=== PATIENT | female | born 1950 | race Caucasian/White ===

== ENCOUNTER 2017-07-09 11:48 | Inpatient (IN) | payer MEDICARE, OTHER ==
[2017-07-09] MEDS ORDERED: SODIUM CHLORIDE 0.9% 1,000 ML IV ONE (12:51)
[2017-07-09] MEDS ORDERED: LIDOCAINE 2% INJ 20 MG/ML (20 ML MDV) ONE (16:05)
[2017-07-09] MEDS ORDERED: MIDAZOLAM 2 MG/2 ML VIAL ONE (16:05)
[2017-07-09] MEDS ORDERED: HEPARIN SODIUM 1,000 UN/ML (10ML VL) ONE (16:05)
[2017-07-09] MEDS ORDERED: VERAPAMIL 2.5 MG/ML 2 ML AMP ONE (16:06)
[2017-07-09] MEDS ORDERED: HYDROmorphone 2 MG/ML 1 ML SYRINGE ONE (16:41)
[2017-07-09] MEDS: HYDROmorphone 2 MG/ML 1 ML SYRINGE IV ONE ×2 (16:42→17:06)
[2017-07-09] MEDS ORDERED: LIDOCAINE 2% INJ 20 MG/ML IV ONE ×2 (16:47→16:55)
[2017-07-09] MEDS ORDERED: IOHEXOL 350 MG/ML 125ML BOTTLE INJ ONE (17:12)
[2017-07-09] MEDS ORDERED: RX INFO: IV CONTRAST WAS GIVEN 1 EACH MISC MISCELLANE PRN (17:22)
[2017-07-09] MEDS ORDERED: SODIUM CHLORIDE 0.9% 1,000 ML in EMPTY BAG 1 BAG IV ONE (17:43)
[2017-07-09] MEDS ORDERED: ATORVASTATIN 80 MG TAB PO STA (17:43)
[2017-07-09] MEDS ORDERED: ASPIRIN 325 MG TAB PO STA (17:43)
[2017-07-09] MEDS ORDERED: ALPRAZolam 0.25 MG TAB PO PRN (17:43)
[2017-07-09] MEDS ORDERED: NITROGLYCERIN SL TABS 0.4 MG TAB SUBLINGUAL PRN (17:43)
[2017-07-09] MEDS: SODIUM CHLORIDE 0.9% 1,000 ML IV SCH (18:46)
[2017-07-09] MEDS: traZODone HCL 100 MG TAB PO SCH (20:38)
[2017-07-09] MEDS: FUROSEMIDE 20 MG TAB PO SCH (20:38)
[2017-07-09] MEDS: HYDROcodone/APAP 7.5-325MG 1 EACH TAB PO PRN (21:43)
[2017-07-10] MEDS: ALPRAZolam 0.5 MG TAB PO PRN (02:08)
[2017-07-10] MEDS: SODIUM CHLORIDE 0.9% 1,000 ML IV SCH (06:20)
[2017-07-10] MEDS: LEVOTHYROXINE 125 MCG TAB PO SCH (06:22)
[2017-07-10 06:46] LABS: Basophils # (A) 0.1 k/uL (0-0.2); Basophils % (A) 1 %; CH 29.7; CHCM 33.6; Eosinophils # (A) 0.4 k/uL (0-0.7); Eosinophils % (A) 5 %; HDW 2.62; HGB 13.3 gm/dL (11.4-16.0); Luc % (Auto) 3; Lymphocytes # (A) 1.8 k/uL (1.0-4.8); Lymphocytes % (A) 28 %; MCH 28.8 pg (25.0-35.0); MCHC 32.4 g/dL (31.0-37.0); MCV 88.8 fL (80.0-100.0); Mean Platelet Volume 9.1; Monocytes # (A) 0.7 k/uL (0-1.0); Monocytes % (A) 11 %; Neutrophils # (A) 3.4 k/uL (1.3-7.7); Neutrophils % (A) 52 %; RBC 4.62 m/uL (3.80-5.40); RDW 13.2 % (11.5-15.5); WBC 6.6 k/uL (3.8-10.6); WBC (Perox) 7.05
[2017-07-10 07:05] LABS: Anion Gap 9 mmol/L; Blood Urea Nitrogen 8 mg/dL (7-17); Calcium 8.3 mg/dL (8.4-10.2); Carbon Dioxide 27 mmol/L (22-30); Chloride 105 mmol/L (98-107); Glucose 116 mg/dL (74-99); Non-African American GFR(MDRD) >60 (>60 ml/min/1.73 sqM); Potassium 4.1 mmol/L (3.5-5.1); Sodium 141 mmol/L (137-145)
[2017-07-10] MEDS: CLOPIDOGREL 75 MG TAB PO SCH (08:32)
[2017-07-10] MEDS: FUROSEMIDE 20 MG TAB PO SCH ×2 (08:33→21:19)
[2017-07-10] MEDS: LISINOPRIL 20 MG TAB PO SCH (08:33)
[2017-07-10] MEDS: VENLAFAXINE HCL ER 150 MG CAP PO SCH (08:33)
[2017-07-10] MEDS: POTASSIUM CHLORIDE ER 10 MEQ TAB.ER.PRT PO SCH (08:33)
[2017-07-10] MEDS: METOPROLOL SUCCINATE (ER) 25 MG TAB.ER.24H PO SCH (08:33)
--- NOTE | 2017-07-10 12:06 | P.PN ---
Subjective Principal diagnosis: Chest discomfort This is a pleasant 67-year-old female patient who presented to the hospital with a chest discomfort concerning for angina. She underwent a heart catheterization yesterday by Dr. ENDY Coello and was found to have mild nonobstructive CAD. I'll follow-up with her today, she denies having any chest pain or discomfort or difficulty breathing. The right groin is soft and nontender and without any bruises. Hemodynamically she is hypotensive with systolic blood pressure below 100 mmHg. I will decrease the dose of lisinopril to 20 mg by mouth daily. Monitor the patient's blood pressure. Follow-up on the echocardiogram. Objective - Vital Signs Vital signs: Vital Signs Temp 97.1 F L 07/10/17 04:00 Pulse 92 07/10/17 04:00 Resp 18 07/10/17 04:00 BP 94/56 07/10/17 04:00 Pulse Ox 92 L 07/10/17 04:00 Intake & Output 07/09/17 07/10/17 07/10/17 18:59 06:59 18:59 Intake Total 400 Output Total 100 Balance 400 -100 Weight 96.615 kg 98.2 kg Intake: IV 325 Sodium Chloride 0.9% 1, 75 000 ml @ 75 mls/hr IV . [id number] PJ Rx#:[id number] Intake, IV Titration 75 Amount Sodium Chloride 0.9% 1, 75 000 ml @ 75 mls/hr IV . [id number] PJ Rx#:[id number] Output: Urine 100 Other: # Voids 2 1 - Constitutional General appearance: Present: no acute distress - Respiratory Respiratory: bilateral: CTA - Cardiovascular Rhythm: regular Heart sounds: normal: S1, S2 - Labs CBC & Chem 7: 07/10/17 06:09 07/10/17 06:09 Labs: Abnormal Lab Results - Last 24 Hours (Table) 07/10/17 Range/Units 06:09 Glucose 116 H (74-99) mg/dL Calcium 8.3 L (8.4-10.2) mg/dL Assessment and Plan Plan: This is a pleasant 67-year-old female patient who presented to the chest discomfort and underwent a heart catheterization and was found to have mild nonobstructive CAD. Clinically she is asymptomatic. Hemodynamically she is hypotensive and will decrease the dose of lisinopril and follow-up with her.
[2017-07-10] MEDS: ASPIRIN 81 MG CHEW PO SCH (12:29)
[2017-07-10] MEDS: CHOLECALCIFEROL 1,000 UNIT TAB PO SCH (12:30)
[2017-07-10] MEDS: diphenhydrAMINE 25 MG CAP PO PRN (13:17)
--- NOTE | 2017-07-10 18:03 | ECHOF ---
Referral Reason:CAD,HOCM ? MEASUREMENTS -------- HEIGHT: 152.4 cm WEIGHT: 96.6 kg BP: 130/50 IVSd: 1.5 cm (0.6 - 1.1) LVIDd: 3.7 cm (3.9 - 5.3) LVPWd: 1.3 cm (0.6 - 1.1) IVSs: 2.1 cm LVIDs: 3.4 cm LVPWs: 1.5 cm LAESV Index (A-L): 31.64 ml/m IVSd: 1.4 cm (0.6 - 1.1) LVIDd: 2.9 cm (3.9 - 5.3) LVPWd: 1.5 cm (0.6 - 1.1) IVSs: 1.6 cm LVIDs: 1.1 cm LVPWs: 2.2 cm EDV(Teich): 32 ml ESV(Teich): 3 ml EF(Teich): 91 % %FS: 62 % SV(Teich): 29 ml Ao Diam: 3.4 cm (2.0 - 3.7) LA Diam: 4.2 cm (2.7 - 3.8) MV EXCURSION: 15.488 mm (> 18.000) MV EF SLOPE: 61 mm/s (70 - 150) EPSS: 0.5 cm MV E Gus: 0.79 m/s MV DecT: 235 ms MV A Gus: 1.12 m/s MV E/A Ratio: 0.71 AV maxP.99 mmHg AV meanP.82 mmHg RAP: 5.00 mmHg RVSP: 25.15 mmHg FINDINGS -------- Sinus rhythm. Morbid Obesity This was a techncally difficult study with suboptimal views, , Definity utilized for enhancement of images. Pt. not compliant. There is moderate concentric left ventricular hypertrophy. Overall left ventricular systolic function is low-normal with, an EF between 50 - 55 %. Sigmoid Septum Distal Septal Hypokinesis. The right ventricle is normal in size. LA is midly dilated 29-33ml/m2. The right atrial size is normal. 1.5MG OF DEFINITY UTLIZED: 2 OR MORE WALL SEGMENTS NOT VISUALIZED. The aortic valve is trileaflet, and appears structurally normal. No aortic stenosis or regurgitation. Mild mitral regurgitation is present. Mild tricuspid regurgitation present. There is no evidence of pulmonary hypertension. The right ventricular systolic pressure, as measured by Doppler, is 25.15mmHg. The pulmonic valve was not well visualized. The aortic root size is normal. There is no pericardial effusion. CONCLUSIONS -------- 1. Morbid Obesity 2. Mild tricuspid regurgitation present. 3. There is no evidence of pulmonary hypertension. 4. The right ventricular systolic pressure, as measured by Doppler, is 25.15mmHg. 5. The pulmonic valve was not well visualized. 6. This was a techncally difficult study with suboptimal views, , Definity utilized for enhancement of images. 7. Pt. not compliant. 8. There is moderate concentric left ventricular hypertrophy. 9. Overall left ventricular systolic function is low-normal with, an EF between 50 - 55 %. 10. Sigmoid Septum 11. Distal Septal Hypokinesis. 12. 1.5MG OF DEFINITY UTLIZED: 2 OR MORE WALL SEGMENTS NOT VISUALIZED. 13. Mild mitral regurgitation is present. CAMP HOUSEKEEPER: Melinda Oakes RDCS
--- NOTE | 2017-07-10 19:50 | CC ---
DATE OF SERVICE: 07/09/2017 PROCEDURE: Left heart catheterization, coronary angiography, and left ventriculography. PERFORMED BY: Dr. Young Coello. CLINICAL INFORMATION: Mrs. Preeti Nettles is a 67 year old lady with a history of hypertension, hyperlipidemia, CAD, previous stenting of mid LAD performed initially in 2008 and a restenotic lesion and repeat stenting in 2009. In 2011, her LAD was patent. She presented to [facility] with chest pain suggestive of angina and was transferred here for cardiac catheterization since their tanbark laborer was not functioning. PROCEDURE NOTE: Under local anesthesia and strict aseptic precautions, a 6 Turkmen introducer was placed in the right femoral artery. Initially I attempted from right radial but I had difficulty with axis. I did not place him in a sheath in the right radial and therefore a pressure bandage was applied. Standard Jimenez catheters were used to perform coronary angiography and a pigtail catheter was used to performed LV gram. The patient tolerated the procedure well. An Angio-Seal device was used to secure hemostasis. She was sent to the room in stable condition. Results were discussed with the patient and family. CARDIAC CATHETERIZATION FINDINGS: The left ventricle end diastolic pressure was about 16 mmHg and there was no gradient across the aortic valve. CORONARY ANGIOGRAPHY FINDINGS: Right coronary artery: Technically a small non-dominant vessel. Some selective injections were made. There are minor irregularities. No significant disease is noted. Injections are mostly subselective and the caliber of the vessel is small and distribution is small. Left main coronary artery: Short, patent, disease free vessel that bifurcates into LAD and circumflex. Left anterior descending coronary artery: Good caliber vessel extends along the anterior wall. In the mid portion at the site of previous stenting, the vessel is widely patent with no more than 30% narrowing. Beyond this, there are minor irregularities and extends all the way to the apex supplying a sizable amount of myocardium. It gives off two diagonal branches and several septal branches all of which are free of significant disease. The LAD therefore is widely patent at the site of previous stenting with no more than 30% narrowing. Left posterior circumflex coronary artery: Dominant vessel gives off two obtuse marginal branches and then runs distally. Gives off a posterolateral branch. There is no significant disease involving the distal branch of the circumflex which are dominant. There are only minor irregularities noted. LEFT VENTRICULOGRAM: This was performed in 30 degree MÉNDEZ projection, ejection fraction was normal. There appears to be mid cavitary constriction with apical hypokinesia but I think this is more related to possible hypertrophy cardiomyopathy type picture. There is a mid cavitary constriction noted. The ejection fraction appears to be normal in the range of 55%. I reviewed the LV gram from 2008 and a similar ventriculogram was noted. This patient received moderate conscious sedation for a total duration of 30 minutes. Dilaudid and Benadryl was given. The patients oxygen saturation was monitored and was good. The results were discussed with the patient and the family. She will be sent to the room in stable condition. REGINALD
--- NOTE | 2017-07-10 19:52 | MISC ---
Dear Dr. Mortensen: Thank you for the opportunity to participate in the care of Mrs. Preeti Nettles. I am pleased to report to you that she does not have any significant stenosis in the LAD distribution. The vessel is widely patent. I am recommending continued medical therapy with risk factor modification. She can be discharged tomorrow but I will perform an echocardiogram to assess the LV and there appears to be hypertrophic type picture on the LV gram. I will clarify this with an echocardiogram. Thank you for your referral and please call for questions. With kindest regards, Sincerely, REGINALD
[2017-07-10] MEDS: traZODone HCL 100 MG TAB PO SCH (21:19)
[2017-07-10] MEDS: ATORVASTATIN 40 MG TAB PO SCH (21:19)
[2017-07-10] MEDS: HYDROcodone/APAP 7.5-325MG 1 EACH TAB PO PRN (22:40)
[2017-07-11] MEDS: ALPRAZolam 0.5 MG TAB PO PRN (00:15)
[2017-07-11] MEDS: diphenhydrAMINE 25 MG CAP PO PRN (00:15)
[2017-07-11] MEDS: LEVOTHYROXINE 125 MCG TAB PO SCH (06:32)
[2017-07-11] MEDS: LISINOPRIL 20 MG TAB PO SCH (10:06)
[2017-07-11] MEDS: FUROSEMIDE 20 MG TAB PO SCH ×2 (10:06→19:44)
[2017-07-11] MEDS: POTASSIUM CHLORIDE ER 10 MEQ TAB.ER.PRT PO SCH (10:06)
[2017-07-11] MEDS: CLOPIDOGREL 75 MG TAB PO SCH (10:06)
[2017-07-11] MEDS: ASPIRIN 81 MG CHEW PO SCH (10:06)
[2017-07-11] MEDS: VENLAFAXINE HCL ER 150 MG CAP PO SCH (10:06)
--- NOTE | 2017-07-11 10:54 | P.DS ---
Providers Date of admission: 07/09/17 12:30 Attending physician: Dylan Coello Primary care physician: Alpesh Taylor [facility] Course: This is a pleasant 67-year-old female patient who presented to the hospital with a chest discomfort concerning for angina. She underwent a heart catheterization yesterday by Dr. ENDY Coello and was found to have mild nonobstructive CAD. I'll follow-up with her today, she denies having any chest pain or discomfort or difficulty breathing. The right groin is soft and nontender and without any bruises. Hemodynamically she seems to be stable. The patient and be discharged home to follow-up with Dr. ENDY Coello as an outpatient. Plan - Discharge Summary New Discharge Prescriptions: Continue Aspirin [Adult Low Dose Aspirin EC] 81 mg PO DAILY traZODone HCL [Desyrel] 100 mg PO HS Potassium Chloride ER [K-Dur 10] 10 meq PO BID Metoprolol Succinate (ER) [Toprol XL] 50 mg PO DAILY Lisinopril 40 mg PO DAILY Levothyroxine Sodium [Synthroid] 125 mcg PO DAILY Furosemide [Lasix] 20 mg PO BID Famotidine 40 mg PO DAILY Clopidogrel [Plavix] 75 mg PO DAILY Cholecalciferol (Vitamin D3) [Vitamin D3] 2,000 unit PO DAILY Baclofen [Lioresal] 10 mg PO TID Atorvastatin [Lipitor] 10 mg PO HS Venlafaxine HCl [Effexor XR] 150 mg PO DAILY Multivitamin,Therapeutic [Thera] 1 tab PO DAILY Discharge Medication List Aspirin [Adult Low Dose Aspirin EC] 81 mg PO DAILY 07/09/17 [History] Atorvastatin [Lipitor] 10 mg PO HS 07/09/17 [History] Baclofen [Lioresal] 10 mg PO TID 07/09/17 [History] Cholecalciferol (Vitamin D3) [Vitamin D3] 2,000 unit PO DAILY 07/09/17 [History] Clopidogrel [Plavix] 75 mg PO DAILY 07/09/17 [History] Famotidine 40 mg PO DAILY 07/09/17 [History] Furosemide [Lasix] 20 mg PO BID 07/09/17 [History] Levothyroxine Sodium [Synthroid] 125 mcg PO DAILY 07/09/17 [History] Lisinopril 40 mg PO DAILY 07/09/17 [History] Metoprolol Succinate (ER) [Toprol XL] 50 mg PO DAILY 07/09/17 [History] Multivitamin,Therapeutic [Thera] 1 tab PO DAILY 07/09/17 [History] Potassium Chloride ER [K-Dur 10] 10 meq PO BID 07/09/17 [History] Venlafaxine HCl [Effexor XR] 150 mg PO DAILY 07/09/17 [History] traZODone HCL [Desyrel] 100 mg PO HS 07/09/17 [History] Follow up Appointment(s)/Referral(s): Dylan Coello MD [STAFF PHYSICIAN] - 1 Week
[2017-07-11] MEDS: CHOLECALCIFEROL 1,000 UNIT TAB PO SCH (17:44)
[2017-07-11] MEDS: traZODone HCL 100 MG TAB PO SCH (19:44)
[2017-07-11] MEDS: ATORVASTATIN 40 MG TAB PO SCH (19:44)
[2017-07-11] MEDS: HYDROcodone/APAP 7.5-325MG 1 EACH TAB PO PRN (20:09)
[2017-07-11] MEDS ORDERED: METOPROLOL SUCCINATE (ER) 25 MG TAB.ER.24H PO STA (21:14)
[2017-07-12] MEDS: LEVOTHYROXINE 125 MCG TAB PO SCH (06:29)
[2017-07-12] MEDS: ASPIRIN 81 MG CHEW PO SCH (08:03)
[2017-07-12] MEDS: CLOPIDOGREL 75 MG TAB PO SCH (08:04)
[2017-07-12] MEDS: METOPROLOL SUCCINATE (ER) 25 MG TAB.ER.24H PO SCH (08:04)
[2017-07-12] MEDS: LISINOPRIL 20 MG TAB PO SCH (08:04)
[2017-07-12] MEDS: POTASSIUM CHLORIDE ER 10 MEQ TAB.ER.PRT PO SCH (08:05)
[2017-07-12] MEDS: VENLAFAXINE HCL ER 150 MG CAP PO SCH (08:05)
[2017-07-12] MEDS: CHOLECALCIFEROL 1,000 UNIT TAB PO SCH (08:06)
[2017-07-12] MEDS: FUROSEMIDE 20 MG TAB PO SCH (08:07)
[2017-07-12 08:20] VITALS: RESP 18
[2017-07-12 13:21] VITALS: BP 152/89; PULSE 97; TEMP 97.5
--- NOTE | 2017-07-12 14:56 | P.PN ---
Subjective Principal diagnosis: Chest pain Discharge note This is a pleasant 67-year-old female who presented to the hospital with symptoms of chest pain concerning for angina. She underwent a cardiac catheterization by Dr. Hafsa Coello and was to have nonobstructive coronary artery disease. Patient was initially cleared for discharge yesterday but because of some issues regarding placement this was deferred to today. Case management and social work have been on her case, she is scheduled to be discharged home today. She denies any chest discomfort Objective - Vital Signs Vital signs: Vital Signs Temp 97.5 F L 07/12/17 11:35 Pulse 97 07/12/17 11:35 Resp 18 07/12/17 11:35 BP 152/89 07/12/17 11:35 Pulse Ox 96 07/12/17 11:35 Intake & Output 07/11/17 07/12/17 07/12/17 18:59 06:59 18:59 Intake Total 0 180 Output Total 2 300 1 Balance -2 -300 179 Weight 98.4 kg 97.3 kg Intake: Oral 0 180 Output: Urine 300 Stool 2 1 Other: Voiding Method Toilet Toilet # Voids 1 2 - Exam PHYSICAL EXAMINATION: HEENT: Head is atraumatic, normocephalic. Pupils equal, round. Neck is supple. There is no elevated jugular venous pressure. HEART EXAMINATION: Heart S1, S2 normal. No murmur or gallop heard. CHEST EXAMINATION: Lungs are clear to auscultation and precussion. No chest wall tenderness is noted on palpation or with deep breathing. ABDOMEN: Soft, obese, nontender. Bowel sounds are heard. No organomegaly noted] . EXTREMITIES:[ 2+ peripheral pulses with no evidence of peripheral edema and no calf tenderness noted]. NEUROLOGIC [patient is awake, alert and oriented -3.] . - Labs CBC & Chem 7: 07/10/17 06:09 07/10/17 06:09 Labs: Abnormal Lab Results - Last 24 Hours (Table) 07/11/17 Range/Units 21:47 D-Dimer 0.76 H (<0.60) mg/L FEU Assessment and Plan Plan: Assessment and plan Patient presented to the hospital with symptoms of chest discomfort. Cardiac catheterization did not reveal any evidence of any significant obstructive disease. She may be able to be discharged home. A follow-up appointment will be made for the patient in the office one week post discharge. Patient will be discharged home on aspirin 81 mg daily, Lipitor 40 mg daily, vitamin D3, Plavix 75 mg daily, Lasix 20 mg twice a day, Synthroid 125mcg daily, lisinopril 40 mg daily, Toprol 75 mg daily, Effexor 150 mg daily, sublingual nitroglycerin as needed for chest pain. DNP note has been reviewed, I agree with a documented findings and plan of care. Patient was seen and examined.
== END 2017-07-12 13:24 | disposition home or self-care (01) | DRG 287 ==
LOC: 2CATHESU 12:30 → EEVIPCON 12:30 → 6SEL 18:05
PROVIDERS: ADMIT Internal Medicine Interventional Cardiology; ATTEND Internal Medicine Interventional Cardiology
PROC: B2151ZZ Fluoroscopy of Left Heart using Low Osmolar Contrast (ICD-10-PCS; principal; 2017-07-09 15:57)
PROC: B2111ZZ Fluoroscopy of Multiple Coronary Arteries using Low Osmolar Contrast (ICD-10-PCS; principal; 2017-07-09 15:57)
PROC: 4A023N7 Measurement of Cardiac Sampling and Pressure, Left Heart, Percutaneous Approach (ICD-10-PCS; principal; 2017-07-09 15:57)
DX: I25.119 Atherosclerotic heart disease of native coronary artery with unspecified angina pectoris (principal); I10 Essential (primary) hypertension; Z95.5 Presence of coronary angioplasty implant and graft; Z79.899 Other long term (current) drug therapy; E78.5 Hyperlipidemia, unspecified; E66.9 Obesity, unspecified
CPT/HCPCS: 80048; 85025; 85379; 93306

== ENCOUNTER → 2018-01-12 | Outpatient (CLI) | payer MEDICARE, OTHER ==
--- NOTE | 2018-01-12 23:10 | MR ---
EXAMINATION TYPE: MR lumbar spine wo con DATE OF EXAM: 01/12/2018 COMPARISON: NONE HISTORY: Low back pain causing pain and weakness both legs per patient. Low back pain, disc degenerat ion, spondylosis, L2 wedge compression fracture, L4 wedge compression fracture, and L5 wedge compress ion fracture all per order. TECHNIQUE: Multiplanar, multisequence imaging of the lumbar spine is performed without IV contrast. FINDINGS: Sagittal images of the lumbar spine show alignment to appear straightened. There is mild he ight loss superior L5 endplate. There is advanced compression fracture L4 level most prominent centra lly. There is moderate compression fracture L2 level most prominent centrally. Prominent Schmorl node s are seen superior T12 and L1 endplates. Bone marrow signal intensity is maintained without suspicio us edema to suggest acute compression fractures. The intervertebral discs demonstrate multilevel devan ccation. The disc space heights are fairly well-maintained without suspicious posterior disc herniati on. No suspicious ossific posterior protrusions are seen. The conus medullaris is normal in position and signal ending at mid L1 level. Mild multilevel anterior spurring near the thoracolumbar junction is present. Axial images at the T12-L1 level shows tiny central disc protrusion mildly effacing the anterior thec al sac and mild facet degenerative changes bilaterally. Bilateral neural foramina are patent. Axial images at L1-L2 level show moderate broad disc bulge with right paracentral disc protrusion com ponent mildly effaces the anterior thecal sac. There are mild facet degenerative changes bilaterally. There is mild bilateral anterior inferior neural foraminal narrowing. Axial images at the L2-L3 level mild facet degenerative changes and ligamentum flavum hypertrophy. Th ere is no suspicious disc herniation. Bilateral neural foramina are patent. Axial images at the L3-L4 levels show broad-based posterior disc protrusion mildly effacing the anter ior thecal sac. Mild facet degenerative changes and ligamentum flavum hypertrophy are present bilater ally. There is mild bilateral anterior inferior neural foraminal narrowing identified. Axial images at L4-L5 level show mild/moderate facet degenerative changes bilaterally. There is broad -based posterior disc protrusion. Spinal canal is grossly preserved. There is mild/moderate bilateral neural foraminal narrowing at this level identified. Axial images at L5-S1 level show moderate facet degenerative changes bilaterally. There is tiny centr al disc protrusion seen. Spinal canal is preserved. Bilateral neural foramina are mildly narrowed. No suspicious retroperitoneal findings are identified. IMPRESSION: Straightening of lumbar spine with multilevel chronic compression type fracture deformiti es confirmed. Multilevel degenerative changes are also seen as detailed above. No acute fractures shante ntified.
== END | disposition home or self-care (01) ==
LOC: RADMRIMAIN 17:36
PROVIDERS: ATTEND Orthopaedic Surgery Orthopaedic Surgery of the Spine
DX: M48.56XA Collapsed vertebra, not elsewhere classified, lumbar region, initial encounter for fracture (principal); M47.816 Spondylosis without myelopathy or radiculopathy, lumbar region
CPT/HCPCS: 72148

== ENCOUNTER 2018-07-13 11:33 | Inpatient (IN) | payer MEDICARE, OTHER ==
--- NOTE | 2018-07-13 12:51 | ED ---
Upper Extremity HPI - General Source: patient, RN notes reviewed, old records reviewed Mode of arrival: ambulatory Limitations: no limitations <Lizbeth Shah - Last Filed: 07/13/18 18:50> <Ryan Phelan - Last Filed: 07/13/18 19:01> - General Chief Complaint: Extremity Injury, Upper Stated Complaint: slid off bed, shoulder pain Time Seen by Provider: 07/13/18 11:44 - History of Present Illness Initial Comments: 68-year-old female presents emergency department today with left shoulder pain and bilateral knee pain after she slipped and fell out of her bed. Patient reports that she pulled her arm. Patient reports pain with range of motion of the left arm. She does have history of left clavicle fracture in the past. Patient states that was many years ago. She denies any head or neck injury. She reports that she slipped out of bed and didn't realize she is alert. She denies any significant pain within her back or tailbone. She does ambulate with a walker. (Lizbeth Shah) - Related Data Home Medications Medication Instructions Recorded Confirmed Baclofen [Lioresal] 10 mg PO TID 07/09/17 07/13/18 Cholecalciferol (Vitamin D3) 2,000 unit PO DAILY 07/09/17 07/13/18 [Vitamin D3] Clopidogrel [Plavix] 75 mg PO DAILY 07/09/17 07/13/18 Famotidine 40 mg PO DAILY 07/09/17 07/13/18 Furosemide [Lasix] 20 mg PO DAILY 07/09/17 07/13/18 Levothyroxine Sodium [Synthroid] 125 mcg PO DAILY 07/09/17 07/13/18 Lisinopril 40 mg PO DAILY 07/09/17 07/13/18 Metoprolol Succinate (ER) [Toprol 75 mg PO DAILY 07/09/17 07/13/18 XL] Multivitamin,Therapeutic [Thera] 1 tab PO DAILY 07/09/17 07/13/18 Potassium Chloride ER [K-Dur 10] 10 meq PO TID 07/09/17 07/13/18 Venlafaxine HCl [Effexor XR] 150 mg PO DAILY 07/09/17 07/13/18 traZODone HCL [Desyrel] 100 mg PO HS 07/09/17 07/13/18 ALPRAZolam [Xanax] 0.25 mg PO TID PRN 07/13/18 07/13/18 Baclofen 5 mg PO TID PRN 07/13/18 07/13/18 Calcitonin Nasal [Fortical 1 spray NASAL DAILY 07/13/18 07/13/18 (Miacalcin)] Diphenox-Atrop 2.5-0.025 mg 1 tab PO QID PRN 07/13/18 07/13/18 [Lomotil] Gabapentin [Neurontin] 100 mg PO TID 07/13/18 07/13/18 HYDROcodone/APAP 7.5-325MG [[place] 1 tab PO TID PRN 07/13/18 07/13/18 7.5-325] Isosorbide Mononitrate ER [Imdur] 30 mg PO DAILY 07/13/18 07/13/18 Simvastatin [Zocor] 20 mg PO HS 07/13/18 07/13/18 amLODIPine [Norvasc] 10 mg PO DAILY 07/13/18 07/13/18 metFORMIN HCL ER [Glucophage Xr] 500 mg PO BID 07/13/18 07/13/18 Allergies Allergy/AdvReac Type Severity Reaction Status Date / Time aspirin Allergy Itching Verified 07/13/18 12:25 Review of Systems ROS Other: All systems not noted in ROS Statement are negative. <Lizbeth Shah - Last Filed: 07/13/18 18:50> ROS Other: All systems not noted in ROS Statement are negative. <Ryan Phelan - Last Filed: 07/13/18 19:01> ROS Statement: Those systems with pertinent positive or pertinent negative responses have been documented in the HPI. Past Medical History Past Medical History: Chest Pain / Angina, Diabetes Mellitus, Hyperlipidemia, Hypertension History of Any Multi-Drug Resistant Organisms: None Reported Past Surgical History: Heart Catheterization With Stent, Hysterectomy, Tubal Ligation Additional Past Surgical History / Comment(s): thyroidectomy Past Psychological History: No Psychological Hx Reported Smoking Status: Never smoker Past Alcohol Use History: None Reported Past Drug Use History: None Reported <Lizbeth Shah - Last Filed: 07/13/18 18:50> General Exam Limitations: no limitations General appearance: alert, in no apparent distress Head exam: Present: atraumatic, normocephalic, normal inspection Eye exam: Present: normal appearance, PERRL, EOMI. Absent: scleral icterus, conjunctival injection, periorbital swelling ENT exam: Present: normal exam, mucous membranes moist Neck exam: Present: normal inspection. Absent: tenderness, meningismus, lymphadenopathy Respiratory exam: Present: normal lung sounds bilaterally. Absent: respiratory distress, wheezes, rales, rhonchi, stridor Cardiovascular Exam: Present: regular rate, normal rhythm, normal heart sounds. Absent: systolic murmur, diastolic murmur, rubs, gallop, clicks GI/Abdominal exam: Present: soft, normal bowel sounds. Absent: distended, tenderness, guarding, rebound, rigid Extremities exam: Present: full ROM, normal capillary refill. Absent: normal inspection, tenderness, pedal edema, joint swelling, calf tenderness Left Shoulder Exam: Present: tenderness (Chest tenderness over the anterior aspect of the shoulder.). Absent: normal inspection Upper Arm exam: Present: normal inspection, full ROM Elbow exam: Present: normal inspection, full ROM Forearm Wrist exam: Present: normal inspection, full ROM Hand Wrist exam: Present: normal inspection, full ROM Neuro motor exam: Present: wrist extension intact, thumb opposition intact, thumb adduction intact Vascular: Present: normal capillary refill Back exam: Present: normal inspection Neurological exam: Present: alert, oriented X3, CN II-XII intact Expanded Patient oriented to: Present: person, place, time Speech: Present: fluid speech Cranial nerves: EOM's Intact: Normal Cerebellar function: Finger to Nose: Normal Upper motor neuron: Pronator Drift: Normal Sensory exam: Upper Extremity Light Touch: Normal, Lower Extremity Light Touch: Normal Motor strength exam: RUE: 5, LUE: 5, RLE: 5, LLE: 5 Eye Response: (4) open spontaneously Motor Response: (6) obeys commands Verbal Response: (5) oriented Rescue Total: 15 Psychiatric exam: Present: normal affect, normal mood Skin exam: Present: warm, dry, intact, normal color. Absent: rash <Lizbeth Shah - Last Filed: 07/13/18 18:50> <Ryan Phelan - Last Filed: 07/13/18 19:01> - General Exam Comments Initial Comments: Is a 68-year-old female. Alert and oriented. No significant distress. ( Lizbeth Shah) Course <Lizbeth Shah - Last Filed: 07/13/18 18:50> <Ryan Phelan - Last Filed: 07/13/18 19:01> Vital Signs 07/13/18 07/13/18 07/13/18 11:50 14:08 16:37 Temperature 98.3 F Pulse Rate 91 100 94 Respiratory 18 18 18 Rate Blood Pressure 156/64 154/86 125/77 O2 Sat by Pulse 92 L 94 L 100 Oximetry - Reevaluation(s) Reevaluation #1: 07/13/18 19:01 PA supervision: I personally saw and examined the patient. I have reviewed and agree with the PAs findings including all diagnostic interpretations treatment plans is written unless otherwise stated. I did discuss the case with the patient and with Dr. Bonds. Patient is currently persistently dizzy unstable with any type of attempts ambulate. She will require inpatient treatment and evaluation. (Ryan Phelan) Procedures - Orthopedic Splinting/Casting Injury #1 Side: left Upper Extremity Injury Location: shoulder Upper Extremity Immobilizer: sling/shoulder immobilizer <Lizbeth Shah - Last Filed: 07/13/18 18:50> Medical Decision Making - Lab Data Result diagrams: 07/13/18 14:06 07/13/18 14:06 - Radiology Data Radiology results: report reviewed <Lizbeth Shah - Last Filed: 07/13/18 18:50> - Lab Data Result diagrams: 07/13/18 14:06 07/13/18 14:06 <Ryan Phelan - Last Filed: 07/13/18 19:01> - Medical Decision Making 68-year-old female lives in assisted living home presents emergency department today with chief complaint of slipping off the bed and falling. She reports that she hit her left shoulder. She denies any other significant complaints besides her knees. No chest pain shortness breath this time. She denies any head or neck injury. Patient is tender to palpation over left shoulder. Patient has no radial deficit or neurological deficits. X-ray of the shoulder shows evidence of a displaced humeral fracture. I'm concerned with patient's ability to really care for herself if she does not typically ambulate with a walker with the shoulder injury at this time. She has no orthopedic that she sees at this time currently. Patient's labwork was obtained. Slight leukocytosis noted. She also has evidence of urinary tract infection. It is similar to admit the Patient for fall, humeral neck fracture, inability to perform her ADLs, and UTI. Patient was given Rocephin for UTI. Consult to neuro and ortho per . (Lizbeth Shah) - Lab Data Lab Results 07/13/18 07/13/18 07/13/18 Range/Units 14:06 14:06 15:14 WBC 12.2 H (3.8-10.6) k/uL RBC 5.12 (3.80-5.40) m/uL Hgb 14.7 (11.4-16.0) gm/dL Hct 44.3 (34.0-46.0) % MCV 86.5 (80.0-100.0) fL MCH 28.6 (25.0-35.0) pg MCHC 33.1 (31.0-37.0) g/dL RDW 12.7 (11.5-15.5) % Plt Count 235 (150-450) k/uL Neutrophils % 80 % Lymphocytes % 12 % Monocytes % 7 % Eosinophils % 0 % Basophils % 0 % Neutrophils # 9.7 H (1.3-7.7) k/uL Lymphocytes # 1.5 (1.0-4.8) k/uL Monocytes # 0.8 (0-1.0) k/uL Eosinophils # 0.0 (0-0.7) k/uL Basophils # 0.1 (0-0.2) k/uL Sodium 142 (137-145) mmol/L Potassium 4.3 (3.5-5.1) mmol/L Chloride 104 (98-107) mmol/L Carbon Dioxide 27 (22-30) mmol/L Anion Gap 11 mmol/L BUN 19 H (7-17) mg/dL Creatinine 0.60 (0.52-1.04) mg/dL Est GFR (CKD-EPI)AfAm >90 (>60 ml/min/1.73 sqM) Est GFR (CKD-EPI)NonAf >90 (>60 ml/min/1.73 sqM) Glucose 202 H (74-99) mg/dL Calcium 9.0 (8.4-10.2) mg/dL Total Bilirubin 0.4 (0.2-1.3) mg/dL AST 36 (14-36) U/L ALT 55 H (9-52) U/L Alkaline Phosphatase 92 (38-126) U/L Total Protein 7.7 (6.3-8.2) g/dL Albumin 4.4 (3.5-5.0) g/dL Urine Color Yellow Urine Appearance Cloudy H (Clear) Urine pH 6.0 (5.0-8.0) Ur Specific [place] 1.020 (1.001-1.035) Urine Protein Trace H (Negative) Urine Glucose (UA) Negative (Negative) Urine Ketones Negative (Negative) Urine Blood Trace H (Negative) Urine Nitrite Negative (Negative) Urine Bilirubin Negative (Negative) Urine Urobilinogen <2.0 (<2.0) mg/dL Ur Leukocyte Esterase Moderate H (Negative) Urine RBC 3 (0-5) /hpf Urine WBC 55 H (0-5) /hpf Ur Squamous Epith Cells 1 (0-4) /hpf Ur Transition Epith Cell <1 (0-1) /hpf Urine Bacteria Occasional H (None) /hpf Urine Mucus Occasional H (None) /hpf Urine Yeast (Budding) Rare H (None) /hpf - Radiology Data The knee x-rays show no acute fracture dislocation. Diffuse osteopenia and arthropathy. Left shoulder x-ray shows a displaced humeral neck fracture. ( Lizbeth Shah) Disposition Time of Disposition: 16:41 <Lizbeth Shah - Last Filed: 07/13/18 18:50> <Ryan Phelan - Last Filed: 07/13/18 19:01> Clinical Impression: UTI (urinary tract infection), Left humeral fracture, Fall, Sepsis, Altered mental state Disposition: ADMITTED IP TO THIS HOSP Condition: Good Referrals: Alpesh Mortensen MD [Primary Care Provider] - 1-2 days
--- NOTE | 2018-07-13 13:14 | XR ---
EXAMINATION TYPE: XR knee complete bilateral DATE OF EXAM: 07/13/2018 COMPARISON: NONE HISTORY: Pain TECHNIQUE: 3 views are submitted bilaterally. FINDINGS: Osseous structures are intact. No acute fracture seen. Diffuse osteopenia. Mild narrowing of the kn ee joint and patellofemoral joint bilaterally with hypertrophic spurring. IMPRESSION: 1. No acute fracture or dislocation. 2. Diffuse osteopenia and arthropathy.
--- NOTE | 2018-07-13 13:15 | XR ---
EXAMINATION TYPE: XR shoulder complete LT DATE OF EXAM: 07/13/2018 COMPARISON: NONE HISTORY: Pain TECHNIQUE: Three views are submitted. FINDINGS: There is a displaced fracture appears to be comminuted involving the neck of the humerus. Diffuse ost eopenia noted. Mild narrowing of the AC joint. IMPRESSION: 1. Displaced humeral neck fracture.
[2018-07-13] MEDS ORDERED: HYDROcodone/APAP 10-325MG 1 EACH TAB PO ONE (13:18)
[2018-07-13 14:26] LABS: ALT 55 U/L (9-52); AST 36 U/L (14-36); Albumin 4.4 g/dL (3.5-5.0); Alkaline Phosphatase 92 U/L (38-126); Anion Gap 11 mmol/L; Blood Urea Nitrogen 19 mg/dL (7-17); Carbon Dioxide 27 mmol/L (22-30); Chloride 104 mmol/L (98-107); Glucose 202 mg/dL (74-99); Potassium 4.3 mmol/L (3.5-5.1); Sodium 142 mmol/L (137-145); Total Bilirubin 0.4 mg/dL (0.2-1.3); Total Protein 7.7 g/dL (6.3-8.2)
[2018-07-13 14:29] LABS: Basophils # (A) 0.1 k/uL (0-0.2); Basophils % (A) 0 %; Eosinophils % (A) 0 %; HCT 44.3 % (34.0-46.0); HGB 14.7 gm/dL (11.4-16.0); Lymphocytes # (A) 1.5 k/uL (1.0-4.8); Lymphocytes % (A) 12 %; MCH 28.6 pg (25.0-35.0); MCHC 33.1 g/dL (31.0-37.0); MCV 86.5 fL (80.0-100.0); Mean Platelet Volume 8.3; Monocytes # (A) 0.8 k/uL (0-1.0); Monocytes % (A) 7 %; Neutrophils # (A) 9.7 k/uL (1.3-7.7); Neutrophils % (A) 80 %; Platelet Count 235 k/uL (150-450); RBC 5.12 m/uL (3.80-5.40); RDW 12.7 % (11.5-15.5); WBC 12.2 k/uL (3.8-10.6)
[2018-07-13] MEDS ORDERED: MORPHINE SULFATE 4 MG/ML SYRINGE IVP STA (15:47)
[2018-07-13 15:49] LABS: Appearance,Urine Cloudy (Clear); Bacteria,Urine Occasional /hpf; Bilirubin,Urine Negative (Negative); Blood,Urine Trace (Negative); Budding Yeast,Urine Rare /hpf; Color,Urine Yellow; Glucose,Urine (UA) Negative (Negative); Ketones,Urine Negative (Negative); Leukocyte Esterase,Urine Moderate (Negative); Mucus,Urine Occasional /hpf; Nitrite,Urine Negative (Negative); Protein,Urine Trace (Negative); RBC,Urine 3 /hpf (0-5); Squamous Epithelial Cell,Urine 1 /hpf (0-4); Transitional Epi Cells,Urine <1 /hpf (0-1); Urobilinogen,Urine <2.0 mg/dL (<2.0); WBC,Urine 55 /hpf (0-5)
[2018-07-13] MEDS ORDERED: SODIUM CHLORIDE 0.9% 1,000 ML IV ONE ×2 (15:51→15:54)
[2018-07-13] MEDS ORDERED: cefTRIAXone IN SWFI 1,000 MG/10 ML SYRINGE IVP STA (15:54)
[2018-07-13] MEDS ORDERED: SODIUM CHLORIDE 0.9% 1,000 ML IV SCH (16:00)
[2018-07-13] MEDS: SODIUM CHLORIDE 0.9% 1,000 ML IV SCH (16:49)
--- NOTE | 2018-07-13 18:09 | CT ---
EXAMINATION TYPE: CT brain wo con DATE OF EXAM: 07/13/2018 COMPARISON: None HISTORY: Pain CT DLP: 1097 mGycm Automated exposure control for dose reduction was used. FINDINGS: There is cerebral cortical atrophy. There is no mass effect nor midline shift. There is no sign of in tracranial hemorrhage. The calvarium is intact. There is some debris in the left external auditory ca nal. IMPRESSION: NEGATIVE CT SCAN OF THE BRAIN. CEREBRAL ATROPHY.
[2018-07-13] MEDS ORDERED: NALOXONE 0.4 MG/ML 1 ML VIAL IV PRN (18:53)
[2018-07-13] MEDS ORDERED: ACETAMINOPHEN TAB 325 MG TAB PO PRN (18:53)
[2018-07-13] MEDS ORDERED: BACLOFEN 10 MG TAB PO PRN (18:58)
[2018-07-13] MEDS: HYDROcodone/APAP 5-325MG 1 EACH TAB PO PRN (19:44)
--- NOTE | 2018-07-13 20:46 | CT ---
EXAMINATION TYPE: CT shoulder LT wo con DATE OF EXAM: 07/13/2018 COMPARISON: None HISTORY: Left shoulder fx CT DLP: 651.6 mGycm Automated exposure control for dose reduction was used. FINDINGS: There is impacted comminuted humeral neck fracture. There is no dislocation. There is fragment rotati on of the humeral head. The scapula is intact. AC joint is intact. IMPRESSION: IMPACTED DISPLACED COMMINUTED HUMERAL NECK FRACTURE.
--- NOTE | 2018-07-13 21:15 | P.CNNES ---
History of Present Illness Consult date: 07/13/18 History of Present Illness: The patient is a 68-year-old woman who resides at [facility] and who presented to the hospital after sliding off her bed this morning. She states she slid off and when she woke up she found herself on the floor. She does not think she passed out. She had great difficulty getting up. She landed on her left shoulder and that she has asymptomatic been experiencing shoulder pain since then. She denied hitting her head. She denied any headache or neck pain. She denies any new weakness or numbness aside from the left shoulder of problem. She denied any vertigo at present. Patient normally ambulates with a walker. She has been admitted for placement since she will have difficulty using her walker due to shoulder injury. Review of Systems Eyes: denies blurred vision, denies pain Cardiovascular: Denies chest pain, Denies shortness of breath Respiratory: Denies cough Musculoskeletal: Denies myalgias Neurological: Denies numbness, Denies weakness Psychiatric: Denies anxiety, Denies depression Past Medical History Past Medical History: Chest Pain / Angina, Diabetes Mellitus, Hyperlipidemia, Hypertension History of Any Multi-Drug Resistant Organisms: None Reported Past Surgical History: Heart Catheterization With Stent, Hysterectomy, Tubal Ligation Additional Past Surgical History / Comment(s): thyroidectomy Past Psychological History: No Psychological Hx Reported Smoking Status: Never smoker Past Alcohol Use History: None Reported Past Drug Use History: None Reported Medications and Allergies Home Medications Medication Instructions Recorded Confirmed Type Baclofen [Lioresal] 10 mg PO TID 07/09/17 07/13/18 History Cholecalciferol (Vitamin D3) 2,000 unit PO DAILY 07/09/17 07/13/18 History [Vitamin D3] Clopidogrel [Plavix] 75 mg PO DAILY 07/09/17 07/13/18 History Famotidine 40 mg PO DAILY 07/09/17 07/13/18 History Furosemide [Lasix] 20 mg PO DAILY 07/09/17 07/13/18 History Levothyroxine Sodium [Synthroid] 125 mcg PO DAILY 07/09/17 07/13/18 History Lisinopril 40 mg PO DAILY 07/09/17 07/13/18 History Metoprolol Succinate (ER) [Toprol 75 mg PO DAILY 07/09/17 07/13/18 History XL] Multivitamin,Therapeutic [Thera] 1 tab PO DAILY 07/09/17 07/13/18 History Potassium Chloride ER [K-Dur 10] 10 meq PO TID 07/09/17 07/13/18 History Venlafaxine HCl [Effexor XR] 150 mg PO DAILY 07/09/17 07/13/18 History traZODone HCL [Desyrel] 100 mg PO HS 07/09/17 07/13/18 History ALPRAZolam [Xanax] 0.25 mg PO TID PRN 07/13/18 07/13/18 History Baclofen 5 mg PO TID PRN 07/13/18 07/13/18 History Calcitonin Nasal [Fortical 1 spray NASAL DAILY 07/13/18 07/13/18 History (Miacalcin)] Diphenox-Atrop 2.5-0.025 mg 1 tab PO QID PRN 07/13/18 07/13/18 History [Lomotil] Gabapentin [Neurontin] 100 mg PO TID 07/13/18 07/13/18 History HYDROcodone/APAP 7.5-325MG [[place] 1 tab PO TID PRN 07/13/18 07/13/18 History 7.5-325] Isosorbide Mononitrate ER [Imdur] 30 mg PO DAILY 07/13/18 07/13/18 History Simvastatin [Zocor] 20 mg PO HS 07/13/18 07/13/18 History amLODIPine [Norvasc] 10 mg PO DAILY 07/13/18 07/13/18 History metFORMIN HCL ER [Glucophage Xr] 500 mg PO BID 07/13/18 07/13/18 History Allergies Allergy/AdvReac Type Severity Reaction Status Date / Time aspirin Allergy Itching Verified 07/13/18 12:25 Physical Examination - Vital Signs Vital Signs: Vital Signs Temp Pulse Resp BP Pulse Ox 07/13/18 19:17 98.0 F 108 H 18 160/85 94 L 07/13/18 16:37 94 18 125/77 100 07/13/18 14:08 100 18 154/86 94 L 07/13/18 11:50 98.3 F 91 18 156/64 92 L Intake and Output 07/13/18 07/13/18 07/13/18 06:59 14:59 22:59 Other: Weight 81.647 kg - Constitutional General appearance: obese - EENT EENT: PERRL, hearing intact, vision intact - Respiratory Respiratory: lungs clear - Cardiovascular Cardiovascular: regular rate, normal S1, normal S2 - Neurologic Logic examination: Next Mental status: She was awake alert and oriented. There is no a aphasia or dysarthria. Speech examination: intact Detailed motor examination: other (O focal weakness detected. Left arm mental was limited due to recent fall and injury) Results - Laboratory Findings CBC and BMP: 07/13/18 14:06 07/13/18 14:06 Abnormal Lab Findings: Abnormal Labs 07/13/18 07/13/18 07/13/18 14:06 14:06 15:14 WBC 12.2 H Neutrophils # 9.7 H BUN 19 H Glucose 202 H Plasma Lactic Acid [place] ALT 55 H Urine Appearance Cloudy H Urine Protein Trace H Urine Blood Trace H Ur Leukocyte Esterase Moderate H Urine WBC 55 H Urine Bacteria Occasional H Urine Mucus Occasional H Urine Yeast (Budding) Rare H 07/13/18 19:58 WBC Neutrophils # BUN Glucose Plasma Lactic Acid [place] 2.1 H* ALT Urine Appearance Urine Protein Urine Blood Ur Leukocyte Esterase Urine WBC Urine Bacteria Urine Mucus Urine Yeast (Budding) Assessment and Plan (1) Fall Current Visit: Yes Status: Acute SNOMED Code(s): 0485207 Plan: Patient is a 68-year-old woman status post fall and injury to left shoulder. She denies hitting her head. She denies any neck pain or headache or dizziness at this time. She had a computed tomography scan of the brain in the emergency room which was negative except for some atrophy. Will check EEG and carotid ultrasound.
[2018-07-13] MEDS: MORPHINE SULFATE 4 MG/ML SYRINGE IV PRN (21:46)
[2018-07-13] MEDS: GABAPENTIN 100 MG CAP PO SCH (22:16)
[2018-07-13] MEDS: POTASSIUM CHLORIDE ER 10 MEQ TAB.ER.PRT PO SCH (22:16)
[2018-07-13] MEDS: metFORMIN 500 MG TAB PO SCH (22:16)
[2018-07-13] MEDS: ATORVASTATIN 10 MG TAB PO SCH (22:16)
[2018-07-14] MEDS: ONDANSETRON 4 MG/2 ML VIAL IVP PRN (03:15)
[2018-07-14] MEDS: MORPHINE SULFATE 4 MG/ML SYRINGE IV PRN ×4 (03:16→21:46)
[2018-07-14] MEDS: SODIUM CHLORIDE 0.9% 1,000 ML IV SCH ×2 (04:29→15:33)
[2018-07-14] MEDS: HYDROcodone/APAP 5-325MG 1 EACH TAB PO PRN ×4 (05:53→19:57)
--- NOTE | 2018-07-14 07:00 | P.CNOR ---
History of Present Illness - [facility] Consult date: 07/14/18 Consult reason: joint pain History of present illness: The patient is a 68-year-old [id number] female who lives in an assisted living facility presents with severe left shoulder pain after a fall out of her bed yesterday. She doesn't recall loss of consciousness. She is unable to really lift her left arm at this point. She also notes some mild anterior knee pain as she had to crawl to get up. Normally she ambulates with a walker. Review of Systems Musculoskeletal: left: shoulder pain, shoulder swelling Past Medical History Past Medical History: Chest Pain / Angina, Diabetes Mellitus, Hyperlipidemia, Hypertension History of Any Multi-Drug Resistant Organisms: None Reported Past Surgical History: Cholecystectomy, Heart Catheterization With Stent, Hysterectomy, Tubal Ligation Additional Past Surgical History / Comment(s): thyroidectomy Past Anesthesia/Blood Transfusion Reactions: No Reported Reaction Date of Last Stent Placement:: 2010 Past Psychological History: Anxiety, Depression Smoking Status: Never smoker Past Alcohol Use History: None Reported Past Drug Use History: None Reported - Past Family History Mother History Unknown: Yes Family Medical History: Unable to Obtain Father Family Medical History: Myocardial Infarction (DC) Brother(s) Family Medical History: Liver Disease, Renal Disease Medications and Allergies Home Medications Medication Instructions Recorded Confirmed Type Baclofen [Lioresal] 10 mg PO TID 07/09/17 07/13/18 History Cholecalciferol (Vitamin D3) 2,000 unit PO DAILY 07/09/17 07/13/18 History [Vitamin D3] Clopidogrel [Plavix] 75 mg PO DAILY 07/09/17 07/13/18 History Famotidine 40 mg PO DAILY 07/09/17 07/13/18 History Furosemide [Lasix] 20 mg PO DAILY 07/09/17 07/13/18 History Levothyroxine Sodium [Synthroid] 125 mcg PO DAILY 07/09/17 07/13/18 History Lisinopril 40 mg PO DAILY 07/09/17 07/13/18 History Metoprolol Succinate (ER) [Toprol 75 mg PO DAILY 07/09/17 07/13/18 History XL] Multivitamin,Therapeutic [Thera] 1 tab PO DAILY 07/09/17 07/13/18 History Potassium Chloride ER [K-Dur 10] 10 meq PO TID 07/09/17 07/13/18 History Venlafaxine HCl [Effexor XR] 150 mg PO DAILY 07/09/17 07/13/18 History traZODone HCL [Desyrel] 100 mg PO HS 07/09/17 07/13/18 History ALPRAZolam [Xanax] 0.25 mg PO TID PRN 07/13/18 07/13/18 History Baclofen 5 mg PO TID PRN 07/13/18 07/13/18 History Calcitonin Nasal [Fortical 1 spray NASAL DAILY 07/13/18 07/13/18 History (Miacalcin)] Diphenox-Atrop 2.5-0.025 mg 1 tab PO QID PRN 07/13/18 07/13/18 History [Lomotil] Gabapentin [Neurontin] 100 mg PO TID 07/13/18 07/13/18 History HYDROcodone/APAP 7.5-325MG [[place] 1 tab PO TID PRN 07/13/18 07/13/18 History 7.5-325] Isosorbide Mononitrate ER [Imdur] 30 mg PO DAILY 07/13/18 07/13/18 History Simvastatin [Zocor] 20 mg PO HS 07/13/18 07/13/18 History amLODIPine [Norvasc] 10 mg PO DAILY 07/13/18 07/13/18 History metFORMIN HCL ER [Glucophage Xr] 500 mg PO BID 07/13/18 07/13/18 History Allergies Allergy/AdvReac Type Severity Reaction Status Date / Time aspirin Allergy Itching Verified 07/13/18 12:25 Physical Examination - Fracture left shoulder Appearance: swelling (Large) Compartments: soft Distal extremity neurovascularly intact: Yes Proximal joint involvement: No (Nontender left acromioclavicular and sternoclavicular joints) Distal joint involvement: No (Nontender left elbow and wrist) Results - Labs Labs: Abnormal Lab Results - Last 24 Hours (Table) 07/13/18 07/13/18 07/13/18 Range/Units 14:06 14:06 15:14 WBC 12.2 H (3.8-10.6) k/uL Neutrophils # 9.7 H (1.3-7.7) k/uL BUN 19 H (7-17) mg/dL Glucose 202 H (74-99) mg/dL Plasma Lactic Acid [place] (0.7-2.0) mmol/L ALT 55 H (9-52) U/L Urine Appearance Cloudy H (Clear) Urine Protein Trace H (Negative) Urine Blood Trace H (Negative) Ur Leukocyte Esterase Moderate H (Negative) Urine WBC 55 H (0-5) /hpf Urine Bacteria Occasional H (None) /hpf Urine Mucus Occasional H (None) /hpf Urine Yeast (Budding) Rare H (None) /hpf 07/13/18 Range/Units 19:58 WBC (3.8-10.6) k/uL Neutrophils # (1.3-7.7) k/uL BUN (7-17) mg/dL Glucose (74-99) mg/dL Plasma Lactic Acid [place] 2.1 H* (0.7-2.0) mmol/L ALT (9-52) U/L Urine Appearance (Clear) Urine Protein (Negative) Urine Blood (Negative) Ur Leukocyte Esterase (Negative) Urine WBC (0-5) /hpf Urine Bacteria (None) /hpf Urine Mucus (None) /hpf Urine Yeast (Budding) (None) /hpf Microbiology - Last 24 Hours (Table) 07/13/18 15:14 Urine Culture - Preliminary Urine,Voided H & H 07/13/18 Range/Units 14:06 Hgb 14.7 (11.4-16.0) gm/dL Hct 44.3 (34.0-46.0) % Result Diagrams: 07/13/18 14:06 07/13/18 14:06 - Diagnostic results Shoulder x-ray: image reviewed (Displaced left four-part proximal humerus fracture) Shoulder CT: image reviewed (Displaced left 4 part proximal humerus fracture) Assessment and Plan Assessment: Displaced left four-part proximal humerus fracture (1) Closed fracture of left proximal humerus Narrative/Plan: I discussed with the patient her condition and treatment options. She has a significantly displaced left four-part proximal humerus fracture. At this point , attempts to proceed with fixation would likely be difficult/unlikely to heal. I feel her best option at this point is to proceed with a left reverse shoulder arthroplasty. We'll plan for tomorrow morning if medically stable. Current Visit: Yes Status: Acute Code(s): S42.202A - UNSP FRACTURE OF UPPER END OF LEFT HUMERUS, INIT FOR CLOS FX SNOMED Code(s): 44217172 (2) Left humeral fracture Current Visit: Yes Status: Acute Code(s): S42.302A - UNSP FRACTURE OF SHAFT OF HUMERUS, LEFT ARM, INIT SNOMED Code(s): 87711221 Plan: Plan surgery for tomorrow morning to include left reverse total shoulder arthroplasty if medically stable.
[2018-07-14 07:29] LABS: INR 1.2 (<1.2); Prothrombin Time 11.2 sec (9.0-12.0)
[2018-07-14] MEDS: IBUPROFEN 400 MG TAB PO PRN (08:21)
[2018-07-14] MEDS: FUROSEMIDE 20 MG TAB PO SCH (08:22)
[2018-07-14] MEDS: metFORMIN 500 MG TAB PO SCH ×2 (08:22→17:21)
[2018-07-14] MEDS: amLODIPine 10 MG TAB PO SCH (08:22)
[2018-07-14 08:23] LABS: Glucose,Whole Blood 187 mg/dL (75-99)
[2018-07-14] MEDS: GABAPENTIN 100 MG CAP PO SCH ×3 (08:23→21:46)
[2018-07-14] MEDS: METOPROLOL SUCCINATE (ER) 25 MG TAB.ER.24H PO SCH (08:23)
[2018-07-14] MEDS: ISOSORBIDE MONONITRATE ER 30 MG TAB.ER.24H PO SCH (08:23)
[2018-07-14] MEDS: LISINOPRIL 20 MG TAB PO SCH (08:23)
[2018-07-14] MEDS: POTASSIUM CHLORIDE ER 10 MEQ TAB.ER.PRT PO SCH ×3 (08:23→21:46)
[2018-07-14] MEDS ORDERED: PANTOPRAZOLE 40 MG/10 ML VIAL IV SCH (09:00)
[2018-07-14] MEDS ORDERED: CLOPIDOGREL 75 MG TAB PO SCH (09:00)
--- NOTE | 2018-07-14 09:09 | US ---
EXAMINATION TYPE: US carotid duplex BILAT DATE OF EXAM: 07/14/2018 COMPARISON: NONE CLINICAL HISTORY: Fall /altered mental status. Fall, altered mental status, history of TIA, HTN, DM, exam done portable. EXAM MEASUREMENTS: RIGHT: Peak Systolic Velocity (PSV) cm/sec ----- Right CCA: ----- Right ICA: ----- Right ECA: ICA/CCA ratio: RIGHT: End Diastole cm/sec ----- Right CCA: ----- Right ICA: ----- Right ECA: LEFT: Peak Systolic Velocity (PSV) cm/sec ----- Left CCA: 89.2 ----- Left ICA: 98.3 ----- Left ECA: ICA/CCA ratio: 1.1 LEFT: End Diastole cm/sec ----- Left CCA: 24.5 ----- Left ICA: 36.7 ----- Left ECA: VERTEBRALS (direction of flow): Right Vertebral: Left Vertebral: Rhythm: Normal Difficult and limited study due to patient body habitus, thick neck, patient snoring during exam, p atient had recent back injury, unable to move or get into optimal position for scan, patient's neck t urned towards right side, unable to scan right carotid. Left carotid: intimal thickening, plaque in bulb, no elevated velocities, no significant stenosis see n, limited evaluation of ECA and vertebral due to limitations listed above. IMPRESSION: 1. Right side of the carotid system could not be evaluated as discussed above. 2. On the left there is atherosclerotic plaque but no definite significant hemodynamic stenosis. Limi everardo evaluation of the left external carotid artery. 3. Vertebral artery is nondiagnostic due to limitation of the exam. Criteria for Assigning % of Stenosis / Diameter reduction (Estimation based on the indirect measurements of the internal carotid artery velocities (ICA PSV). 1. Normal (no stenosis)=ICA PSV < 125 cm/s: ratio < 2.0: ICA EDV<40 cm/s. 2. Less than 50% stenosis=ICA PSV < 125 cm/s: ratio < 2.0: ICA EDV<40 cm/s. 3. 50 to 69% stenosis=ICA PSV of 125 to 230 cm/s: ration 2.0 ? 4.0: ICA EDV 40-100 cm/s. 4. Greater than 70% stenosis to near occlusion= ICA PSV > 230 cm/s: ratio > 4.0: ICA EDV > 100 cm/s. 5. Near occlusion= ICA PSV velocities may be low or undetectable: variable ratio and ICA EDV. 6. Total occlusion=unable to detect flow.
[2018-07-14] MEDS: cefTRIAXone IN SWFI 1,000 MG/10 ML SYRINGE IVP SCH (11:08)
[2018-07-14 11:31] LABS: Glucose,Whole Blood 192 mg/dL (75-99)
--- NOTE | 2018-07-14 14:19 | P.HPIM ---
History of Present Illness H&P Date: 07/14/18 Chief Complaint: Pain right shoulder This is a 68-year-old female patient of Dr. Mortensen with past medical history of coronary artery disease status post stent, diabetes mellitus type 2, hyperlipidemia, hypertension, generalized anxiety disorder, recurrent depression. Patient states that she rolled out of bed and then could not get up off the floor. She does not remember what happened but she does not think she lost consciousness. She states she called for help and now that he could hear her. She lives in the senior apartments at [facility]. She states she eventually was able to crawl to get help but complains of her shoulder hurting. She thinks she landed on her left shoulder and it has been painful ever since. Patient denies any difficulty with speech or weakness on either side of her body. Patient also has history of obstructive sleep apnea but does not use CPAP. Patient ambulates with a walker She came into [facility] emergency center for evaluation. Left shoulder x-ray showed displaced humeral neck fracture. X-ray of the bilateral knees showed no acute fracture or dislocation. Diffuse osteopenia and arthropathy. CAT scan of the brain was negative for acute findings. CT of the shoulder, left, revealed impacted displaced comminuted humeral neck fracture. White count is 12.2, hemoglobin 14.7, creatinine 0.6 with BUN 19, blood sugar 202, lactic acid initially 2.1 with repeat at 1.4. ALT is 55, other liver function tests within normal limits. Urinalysis was cloudy, leukoesterase moderate, blood trace, WBC 55, squamous cells 1. Patient was started on ceftriaxone and consults requested with neurology and orthopedics. Patient denies frequent falls at home. Patient has been seen by Dr. Chauhan with plan to proceed with a left reverse shoulder arthroplasty for tomorrow. Patient has also been seen by Dr. Kurtz and EEG and carotid ultrasound ordered. Carotid ultrasound reveals that the right side of the carotid system could not be evaluated. On the left there is plaque with no significant hemodynamic stenosis. Limited exam of the left external carotid artery. Vertebral artery is nondiagnostic due to limitation of the exam. Review of Systems All systems: negative Constitutional: Denies chills, Denies fatigue, Denies fever, Denies poor appetite Eyes: denies blurred vision, denies pain Ears, nose, mouth and throat: Denies headache, Denies sore throat, Denies vertigo Cardiovascular: Denies chest pain, Denies decreased exercise tolerance, Denies dyspnea on exertion, Denies leg edema, Denies lightheadedness, Denies shortness of breath, Denies syncope Respiratory: Denies cough, Denies cough with sputum, Denies dyspnea, Denies excessive sputum, Denies hemoptysis, Denies home oxygen, Denies wheezing Gastrointestinal: Denies abdominal pain, Denies diarrhea, Denies nausea, Denies vomiting Genitourinary: Denies dysuria, Denies hematuria Musculoskeletal: Reports gait dysfunction, Denies frequent falls, Denies myalgias Integumentary: Denies pruritus, Denies rash Neurological: Denies numbness, Denies weakness Psychiatric: Denies anxiety, Denies depression Endocrine: Denies fatigue, Denies weight change Past Medical History Past Medical History: Coronary Artery Disease (CAD), Diabetes Mellitus, Hyperlipidemia, Hypertension History of Any Multi-Drug Resistant Organisms: None Reported Past Surgical History: Cholecystectomy, Heart Catheterization With Stent, Hysterectomy, Tubal Ligation Additional Past Surgical History / Comment(s): thyroidectomy Past Anesthesia/Blood Transfusion Reactions: No Reported Reaction Date of Last Stent Placement:: 2010 Past Psychological History: Anxiety, Depression Smoking Status: Never smoker Past Alcohol Use History: None Reported Additional Past Alcohol Use History / Comment(s): She smokes cigarettes for 1 year. She denies any marijuana, street drug or alcohol use. She is . She lives alone in a senior apartment. Past Drug Use History: None Reported - Past Family History Mother History Unknown: Yes Family Medical History: Unable to Obtain Additional Family Medical History / Comment(s): Mother in her 80s. Patient does not know cause. Father Family Medical History: Myocardial Infarction (VT) Additional Family Medical History / Comment(s): Father in his 80s from a massive myocardial infarction. Brother(s) Family Medical History: Liver Disease, Renal Disease Additional Family Medical History / Comment(s): Patient has 1 brother and 3 sisters. Daughter(s) Additional Family Medical History / Comment(s): Patient has a total of 9 children. 2 at a very young age of 1 year of age, one was hit by a car and one drowned. Medications and Allergies Home Medications Medication Instructions Recorded Confirmed Type Baclofen [Lioresal] 10 mg PO TID 07/09/17 07/13/18 History Cholecalciferol (Vitamin D3) 2,000 unit PO DAILY 07/09/17 07/13/18 History [Vitamin D3] Clopidogrel [Plavix] 75 mg PO DAILY 07/09/17 07/13/18 History Famotidine 40 mg PO DAILY 07/09/17 07/13/18 History Furosemide [Lasix] 20 mg PO DAILY 07/09/17 07/13/18 History Levothyroxine Sodium [Synthroid] 125 mcg PO DAILY 07/09/17 07/13/18 History Lisinopril 40 mg PO DAILY 07/09/17 07/13/18 History Metoprolol Succinate (ER) [Toprol 75 mg PO DAILY 07/09/17 07/13/18 History XL] Multivitamin,Therapeutic [Thera] 1 tab PO DAILY 07/09/17 07/13/18 History Potassium Chloride ER [K-Dur 10] 10 meq PO TID 07/09/17 07/13/18 History Venlafaxine HCl [Effexor XR] 150 mg PO DAILY 07/09/17 07/13/18 History traZODone HCL [Desyrel] 100 mg PO HS 07/09/17 07/13/18 History ALPRAZolam [Xanax] 0.25 mg PO TID PRN 07/13/18 07/13/18 History Baclofen 5 mg PO TID PRN 07/13/18 07/13/18 History Calcitonin Nasal [Fortical 1 spray NASAL DAILY 07/13/18 07/13/18 History (Miacalcin)] Diphenox-Atrop 2.5-0.025 mg 1 tab PO QID PRN 07/13/18 07/13/18 History [Lomotil] Gabapentin [Neurontin] 100 mg PO TID 07/13/18 07/13/18 History HYDROcodone/APAP 7.5-325MG [Rhododendron 1 tab PO TID PRN 07/13/18 07/13/18 History 7.5-325] Isosorbide Mononitrate ER [Imdur] 30 mg PO DAILY 07/13/18 07/13/18 History Simvastatin [Zocor] 20 mg PO HS 07/13/18 07/13/18 History amLODIPine [Norvasc] 10 mg PO DAILY 07/13/18 07/13/18 History metFORMIN HCL ER [Glucophage Xr] 500 mg PO BID 07/13/18 07/13/18 History Allergies Allergy/AdvReac Type Severity Reaction Status Date / Time aspirin Allergy Itching Verified 07/13/18 12:25 Physical Exam Vitals: Vital Signs Temp Pulse Pulse Resp BP BP Pulse Ox 07/14/18 07:00 97.7 F 120 H 16 139/85 91 L 07/13/18 23:58 98.5 F 101 H 17 125/73 92 L 07/13/18 19:41 97.5 F L 110 H 18 141/79 92 L 07/13/18 19:17 98.0 F 108 H 18 160/85 94 L 07/13/18 16:37 94 18 125/77 100 07/13/18 14:08 100 18 154/86 94 L 07/13/18 11:50 98.3 F 91 18 156/64 92 L Intake and Output 07/13/18 07/14/18 07/14/18 22:59 06:59 14:59 Intake Total 500 1000 Balance 500 1000 Intake: Intake, IV Titration 500 800 Amount Sodium Chloride 0.9% 1, 500 800 000 ml @ 100 mls/hr IV . Q10H PJ Rx#:[id number] Other 200 Other: # Voids 2 4 Gen: This is a obese 68-year-old female. She is sitting up in bed and appears to be uncomfortable secondary to left shoulder pain. HEENT: Head is atraumatic, normocephalic. Pupils equal, round. Sclerae is anicteric. NECK: Supple. No JVD. No lymphadenopathy. No thyromegaly. LUNGS: Clear to auscultation. No wheezes or rhonchi. No intercostal retractions. HEART: Regular rate and rhythm. No murmur. ABDOMEN: Soft. Bowel sounds are present. No masses. No tenderness. EXTREMITIES: No pedal edema. No calf tenderness. Left shoulder, decreased range of motion. Arm sling in place. NEUROLOGICAL: Patient is awake, alert and oriented x3. Cranial nerves 2 through 12 are grossly intact. Results CBC & Chem 7: 07/13/18 14:06 07/13/18 14:06 Labs: Abnormal Lab Results - Last 24 Hours (Table) 07/13/18 07/13/18 07/13/18 Range/Units 14:06 14:06 15:14 WBC 12.2 H (3.8-10.6) k/uL Neutrophils # 9.7 H (1.3-7.7) k/uL INR (<1.2) BUN 19 H (7-17) mg/dL Glucose 202 H (74-99) mg/dL POC Glucose (mg/dL) (75-99) mg/dL Plasma Lactic Acid Felipe (0.7-2.0) mmol/L ALT 55 H (9-52) U/L Urine Appearance Cloudy H (Clear) Urine Protein Trace H (Negative) Urine Blood Trace H (Negative) Ur Leukocyte Esterase Moderate H (Negative) Urine WBC 55 H (0-5) /hpf Urine Bacteria Occasional H (None) /hpf Urine Mucus Occasional H (None) /hpf Urine Yeast (Budding) Rare H (None) /hpf 07/13/18 07/14/18 07/14/18 Range/Units 19:58 06:57 08:18 WBC (3.8-10.6) k/uL Neutrophils # (1.3-7.7) k/uL INR 1.2 H (<1.2) BUN (7-17) mg/dL Glucose (74-99) mg/dL POC Glucose (mg/dL) 187 H (75-99) mg/dL Plasma Lactic Acid Felipe 2.1 H* (0.7-2.0) mmol/L ALT (9-52) U/L Urine Appearance (Clear) Urine Protein (Negative) Urine Blood (Negative) Ur Leukocyte Esterase (Negative) Urine WBC (0-5) /hpf Urine Bacteria (None) /hpf Urine Mucus (None) /hpf Urine Yeast (Budding) (None) /hpf Microbiology - Last 24 Hours (Table) 07/13/18 15:14 Urine Culture - Preliminary Urine,Voided Thrombosis Risk Factor Assmnt - DVT/VTE Prophylaxis DVT/VTE Prophylaxis: Pharmacologic Prophylaxis ordered - Choose All That Apply Each Factor Represents 1 point: Sepsis (< 1month) Each Risk Factor Represents 2 Points: Age 61-74 years Thrombosis Risk Factor Assessment Total Risk Factor Score: 3 Thrombosis Risk Factor Assessment Level: Moderate Risk Assessment and Plan Plan: 1. Left humerus fracture. Patient seen by orthopedics with plan for left reverse total shoulder arthroplasty scheduled for tomorrow with Dr. Chauhan. 2. Fall out of bed. Patient denies any loss of consciousness. Neurology consult appreciated. Carotid ultrasound as above. EEG is pending. 3. Urinary tract infection with lactic acidosis, resolved. Urine and blood culture in progress. Continue ceftriaxone. 4. Diabetes mellitus type 2. Hemoglobin A1c ordered. Continue metformin. Patient started on NovoLog scale before meals and at bedtime 5. Hyperlipidemia. Continue Lipitor 10 mg at bedtime. 6. Hypertension. Continue Norvasc 10 mg daily, lisinopril 40 mg daily, metoprolol XR 75 mg daily. 7. Chronic pain. Continue baclofen 10 mg 3 times daily and from scheduled to as needed and 5 mg 3 times daily as needed discontinued, gabapentin 100 mg 3 times daily. 8. Generalized anxiety disorder and recurrent depression. Continue trazodone 100 mg at bedtime, Effexor X are 150 mg daily, Xanax 0.25 mg 3 times daily as needed. 9. Coronary artery disease status post stent. Continue indoor 30 mg daily.. 10. Hypothyroidism. Continue levothyroxine 125 g daily. 11. Gastroesophageal reflux disease and GI prophylaxis. Continue Pepcid. 12. DVT prophylaxis. Heparin subcu and DAVID hose. Patient will be admitted to the hospital for a minimum of 2 night stay. Discharge plan: [facility] for subacute rehab. PT and OT evaluations. Impression and plan of care have been directed as dictated by the signing physician. Africa Conner nurse practitioner acting as scribe for signing physician.
[2018-07-14] MEDS: HEPARIN SODIUM,PORCINE 5,000 UNIT/ML 1 ML VIAL SQ SCH (15:33)
[2018-07-14] MEDS ORDERED: BACLOFEN 10 MG TAB PO SCH (16:00)
[2018-07-14 16:48] LABS: Glucose,Whole Blood 200 mg/dL (75-99)
[2018-07-14] MEDS: INSULIN ASPART 100 UNIT/ML 1 ML 10 ML VIAL SQ SCH ×2 (17:21→21:46)
[2018-07-14] MEDS ORDERED: hydrOXYzine HCL 25 MG TAB PO PRN (19:17)
[2018-07-14] MEDS ORDERED: ONDANSETRON 4 MG/2 ML VIAL IVP ONE (20:45)
[2018-07-14] MEDS ORDERED: HYDROmorphone 0.5 MG/0.5 ML SYRINGE IVP PRN (20:45)
--- NOTE | 2018-07-14 21:21 | EEG ---
ELECTROENCEPHALOGRAM REPORT DATE OF EE07/14/2018. REFERRING PHYSICIAN: Dr. Bonds. CONSULTING/INTERPRETING PHYSICIAN: Dr. Marquis Kurtz MD ELECTROENCEPHALOGRAPHIC EXAMINATION REPORT: INDICATION FOR EXAMINATION: This patient is a 68-year-old female being evaluated for increased lethargy and confusion. AGE: [age]. EEG FINDINGS: A routine 21 channel awake digital EEG recording was accomplished utilizing the 10-20 international system with bipolar and referential montages. The background activity in the most alert resting state consists of a low to medium amplitude, poorly developed and poorly sustained 5-6 Hz activity over the posterior head regions. This posterior rhythm attenuates to eye opening. There is a small amount of low amplitude 18-20 Hz beta activity seen maximally over the anterior head regions. Muscle and movement artifact was observed on a few occasions during the tracing. Hyperventilation was not performed. Photic stimulation at flash frequencies of 2-30 Hz produced a minimal occipital driving response. No epileptiform discharges were seen. IMPRESSION: This EEG is moderately abnormal in a diffuse fashion due to slowing of the EEG background. The EEG failed to reveal any focal, lateralized, or epileptiform abnormalities. Clinical correlation is recommended. MMODL / IJN: [id number] /
[2018-07-14] MEDS: LACTATED RINGERS 1,000 ML IV SCH (21:30)
[2018-07-14 21:39] LABS: Glucose,Whole Blood 141 mg/dL (75-99)
[2018-07-14] MEDS: ATORVASTATIN 10 MG TAB PO SCH (21:46)
[2018-07-14] MEDS: traZODone HCL 100 MG TAB PO SCH (21:46)
[2018-07-15] MEDS: MORPHINE SULFATE 4 MG/ML SYRINGE IV PRN ×3 (01:36→12:09)
[2018-07-15] MEDS: HEPARIN SODIUM,PORCINE 5,000 UNIT/ML 1 ML VIAL SQ SCH ×3 (03:18→16:03)
[2018-07-15] MEDS: HYDROcodone/APAP 5-325MG 1 EACH TAB PO PRN ×3 (04:31→21:47)
[2018-07-15] MEDS: BACLOFEN 10 MG TAB PO PRN (04:32)
[2018-07-15] MEDS: SODIUM CHLORIDE 0.9% 1,000 ML IV SCH ×3 (04:58→18:27)
[2018-07-15] MEDS: LEVOTHYROXINE 125 MCG TAB PO SCH (06:07)
[2018-07-15 07:06] LABS: Glucose,Whole Blood 165 mg/dL (75-99)
[2018-07-15] MEDS: METOPROLOL SUCCINATE (ER) 25 MG TAB.ER.24H PO SCH (08:15)
[2018-07-15] MEDS ORDERED: IV FLUID CONTINUATION 1,000 ML IV ONE ×2 (08:30→10:04)
[2018-07-15] MEDS ORDERED: ONDANSETRON 4 MG/2 ML VIAL IVP ONE (08:56)
[2018-07-15] MEDS ORDERED: MIDAZOLAM 2 MG/2 ML VIAL ONE (09:42)
[2018-07-15 10:26] LABS: Glucose,Whole Blood 136 mg/dL (75-99)
--- NOTE | 2018-07-15 10:29 | P.PN ---
Progress Note - Text Progress Note Date: 07/15/18 The patient was brought to the operating room and anesthesia was started with the patient with O2 sats in the 50's prior to intubation. The procedure was cancelled at this point and sedation reversed. Anesthesia recommended cardiac and pulmonary evaluation/optimization prior to surgery. She was then transferred to recovery.
[2018-07-15] MEDS: INSULIN ASPART 100 UNIT/ML 1 ML 10 ML VIAL SQ SCH ×4 (11:47→21:46)
[2018-07-15] MEDS: CHOLECALCIFEROL 1,000 UNIT TAB PO SCH (11:47)
[2018-07-15] MEDS: metFORMIN 500 MG TAB PO SCH ×2 (11:47→14:52)
[2018-07-15] MEDS: VENLAFAXINE HCL ER 150 MG CAP PO SCH ×2 (11:48→14:25)
[2018-07-15] MEDS: FAMOTIDINE 20 MG TAB PO SCH ×2 (11:48→14:24)
[2018-07-15] MEDS: POTASSIUM CHLORIDE ER 10 MEQ TAB.ER.PRT PO SCH ×3 (11:48→21:47)
[2018-07-15] MEDS: FUROSEMIDE 20 MG TAB PO SCH (11:48)
[2018-07-15] MEDS: cefTRIAXone IN SWFI 1,000 MG/10 ML SYRINGE IVP SCH (12:04)
--- NOTE | 2018-07-15 12:52 | P.CNPUL ---
History of Present Illness Consult date: 07/15/18 Reason for consult: hypoxemia, obstructive sleep apnea Chief complaint: Low O2 saturations History of present illness: Pulmonary consult dated 07/15/2018 68-year-old female who presented to the emergency department with left shoulder pain and bilateral knee pain after she slipped and fell out of bed. She apparently sustained a fracture to the left shoulder/humerus. She apparently was going to the operating room today for a surgical repair and it was noted that she had very low saturations. For that reason, the operation was canceled and hence we were asked to see her to evaluate her low oxygen saturations. The patient apparently does also have a history of sleep apnea syndrome but apparently is noncompliant with CPAP. She is obese and could have a component of obesity/hypoventilation syndrome or pickwickian syndrome. She is a lifelong nonsmoker and would likely not have COPD. According to the health record, there is no history of any lung issues that she's not on any breathing medications. She apparently does have a history of diabetes hyperlipidemia hypertension. Currently, she is far too sleepy to really get much history from him. The most of given her something in the preoperative area to sedate her. Anyway, we did order a CT angiogram of the chest to rule out pulmonary embolism. It has not been done as yet. We also noted that her saturations while not on any oxygen for the couple days or so before today, were a bit low. Review of Systems ROS unobtainable: due to mental status Past Medical History Past Medical History: Coronary Artery Disease (CAD), Diabetes Mellitus, Hyperlipidemia, Hypertension History of Any Multi-Drug Resistant Organisms: None Reported Past Surgical History: Cholecystectomy, Heart Catheterization With Stent, Hysterectomy, Tubal Ligation Additional Past Surgical History / Comment(s): thyroidectomy Past Anesthesia/Blood Transfusion Reactions: No Reported Reaction Date of Last Stent Placement:: 2010 Past Psychological History: Anxiety, Depression Smoking Status: Never smoker Past Alcohol Use History: None Reported Additional Past Alcohol Use History / Comment(s): She smokes cigarettes for 1 year. She denies any marijuana, street drug or alcohol use. She is . She lives alone in a senior apartment. Past Drug Use History: None Reported - Past Family History Mother History Unknown: Yes Family Medical History: Unable to Obtain Additional Family Medical History / Comment(s): Mother in her 80s. Patient does not know cause. Father Family Medical History: Myocardial Infarction ([place]) Additional Family Medical History / Comment(s): Father in his 80s from a massive myocardial infarction. Brother(s) Family Medical History: Liver Disease, Renal Disease Additional Family Medical History / Comment(s): Patient has 1 brother and 3 sisters. Daughter(s) Additional Family Medical History / Comment(s): Patient has a total of 9 children. 2 at a very young age of 1 year of age, one was hit by a car and one drowned. Medications and Allergies Home Medications Medication Instructions Recorded Confirmed Type Baclofen [Lioresal] 10 mg PO TID 07/09/17 07/13/18 History Cholecalciferol (Vitamin D3) 2,000 unit PO DAILY 07/09/17 07/13/18 History [Vitamin D3] Clopidogrel [Plavix] 75 mg PO DAILY 07/09/17 07/13/18 History Famotidine 40 mg PO DAILY 07/09/17 07/13/18 History Furosemide [Lasix] 20 mg PO DAILY 07/09/17 07/13/18 History Levothyroxine Sodium [Synthroid] 125 mcg PO DAILY 07/09/17 07/13/18 History Lisinopril 40 mg PO DAILY 07/09/17 07/13/18 History Metoprolol Succinate (ER) [Toprol 75 mg PO DAILY 07/09/17 07/13/18 History XL] Multivitamin,Therapeutic [Thera] 1 tab PO DAILY 07/09/17 07/13/18 History Potassium Chloride ER [K-Dur 10] 10 meq PO TID 07/09/17 07/13/18 History Venlafaxine HCl [Effexor XR] 150 mg PO DAILY 07/09/17 07/13/18 History traZODone HCL [Desyrel] 100 mg PO HS 07/09/17 07/13/18 History ALPRAZolam [Xanax] 0.25 mg PO TID PRN 07/13/18 07/13/18 History Baclofen 5 mg PO TID PRN 07/13/18 07/13/18 History Calcitonin Nasal [Fortical 1 spray NASAL DAILY 07/13/18 07/13/18 History (Miacalcin)] Diphenox-Atrop 2.5-0.025 mg 1 tab PO QID PRN 07/13/18 07/13/18 History [Lomotil] Gabapentin [Neurontin] 100 mg PO TID 07/13/18 07/13/18 History HYDROcodone/APAP 7.5-325MG [[place] 1 tab PO TID PRN 07/13/18 07/13/18 History 7.5-325] Isosorbide Mononitrate ER [Imdur] 30 mg PO DAILY 07/13/18 07/13/18 History Simvastatin [Zocor] 20 mg PO HS 07/13/18 07/13/18 History amLODIPine [Norvasc] 10 mg PO DAILY 07/13/18 07/13/18 History metFORMIN HCL ER [Glucophage Xr] 500 mg PO BID 07/13/18 07/13/18 History Allergies Allergy/AdvReac Type Severity Reaction Status Date / Time aspirin Allergy Itching Verified 07/13/18 12:25 Physical Exam Osteopathic Statement: *. No significant issues noted on an osteopathic structural exam other than those noted in the History and Physical/Consult. Vitals: Vital Signs Temp Pulse Resp BP Pulse Ox 07/15/18 10:30 105 H 18 120/67 93 L 07/15/18 10:17 102 H 18 119/79 93 L 07/15/18 10:02 98 F 104 H 18 118/78 93 L 07/15/18 08:45 98.2 F 108 H 18 109/72 93 L 07/15/18 08:24 18 07/15/18 08:18 98 F 100 18 129/83 94 L 07/15/18 07:00 98.8 F 100 18 129/83 94 L 07/15/18 03:36 111 H 17 07/15/18 00:45 97.5 F L 111 H 17 129/85 95 07/15/18 00:00 111 H 17 07/14/18 20:00 98.4 F 113 H 20 121/79 94 L 07/14/18 15:00 98 F 92 16 103/64 92 L Intake and Output 07/14/18 07/15/18 07/15/18 22:59 06:59 14:59 Intake Total 400 Balance 400 Intake: IV 400 Other: Voiding Method Bedside Commode Bedside Commode No acute distress, very sleepy and lethargic. Nasal O2 in place. HEENT examination is grossly unremarkable. Mucous membranes are moist. No oral lesions. Neck supple. Full range of motion. No adenopathy thyromegaly or neck vein distention. Cardiovascular examination reveals regular rhythm rate. S1-S2 normal. No S3 or S4. No discernible murmur noted. Lungs reveal clear breath sounds. Her sounds are equal bilaterally. No adventitious lung sounds including wheezes rhonchi or crackles. Abdomen soft bowel sounds are heard. No masses or tenderness. Extremities are intact. No cyanosis clubbing or edema. Left shoulder and arm are in a sling. Skin is without rash or lesion. Neurologic examination is brief but nonfocal. Results - Laboratory Findings CBC and BMP: 07/13/18 14:06 07/13/18 14:06 PT/INR, D-dimer PT 11.2 sec (9.0-12.0) 07/14/18 06:57 INR 1.2 (<1.2) H 07/14/18 06:57 Abnormal lab findings: Abnormal Labs 07/13/18 07/13/18 07/13/18 14:06 14:06 15:14 WBC 12.2 H Neutrophils # 9.7 H INR BUN 19 H Glucose 202 H POC Glucose (mg/dL) Hemoglobin A1c Plasma Lactic Acid Felipe ALT 55 H Urine Appearance Cloudy H Urine Protein Trace H Urine Blood Trace H Ur Leukocyte Esterase Moderate H Urine WBC 55 H Urine Bacteria Occasional H Urine Mucus Occasional H Urine Yeast (Budding) Rare H 07/13/18 07/14/18 07/14/18 19:58 06:57 06:57 WBC Neutrophils # INR 1.2 H BUN Glucose POC Glucose (mg/dL) Hemoglobin A1c 8.0 H Plasma Lactic Acid Felipe 2.1 H* ALT Urine Appearance Urine Protein Urine Blood Ur Leukocyte Esterase Urine WBC Urine Bacteria Urine Mucus Urine Yeast (Budding) 07/14/18 07/14/18 07/14/18 08:18 11:29 16:47 WBC Neutrophils # INR BUN Glucose POC Glucose (mg/dL) 187 H 192 H 200 H Hemoglobin A1c Plasma Lactic Acid Felipe ALT Urine Appearance Urine Protein Urine Blood Ur Leukocyte Esterase Urine WBC Urine Bacteria Urine Mucus Urine Yeast (Budding) 07/14/18 07/15/18 07/15/18 21:37 07:05 10:23 WBC Neutrophils # INR BUN Glucose POC Glucose (mg/dL) 141 H 165 H 136 H Hemoglobin A1c Plasma Lactic Acid Felipe ALT Urine Appearance Urine Protein Urine Blood Ur Leukocyte Esterase Urine WBC Urine Bacteria Urine Mucus Urine Yeast (Budding) - Diagnostic Findings Chest x-ray: image reviewed (X-rays, labs and medications are reviewed.) Assessment and Plan Assessment: Assessment Status post fall with left shoulder/humerus fracture. Low oxygen saturations throughout this hospitalization which may relate to sleep apnea syndrome and/or pickwickian syndrome (obesity/hypoventilation syndrome) or could relate to something more ominous such as a pulmonary embolism. It doesn't appear that the patient has intrinsic pulmonary disease. History of hypertension History of hypothyroidism History of chronic pain syndrome History of hyperlipidemia History of diabetes History of vitamin D deficiency Plan: Plan dated 07/15/2018 We went ahead and ordered a CT angiogram to rule out pulmonary embolism. It does not appear that the patient has intrinsic pulmonary disease. She is a lifelong nonsmoker. Apparently there is no history of asthma, COPD, emphysema, chronic bronchitis, etc. The patient does have a history of sleep apnea syndrome noncompliant with CPAP so hypoxia may relate to this condition. In addition, because of the patient's body habitus, she also may have pickwickian syndrome. This will need to be evaluated in the outpatient setting. For the time being, we will recommend supplemental oxygen. Would also recommend incentive spirometry to be done every hour while awake and when necessary. I don't believe breathing treatments to be of any help. The patient may benefit from nocturnal CPAP. In addition, we'll await the results of the CT angiogram. Time with Patient: Greater than 30
--- NOTE | 2018-07-15 13:19 | CT ---
EXAMINATION TYPE: CT angio chest DATE OF EXAM: 07/15/2018 COMPARISON: Prior CT chest January 06, 2010 HISTORY: SOB, PE CT DLP: 1344 mGycm. Automated Exposure Control for Dose Reduction was Utilized. CONTRAST: CTA scan of the thorax is performed with IV Contrast, patient injected with 100 mL of Isovue 370, pul monary embolism protocol. MIP Images are created on CT scanner and reviewed. FINDINGS: LUNGS: Exam noted suboptimal due to significant respiratory motion artifact degradation. There are sm all to tiny right pleural effusion. There is tiny left pleural effusion. There is central groundglass opacity bilaterally felt to reflect mild alveolar edema. Reticular interstitial prominence throughou t the periphery is consistent with mild to moderate interstitial edema. There is bibasilar dependent atelectasis. There are additional scattered areas of atelectasis noted. No pneumothorax is seen bilat erally. MEDIASTINUM: There is suboptimal bolus with more dense contrast in aorta versus pulmonary arteries. T here is no large saddle or central pulmonary embolism, smaller segmental and subsegmental PE cannot b e excluded on this study.. There are no greater than 1 cm hilar or mediastinal lymph nodes. Some pr ominent but subcentimeter scattered thoracic lymph nodes are present. No significant pericardial effu rosy is seen. Mild cardiomegaly is present. There is coronary artery calcification which is noted mar ker for coronary artery disease. There is mild to moderate calcified plaque in the aorta. OTHER: There is mild diffuse subcutaneous edema anterior and superior to the sternal clavicular junct ion axial image 24 of uncertain etiology, correlate for recent blunt trauma. Liver is markedly hypode nse consistent with fatty infiltration. Prominent right hepatic lobe is present. Cholecystectomy clip s are identified. There is prominent vascular calcification of tortuous splenic artery. There is susp ected prominent Schmorl node superior L2 endplate partially imaged. Osseous structures are deminerali zed. There are scattered small hemangiomas involving the right aspect of the mid to lower thoracic sp ine with moderate to severe multilevel right lateral spurring. Mild edema in the left axilla is also felt present. IMPRESSION: 1. Suboptimal study likely due to a combination to patient's body habitus and inability to breath-hol d as well as patient noncooperation noted by technologist, there is no large central saddle pulmonary embolism. Smaller lobar, segmental, and subsegmental PE cannot be excluded on this study. 2. Correlate for CHF exacerbation as there is mild cardiomegaly with small to tiny right greater than left pleural effusions and suspected mild to moderate bilateral diffuse alveolar and interstitial ed anuradha. 3. Some subcutaneous edema in the left axilla and anterior superior to the sternal clavicular junctio n of uncertain etiology. Correlate for recent trauma particularly for the latter.
[2018-07-15] MEDS ORDERED: FUROSEMIDE 10 MG/ML 4 ML VIAL IV STA (14:10)
[2018-07-15] MEDS: ISOSORBIDE MONONITRATE ER 30 MG TAB.ER.24H PO SCH (14:24)
[2018-07-15] MEDS: MULTIVITAMINS, THERA 1 EACH TAB PO SCH (14:25)
[2018-07-15] MEDS: amLODIPine 10 MG TAB PO SCH (14:25)
[2018-07-15] MEDS: GABAPENTIN 100 MG CAP PO SCH ×3 (14:31→21:47)
[2018-07-15] MEDS: LISINOPRIL 20 MG TAB PO SCH (14:35)
--- NOTE | 2018-07-15 14:38 | P.PN ---
Subjective Progress Note Date: 07/15/18 This is a 68-year-old female patient of Dr. Mortensen with past medical history of coronary artery disease status post stent, diabetes mellitus type 2, hyperlipidemia, hypertension, generalized anxiety disorder, recurrent depression. Patient states that she rolled out of bed and then could not get up off the floor. She does not remember what happened but she does not think she lost consciousness. She states she called for help and now that he could hear her. She lives in the senior apartments at [facility]. She states she eventually was able to crawl to get help but complains of her shoulder hurting. She thinks she landed on her left shoulder and it has been painful ever since. Patient denies any difficulty with speech or weakness on either side of her body. Patient also has history of obstructive sleep apnea but does not use CPAP. Patient ambulates with a walker She came into [facility] emergency center for evaluation. Left shoulder x-ray showed displaced humeral neck fracture. X-ray of the bilateral knees showed no acute fracture or dislocation. Diffuse osteopenia and arthropathy. CAT scan of the brain was negative for acute findings. CT of the shoulder, left, revealed impacted displaced comminuted humeral neck fracture. White count is 12.2, hemoglobin 14.7, creatinine 0.6 with BUN 19, blood sugar 202, lactic acid initially 2.1 with repeat at 1.4. ALT is 55, other liver function tests within normal limits. Urinalysis was cloudy, leukoesterase moderate, blood trace, WBC 55, squamous cells 1. Patient was started on ceftriaxone and consults requested with neurology and orthopedics. Patient denies frequent falls at home. Patient has been seen by Dr. Chauhan with plan to proceed with a left reverse shoulder arthroplasty for tomorrow. Patient has also been seen by Dr. Kurtz and EEG and carotid ultrasound ordered. Carotid ultrasound reveals that the right side of the carotid system could not be evaluated. On the left there is plaque with no significant hemodynamic stenosis. Limited exam of the left external carotid artery. Vertebral artery is nondiagnostic due to limitation of the exam. 07/15: Patient is gone for surgery. Objective - Vital Signs Vital signs: Vital Signs Temp 98 F 07/15/18 10:02 Pulse 104 H 07/15/18 10:02 Resp 18 07/15/18 10:02 BP 118/78 08/17/18 10:02 Pulse Ox 93 L 07/15/18 10:02 Intake & Output 07/14/18 07/15/18 07/15/18 18:59 06:59 18:59 Intake Total 700 400 Balance 700 400 Intake: IV 400 Intake, IV Titration 700 Amount Sodium Chloride 0.9% 1, 700 000 ml @ 100 mls/hr IV . Q10H PJ Rx#:[id number] Other: Voiding Method Bedside Commode Bedside Commode # Voids 2 - Exam Gen: This is a obese 68-year-old female. She is sitting up in bed and appears to be uncomfortable secondary to left shoulder pain. HEENT: Head is atraumatic, normocephalic. Pupils equal, round. Sclerae is anicteric. NECK: Supple. No JVD. No lymphadenopathy. No thyromegaly. LUNGS: Clear to auscultation. No wheezes or rhonchi. No intercostal retractions. HEART: Regular rate and rhythm. No murmur. ABDOMEN: Soft. Bowel sounds are present. No masses. No tenderness. EXTREMITIES: No pedal edema. No calf tenderness. Left shoulder, decreased range of motion. Arm sling in place. NEUROLOGICAL: Patient is awake, alert and oriented x3. Cranial nerves 2 through 12 are grossly intact. - Labs CBC & Chem 7: 07/13/18 14:06 07/13/18 14:06 Labs: Abnormal Lab Results - Last 24 Hours (Table) 07/14/18 07/14/18 07/14/18 Range/Units 06:57 11:29 16:47 POC Glucose (mg/dL) 192 H 200 H (75-99) mg/dL Hemoglobin A1c 8.0 H (4.0-6.0) % 07/14/18 07/15/18 Range/Units 21:37 07:05 POC Glucose (mg/dL) 141 H 165 H (75-99) mg/dL Hemoglobin A1c (4.0-6.0) % Microbiology - Last 24 Hours (Table) 07/13/18 15:14 Urine Culture - Final Urine,Voided Strep agalactiae - (group b) 07/13/18 19:58 Blood Culture - Preliminary Blood No Growth after 24 hours Assessment and Plan Plan: 1. Left humerus fracture. Patient seen by orthopedics with plan for left reverse total shoulder arthroplasty scheduled for tomorrow with Dr. Chauhan. 2. Fall out of bed. Patient denies any loss of consciousness. Neurology consult appreciated. Carotid ultrasound as above. EEG is pending. 3. Urinary tract infection with lactic acidosis, resolved. Urine and blood culture in progress. Continue ceftriaxone. 4. Diabetes mellitus type 2. Hemoglobin A1c ordered. Continue metformin. Patient started on NovoLog scale before meals and at bedtime 5. Hyperlipidemia. Continue Lipitor 10 mg at bedtime. 6. Hypertension. Continue Norvasc 10 mg daily, lisinopril 40 mg daily, metoprolol XR 75 mg daily. 7. Chronic pain. Continue baclofen 10 mg 3 times daily and from scheduled to as needed and 5 mg 3 times daily as needed discontinued, gabapentin 100 mg 3 times daily. 8. Generalized anxiety disorder and recurrent depression. Continue trazodone 100 mg at bedtime, Effexor X are 150 mg daily, Xanax 0.25 mg 3 times daily as needed. 9. Coronary artery disease status post stent. Continue Imdur 30 mg daily. Noted patient is on Plavix but unsure of reason. Her last stent was 7 years ago. 10. Hypothyroidism. Continue levothyroxine 125 g daily. 11. Gastroesophageal reflux disease and GI prophylaxis. Continue Pepcid. 12. DVT prophylaxis. Heparin subcu and DAVID hose. Patient will be admitted to the hospital for a minimum of 2 night stay. Discharge plan: [facility] for subacute rehab. PT and OT evaluations. Impression and plan of care have been directed as dictated by the signing physician. Africa Conner nurse practitioner acting as scribe for signing physician.
--- NOTE | 2018-07-15 14:39 | ECHOF ---
Referral Reason:sob MEASUREMENTS -------- HEIGHT: 154.9 cm WEIGHT: 81.6 kg BP: IVSd: 1.6 cm (0.6 - 1.1) LVIDd: 4.2 cm (3.9 - 5.3) LVPWd: 1.3 cm (0.6 - 1.1) IVSs: 2.8 cm LVIDs: 1.5 cm LVPWs: 2.2 cm Ao Diam: 3.3 cm (2.0 - 3.7) AV Cusp: 2.1 cm (1.5 - 2.6) LA Diam: 3.6 cm (2.7 - 3.8) MV E Gus: 0.96 m/s MV DecT: 179 ms MV A Gus: 0.41 m/s MV E/A Ratio: 2.33 RAP: 5.00 mmHg RVSP: 8.79 mmHg FINDINGS -------- Sinus rhythm. This was a technically difficult study with suboptimal views. The left ventricular size is normal. There is moderate concentric left ventricular hypertrophy. O verall left ventricular systolic function is normal with, an EF between 55 - 60 %. The RV was not well visualized. The left atrium was not well visualized. The right atrium was not well visualized. The aortic valve was not well visualized. The mitral valve was not well visualized. There is trace mitral regurgitation. Trace tricuspid regurgitation present. The right ventricular systolic pressure, as measured by Dopp ler, is 8.79mmHg. The pulmonic valve was not well visualized. The pericardium is normal. CONCLUSIONS -------- 1. Sinus rhythm. 2. This was a technically difficult study with suboptimal views. 3. Limited study, pt has broken left shoulder in a sling. 4. The left ventricular size is normal. 5. There is moderate concentric left ventricular hypertrophy. 6. Overall left ventricular systolic function is normal with, an EF between 55 - 60 %. 7. The RV was not well visualized. 8. The left atrium was not well visualized. 9. The right atrium was not well visualized. 10. The aortic valve was not well visualized. 11. The mitral valve was not well visualized. 12. There is trace mitral regurgitation. 13. Trace tricuspid regurgitation present. 14. The right ventricular systolic pressure, as measured by Doppler, is 8.79mmHg. 15. The pulmonic valve was not well visualized. 16. The pericardium is normal. GEM CARVER: Yuli Keller RDCS
[2018-07-15] MEDS: ALPRAZolam 0.25 MG TAB PO PRN (14:48)
[2018-07-15] MEDS: IBUPROFEN 400 MG TAB PO PRN (14:48)
[2018-07-15 16:58] LABS: Glucose,Whole Blood 184 mg/dL (75-99)
[2018-07-15 20:36] LABS: Glucose,Whole Blood 143 mg/dL (75-99)
[2018-07-15] MEDS: LACTATED RINGERS 1,000 ML IV SCH (21:46)
[2018-07-15] MEDS: ATORVASTATIN 10 MG TAB PO SCH (21:46)
[2018-07-15] MEDS: traZODone HCL 100 MG TAB PO SCH (21:47)
[2018-07-16] MEDS: HEPARIN SODIUM,PORCINE 5,000 UNIT/ML 1 ML VIAL SQ SCH ×3 (00:14→15:43)
[2018-07-16] MEDS: MORPHINE SULFATE 4 MG/ML SYRINGE IV PRN ×5 (02:42→19:35)
[2018-07-16] MEDS: LEVOTHYROXINE 125 MCG TAB PO SCH (06:18)
[2018-07-16] MEDS: SODIUM CHLORIDE 0.9% 1,000 ML IV SCH ×2 (06:19→15:26)
[2018-07-16 06:59] LABS: Glucose,Whole Blood 152 mg/dL (75-99)
--- NOTE | 2018-07-16 09:31 | P.CRDCN ---
History of Present Illness Consult date: 07/16/18 History of present illness: This is a 68-year-old female with history of coronary artery disease, diabetes mellitus, hyperlipidemia and hypertension who was admitted to the hospital following a fall. Apparently she developed a fracture of the left shoulder and humerus. She was going to have surgery yesterday and but was canceled because of low saturations. This patient has history of coronary artery disease and previous stent placement. She follows with Dr. Coello. She does have possible sleep apnea and hypoventilation syndrome. She was seen by electric welder helper. She had an echocardiogram which showed normal LV function. Computed tomography scan apparently was negative for pulmonary emboli and was suggestive of possible CHF. Clinically, she is not complaining of any shortness of breath. Denies any chest pain. I'm going to get a BNP level. We'll also await final. With electric welder helper. May consider adding small dose of diuretic. Review of Systems As per the chart Past Medical History Past Medical History: Coronary Artery Disease (CAD), Diabetes Mellitus, Hyperlipidemia, Hypertension History of Any Multi-Drug Resistant Organisms: None Reported Past Surgical History: Cholecystectomy, Heart Catheterization With Stent, Hysterectomy, Tubal Ligation Additional Past Surgical History / Comment(s): thyroidectomy Past Anesthesia/Blood Transfusion Reactions: No Reported Reaction Date of Last Stent Placement:: 2010 Past Psychological History: Anxiety, Depression Smoking Status: Never smoker Past Alcohol Use History: None Reported Additional Past Alcohol Use History / Comment(s): She smokes cigarettes for 1 year. She denies any marijuana, street drug or alcohol use. She is . She lives alone in a senior apartment. Past Drug Use History: None Reported - Past Family History Mother History Unknown: Yes Family Medical History: Unable to Obtain Additional Family Medical History / Comment(s): Mother in her 80s. Patient does not know cause. Father Family Medical History: Myocardial Infarction (PR) Additional Family Medical History / Comment(s): Father in his 80s from a massive myocardial infarction. Brother(s) Family Medical History: Liver Disease, Renal Disease Additional Family Medical History / Comment(s): Patient has 1 brother and 3 sisters. Daughter(s) Additional Family Medical History / Comment(s): Patient has a total of 9 children. 2 at a very young age of 1 year of age, one was hit by a car and one drowned. Medications and Allergies Home Medications Medication Instructions Recorded Confirmed Type Baclofen [Lioresal] 10 mg PO TID 07/09/17 07/13/18 History Cholecalciferol (Vitamin D3) 2,000 unit PO DAILY 07/09/17 07/13/18 History [Vitamin D3] Clopidogrel [Plavix] 75 mg PO DAILY 07/09/17 07/13/18 History Famotidine 40 mg PO DAILY 07/09/17 07/13/18 History Furosemide [Lasix] 20 mg PO DAILY 07/09/17 07/13/18 History Levothyroxine Sodium [Synthroid] 125 mcg PO DAILY 07/09/17 07/13/18 History Lisinopril 40 mg PO DAILY 07/09/17 07/13/18 History Metoprolol Succinate (ER) [Toprol 75 mg PO DAILY 07/09/17 07/13/18 History XL] Multivitamin,Therapeutic [Thera] 1 tab PO DAILY 07/09/17 07/13/18 History Potassium Chloride ER [K-Dur 10] 10 meq PO TID 07/09/17 07/13/18 History Venlafaxine HCl [Effexor XR] 150 mg PO DAILY 07/09/17 07/13/18 History traZODone HCL [Desyrel] 100 mg PO HS 07/09/17 07/13/18 History ALPRAZolam [Xanax] 0.25 mg PO TID PRN 07/13/18 07/13/18 History Baclofen 5 mg PO TID PRN 07/13/18 07/13/18 History Calcitonin Nasal [Fortical 1 spray NASAL DAILY 07/13/18 07/13/18 History (Miacalcin)] Diphenox-Atrop 2.5-0.025 mg 1 tab PO QID PRN 07/13/18 07/13/18 History [Lomotil] Gabapentin [Neurontin] 100 mg PO TID 07/13/18 07/13/18 History HYDROcodone/APAP 7.5-325MG [[place] 1 tab PO TID PRN 07/13/18 07/13/18 History 7.5-325] Isosorbide Mononitrate ER [Imdur] 30 mg PO DAILY 07/13/18 07/13/18 History Simvastatin [Zocor] 20 mg PO HS 07/13/18 07/13/18 History amLODIPine [Norvasc] 10 mg PO DAILY 07/13/18 07/13/18 History metFORMIN HCL ER [Glucophage Xr] 500 mg PO BID 07/13/18 07/13/18 History Allergies Allergy/AdvReac Type Severity Reaction Status Date / Time aspirin Allergy Itching Verified 07/13/18 12:25 Physical Exam Vitals: Vital Signs Temp Pulse Resp BP Pulse Ox 07/16/18 07:15 97.6 F 105 H 16 127/81 95 07/16/18 00:12 97.7 F 96 18 123/77 94 L 07/15/18 20:30 97.7 F 94 16 111/66 93 L 07/15/18 19:22 3 L 07/15/18 15:00 99.3 F 109 H 16 89 L 07/15/18 12:00 121 H 135/64 07/15/18 11:45 120 H 12 132/88 07/15/18 11:30 105 H 12 126/85 91 L 07/15/18 10:30 105 H 18 120/67 93 L 07/15/18 10:17 102 H 18 119/79 93 L 07/15/18 10:02 98 F 104 H 18 118/78 93 L Intake and Output 07/15/18 07/16/18 07/16/18 22:59 06:59 14:59 Intake Total 200 800 Balance 200 800 Intake: Intake, IV Titration 800 Amount Sodium Chloride 0.9% 1, 800 000 ml @ 100 mls/hr IV . Q10H [facility] Rx#:[id number] Oral 200 Other: Voiding Method Bedside Commode # Voids 1 4 GENERAL EXAM: Patient is alert and oriented and doesn't appear to be in any acute distress HEENT: Normocephalic. Normal reaction of pupils, equal size, normal range of extraocular motion. No erythema or exudates in the throat. NECK: No masses, no nuchal rigidity. CHEST: No chest wall deformity. LUNGS: Diminished air entry both sides. No wheezing or rhonchi HEART: S1 and S2 normal with no audible mumurs or gallops. Regular rhythm, femorals equal on both sides.. ABDOMEN: No hepatosplenomegaly, normal bowel sounds, no guarding or rigidity. SKIN: No rashes CENTRAL NERVOUS SYSTEM: No focal deficits. EXTREMITIES: No cyanosis, clubbing or edema. Her left shoulder is in a sling Results - Results Results: EKG showed sinus tachycardia with a left axis deviation and old inferior wall PR 07/13/18 14:06 07/13/18 14:06 Cardiac Enzymes 07/15/18 Range/Units 12:03 Troponin I <0.012 (0.000-0.034) ng/mL Current Medications Generic Name Dose Route Start Last Admin Trade Name Freq PRN Reason Stop Dose Admin Acetaminophen 650 mg 07/13/18 18:53 Tylenol Tab PO Q6HR PRN Mild Pain or Fever > 100.5 Hydrocodone Bitart/Acetaminophen 1 each 07/13/18 18:53 07/15/18 21:47 [place] 5-325 PO 1 each Q4HR PRN Administration Moderate Pain Alprazolam 0.25 mg 07/13/18 18:58 07/15/18 14:48 Xanax PO 0.25 mg TID PRN Administration Anxiety Amlodipine Besylate 10 mg 07/14/18 09:00 07/15/18 14:25 Norvasc PO 10 mg DAILY PJ Administration Atorvastatin Calcium 10 mg 07/13/18 21:00 07/15/18 21:46 Lipitor PO 10 mg HS PJ Administration Baclofen 10 mg 07/14/18 14:10 07/15/18 04:32 Lioresal PO 10 mg TID PRN Administration muscle spasms Ceftriaxone Sodium 1,000 mg 07/14/18 09:00 07/15/18 12:04 Rocephin IVP 1,000 mg Q24HR PJ Administration Cholecalciferol 2,000 unit 07/15/18 09:00 07/15/18 11:47 Vitamin D3 PO Not Given DAILY PJ Famotidine 40 mg 07/15/18 09:00 07/15/18 14:24 Pepcid PO 40 mg DAILY PJ Administration Furosemide 20 mg 07/14/18 09:00 07/15/18 11:48 Lasix PO Not Given DAILY PJ Gabapentin 100 mg 07/13/18 22:00 07/15/18 21:47 Neurontin PO 100 mg TID PJ Administration Heparin Sodium (Porcine) 5,000 unit 07/14/18 16:00 07/16/18 00:14 Heparin SQ 5,000 unit Q8HR PJ Administration Hydroxyzine HCl 25 mg 07/14/18 19:17 07/14/18 21:47 Atarax PO 25 mg QID PRN Administration Itching Sodium Chloride 1,000 mls @ 100 mls/hr 07/13/18 16:00 07/16/18 06:19 Saline 0.9% IV 100 mls/hr .Q10H [facility] Administration Lactated Ringer's 1,000 mls @ 20 mls/hr 07/14/18 20:45 07/15/18 21:46 Lactated Ringers IV 20 mls/hr .Q24H PJ Administration Ibuprofen 400 mg 07/13/18 18:53 07/15/18 14:48 Motrin PO 400 mg Q6HR PRN Administration Mild Pain or Fever > 100.5 Insulin Aspart 0 unit 07/14/18 17:30 07/15/18 21:46 Novolog SQ 1 unit ACHS PJ Administration Protocol Isosorbide Mononitrate 30 mg 07/14/18 09:00 07/15/18 14:24 Imdur PO 30 mg DAILY PJ Administration Levothyroxine Sodium 125 mcg 07/15/18 06:30 07/16/18 06:18 Synthroid PO 125 mcg DAILY@0630 PJ Administration Lisinopril 40 mg 07/14/18 09:00 07/15/18 14:35 Zestril PO 40 mg DAILY PJ Administration Metoprolol Succinate 75 mg 07/14/18 09:00 07/15/18 08:15 Toprol Xl PO 75 mg DAILY PJ Administration Morphine Sulfate 4 mg 07/13/18 18:53 07/16/18 06:16 Morphine Sulfate (Inj) IV 4 mg Q4HR PRN Administration Severe Pain Multivitamins 1 each 07/15/18 12:00 07/15/18 14:25 Theragran PO 1 each DAILY@1200 PJ Administration Naloxone HCl 0.2 mg 07/13/18 18:53 Narcan IV Q2M PRN Opioid Reversal Ondansetron HCl 4 mg 07/13/18 18:53 07/14/18 03:15 Zofran IVP 4 mg Q8HR PRN Administration Nausea And Vomiting Potassium Chloride 10 meq 07/13/18 22:00 07/15/18 21:47 K-Dur 10 PO 10 meq TID PJ Administration Trazodone HCl 100 mg 07/14/18 21:00 07/15/18 21:47 Desyrel PO 100 mg HS PJ Administration Venlafaxine HCl 150 mg 07/15/18 09:00 07/15/18 14:25 Effexor Xr PO 150 mg DAILY PJ Administration Intake and Output 07/15/18 07/16/18 07/16/18 22:59 06:59 14:59 Intake Total 200 800 Balance 200 800 Intake: Intake, IV Titration 800 Amount Sodium Chloride 0.9% 1, 800 000 ml @ 100 mls/hr IV . Q10H [facility] Rx#:[id number] Oral 200 Other: Voiding Method Bedside Commode # Voids 1 4 07/13/18 14:06 07/13/18 14:06 Assessment and Plan (1) History of coronary artery disease Current Visit: Yes Status: Acute Code(s): Z86.79 - PERSONAL HISTORY OF OTHER DISEASES OF THE CIRCULATORY SYSTEM SNOMED Code(s): 945649618 (2) Altered mental state Current Visit: Yes Status: Acute Code(s): R41.82 - ALTERED MENTAL STATUS, UNSPECIFIED SNOMED Code(s): 927560754 (3) Closed fracture of left proximal humerus Current Visit: Yes Status: Acute Code(s): S42.202A - UNSP FRACTURE OF UPPER END OF LEFT HUMERUS, INIT FOR CLOS FX SNOMED Code(s): 56011342 (4) CHF (congestive heart failure) Current Visit: Yes Status: Acute Code(s): I50.9 - HEART FAILURE, UNSPECIFIED SNOMED Code(s): 58573048 Plan: This patient's etiology of low saturation. His most probably from hypoventilation related to her body habitus and medications. The computed tomography scan the size to of CHF, clinically patient doesn't complain of shortness of breath and doesn't seem to be have any findings significant edema or fluid overloaded. I'll get a BNP level. Temporary telemetry and given a small dose of Lasix.
[2018-07-16] MEDS: INSULIN ASPART 100 UNIT/ML 1 ML 10 ML VIAL SQ SCH ×4 (09:37→20:45)
[2018-07-16] MEDS: METOPROLOL SUCCINATE (ER) 25 MG TAB.ER.24H PO SCH (09:45)
[2018-07-16] MEDS: ISOSORBIDE MONONITRATE ER 30 MG TAB.ER.24H PO SCH (09:45)
[2018-07-16] MEDS: cefTRIAXone IN SWFI 1,000 MG/10 ML SYRINGE IVP SCH (09:46)
[2018-07-16] MEDS: GABAPENTIN 100 MG CAP PO SCH ×3 (09:56→20:45)
[2018-07-16] MEDS: POTASSIUM CHLORIDE ER 10 MEQ TAB.ER.PRT PO SCH ×3 (09:56→20:45)
[2018-07-16] MEDS: amLODIPine 10 MG TAB PO SCH (09:56)
[2018-07-16] MEDS: LISINOPRIL 20 MG TAB PO SCH (09:56)
[2018-07-16] MEDS: CHOLECALCIFEROL 1,000 UNIT TAB PO SCH (09:56)
[2018-07-16] MEDS: FUROSEMIDE 20 MG TAB PO SCH ×2 (09:56→12:28)
--- NOTE | 2018-07-16 10:42 | P.PN ---
Subjective Progress Note Date: 07/16/18 Principal diagnosis: Four-part left proximal humerus fracture Patient notes moderate left shoulder pain. She denies shortness of breath or chest pain today. She is on supplemental oxygen per nasal cannula. Objective - Vital Signs Vital signs: Vital Signs Temp 97.6 F 07/16/18 07:15 Pulse 105 H 07/16/18 07:15 Resp 16 07/16/18 07:15 BP 127/81 07/16/18 07:15 Pulse Ox 95 07/16/18 07:15 Intake & Output 07/15/18 07/16/18 07/16/18 18:59 06:59 18:59 Intake Total 1440 1000 Balance 1440 1000 Intake: IV 400 Intake, IV Titration 800 800 Amount Sodium Chloride 0.9% 1, 800 800 000 ml @ 100 mls/hr IV . Q10H [facility] Rx#:[id number] Oral 240 200 Other: Voiding Method Bedside Commode Bedside Commode # Voids 1 4 - Constitutional General appearance: Present: morbidly obese - Musculoskeletal Musculoskeletal Comment(s): Moderate left shoulder swelling, marked guarding, limited range of motion left shoulder Neurovascularly intact left upper extremity - Labs CBC & Chem 7: 07/13/18 14:06 07/13/18 14:06 Labs: Abnormal Lab Results - Last 24 Hours (Table) 07/15/18 07/15/18 07/16/18 Range/Units 16:56 20:34 06:58 POC Glucose (mg/dL) 184 H 143 H 152 H (75-99) mg/dL Microbiology - Last 24 Hours (Table) 07/13/18 19:58 Blood Culture - Preliminary Blood No Growth after 48 hours Assessment and Plan Assessment: Left 4 part proximal humerus fracture Multiple medical comorbidities (1) Closed fracture of left proximal humerus Current Visit: Yes Status: Acute Code(s): S42.202A - UNSP FRACTURE OF UPPER END OF LEFT HUMERUS, INIT FOR CLOS FX SNOMED Code(s): 75672445 (2) Left humeral fracture Current Visit: Yes Status: Acute Code(s): S42.302A - UNSP FRACTURE OF SHAFT OF HUMERUS, LEFT ARM, INIT SNOMED Code(s): 28470654 Plan: At this point we will await final cardiology/pulmonary recommendations in terms of trying to optimize the patient for surgery. We will plan to proceed with left reverse shoulder arthroplasty once medically optimized. Time with Patient: Less than 30
--- NOTE | 2018-07-16 11:09 | P.PN ---
Subjective Progress Note Date: 07/16/18 Principal diagnosis: Low saturations Progress note dated 07/16/2018 68-year-old female who was to go for shoulder surgery yesterday. In the operating room, she was noted to have low saturations in the surgery was canceled. In my consultation I said that she clearly has sleep apnea syndrome but is noncompliant with CPAP. In addition, she may also have pickwickian syndrome. The patient does not appear to have intrinsic pulmonary disease although could have restrictive lung disease from obesity. In addition, she has a history of a recent fall with left shoulder/humerus fracture, hypertension , hypothyroidism, chronic pain syndrome, hyperlipidemia, diabetes and vitamin D deficiency. The patient is still very sleepy today. She does arouse. She seems very lethargic and somnolent. This may be her baseline. In addition, I question whether or not she's getting excessive amounts of pain medication, especially narcotics. This could certainly have a significant impact on her mental status. Objective - Vital Signs Vital signs: Vital Signs Temp 97.6 F 07/16/18 07:15 Pulse 105 H 07/16/18 07:15 Resp 16 07/16/18 07:15 BP 127/81 07/16/18 07:15 Pulse Ox 95 07/16/18 07:15 Intake & Output 07/15/18 07/16/18 07/16/18 18:59 06:59 18:59 Intake Total 1440 1000 Balance 1440 1000 Intake: IV 400 Intake, IV Titration 800 800 Amount Sodium Chloride 0.9% 1, 800 800 000 ml @ 100 mls/hr IV . Q10H [facility] Rx#:[id number] Oral 240 200 Other: Voiding Method Bedside Commode Bedside Commode # Voids 1 4 - Exam No acute distress, very lethargic and somnolent, does arouse. HEENT examination is grossly unremarkable. Mucous membranes are moist. No oral lesions. Neck supple. Full range of motion. No adenopathy thyromegaly or neck vein distention. Cardiovascular examination reveals regular rhythm rate. S1-S2 normal. No S3 or S4. No discernible murmur noted. Lungs reveal mostly clear breath sounds. Her sounds are equal bilaterally. A few scattered mild rhonchi are noted. No wheezes or crackles. Abdomen soft bowel sounds are heard. No masses or tenderness. Abdomen is obese. Extremities are intact. No cyanosis clubbing or edema. Skin is without rash or lesion. Neurologic examination is brief but nonfocal. - Labs CBC & Chem 7: 07/13/18 14:06 07/13/18 14:06 Labs: Abnormal Lab Results - Last 24 Hours (Table) 07/15/18 07/15/18 07/16/18 Range/Units 16:56 20:34 06:58 POC Glucose (mg/dL) 184 H 143 H 152 H (75-99) mg/dL Microbiology - Last 24 Hours (Table) 07/13/18 19:58 Blood Culture - Preliminary Blood No Growth after 48 hours Assessment and Plan Assessment: Assessment Status post fall with left shoulder/humerus fracture. Low oxygen saturations throughout this hospitalization which may relate to sleep apnea syndrome and/or pickwickian syndrome (obesity/hypoventilation syndrome) or could relate to something more ominous such as a pulmonary embolism. It doesn't appear that the patient has intrinsic pulmonary disease. History of hypertension History of hypothyroidism History of chronic pain syndrome History of hyperlipidemia History of diabetes History of vitamin D deficiency Rule out restrictive lung disease secondary to obesity. Plan: Plan dated 07/15/2018 We went ahead and ordered a CT angiogram to rule out pulmonary embolism. It does not appear that the patient has intrinsic pulmonary disease. She is a lifelong nonsmoker. Apparently there is no history of asthma, COPD, emphysema, chronic bronchitis, etc. The patient does have a history of sleep apnea syndrome noncompliant with CPAP so hypoxia may relate to this condition. In addition, because of the patient's body habitus, she also may have pickwickian syndrome. This will need to be evaluated in the outpatient setting. For the time being, we will recommend supplemental oxygen. Would also recommend incentive spirometry to be done every hour while awake and when necessary. I don't believe breathing treatments to be of any help. The patient may benefit from nocturnal CPAP. In addition, we'll await the results of the CT angiogram. Plan dated 07/16/2018 No new labs to report today. CT angiogram was negative for a central blood clot. Smaller clot cannot be ruled out. I doubt that is a diagnosis of. Her CAT scan also showed evidence of heart failure and she may benefit from some diuretic. We'll leave that up to the hub inventory specialist. We do recommend the use of incentive spirometer. She she do every hour while awake. In addition, she is encouraged to use her CPAP device. Pulmonary function tests would need to be done to rule out intrinsic pulmonary disease. Time with Patient: Less than 30
[2018-07-16 11:48] LABS: Glucose,Whole Blood 163 mg/dL (75-99)
[2018-07-16] MEDS: HYDROcodone/APAP 5-325MG 1 EACH TAB PO PRN ×3 (12:28→22:48)
[2018-07-16] MEDS: MULTIVITAMINS, THERA 1 EACH TAB PO SCH (12:28)
--- NOTE | 2018-07-16 16:34 | P.PN ---
Subjective Progress Note Date: 07/16/18 This is a 68-year-old female patient of Dr. Mortensen with past medical history of coronary artery disease status post stent, diabetes mellitus type 2, hyperlipidemia, hypertension, generalized anxiety disorder, recurrent depression. Patient states that she rolled out of bed and then could not get up off the floor. She does not remember what happened but she does not think she lost consciousness. She states she called for help and now that he could hear her. She lives in the senior apartments at [facility]. She states she eventually was able to crawl to get help but complains of her shoulder hurting. She thinks she landed on her left shoulder and it has been painful ever since. Patient denies any difficulty with speech or weakness on either side of her body. Patient also has history of obstructive sleep apnea but does not use CPAP. Patient ambulates with a walker She came into [facility] emergency center for evaluation. Left shoulder x-ray showed displaced humeral neck fracture. X-ray of the bilateral knees showed no acute fracture or dislocation. Diffuse osteopenia and arthropathy. CAT scan of the brain was negative for acute findings. CT of the shoulder, left, revealed impacted displaced comminuted humeral neck fracture. White count is 12.2, hemoglobin 14.7, creatinine 0.6 with BUN 19, blood sugar 202, lactic acid initially 2.1 with repeat at 1.4. ALT is 55, other liver function tests within normal limits. Urinalysis was cloudy, leukoesterase moderate, blood trace, WBC 55, squamous cells 1. Patient was started on ceftriaxone and consults requested with neurology and orthopedics. Patient denies frequent falls at home. Patient has been seen by Dr. Chauhan with plan to proceed with a left reverse shoulder arthroplasty for tomorrow. Patient has also been seen by Dr. Kurtz and EEG and carotid ultrasound ordered. Carotid ultrasound reveals that the right side of the carotid system could not be evaluated. On the left there is plaque with no significant hemodynamic stenosis. Limited exam of the left external carotid artery. Vertebral artery is nondiagnostic due to limitation of the exam. 07/15: Patient is gone for surgery. 07/16: Patient is sitting up and chair she continues to be quite drowsy she continues to have pain in her left arm, she continues to require 4 L of oxygen, she was seen in consultation by pulmonary as well as cardiology and the recommendation was to follow-up as an outpatient I believe the patient did have a little sleep study long time ago and he was recommended for the patient to be on a CPAP however she could not tolerate because of her claustrophobia Objective - Vital Signs Vital signs: Vital Signs Temp 97.6 F 07/16/18 07:15 Pulse 105 H 07/16/18 07:15 Resp 16 07/16/18 07:15 BP 127/81 07/16/18 07:15 Pulse Ox 95 07/16/18 07:15 Intake & Output 07/15/18 07/16/18 07/16/18 18:59 06:59 18:59 Intake Total 1440 1000 Balance 1440 1000 Intake: IV 400 Intake, IV Titration 800 800 Amount Sodium Chloride 0.9% 1, 800 800 000 ml @ 100 mls/hr IV . Q10H [facility] Rx#:[id number] Oral 240 200 Other: Voiding Method Bedside Commode Bedside Commode # Voids 1 4 - Exam - Exam Gen: This is a obese 68-year-old female. She is sitting up in bed and appears to be uncomfortable secondary to left shoulder pain. HEENT: Head is atraumatic, normocephalic. Pupils equal, round. Sclerae is anicteric. NECK: Supple. No JVD. No lymphadenopathy. No thyromegaly. LUNGS: Clear to auscultation. No wheezes or rhonchi. No intercostal retractions. HEART: Regular rate and rhythm. No murmur. ABDOMEN: Soft. Bowel sounds are present. No masses. No tenderness. EXTREMITIES: No pedal edema. No calf tenderness. Left shoulder, decreased range of motion. Arm sling in place. NEUROLOGICAL: Patient is awake, alert and oriented x3. Cranial nerves 2 through 12 are grossly intact. - Labs CBC & Chem 7: 07/17/18 06:07 07/17/18 06:07 Labs: Abnormal Lab Results - Last 24 Hours (Table) 07/15/18 07/15/18 07/16/18 Range/Units 16:56 20:34 06:58 POC Glucose (mg/dL) 184 H 143 H 152 H (75-99) mg/dL Microbiology - Last 24 Hours (Table) 07/13/18 19:58 Blood Culture - Preliminary Blood No Growth after 48 hours Assessment and Plan Assessment: Assessment and Plan Plan: 1. Left humerus fracture. Patient seen by orthopedics with plan for left reverse total shoulder arthroplasty . Still awaiting orthopedic input 2. Fall out o hopefully [place] on Wednesday. Patient denies any loss of consciousness. Neurology consult appreciated. Carotid ultrasound as above. EEG is pending. 3. Urinary tract infection with lactic acidosis, resolved. Urine and blood culture in progress. Continue ceftriaxone. 4. Diabetes mellitus type 2. Hemoglobin A1c ordered. Continue metformin. Patient started on NovoLog scale before meals and at bedtime 5. Hyperlipidemia. Continue Lipitor 10 mg at bedtime. 6. Hypertension. Continue Norvasc 10 mg daily, lisinopril 40 mg daily, metoprolol XR 75 mg daily. 7. Chronic pain. Continue baclofen 10 mg 3 times daily and from scheduled to as needed and 5 mg 3 times daily as needed discontinued, gabapentin 100 mg 3 times daily. 8. Generalized anxiety disorder and recurrent depression. Continue trazodone 100 mg at bedtime, Effexor X are 150 mg daily, Xanax 0.25 mg 3 times daily as needed. 9. Coronary artery disease status post stent. Continue Imdur 30 mg daily. Noted patient is on Plavix but unsure of reason. Her last stent was 7 years ago. 10. Hypothyroidism. Continue levothyroxine 125 g daily. 11. Gastroesophageal reflux disease and GI prophylaxis. Continue Pepcid. 12. DVT prophylaxis. Heparin subcu and DAVID hose. 13. Obesity with obstructive sleep apnea and obesity hypoventilation syndrome. Patient will need to have another sleep study as an outpatient as she did have one many years ago and that she will require BiPAP at night. Continue oxygen support, continue other recommendation per pulmonary and cardiology.
[2018-07-16 17:17] LABS: Glucose,Whole Blood 142 mg/dL (75-99)
[2018-07-16 20:41] LABS: Glucose,Whole Blood 141 mg/dL (75-99)
[2018-07-16] MEDS: ATORVASTATIN 10 MG TAB PO SCH (20:46)
[2018-07-16] MEDS: traZODone HCL 100 MG TAB PO SCH (20:46)
[2018-07-17 00:15] LABS: Anion Gap 6 mmol/L; Blood Urea Nitrogen 14 mg/dL (7-17); Calcium 7.6 mg/dL (8.4-10.2); Carbon Dioxide 31 mmol/L (22-30); Chloride 102 mmol/L (98-107); Glucose 140 mg/dL (74-99); Magnesium 2.1 mg/dL (1.6-2.3); Potassium 4.2 mmol/L (3.5-5.1); Sodium 139 mmol/L (137-145)
[2018-07-17] MEDS: LACTATED RINGERS 1,000 ML IV SCH ×2 (00:41→21:33)
[2018-07-17] MEDS: MORPHINE SULFATE 4 MG/ML SYRINGE IV PRN ×3 (00:49→09:55)
[2018-07-17] MEDS: HEPARIN SODIUM,PORCINE 5,000 UNIT/ML 1 ML VIAL SQ SCH ×4 (00:50→23:59)
[2018-07-17] MEDS: SODIUM CHLORIDE 0.9% 1,000 ML IV SCH ×3 (00:53→21:50)
[2018-07-17] MEDS: HYDROcodone/APAP 5-325MG 1 EACH TAB PO PRN ×2 (03:51→08:31)
[2018-07-17 06:32] LABS: Glucose,Whole Blood 155 mg/dL (75-99)
[2018-07-17 06:45] LABS: ALT 44 U/L (9-52); AST 23 U/L (14-36); Albumin 3.3 g/dL (3.5-5.0); Alkaline Phosphatase 78 U/L (38-126); Anion Gap 6 mmol/L; Blood Urea Nitrogen 12 mg/dL (7-17); Calcium 7.6 mg/dL (8.4-10.2); Carbon Dioxide 33 mmol/L (22-30); Chloride 102 mmol/L (98-107); Glucose 152 mg/dL (74-99); Potassium 4.1 mmol/L (3.5-5.1); Sodium 141 mmol/L (137-145); Total Bilirubin 0.8 mg/dL (0.2-1.3); Total Protein 6.3 g/dL (6.3-8.2)
[2018-07-17] MEDS: LEVOTHYROXINE 125 MCG TAB PO SCH (06:46)
[2018-07-17 06:48] LABS: Basophils % (A) 0 %; Eosinophils # (A) 0.5 k/uL (0-0.7); Eosinophils % (A) 5 %; HCT 38.9 % (34.0-46.0); Lymphocytes # (A) 1.1 k/uL (1.0-4.8); Lymphocytes % (A) 11 %; MCH 29.4 pg (25.0-35.0); MCHC 33.5 g/dL (31.0-37.0); Mean Platelet Volume 8.2; Monocytes # (A) 0.8 k/uL (0-1.0); Monocytes % (A) 7 %; Neutrophils # (A) 7.9 k/uL (1.3-7.7); Neutrophils % (A) 76 %; Platelet Count 198 k/uL (150-450); RBC 4.42 m/uL (3.80-5.40); RDW 12.8 % (11.5-15.5); WBC 10.4 k/uL (3.8-10.6)
[2018-07-17] MEDS: cefTRIAXone IN SWFI 1,000 MG/10 ML SYRINGE IVP SCH (08:27)
[2018-07-17] MEDS: amLODIPine 10 MG TAB PO SCH (08:27)
[2018-07-17] MEDS: ALPRAZolam 0.25 MG TAB PO PRN (08:27)
[2018-07-17] MEDS: ISOSORBIDE MONONITRATE ER 30 MG TAB.ER.24H PO SCH (08:27)
[2018-07-17] MEDS: LISINOPRIL 20 MG TAB PO SCH (08:27)
[2018-07-17] MEDS: INSULIN ASPART 100 UNIT/ML 1 ML 10 ML VIAL SQ SCH ×4 (08:40→21:39)
[2018-07-17] MEDS: CHOLECALCIFEROL 1,000 UNIT TAB PO SCH (09:07)
[2018-07-17] MEDS: METOPROLOL SUCCINATE (ER) 25 MG TAB.ER.24H PO SCH (09:54)
--- NOTE | 2018-07-17 10:17 | P.PN ---
Subjective Progress Note Date: 07/17/18 Principal diagnosis: Low saturations Progress note dated 07/16/2018 68-year-old female who was to go for shoulder surgery yesterday. In the operating room, she was noted to have low saturations in the surgery was canceled. In my consultation I said that she clearly has sleep apnea syndrome but is noncompliant with CPAP. In addition, she may also have pickwickian syndrome. The patient does not appear to have intrinsic pulmonary disease although could have restrictive lung disease from obesity. In addition, she has a history of a recent fall with left shoulder/humerus fracture, hypertension , hypothyroidism, chronic pain syndrome, hyperlipidemia, diabetes and vitamin D deficiency. The patient is still very sleepy today. She does arouse. She seems very lethargic and somnolent. This may be her baseline. In addition, I question whether or not she's getting excessive amounts of pain medication, especially narcotics. This could certainly have a significant impact on her mental status. Progress note dated 07/17/2018 68-year-old female who was to go for shoulder surgery earlier this past week. Apparently in the operating room she was found to have low saturations. For that reason the surgery was canceled. The patient does have a history of sleep apnea syndrome has been noncompliant with her CPAP device. She also may have a component of pickwickian syndrome. In addition, the patient was found to have some mild heart failure was moved to the 6 selective unit for closer monitoring. She does not appear to have intrinsic pulmonary disease but could have some restrictive lung disease from obesity. In addition, she has a history of recent fall with left shoulder/humerus fracture, hypertension, hypothyroidism, chronic pain syndrome, hyperlipidemia, diabetes, and vitamin D deficiency. She remains relatively sleepy. We have discontinued most of her pain medications or any other medications that may have an effect on her respiratory center. Objective - Vital Signs Vital signs: Vital Signs Temp 96.8 F L 07/17/18 08:00 Pulse 96 07/17/18 08:00 Resp 18 07/17/18 08:00 BP 155/79 07/17/18 08:00 Pulse Ox 94 L 07/17/18 08:00 Intake & Output 07/16/18 07/17/18 07/17/18 18:59 06:59 18:59 Intake Total 700 750 Output Total 600 Balance 700 150 Weight 109.1 kg Intake: Intake, IV Titration 700 600 Amount Sodium Chloride 0.9% 1, 700 600 000 ml @ 100 mls/hr IV . Q10H [facility] Rx#:[id number] Oral 150 Output: Urine 600 Other: Voiding Method Bedside Commode Bedside Commode # Voids 3 1 - Exam No acute distress, very lethargic and somnolent, does arouse. HEENT examination is grossly unremarkable. Mucous membranes are moist. No oral lesions. Neck supple. Full range of motion. No adenopathy thyromegaly or neck vein distention. Cardiovascular examination reveals regular rhythm rate. S1-S2 normal. No S3 or S4. No discernible murmur noted. Lungs reveal mostly clear breath sounds. Her sounds are equal bilaterally. A few scattered mild rhonchi are noted. Minimal crackles are appreciated.. Abdomen soft bowel sounds are heard. No masses or tenderness. Abdomen is obese. Extremities are intact. No cyanosis or clubbing noted. Mild peripheral edema is appreciated. Skin is without rash or lesion. Neurologic examination is brief but nonfocal. - Labs CBC & Chem 7: 07/17/18 06:07 07/17/18 06:07 Labs: Abnormal Lab Results - Last 24 Hours (Table) 07/16/18 07/16/18 07/16/18 Range/Units 11:47 17:16 20:40 Neutrophils # (1.3-7.7) k/uL Carbon Dioxide (22-30) mmol/L Creatinine (0.52-1.04) mg/dL Glucose (74-99) mg/dL POC Glucose (mg/dL) 163 H 142 H 141 H (75-99) mg/dL Calcium (8.4-10.2) mg/dL Albumin (3.5-5.0) g/dL 07/16/18 07/17/18 07/17/18 Range/Units 23:46 06:07 06:07 Neutrophils # 7.9 H (1.3-7.7) k/uL Carbon Dioxide 31 H 33 H (22-30) mmol/L Creatinine 0.50 L 0.48 L (0.52-1.04) mg/dL Glucose 140 H 152 H (74-99) mg/dL POC Glucose (mg/dL) (75-99) mg/dL Calcium 7.6 L 7.6 L (8.4-10.2) mg/dL Albumin 3.3 L (3.5-5.0) g/dL 07/17/18 Range/Units 06:31 Neutrophils # (1.3-7.7) k/uL Carbon Dioxide (22-30) mmol/L Creatinine (0.52-1.04) mg/dL Glucose (74-99) mg/dL POC Glucose (mg/dL) 155 H (75-99) mg/dL Calcium (8.4-10.2) mg/dL Albumin (3.5-5.0) g/dL Microbiology - Last 24 Hours (Table) 07/13/18 19:58 Blood Culture - Preliminary Blood No Growth after 72 hours Assessment and Plan Assessment: Assessment Status post fall with left shoulder/humerus fracture. Low oxygen saturations throughout this hospitalization which may relate to sleep apnea syndrome and/or pickwickian syndrome (obesity/hypoventilation syndrome) or could relate to something more ominous such as a pulmonary embolism. It doesn't appear that the patient has intrinsic pulmonary disease. Mild fluid overload/heart failure History of sleep apnea, noncompliant with CPAP History of hypertension History of hypothyroidism History of chronic pain syndrome History of hyperlipidemia History of diabetes History of vitamin D deficiency Rule out restrictive lung disease secondary to obesity. Plan: Plan dated 07/15/2018 We went ahead and ordered a CT angiogram to rule out pulmonary embolism. It does not appear that the patient has intrinsic pulmonary disease. She is a lifelong nonsmoker. Apparently there is no history of asthma, COPD, emphysema, chronic bronchitis, etc. The patient does have a history of sleep apnea syndrome noncompliant with CPAP so hypoxia may relate to this condition. In addition, because of the patient's body habitus, she also may have pickwickian syndrome. This will need to be evaluated in the outpatient setting. For the time being, we will recommend supplemental oxygen. Would also recommend incentive spirometry to be done every hour while awake and when necessary. I don't believe breathing treatments to be of any help. The patient may benefit from nocturnal CPAP. In addition, we'll await the results of the CT angiogram. Plan dated 07/16/2018 No new labs to report today. CT angiogram was negative for a central blood clot. Smaller clot cannot be ruled out. I doubt that is a diagnosis of. Her CAT scan also showed evidence of heart failure and she may benefit from some diuretic. We'll leave that up to the filter tip inspector. We do recommend the use of incentive spirometer. She she do every hour while awake. In addition, she is encouraged to use her CPAP device. Pulmonary function tests would need to be done to rule out intrinsic pulmonary disease. Plan dated 07/17/2018 The patient was moved to the sixth floor so she can be monitored more closely receive some Lasix IV for what appears to be some fluid overload. CT angiogram was negative for a pulmonary embolism. She does not appear to have intrinsic pulmonary disease and she is a lifelong nonsmoker. Her low saturations likely related to her sleep apnea syndrome, restrictive lung disease from obesity, and also possible pickwickian syndrome. In addition, her medications may be also to blame. This would include pain medications or any other medication which may have an effect on her respiratory status. They should be considered carefully and possibly discontinued. Additional recommendations and suggestions are forthcoming. Time with Patient: Less than 30
[2018-07-17] MEDS: GABAPENTIN 100 MG CAP PO SCH ×3 (11:45→21:47)
[2018-07-17] MEDS: MULTIVITAMINS, THERA 1 EACH TAB PO SCH (11:46)
[2018-07-17] MEDS: POTASSIUM CHLORIDE ER 10 MEQ TAB.ER.PRT PO SCH ×3 (11:46→21:47)
[2018-07-17 11:53] LABS: Glucose,Whole Blood 156 mg/dL (75-99)
--- NOTE | 2018-07-17 12:27 | P.PN ---
Subjective This is a pleasant 68-year-old female seen and examined resting comfortably in bed. She continues to complain of significant pain and discomfort in the left shoulder secondary to fracture. She denies symptoms of chest pain, shortness of breath, dizziness or palpitations. Telemetry tracings indicate a 6 beat run of nonsustained ventricular tachycardia last night at 2330. Laboratory data reviewed, hemoglobin 13.0, platelets 190, sodium 141, potassium 4.1, magnesium 2.1, creatinine 0.4. TSH was admitted on this morning value is 4.61, proBNP 320. Blood pressure 155/79 heart rate 96 afebrile maintaining oxygen saturation on nasal cannula. Plan is for surgery later this afternoon. Objective - Vital Signs Vital signs: Vital Signs Temp 96.8 F L 07/17/18 08:00 Pulse 96 07/17/18 08:00 Resp 18 07/17/18 08:00 BP 155/79 07/17/18 08:00 Pulse Ox 94 L 07/17/18 08:00 Intake & Output 07/16/18 07/17/18 07/17/18 18:59 06:59 18:59 Intake Total 700 750 Output Total 600 Balance 700 150 Weight 109.1 kg Intake: Intake, IV Titration 700 600 Amount Sodium Chloride 0.9% 1, 700 600 000 ml @ 100 mls/hr IV . Q10H [facility] Rx#:[id number] Oral 150 Output: Urine 600 Other: Voiding Method Bedside Commode Bedside Commode # Voids 3 1 - Exam GENERAL: Well-appearing, well-nourished and in no acute distress. Morbidly obese. NECK: Supple without JVD or thyromegaly. LUNGS: Breath sounds clear to auscultation bilaterally. Respiration equal and unlabored. No wheezes, rales or rhonchi. Diminished. HEART: Regular rate and rhythm without murmurs, rubs or gallops. S1 and S2 heard. EXTREMITIES: Normal range of motion, no edema. No clubbing or cyanosis. Peripheral pulses intact. - Labs CBC & Chem 7: 07/18/18 06:09 07/18/18 06:09 Labs: Abnormal Lab Results - Last 24 Hours (Table) 07/16/18 07/16/18 07/16/18 Range/Units 17:16 20:40 23:46 Neutrophils # (1.3-7.7) k/uL Carbon Dioxide 31 H (22-30) mmol/L Creatinine 0.50 L (0.52-1.04) mg/dL Glucose 140 H (74-99) mg/dL POC Glucose (mg/dL) 142 H 141 H (75-99) mg/dL Calcium 7.6 L (8.4-10.2) mg/dL Albumin (3.5-5.0) g/dL 07/17/18 07/17/18 07/17/18 Range/Units 06:07 06:07 06:31 Neutrophils # 7.9 H (1.3-7.7) k/uL Carbon Dioxide 33 H (22-30) mmol/L Creatinine 0.48 L (0.52-1.04) mg/dL Glucose 152 H (74-99) mg/dL POC Glucose (mg/dL) 155 H (75-99) mg/dL Calcium 7.6 L (8.4-10.2) mg/dL Albumin 3.3 L (3.5-5.0) g/dL 07/17/18 Range/Units 11:18 Neutrophils # (1.3-7.7) k/uL Carbon Dioxide (22-30) mmol/L Creatinine (0.52-1.04) mg/dL Glucose (74-99) mg/dL POC Glucose (mg/dL) 156 H (75-99) mg/dL Calcium (8.4-10.2) mg/dL Albumin (3.5-5.0) g/dL Microbiology - Last 24 Hours (Table) 07/13/18 19:58 Blood Culture - Preliminary Blood No Growth after 72 hours Assessment and Plan Assessment: ASSESSMENT Fall with left shoulder and humeral fracture History of coronary artery disease, currently no symptoms of angina. Nonsustained ventricular tachycardia, 6 beats. Electrolytes and thyroid normal. PLAN Heart failure has been ruled out. No angina or acute coronary syndrome. Change beta marisa to metoprolol heart rate 50 mg twice a day. Hemodynamically stable for surgical intervention this afternoon. Further recommendations to follow based upon clinical course. Nurse Practitioner note has been reviewed, I agree with a documented findings and plan of care. Patient was seen and examined.
--- NOTE | 2018-07-17 13:36 | P.PN ---
Subjective Progress Note Date: 07/17/18 This is a 68-year-old female patient of Dr. Mortensen with past medical history of coronary artery disease status post stent, diabetes mellitus type 2, hyperlipidemia, hypertension, generalized anxiety disorder, recurrent depression. Patient states that she rolled out of bed and then could not get up off the floor. She does not remember what happened but she does not think she lost consciousness. She states she called for help and now that he could hear her. She lives in the senior apartments at [facility]. She states she eventually was able to crawl to get help but complains of her shoulder hurting. She thinks she landed on her left shoulder and it has been painful ever since. Patient denies any difficulty with speech or weakness on either side of her body. Patient also has history of obstructive sleep apnea but does not use CPAP. Patient ambulates with a walker She came into [facility] emergency center for evaluation. Left shoulder x-ray showed displaced humeral neck fracture. X-ray of the bilateral knees showed no acute fracture or dislocation. Diffuse osteopenia and arthropathy. CAT scan of the brain was negative for acute findings. CT of the shoulder, left, revealed impacted displaced comminuted humeral neck fracture. White count is 12.2, hemoglobin 14.7, creatinine 0.6 with BUN 19, blood sugar 202, lactic acid initially 2.1 with repeat at 1.4. ALT is 55, other liver function tests within normal limits. Urinalysis was cloudy, leukoesterase moderate, blood trace, WBC 55, squamous cells 1. Patient was started on ceftriaxone and consults requested with neurology and orthopedics. Patient denies frequent falls at home. Patient has been seen by Dr. Chauhan with plan to proceed with a left reverse shoulder arthroplasty for tomorrow. Patient has also been seen by Dr. Kurtz and EEG and carotid ultrasound ordered. Carotid ultrasound reveals that the right side of the carotid system could not be evaluated. On the left there is plaque with no significant hemodynamic stenosis. Limited exam of the left external carotid artery. Vertebral artery is nondiagnostic due to limitation of the exam. 07/15: Patient is gone for surgery. 07/16: Patient is sitting up and chair she continues to be quite drowsy she continues to have pain in her left arm, she continues to require 4 L of oxygen, she was seen in consultation by pulmonary as well as cardiology and the recommendation was to follow-up as an outpatient I believe the patient did have a little sleep study long time ago and he was recommended for the patient to be on a CPAP however she could not tolerate because of her claustrophobia 07/17: Patient is a lot of pain in her left arm and she wanted things done, she continues to be drowsy, she continues to require quite a bit of oxygen, she was seen by pulmonary and cardiology, she has no chest pain, she does appear to be somewhat short of breath, she has no abdominal pain, nausea, vomiting or diarrhea. Objective - Vital Signs Vital signs: Vital Signs Temp 96.8 F L 07/17/18 08:00 Pulse 96 07/17/18 08:00 Resp 18 07/17/18 08:00 BP 155/79 07/17/18 08:00 Pulse Ox 94 L 07/17/18 08:00 Intake & Output 07/16/18 07/17/18 07/17/18 18:59 06:59 18:59 Intake Total 700 750 Output Total 600 Balance 700 150 Weight 109.1 kg Intake: Intake, IV Titration 700 600 Amount Sodium Chloride 0.9% 1, 700 600 000 ml @ 100 mls/hr IV . Q10H [facility] Rx#:[id number] Oral 150 Output: Urine 600 Other: Voiding Method Bedside Commode Bedside Commode # Voids 3 1 - Exam - Exam Gen: This is a obese 68-year-old female. She is sitting up in bed and appears to be uncomfortable secondary to left shoulder pain. HEENT: Head is atraumatic, normocephalic. Pupils equal, round. Sclerae is anicteric. NECK: Supple. No JVD. No lymphadenopathy. No thyromegaly. LUNGS: Clear to auscultation. No wheezes or rhonchi. No intercostal retractions. HEART: Regular rate and rhythm. No murmur. ABDOMEN: Soft. Bowel sounds are present. No masses. No tenderness. EXTREMITIES: No pedal edema. No calf tenderness. Left shoulder, decreased range of motion. Arm sling in place. NEUROLOGICAL: Patient is awake, alert and oriented x3. Cranial nerves 2 through 12 are grossly intact. - Labs CBC & Chem 7: 07/17/18 06:07 07/17/18 06:07 Labs: Abnormal Lab Results - Last 24 Hours (Table) 07/16/18 07/16/18 07/16/18 Range/Units 11:47 17:16 20:40 Neutrophils # (1.3-7.7) k/uL Carbon Dioxide (22-30) mmol/L Creatinine (0.52-1.04) mg/dL Glucose (74-99) mg/dL POC Glucose (mg/dL) 163 H 142 H 141 H (75-99) mg/dL Calcium (8.4-10.2) mg/dL Albumin (3.5-5.0) g/dL 07/16/18 07/17/18 07/17/18 Range/Units 23:46 06:07 06:07 Neutrophils # 7.9 H (1.3-7.7) k/uL Carbon Dioxide 31 H 33 H (22-30) mmol/L Creatinine 0.50 L 0.48 L (0.52-1.04) mg/dL Glucose 140 H 152 H (74-99) mg/dL POC Glucose (mg/dL) (75-99) mg/dL Calcium 7.6 L 7.6 L (8.4-10.2) mg/dL Albumin 3.3 L (3.5-5.0) g/dL 07/17/18 Range/Units 06:31 Neutrophils # (1.3-7.7) k/uL Carbon Dioxide (22-30) mmol/L Creatinine (0.52-1.04) mg/dL Glucose (74-99) mg/dL POC Glucose (mg/dL) 155 H (75-99) mg/dL Calcium (8.4-10.2) mg/dL Albumin (3.5-5.0) g/dL Microbiology - Last 24 Hours (Table) 07/13/18 19:58 Blood Culture - Preliminary Blood No Growth after 72 hours Assessment and Plan Assessment: Assessment and Plan Plan: 1. Left humerus fracture. Patient seen by orthopedics with plan for left reverse total shoulder arthroplasty that was done by Dr. Govea, continue with current pain management, continue incentive spirometer, continue to monitor the patient very closely. 2. Fall out o hopefully [place] on Wednesday. Patient denies any loss of consciousness. Neurology consult appreciated. Carotid ultrasound as above. EEG is pending. 3. Urinary tract infection with lactic acidosis, resolved. Urine and blood culture in progress. Continue ceftriaxone. 4. Diabetes mellitus type 2. Hemoglobin A1c ordered. Continue metformin. Patient started on NovoLog scale before meals and at bedtime 5. Hyperlipidemia. Continue Lipitor 10 mg at bedtime. 6. Hypertension. Continue Norvasc 10 mg daily, lisinopril 40 mg daily, metoprolol XR 75 mg daily. 7. Chronic pain. Continue baclofen 10 mg 3 times daily and from scheduled to as needed and 5 mg 3 times daily as needed discontinued, gabapentin 100 mg 3 times daily. 8. Generalized anxiety disorder and recurrent depression. Continue trazodone 100 mg at bedtime, Effexor X are 150 mg daily, Xanax 0.25 mg 3 times daily as needed. 9. Coronary artery disease status post stent. Continue Imdur 30 mg daily. Noted patient is on Plavix but unsure of reason. Her last stent was 7 years ago. 10. Hypothyroidism. Continue levothyroxine 125 g daily. 11. Gastroesophageal reflux disease and GI prophylaxis. Continue Pepcid. 12. DVT prophylaxis. Heparin subcu and DAVID hose. 13. Obesity with obstructive sleep apnea and obesity hypoventilation syndrome. Patient will need to have another sleep study as an outpatient as she did have one many years ago and that she will require BiPAP at night. Continue oxygen support, continue other recommendation per pulmonary and cardiology. Patient was moved to selective care for better monitoring. 14. Await orthopedic input for possible surgical intervention.
[2018-07-17] MEDS ORDERED: SODIUM CHLORIDE 0.9% 1,000 ML IV ONE (15:30)
[2018-07-17] MEDS ORDERED: SUCCINYLCHOLINE CHLORIDE VIAL 200 MG/10 ML VIAL IV ONE (16:27)
[2018-07-17] MEDS ORDERED: MIDAZOLAM 2 MG/2 ML VIAL ONE (16:27)
[2018-07-17] MEDS ORDERED: LIDOCAINE 1% INJ 10MG/ML (20 ML MDV) ONE (16:27)
[2018-07-17] MEDS ORDERED: fentaNYL (PF) 50 MCG/ML 2 ML AMP ONE (16:27)
[2018-07-17] MEDS ORDERED: PROPOFOL 10 MG/ML 20 ML VIAL IV ONE (16:27)
[2018-07-17] MEDS ORDERED: PHENYLEPHRINE-0.9% NACL SYG 1 MG/10 ML SYRINGE ONE (16:27)
[2018-07-17] MEDS ORDERED: SODIUM CHLORIDE 0.9% 50 ML with ceFAZolin 2,000 MG IV ONE ×2 (16:55)
[2018-07-17] MEDS ORDERED: ceFAZolin 1,000 MG in SODIUM CHLORIDE 0.9% 1,000 ML IRRIGATION ONE (17:06)
[2018-07-17] MEDS ORDERED: LACTATED RINGERS 1,000 ML IV ONE (18:43)
[2018-07-17] MEDS ORDERED: HYDROmorphone 1 MG/ML 1 ML SYRINGE IVP ONE ×3 (19:05→19:44)
--- NOTE | 2018-07-17 19:09 | P.OP ---
Date of Procedure: 07/17/18 Preoperative Diagnosis: Displaced left 4 part proximal humerus fracture Postoperative Diagnosis: Same Procedure(s) Performed: Left reverse total shoulder arthroplasty-cemented Implants: Depuy Delta Xtend size a long cemented humeral stem, 38 mm +6 articular surface , 38 mm standard glenosphere with base plate Anesthesia: GENOVEVA Surgeon: Mo Chauhan Vamp Seamer #1: Cornelius Gillis Estimated Blood Loss (ml): 200 Pathology: other (Humeral head) Condition: stable Disposition: PACU Indications for Procedure: The patient's a 68-year-old female with multiple medical comorbidities presents after falling recently injuring her left shoulder. Upon evaluation she is noted have a significant only displaced four-part left proximal humerus fracture. A discussion of the risks and benefits of operative intervention was made with patient. She opted proceed with surgery. She underwent extensive preoperative evaluation and clearance by both pulmonary and cardiology. She understood she was at high risk for complication because of her medical comorbidities and morbid obesity. Specific risks of the surgery to include infection, neurovascular injury, development of blood clots, possible component loosening, possible dislocation and need for subsequent procedures was discussed. Informed consent was obtained. Operative Findings: As below Description of Procedure: The patient was brought to the operating room, and after induction of general anesthesia was placed in a beachchair position. The bony prominences were appropriately padded. The left upper extremity was prepped and draped in normal fashion. A deltopectoral incision was made lateral to the coracoid process extending approximately 12 cm. The skin and subcutaneous tissues were divided sharply. Electrocautery was used for hemostasis. The cephalic vein was identified and the deltopectoral bluntly developed. The cephalic vein was gently retracted laterally. Subdeltoid adhesions were bluntly dissected. A self-retaining retractor was placed. The upper portion the pectoralis tendon was released to help facilitate exposure. The conjoined tendon was gently retracted medially. The biceps was identified and released and allowed to retract distally. The head was exposed and was facing laterally. This is easily extracted. The greater and lesser tuberosities were mobilized and tagged with suture. The glenoid was exposed. A guidepin was placed into the inferior portion of the glenoid slightly tilted inferiorly. The glenoid was then reamed down to a bleeding bony surface. The central pedicle was drilled. A standard baseplate was inserted. The superior, inferior, and posterior screw holes were filled with the appropriate length screws. The superior and inferior screws were locking. Good purchase was obtained. The standard 38 mm glenosphere was inserted over guidewire and secured. Care was taken to avoid any soft tissue interposition. Attention was then paid towards preparing the proximal humerus. The humeral clamp was placed after reaming the canal by hand up to a size 8. There was good distal chatter. A long trial 8 stem was inserted in the clamp held this in approximately 10 of retroversion. The height was estimated from residual tuberosity fragments. A 38 mm +6 trial articular surface was placed and the shoulder was reduced. It was taken through range of motion felt to be stable in flexion and extension with internal and external rotation. Was then dislocated. The trial component was removed. Cement was then inserted by hand and pressurized. A size 8 long humeral stem was inserted again in 10 retroversion and was seated to the same height. After the cement had sufficiently hardened, trial reduction was again obtained with the 38 mm +6 articular surface. Again it was taken through range of motion felt be stable in flexion and extension with internal and external rotation. The shoulder was gently dislocated and the final articular surface was impacted. It was again reduced and taken through a range of motion felt to be stable. The wound was irrigated with pulsatile lavage. The tuberosities were reapproximated anteriorly with #2 Ethibond suture. The deltopectoral interval was closed with interrupted 2-0 Vicryl sutures. The subcutaneous tissues were reapproximated interrupted 2-0 Vicryl sutures. The skin was reapproximated with 3-0 subcuticular Prolene suture. Steri-Strips were applied. A sterile dressing was applied. Sling was applied. The patient was awoken from general anesthesia and transferred to recovery room in fair condition. Blood loss was estimated 200 mL. case were incurred. Sponge and needle counts were correct in the case. Rony GOLDEN assisted during the major components of this case to include exposure, implant positioning, and closure.
--- NOTE | 2018-07-17 19:20 | XR ---
EXAMINATION TYPE: XR shoulder limited LT DATE OF EXAM: 07/17/2018 COMPARISON: NONE HISTORY: Postop shoulder TECHNIQUE: Single view FINDINGS: There is left shoulder prosthesis. Components appear in anatomic position. IMPRESSION: No complicating process seen.
[2018-07-17 19:50] LABS: Glucose,Whole Blood 158 mg/dL (75-99)
[2018-07-17] MEDS: ONDANSETRON 4 MG/2 ML VIAL IVP PRN (20:06)
[2018-07-17] MEDS: FAMOTIDINE 20 MG TAB PO SCH (21:00)
[2018-07-17] MEDS: VENLAFAXINE HCL ER 150 MG CAP PO SCH (21:00)
[2018-07-17 21:19] LABS: Glucose,Whole Blood 167 mg/dL (75-99)
[2018-07-17] MEDS: ATORVASTATIN 10 MG TAB PO SCH (21:47)
[2018-07-17] MEDS: METOPROLOL TARTRATE 50 MG TAB PO SCH (21:48)
[2018-07-17] MEDS: traZODone HCL 100 MG TAB PO SCH (22:19)
[2018-07-18] MEDS: HYDROmorphone 1 MG/ML 1 ML SYRINGE IVP PRN ×3 (01:21→10:38)
[2018-07-18] MEDS: HYDROcodone/APAP 7.5-325MG 1 EACH TAB PO PRN ×4 (03:28→22:59)
[2018-07-18] MEDS: LEVOTHYROXINE 125 MCG TAB PO SCH (06:07)
[2018-07-18] MEDS: SODIUM CHLORIDE 0.9% 1,000 ML IV SCH (06:09)
[2018-07-18 06:33] LABS: Basophils # (A) 0.1 k/uL (0-0.2); Basophils % (A) 0 %; Eosinophils # (A) 0.1 k/uL (0-0.7); Eosinophils % (A) 1 %; HCT 39.7 % (34.0-46.0); HGB 12.6 gm/dL (11.4-16.0); Lymphocytes # (A) 1.2 k/uL (1.0-4.8); Lymphocytes % (A) 10 %; MCHC 31.6 g/dL (31.0-37.0); MCV 88.4 fL (80.0-100.0); Mean Platelet Volume 7.6; Monocytes # (A) 0.8 k/uL (0-1.0); Monocytes % (A) 7 %; Neutrophils # (A) 9.2 k/uL (1.3-7.7); Neutrophils % (A) 80 %; Platelet Count 239 k/uL (150-450); WBC 11.5 k/uL (3.8-10.6)
[2018-07-18 06:40] LABS: Glucose,Whole Blood 176 mg/dL (75-99)
[2018-07-18 06:44] LABS: ALT 46 U/L (9-52); AST 29 U/L (14-36); Albumin 3.3 g/dL (3.5-5.0); Alkaline Phosphatase 79 U/L (38-126); Anion Gap 7 mmol/L; Blood Urea Nitrogen 11 mg/dL (7-17); Calcium 7.4 mg/dL (8.4-10.2); Carbon Dioxide 29 mmol/L (22-30); Chloride 101 mmol/L (98-107); Glucose 182 mg/dL (74-99); Potassium 4.1 mmol/L (3.5-5.1); Sodium 137 mmol/L (137-145); Total Protein 6.3 g/dL (6.3-8.2)
[2018-07-18] MEDS: INSULIN ASPART 100 UNIT/ML 1 ML 10 ML VIAL SQ SCH ×4 (06:57→20:48)
[2018-07-18] MEDS: cefTRIAXone IN SWFI 1,000 MG/10 ML SYRINGE IVP SCH (08:48)
[2018-07-18] MEDS: HEPARIN SODIUM,PORCINE 5,000 UNIT/ML 1 ML VIAL SQ SCH ×3 (08:48→22:59)
[2018-07-18] MEDS: CHOLECALCIFEROL 1,000 UNIT TAB PO SCH (08:48)
[2018-07-18] MEDS: FAMOTIDINE 20 MG TAB PO SCH (08:48)
[2018-07-18] MEDS: VENLAFAXINE HCL ER 150 MG CAP PO SCH (08:49)
[2018-07-18] MEDS: FUROSEMIDE 20 MG TAB PO SCH (08:49)
[2018-07-18] MEDS: POTASSIUM CHLORIDE ER 10 MEQ TAB.ER.PRT PO SCH ×3 (08:49→20:49)
[2018-07-18] MEDS: METOPROLOL TARTRATE 50 MG TAB PO SCH ×2 (08:49→20:48)
[2018-07-18] MEDS: GABAPENTIN 100 MG CAP PO SCH ×3 (08:49→20:49)
[2018-07-18] MEDS: ISOSORBIDE MONONITRATE ER 30 MG TAB.ER.24H PO SCH (08:52)
[2018-07-18] MEDS: BACLOFEN 10 MG TAB PO PRN (08:56)
[2018-07-18 12:14] LABS: Glucose,Whole Blood 194 mg/dL (75-99)
--- NOTE | 2018-07-18 12:31 | P.PN ---
Subjective Progress Note Date: 07/18/18 This is a 68-year-old female with history of coronary artery disease, diabetes mellitus, hyperlipidemia and hypertension who was admitted to the hospital following a fall. Apparently she developed a fracture of the left shoulder and humerus for which she underwent surgery. Initially a cardiology consultation was requested because of low O2 sats. Patient does have sleep apnea and hypoventilation system. Echo was performed which revealed a normal left ventricular systolic function. CTA was negative for pulmonary embolism. She was seen and examined postoperatively today, complaining of significant discomfort at the surgical site, being is stable, no chest pain.. Objective - Vital Signs Vital signs: Vital Signs Temp 98.1 F 07/18/18 08:30 Pulse 108 H 07/18/18 08:30 Resp 20 07/18/18 08:30 BP 145/82 07/18/18 08:30 Pulse Ox 95 07/18/18 08:30 Intake & Output 07/17/18 07/18/18 07/18/18 18:59 06:59 18:59 Intake Total 1901 1080 100 Output Total 900 2450 Balance 1001 -1370 100 Weight 109.1 kg Intake: IV 1101 200 Intake, IV Titration 800 Amount Sodium Chloride 0.9% 1, 800 000 ml @ 100 mls/hr IV . Q10H [facility] Rx#:[id number] Oral 880 100 Output: Urine 700 2450 Estimated Blood Loss 200 Other: Voiding Method Bedside Commode Indwelling Catheter # Voids 3 1 0 # Bowel Movements 0 - Exam GENERAL EXAM: Patient is alert and oriented and doesn't appear to be in any acute distress HEENT: Normocephalic. Normal reaction of pupils, equal size, normal range of extraocular motion. No erythema or exudates in the throat. NECK: No masses, no nuchal rigidity. CHEST: No chest wall deformity. LUNGS: Diminished air entry both sides. No wheezing or rhonchi HEART: S1 and S2 normal with no audible mumurs or gallops. Regular rhythm, femorals equal on both sides.. ABDOMEN: No hepatosplenomegaly, normal bowel sounds, no guarding or rigidity. SKIN: No rashes CENTRAL NERVOUS SYSTEM: No focal deficits. EXTREMITIES: No cyanosis, clubbing or edema. Her left shoulder is in a sling - Labs CBC & Chem 7: 07/18/18 06:09 07/18/18 06:09 Labs: Abnormal Lab Results - Last 24 Hours (Table) 07/17/18 07/17/18 07/18/18 Range/Units 19:30 21:07 06:09 WBC 11.5 H (3.8-10.6) k/uL Neutrophils # 9.2 H (1.3-7.7) k/uL Creatinine (0.52-1.04) mg/dL Glucose (74-99) mg/dL POC Glucose (mg/dL) 158 H 167 H (75-99) mg/dL Calcium (8.4-10.2) mg/dL Albumin (3.5-5.0) g/dL 07/18/18 07/18/18 07/18/18 Range/Units 06:09 06:33 12:10 WBC (3.8-10.6) k/uL Neutrophils # (1.3-7.7) k/uL Creatinine 0.43 L (0.52-1.04) mg/dL Glucose 182 H (74-99) mg/dL POC Glucose (mg/dL) 176 H 194 H (75-99) mg/dL Calcium 7.4 L (8.4-10.2) mg/dL Albumin 3.3 L (3.5-5.0) g/dL Microbiology - Last 24 Hours (Table) 07/13/18 19:58 Blood Culture - Preliminary Blood No Growth after 96 hours Assessment and Plan Plan: Assessment and plan 1. Left humerus fracture, status post surgery. 2. Fall 3. Urinary tract infection with lactic acidosis, resolved. 4. Diabetes mellitus type 2. 5. Hyperlipidemia. 6. Hypertension. 7. Chronic pain. 8. Generalized anxiety disorder and recurrent depression. 9. Coronary artery disease status post stent. 10. Hypothyroidism. 11. Gastroesophageal reflux disease and GI prophylaxis. 12. Obesity with obstructive sleep apnea and obesity hypoventilation syndrome. Plan From cardiology's perspective, we'll follow this patient along with you now on an as-needed basis only, please don't hesitate to call with any questions. From our perspective she may be able to be transferred to the orthopedic floor. DNP note has been reviewed, I agree with a documented findings and plan of care. Patient was seen and examined.
[2018-07-18] MEDS: LACTULOSE 20 GM/30 ML CUP PO SCH ×2 (12:42→20:45)
[2018-07-18] MEDS: MULTIVITAMINS, THERA 1 EACH TAB PO SCH (12:42)
[2018-07-18] MEDS: LISINOPRIL 20 MG TAB PO SCH (12:42)
--- NOTE | 2018-07-18 12:44 | CDI ---
Last Revision, October 2017 Documentation Clarification Form Date: 07/18/2018 12:25:12 PM From: Yanique Overton RN, CCDS Admit Date: 07/13/2018 7:01:00 PM Patient Name: Preeti Nettles Visit Number: [id number] ATTENTION: The Clinical Documentation Specialists (CDI) and [facility] Coding Staff appreciate your assistance in clarifying documentation. Please respond to the clarification below the line at the bottom and electronically sign. The CDI & [facility] Coding staff will review the response and follow-up if needed. Please note: Queries are made part of the Legal Health Record. If you have any questions, please contact the author of this message via ITS. Edis Gong MD History/Risk Factors: CAD, stent, DM, Hyperlipidemia, HTN, fall with FX of l shoulder and humerus with TSA this admission Clinical Indicators: 07/16 Cardiology Consult (Dr. Galdamez): "She had an echocardiogram which showed normal LV function.) CHF (congestive heart failure). The computed tomography scan the size to of CHF, clinically patient doesn't complain of shortness of breath and doesn't seem to be have any findings significant edema or fluid overloaded. I'll get a BNP level. Temporary telemetry and given a small dose of Lasix." 07/17 Pulmonary Consult: "In addition, the patient was found to have some mild heart failure was moved to the 6 selective unit for closer monitoring." 07/17 Cardiology Progress note: "No indications for heart failure, angina or acute coronary syndrome." VS/Pulse OX: Temp 98.3, hr 91, RR 18, B/P 156/64, spo2 92% ra BNP: 320 07/15/18 Echocardiogram Results:"moderate concentric left ventricular hypertrophy. Overall left ventricular systolic function is normal with, an EF between 55-60%." 07/15 CT Angio Chest: "Correlate for CHF exacerbation as there is mild cardiomegaly with small to tiny right greater than left pleural effusions and suspected mild to moderate bilateral diffuse alveolar and interstitial edema." Treatment: Lasix 20 mg PO QD, Lasix 40mg IVP x 1 doses 07/15 07/13 2L IVF Bolus In your professional opinion, can you please clarify the acuity and type of CHF if known? Diastolic Heart Failure: Acute Chronic Acute on Chronic Systolic & Diastolic Heart Failure: Acute Chronic Acute on Chronic Heart Failure Congestive Heart Failure Ruled Out Unable to Determine Other, please specify Please continue to document in your progress notes and discharge summary in order to capture severity of illness and risk of mortality. Include clinical findings that support your diagnosis. MTDD
--- NOTE | 2018-07-18 13:11 | P.PN ---
Subjective Progress Note Date: 07/18/18 Principal diagnosis: Status post reverse left total shoulder arthroplasty Patient seen today resting in her hospital chair, she appears comfortable. She notes some discomfort in the left shoulder when moving it. She denies any chest pain or shortness of breath. Objective - Vital Signs Vital signs: Vital Signs Temp 98.2 F 07/18/18 12:00 Pulse 99 07/18/18 12:00 Resp 20 07/18/18 12:00 BP 155/76 07/18/18 12:00 Pulse Ox 96 07/18/18 12:00 Intake & Output 07/17/18 07/18/18 07/18/18 18:59 06:59 18:59 Intake Total 1901 1080 100 Output Total 900 2450 500 Balance 1001 -1370 -400 Weight 109.1 kg Intake: IV 1101 200 Intake, IV Titration 800 Amount Sodium Chloride 0.9% 1, 800 000 ml @ 100 mls/hr IV . Q10H [facility] Rx#:[id number] Oral 880 100 Output: Urine 700 2450 500 2-way Urethral 500 Estimated Blood Loss 200 Other: Voiding Method Bedside Commode Indwelling Catheter # Voids 3 1 0 # Bowel Movements 0 - Exam Left upper extremity: Initial postop bandage was changed, Steri-Strips and suture in good position There is obvious ecchymosis and swelling present around the shoulder and into the arm Sensory exam light touch throughout extremities intact Radial pulses 2+ - Labs CBC & Chem 7: 07/18/18 06:09 07/18/18 06:09 Labs: Abnormal Lab Results - Last 24 Hours (Table) 07/17/18 07/17/18 07/18/18 Range/Units 19:30 21:07 06:09 WBC 11.5 H (3.8-10.6) k/uL Neutrophils # 9.2 H (1.3-7.7) k/uL Creatinine (0.52-1.04) mg/dL Glucose (74-99) mg/dL POC Glucose (mg/dL) 158 H 167 H (75-99) mg/dL Calcium (8.4-10.2) mg/dL Albumin (3.5-5.0) g/dL 07/18/18 07/18/18 07/18/18 Range/Units 06:09 06:33 12:10 WBC (3.8-10.6) k/uL Neutrophils # (1.3-7.7) k/uL Creatinine 0.43 L (0.52-1.04) mg/dL Glucose 182 H (74-99) mg/dL POC Glucose (mg/dL) 176 H 194 H (75-99) mg/dL Calcium 7.4 L (8.4-10.2) mg/dL Albumin 3.3 L (3.5-5.0) g/dL Microbiology - Last 24 Hours (Table) 07/13/18 19:58 Blood Culture - Preliminary Blood No Growth after 96 hours Assessment and Plan Plan: Assessment: Postop day 1 status post reverse left total shoulder arthroplasty Plan: Pain control, continue use of current medication GI and DVT prophylaxis per medical and cardiac recommendations Daily dressing changes Utilize arm sling Other medical and scientific illustrator recommendations Discharge planning: On orthopedic standpoint, patient is stable for discharge. Patient would benefit from rehab stay Time with Patient: Less than 30
--- NOTE | 2018-07-18 13:42 | P.PN ---
Subjective Progress Note Date: 07/18/18 Principal diagnosis: Hypoxemia, obstructive sleep apnea 68-year-old female who presented to the emergency department with left shoulder pain and bilateral knee pain after she slipped and fell out of bed. She apparently sustained a fracture to the left shoulder/humerus. She apparently was going to the operating room today for a surgical repair and it was noted that she had very low saturations. For that reason, the operation was canceled and hence we were asked to see her to evaluate her low oxygen saturations. The patient apparently does also have a history of sleep apnea syndrome but apparently is noncompliant with CPAP. She is obese and could have a component of obesity/hypoventilation syndrome or pickwickian syndrome. She is a lifelong nonsmoker and would likely not have COPD. According to the health record, there is no history of any lung issues that she's not on any breathing medications. She apparently does have a history of diabetes hyperlipidemia hypertension. Currently, she is far too sleepy to really get much history from him. The most of given her something in the preoperative area to sedate her. Anyway, we did order a CT angiogram of the chest to rule out pulmonary embolism. It has not been done as yet. We also noted that her saturations while not on any oxygen for the couple days or so before today, were a bit low. Progress note dated 07/17/2018 68-year-old female who was to go for shoulder surgery earlier this past week. Apparently in the operating room she was found to have low saturations. For that reason the surgery was canceled. The patient does have a history of sleep apnea syndrome has been noncompliant with her CPAP device. She also may have a component of pickwickian syndrome. In addition, the patient was found to have some mild heart failure was moved to the 6 selective unit for closer monitoring. She does not appear to have intrinsic pulmonary disease but could have some restrictive lung disease from obesity. In addition, she has a history of recent fall with left shoulder/humerus fracture, hypertension, hypothyroidism, chronic pain syndrome, hyperlipidemia, diabetes, and vitamin D deficiency. She remains relatively sleepy. We have discontinued most of her pain medications or any other medications that may have an effect on her respiratory center. The patient is seen again today 07/18/2018 in follow-up on the selective care unit. She is status post left reverse total shoulder arthroplastycemented secondary to a displaced proximal humerus fracture. Postoperative day #1. She is currently sitting up in a chair at the bedside. She is awake and alert in no acute distress. She does have ongoing pain that her surgical site. She has been receiving [place] and Dilaudid. She denies any worsening shortness of breath. She is still requiring 4 L/m per nasal cannula to maintain O2 saturations in the mid 90s. She's been afebrile. White count 11.5. She is working well with the incentive spirometer. Objective - Vital Signs Vital signs: Vital Signs Temp 98.2 F 07/18/18 12:00 Pulse 99 07/18/18 12:00 Resp 20 07/18/18 12:00 BP 155/76 07/18/18 12:00 Pulse Ox 96 07/18/18 12:00 Intake & Output 07/17/18 07/18/18 07/18/18 18:59 06:59 18:59 Intake Total 1901 1080 100 Output Total 900 2450 500 Balance 1001 -1370 -400 Weight 109.1 kg Intake: IV 1101 200 Intake, IV Titration 800 Amount Sodium Chloride 0.9% 1, 800 000 ml @ 100 mls/hr IV . Q10H [facility] Rx#:[id number] Oral 880 100 Output: Urine 700 2450 500 2-way Urethral 500 Estimated Blood Loss 200 Other: Voiding Method Bedside Commode Indwelling Catheter # Voids 3 1 0 # Bowel Movements 0 - Exam No acute distress, alert. Up in the chair. HEENT examination is grossly unremarkable. Mucous membranes are moist. No oral lesions. Neck supple. Full range of motion. No adenopathy thyromegaly or neck vein distention. Cardiovascular examination reveals regular rhythm rate. S1-S2 normal. No S3 or S4. No discernible murmur noted. Lungs reveal mostly clear breath sounds. Her sounds are equal bilaterally. A few scattered mild rhonchi are noted. Minimal crackles are appreciated.. Abdomen soft bowel sounds are heard. No masses or tenderness. Abdomen is obese. Extremities are intact. No cyanosis or clubbing noted. Mild peripheral edema is appreciated. Left upper extremity sling in place. Dressing dry and intact. Skin is without rash or lesion. Neurologic examination is brief but nonfocal. - Labs CBC & Chem 7: 07/18/18 06:09 07/18/18 06:09 Labs: Abnormal Lab Results - Last 24 Hours (Table) 07/17/18 07/17/18 07/18/18 Range/Units 19:30 21:07 06:09 WBC 11.5 H (3.8-10.6) k/uL Neutrophils # 9.2 H (1.3-7.7) k/uL Creatinine (0.52-1.04) mg/dL Glucose (74-99) mg/dL POC Glucose (mg/dL) 158 H 167 H (75-99) mg/dL Calcium (8.4-10.2) mg/dL Albumin (3.5-5.0) g/dL 07/18/18 07/18/18 07/18/18 Range/Units 06:09 06:33 12:10 WBC (3.8-10.6) k/uL Neutrophils # (1.3-7.7) k/uL Creatinine 0.43 L (0.52-1.04) mg/dL Glucose 182 H (74-99) mg/dL POC Glucose (mg/dL) 176 H 194 H (75-99) mg/dL Calcium 7.4 L (8.4-10.2) mg/dL Albumin 3.3 L (3.5-5.0) g/dL Microbiology - Last 24 Hours (Table) 07/13/18 19:58 Blood Culture - Preliminary Blood No Growth after 96 hours Assessment and Plan Assessment: Assessment Status post fall with left shoulder/humerus fracture. Status post repair. Postoperative day #1. Low oxygen saturations throughout this hospitalization which may relate to sleep apnea syndrome and/or pickwickian syndrome (obesity/hypoventilation syndrome) central PEs ruled out. Mild fluid overload/heart failure History of sleep apnea, noncompliant with CPAP History of hypertension History of hypothyroidism History of chronic pain syndrome History of hyperlipidemia History of diabetes History of vitamin D deficiency Rule out restrictive lung disease secondary to obesity. Plan: The patient was seen and evaluated by Dr. Chavez. She is currently stable from the pulmonary standpoint. She does need increased encouragement regarding the use of the incentive spirometer and cough and deep breathing exercises. Increase her activity as tolerated. We'll repeat a chest x-ray in the morning. We'll continue to follow. I, the cosigning physician, performed a history & physical examination of the patient. Lungs sounds with faint crackles in the posterior bases. Maintaining good O2 saturations in the 90s on 2 L/m per nasal cannula. I discussed the assessment and plan of care with my nurse practitioner, Neyda Mora. I attest to the above note as dictated by her.
--- NOTE | 2018-07-18 14:21 | P.PN ---
Subjective Progress Note Date: 07/18/18 This is a 68-year-old female patient of Dr. Mortensen with past medical history of coronary artery disease status post stent, diabetes mellitus type 2, hyperlipidemia, hypertension, generalized anxiety disorder, recurrent depression. Patient states that she rolled out of bed and then could not get up off the floor. She does not remember what happened but she does not think she lost consciousness. She states she called for help and now that he could hear her. She lives in the senior apartments at [facility]. She states she eventually was able to crawl to get help but complains of her shoulder hurting. She thinks she landed on her left shoulder and it has been painful ever since. Patient denies any difficulty with speech or weakness on either side of her body. Patient also has history of obstructive sleep apnea but does not use CPAP. Patient ambulates with a walker She came into [facility] emergency center for evaluation. Left shoulder x-ray showed displaced humeral neck fracture. X-ray of the bilateral knees showed no acute fracture or dislocation. Diffuse osteopenia and arthropathy. CAT scan of the brain was negative for acute findings. CT of the shoulder, left, revealed impacted displaced comminuted humeral neck fracture. White count is 12.2, hemoglobin 14.7, creatinine 0.6 with BUN 19, blood sugar 202, lactic acid initially 2.1 with repeat at 1.4. ALT is 55, other liver function tests within normal limits. Urinalysis was cloudy, leukoesterase moderate, blood trace, WBC 55, squamous cells 1. Patient was started on ceftriaxone and consults requested with neurology and orthopedics. Patient denies frequent falls at home. Patient has been seen by Dr. Chauhan with plan to proceed with a left reverse shoulder arthroplasty for tomorrow. Patient has also been seen by Dr. Kurtz and EEG and carotid ultrasound ordered. Carotid ultrasound reveals that the right side of the carotid system could not be evaluated. On the left there is plaque with no significant hemodynamic stenosis. Limited exam of the left external carotid artery. Vertebral artery is nondiagnostic due to limitation of the exam. 07/15: Patient is gone from room. 07/16: Patient is sitting up and chair she continues to be quite drowsy she continues to have pain in her left arm, she continues to require 4 L of oxygen, she was seen in consultation by pulmonary as well as cardiology and the recommendation was to follow-up as an outpatient I believe the patient did have a sleep study long time ago and he was recommended for the patient to be on a CPAP however she could not tolerate because of her claustrophobia 07/17: Patient is a lot of pain in her left arm and she wanted things done, she continues to be drowsy, she continues to require quite a bit of oxygen, she was seen by pulmonary and cardiology, she has no chest pain, she does appear to be somewhat short of breath, she has no abdominal pain, nausea, vomiting or diarrhea. 07/18: Yesterday patient underwent left reverse total shoulder arthroplasty with Dr. Chauhan. She has been afebrile. Pulse ox is 96% on 4 L nasal cannula. Blood glucose running between 158 and 194. White count is 11.5, creatinine 0.53. CO2 is down to 29. Hemoglobin A1c is 8. EEG is moderately abnormal in diffuse fashion due to slowing of the EEG background. EEG failed to reveal any focal, lateralizing or epileptiform abnormalities. Cardiology has signed off and following on an as-needed basis. Orthopedics has cleared her for discharge. Patient is drinking okay and IV fluids will be discontinued. She remains in a sinus rhythm. Espinoza catheter to be discontinued. Patient is complaining of constipation for which lactulose has been added. She is complaining of pain and edema to the left shoulder. Patient will be transferred to [facility] floor and anticipate discharge to [facility] tomorrow. Objective - Vital Signs Vital signs: Vital Signs Temp 98.1 F 07/18/18 08:30 Pulse 108 H 07/18/18 08:30 Resp 20 07/18/18 08:30 BP 145/82 07/18/18 08:30 Pulse Ox 95 07/18/18 08:30 Intake & Output 07/17/18 07/18/18 07/18/18 18:59 06:59 18:59 Intake Total 1901 1080 Output Total 900 2450 Balance 1001 -1370 Weight 109.1 kg Intake: IV 1101 200 Intake, IV Titration 800 Amount Sodium Chloride 0.9% 1, 800 000 ml @ 100 mls/hr IV . Q10H [facility] Rx#:[id number] Oral 880 Output: Urine 700 2450 Estimated Blood Loss 200 Other: Voiding Method Bedside Commode # Voids 3 1 - Exam Gen: This is a obese 68-year-old female. She is sitting up in bed. HEENT: Head is atraumatic, normocephalic. Pupils equal, round. Sclerae is anicteric. NECK: Supple. No JVD. No lymphadenopathy. No thyromegaly. LUNGS: Clear to auscultation. No wheezes or rhonchi. No intercostal retractions. HEART: Regular rate and rhythm. No murmur. ABDOMEN: Soft. Bowel sounds are present. No masses. No tenderness. EXTREMITIES: No pedal edema. No calf tenderness. Left shoulder, decreased range of motion. Arm sling in place. NEUROLOGICAL: Patient is awake, alert and oriented x3. Cranial nerves 2 through 12 are grossly intact. - Labs CBC & Chem 7: 07/18/18 06:09 07/18/18 06:09 Labs: Abnormal Lab Results - Last 24 Hours (Table) 07/17/18 07/17/18 07/17/18 Range/Units 11:18 19:30 21:07 WBC (3.8-10.6) k/uL Neutrophils # (1.3-7.7) k/uL Creatinine (0.52-1.04) mg/dL Glucose (74-99) mg/dL POC Glucose (mg/dL) 156 H 158 H 167 H (75-99) mg/dL Calcium (8.4-10.2) mg/dL Albumin (3.5-5.0) g/dL 07/18/18 07/18/18 07/18/18 Range/Units 06:09 06:09 06:33 WBC 11.5 H (3.8-10.6) k/uL Neutrophils # 9.2 H (1.3-7.7) k/uL Creatinine 0.43 L (0.52-1.04) mg/dL Glucose 182 H (74-99) mg/dL POC Glucose (mg/dL) 176 H (75-99) mg/dL Calcium 7.4 L (8.4-10.2) mg/dL Albumin 3.3 L (3.5-5.0) g/dL Microbiology - Last 24 Hours (Table) 07/13/18 19:58 Blood Culture - Preliminary Blood No Growth after 96 hours Assessment and Plan Plan: 1. Left humerus fracture. Status post left reverse total shoulder arthroplasty with Dr. Chauhan. 2. Fall out of bed. Patient denies any loss of consciousness. Neurology consult appreciated. Carotid ultrasound as above. EEG is pending. 3. Urinary tract infection with lactic acidosis, resolved. Urine and blood culture in progress. Continue ceftriaxone. 4. Diabetes mellitus type 2. Hemoglobin A1c ordered. Continue metformin. Patient started on NovoLog scale before meals and at bedtime 5. Hyperlipidemia. Continue Lipitor 10 mg at bedtime. 6. Hypertension. Continue Norvasc 10 mg daily, lisinopril 40 mg daily, metoprolol XR 75 mg daily. 7. Chronic pain. Continue baclofen 10 mg 3 times daily and from scheduled to as needed and 5 mg 3 times daily as needed discontinued, gabapentin 100 mg 3 times daily. 8. Generalized anxiety disorder and recurrent depression. Continue trazodone 100 mg at bedtime, Effexor X are 150 mg daily, Xanax 0.25 mg 3 times daily as needed. 9. Coronary artery disease status post stent. Continue Imdur 30 mg daily. Noted patient is on Plavix but unsure of reason. Her last stent was 7 years ago. 10. Hypothyroidism. Continue levothyroxine 125 g daily. 11. Gastroesophageal reflux disease and GI prophylaxis. Continue Pepcid. 12. DVT prophylaxis. Heparin subcu and DAVID hose. 13. Obesity with obstructive sleep apnea and obesity hypoventilation syndrome. Patient will need to have another sleep study as an outpatient as she did have one many years ago and that she will require BiPAP at night. Continue oxygen support, continue other recommendation per pulmonary and cardiology. Patient was moved to selective care for better monitoring. Discharge plan: [facility] for subacute rehab. Impression and plan of care have been directed as dictated by the signing physician. Africa Conner nurse practitioner acting as scribe for signing physician.
[2018-07-18] MEDS: ONDANSETRON 4 MG/2 ML VIAL IVP PRN (14:45)
[2018-07-18 16:50] LABS: Glucose,Whole Blood 174 mg/dL (75-99)
[2018-07-18] MEDS: amLODIPine 10 MG TAB PO SCH ×2 (20:31→20:48)
[2018-07-18] MEDS: ATORVASTATIN 10 MG TAB PO SCH (20:48)
[2018-07-18] MEDS: traZODone HCL 100 MG TAB PO SCH (20:49)
[2018-07-18 20:55] LABS: Glucose,Whole Blood 148 mg/dL (75-99)
[2018-07-18 22:21] VITALS: RESP 18
[2018-07-19] MEDS: HYDROmorphone 1 MG/ML 1 ML SYRINGE IVP PRN ×4 (04:18→20:09)
[2018-07-19 06:22] LABS: Glucose,Whole Blood 157 mg/dL (75-99)
[2018-07-19] MEDS: LEVOTHYROXINE 125 MCG TAB PO SCH (06:22)
[2018-07-19] MEDS: INSULIN ASPART 100 UNIT/ML 1 ML 10 ML VIAL SQ SCH ×4 (06:23→21:05)
[2018-07-19] MEDS: HYDROcodone/APAP 7.5-325MG 1 EACH TAB PO PRN ×3 (06:28→18:31)
--- NOTE | 2018-07-19 08:55 | P.DS ---
Providers Date of admission: 07/13/18 19:01 Expected date of discharge: 07/19/18 Attending physician: Houston Bonds Consults: 07/13/18 18:53 Consult Physician Stat Consulting Provider: Mo Chauhan Consult Reason/Comments: L humeral fracture Do you want consulting provider notified?: Yes Consult Physician Stat Consulting Provider: Shawnee Kurtz Consult Reason/Comments: Falls, Dizziness, CVA history Do you want consulting provider notified?: Yes 07/15/18 10:42 Consult Physician Urgent Consulting Provider: Ryan Mccann Consult Reason/Comments: surgical clearance Do you want consulting provider notified?: Yes 07/15/18 10:44 Consult Physician Urgent Consulting Provider: Jim Ricci Consult Reason/Comments: surgical clearance Do you want consulting provider notified?: Yes Primary care physician: Alpesh Mortensen [facility] Course: This is a 68-year-old female patient of Dr. Mortensen with past medical history of coronary artery disease status post stent, diabetes mellitus type 2, hyperlipidemia, hypertension, generalized anxiety disorder, recurrent depression. Patient states that she rolled out of bed and then could not get up off the floor. She does not remember what happened but she does not think she lost consciousness. She states she called for help and now that he could hear her. She lives in the senior apartments at [facility]. She states she eventually was able to crawl to get help but complains of her shoulder hurting. She thinks she landed on her left shoulder and it has been painful ever since. Patient denies any difficulty with speech or weakness on either side of her body. Patient also has history of obstructive sleep apnea but does not use CPAP. Patient ambulates with a walker She came into [facility] emergency center for evaluation. Left shoulder x-ray showed displaced humeral neck fracture. X-ray of the bilateral knees showed no acute fracture or dislocation. Diffuse osteopenia and arthropathy. CAT scan of the brain was negative for acute findings. CT of the shoulder, left, revealed impacted displaced comminuted humeral neck fracture. White count is 12.2, hemoglobin 14.7, creatinine 0.6 with BUN 19, blood sugar 202, lactic acid initially 2.1 with repeat at 1.4. ALT is 55, other liver function tests within normal limits. Urinalysis was cloudy, leukoesterase moderate, blood trace, WBC 55, squamous cells 1. Patient was started on ceftriaxone and consults requested with neurology and orthopedics. Patient denies frequent falls at home. Patient has been seen by Dr. Chauhan with plan to proceed with a left reverse shoulder arthroplasty for tomorrow. Patient has also been seen by Dr. Kurtz and EEG and carotid ultrasound ordered. Carotid ultrasound reveals that the right side of the carotid system could not be evaluated. On the left there is plaque with no significant hemodynamic stenosis. Limited exam of the left external carotid artery. Vertebral artery is nondiagnostic due to limitation of the exam. 07/15: Patient is gone from room. 07/16: Patient is sitting up and chair she continues to be quite drowsy she continues to have pain in her left arm, she continues to require 4 L of oxygen, she was seen in consultation by pulmonary as well as cardiology and the recommendation was to follow-up as an outpatient I believe the patient did have a sleep study long time ago and he was recommended for the patient to be on a CPAP however she could not tolerate because of her claustrophobia 07/17: Patient is a lot of pain in her left arm and she wanted things done, she continues to be drowsy, she continues to require quite a bit of oxygen, she was seen by pulmonary and cardiology, she has no chest pain, she does appear to be somewhat short of breath, she has no abdominal pain, nausea, vomiting or diarrhea. 07/18: Yesterday patient underwent left reverse total shoulder arthroplasty with Dr. Chauhan. She has been afebrile. Pulse ox is 96% on 4 L nasal cannula. Blood glucose running between 158 and 194. White count is 11.5, creatinine 0.53. CO2 is down to 29. Hemoglobin A1c is 8. EEG is moderately abnormal in diffuse fashion due to slowing of the EEG background. EEG failed to reveal any focal, lateralizing or epileptiform abnormalities. Cardiology has signed off and following on an as-needed basis. Orthopedics has cleared her for discharge. Patient is drinking okay and IV fluids will be discontinued. She remains in a sinus rhythm. Espinoza catheter to be discontinued. Patient is complaining of constipation for which lactulose has been added. She is complaining of pain and edema to the left shoulder. Patient will be transferred to [facility] and anticipate discharge to [facility] tomorrow. 07/19: Patient remains afebrile. Pulse ox 98% on 3 L nasal cannula. Heart rate is running in the low 100s. Espinoza catheter was removed. Patient's constipation is resolved. Patient has significant edema to the left arm and pain with tenderness to the entire arm. Plan to monitor overnight and plan for discharge tomorrow. Patient does have a guardian and case management/social worker assistant working for discharge planning. Anticipate discharge tomorrow. 07/20: Patient drop in her hemoglobin of 88 during the night secondary to sleep apnea. When awake, pulse ox is 92% on room air. She refuses to wear oxygen. Heart rate is running in the 90s and low 100s. The patient has been afebrile. No new complaints. Arrangements have been made for [facility] for his rehab. Patient will be discharged today in stable condition. Discharge diagnoses: 1. Left humerus fracture. Status post left reverse total shoulder arthroplasty with Dr. Chauhan. 2. Fall out of bed. Patient denies any loss of consciousness. 3. Urinary tract infection with lactic acidosis, resolved. 4. Diabetes mellitus type 2. Hemoglobin A1c 8. 5. Hyperlipidemia. 6. Hypertension. 7. Chronic pain. 8. Generalized anxiety disorder and recurrent depression. 9. Coronary artery disease status post stent. 10. Hypothyroidism. 11. Gastroesophageal reflux disease 12. Obesity with obstructive sleep apnea and obesity hypoventilation syndrome. Patient will need to have another sleep study as an outpatient. [facility] Impression and plan of care have been directed as dictated by the signing physician. Africa Conner nurse practitioner acting as scribe for signing physician. Patient Condition at Discharge: Good Plan - Discharge Summary Discharge Rx Participant: No New Discharge Prescriptions: New Acetaminophen Tab [Tylenol] 650 mg PO Q6HR PRN tab PRN Reason: Mild Pain Or Fever > 100.5 Albuterol Nebulized [Ventolin Nebulized] 2.5 mg INHALATION RT-QID PRN nebu PRN Reason: Shortness Of Breath Or Wheezing Baclofen [Lioresal] 10 mg PO TID PRN tab PRN Reason: muscle spasms Ibuprofen [Motrin] 400 mg PO Q6HR PRN tab PRN Reason: Mild Pain Or Fever > 100.5 Lactulose [Cephulac] 30 gm PO DAILY ml Metoprolol Tartrate [Lopressor] 50 mg PO BID tab Continue traZODone HCL [Desyrel] 100 mg PO HS Potassium Chloride ER [K-Dur 10] 10 meq PO TID Lisinopril 40 mg PO DAILY Levothyroxine Sodium [Synthroid] 125 mcg PO DAILY Furosemide [Lasix] 20 mg PO DAILY Famotidine 40 mg PO DAILY Clopidogrel [Plavix] 75 mg PO DAILY Cholecalciferol (Vitamin D3) [Vitamin D3] 2,000 unit PO DAILY Venlafaxine HCl [Effexor XR] 150 mg PO DAILY Multivitamin,Therapeutic [Thera] 1 tab PO DAILY Simvastatin [Zocor] 20 mg PO HS metFORMIN HCL ER [Glucophage Xr] 500 mg PO BID Isosorbide Mononitrate ER [Imdur] 30 mg PO DAILY Gabapentin [Neurontin] 100 mg PO TID Diphenox-Atrop 2.5-0.025 mg [Lomotil] 1 tab PO QID PRN PRN Reason: Diarrhea Calcitonin Nasal [Fortical (Miacalcin)] 1 spray NASAL DAILY amLODIPine [Norvasc] 10 mg PO DAILY ALPRAZolam [Xanax] 0.25 mg PO TID PRN PRN Reason: Anxiety HYDROcodone/APAP 7.5-325MG [[place] 7.5-325] 1 tab PO TID PRN #9 tab PRN Reason: Pain Discontinued Metoprolol Succinate (ER) [Toprol XL] 75 mg PO DAILY Baclofen [Lioresal] 10 mg PO TID Baclofen 5 mg PO TID PRN PRN Reason: Muscle Pain Discharge Medication List Cholecalciferol (Vitamin D3) [Vitamin D3] 2,000 unit PO DAILY 07/09/17 [History] Clopidogrel [Plavix] 75 mg PO DAILY 07/09/17 [History] Famotidine 40 mg PO DAILY 07/09/17 [History] Furosemide [Lasix] 20 mg PO DAILY 07/09/17 [History] Levothyroxine Sodium [Synthroid] 125 mcg PO DAILY 07/09/17 [History] Lisinopril 40 mg PO DAILY 07/09/17 [History] Multivitamin,Therapeutic [Thera] 1 tab PO DAILY 07/09/17 [History] Potassium Chloride ER [K-Dur 10] 10 meq PO TID 07/09/17 [History] Venlafaxine HCl [Effexor XR] 150 mg PO DAILY 07/09/17 [History] traZODone HCL [Desyrel] 100 mg PO HS 07/09/17 [History] ALPRAZolam [Xanax] 0.25 mg PO TID PRN 07/13/18 [History] Calcitonin Nasal [Fortical (Miacalcin)] 1 spray NASAL DAILY 07/13/18 [History] Diphenox-Atrop 2.5-0.025 mg [Lomotil] 1 tab PO QID PRN 07/13/18 [History] Gabapentin [Neurontin] 100 mg PO TID 07/13/18 [History] Isosorbide Mononitrate ER [Imdur] 30 mg PO DAILY 07/13/18 [History] Simvastatin [Zocor] 20 mg PO HS 07/13/18 [History] amLODIPine [Norvasc] 10 mg PO DAILY 07/13/18 [History] metFORMIN HCL ER [Glucophage Xr] 500 mg PO BID 07/13/18 [History] Acetaminophen Tab [Tylenol] 650 mg PO Q6HR PRN tab 07/20/18 [Rx] Albuterol Nebulized [Ventolin Nebulized] 2.5 mg INHALATION RT-QID PRN nebu [Rx] Baclofen [Lioresal] 10 mg PO TID PRN tab 07/20/18 [Rx] HYDROcodone/APAP 7.5-325MG [[place] 7.5-325] 1 tab PO TID PRN #9 tab 07/20/18 [Rx] Ibuprofen [Motrin] 400 mg PO Q6HR PRN tab 07/20/18 [Rx] Lactulose [Cephulac] 30 gm PO DAILY ml 07/20/18 [Rx] Metoprolol Tartrate [Lopressor] 50 mg PO BID tab 07/20/18 [Rx] Follow up Appointment(s)/Referral(s): Dylan Coello MD [STAFF PHYSICIAN] - 6 Weeks (Office will call with follow up appointment.) Alpesh Mortensen MD [Primary Care Provider] - As Needed (Please follow up once discharged from rehab.) Mo Chauhan MD [STAFF PHYSICIAN] - 08/05/18 3:30 pm Patient Instructions/Handouts: Heart Failure (DC), Arm Fracture in Adults (DC) , Urinary Tract Infection in Women (DC), Heart Healthy Diet (DC) Activity/Diet/Wound Care/Special Instructions: Orthopedic discharge instructions: 1. Keep incision dry and covered while showering 2. Avoid excessive use with left upper extremity 3. Utilize arm sling 4. [facility]-up at [facility] 2 weeks Discharge Disposition: TRANSFER TO SNF/ECF
[2018-07-19] MEDS: LISINOPRIL 20 MG TAB PO SCH (09:28)
[2018-07-19] MEDS: GABAPENTIN 100 MG CAP PO SCH ×3 (09:29→21:07)
[2018-07-19] MEDS: CHOLECALCIFEROL 1,000 UNIT TAB PO SCH (09:29)
[2018-07-19] MEDS: FUROSEMIDE 20 MG TAB PO SCH (09:29)
[2018-07-19] MEDS: METOPROLOL TARTRATE 50 MG TAB PO SCH ×2 (09:29→21:07)
[2018-07-19] MEDS: VENLAFAXINE HCL ER 150 MG CAP PO SCH (09:29)
[2018-07-19] MEDS: POTASSIUM CHLORIDE ER 10 MEQ TAB.ER.PRT PO SCH ×3 (09:29→21:07)
[2018-07-19] MEDS: FAMOTIDINE 20 MG TAB PO SCH (09:29)
[2018-07-19] MEDS: HEPARIN SODIUM,PORCINE 5,000 UNIT/ML 1 ML VIAL SQ SCH ×3 (09:30→22:53)
[2018-07-19] MEDS: cefTRIAXone IN SWFI 1,000 MG/10 ML SYRINGE IVP SCH (09:38)
[2018-07-19] MEDS: ISOSORBIDE MONONITRATE ER 30 MG TAB.ER.24H PO SCH (09:44)
[2018-07-19] MEDS: LACTULOSE 20 GM/30 ML CUP PO SCH ×2 (09:44→20:51)
--- NOTE | 2018-07-19 10:24 | P.PN ---
Subjective Progress Note Date: 07/19/18 Principal diagnosis: Status post reverse left total shoulder arthroplasty Patient seen today resting in her hospital chair, she appears comfortable. She notes some discomfort in the left shoulder when moving it. She denies any chest pain or shortness of breath. Objective - Vital Signs Vital signs: Vital Signs Temp 97.4 F L 07/19/18 04:00 Pulse 102 H 07/19/18 04:00 Resp 18 07/19/18 04:00 BP 130/74 07/19/18 04:00 Pulse Ox 98 07/19/18 04:00 Intake & Output 07/18/18 07/19/18 07/19/18 18:59 06:59 18:59 Intake Total 200 10 Output Total 500 1 Balance -300 9 Weight 105.1 kg Intake: IV 0 10 Sodium Chloride 0.9% 1, 0 10 000 ml @ 100 mls/hr IV . Q10H PJ Rx#:[id number] Oral 200 Output: Urine 500 2-way Urethral 500 Urine/Stool Mix 1 Other: Voiding Method Indwelling Catheter Bedside Commode # Voids 0 3 # Bowel Movements 0 - Exam Left upper extremity: Initial postop bandage was changed, Steri-Strips and suture in good position There is obvious ecchymosis and swelling present around the shoulder and into the arm Sensory exam light touch throughout extremities intact Radial pulses 2+ - Labs CBC & Chem 7: 07/18/18 06:09 07/18/18 06:09 Labs: Abnormal Lab Results - Last 24 Hours (Table) 07/18/18 07/18/18 07/18/18 Range/Units 12:10 16:36 20:43 POC Glucose (mg/dL) 194 H 174 H 148 H (75-99) mg/dL 07/19/18 Range/Units 06:10 POC Glucose (mg/dL) 157 H (75-99) mg/dL Microbiology - Last 24 Hours (Table) 07/13/18 19:58 Blood Culture - Preliminary Blood No Growth after 120 hours Assessment and Plan Plan: Assessment: Postop day #2 status post reverse left total shoulder arthroplasty Plan: Pain control, continue use of current medication GI and DVT prophylaxis per medical and cardiac recommendations Daily dressing changes Utilize arm sling Other senior medical technologist recommendations Discharge planning: On orthopedic standpoint, patient is stable for discharge. Patient would benefit from rehab stay. Patient will follow up in office in 2 weeks Time with Patient: Less than 30
[2018-07-19 12:17] LABS: Glucose,Whole Blood 146 mg/dL (75-99)
[2018-07-19] MEDS: MULTIVITAMINS, THERA 1 EACH TAB PO SCH (12:19)
--- NOTE | 2018-07-19 12:22 | P.PN ---
Subjective Progress Note Date: 07/19/18 This is a 68-year-old female patient of Dr. Mortensen with past medical history of coronary artery disease status post stent, diabetes mellitus type 2, hyperlipidemia, hypertension, generalized anxiety disorder, recurrent depression. Patient states that she rolled out of bed and then could not get up off the floor. She does not remember what happened but she does not think she lost consciousness. She states she called for help and now that he could hear her. She lives in the senior apartments at [facility]. She states she eventually was able to crawl to get help but complains of her shoulder hurting. She thinks she landed on her left shoulder and it has been painful ever since. Patient denies any difficulty with speech or weakness on either side of her body. Patient also has history of obstructive sleep apnea but does not use CPAP. Patient ambulates with a walker She came into [facility] emergency center for evaluation. Left shoulder x-ray showed displaced humeral neck fracture. X-ray of the bilateral knees showed no acute fracture or dislocation. Diffuse osteopenia and arthropathy. CAT scan of the brain was negative for acute findings. CT of the shoulder, left, revealed impacted displaced comminuted humeral neck fracture. White count is 12.2, hemoglobin 14.7, creatinine 0.6 with BUN 19, blood sugar 202, lactic acid initially 2.1 with repeat at 1.4. ALT is 55, other liver function tests within normal limits. Urinalysis was cloudy, leukoesterase moderate, blood trace, WBC 55, squamous cells 1. Patient was started on ceftriaxone and consults requested with neurology and orthopedics. Patient denies frequent falls at home. Patient has been seen by Dr. Chauhan with plan to proceed with a left reverse shoulder arthroplasty for tomorrow. Patient has also been seen by Dr. Kurtz and EEG and carotid ultrasound ordered. Carotid ultrasound reveals that the right side of the carotid system could not be evaluated. On the left there is plaque with no significant hemodynamic stenosis. Limited exam of the left external carotid artery. Vertebral artery is nondiagnostic due to limitation of the exam. 07/15: Patient is gone from room. 07/16: Patient is sitting up and chair she continues to be quite drowsy she continues to have pain in her left arm, she continues to require 4 L of oxygen, she was seen in consultation by pulmonary as well as cardiology and the recommendation was to follow-up as an outpatient I believe the patient did have a sleep study long time ago and he was recommended for the patient to be on a CPAP however she could not tolerate because of her claustrophobia 07/17: Patient is a lot of pain in her left arm and she wanted things done, she continues to be drowsy, she continues to require quite a bit of oxygen, she was seen by pulmonary and cardiology, she has no chest pain, she does appear to be somewhat short of breath, she has no abdominal pain, nausea, vomiting or diarrhea. 07/18: Yesterday patient underwent left reverse total shoulder arthroplasty with Dr. Chauhan. She has been afebrile. Pulse ox is 96% on 4 L nasal cannula. Blood glucose running between 158 and 194. White count is 11.5, creatinine 0.53. CO2 is down to 29. Hemoglobin A1c is 8. EEG is moderately abnormal in diffuse fashion due to slowing of the EEG background. EEG failed to reveal any focal, lateralizing or epileptiform abnormalities. Cardiology has signed off and following on an as-needed basis. Orthopedics has cleared her for discharge. Patient is drinking okay and IV fluids will be discontinued. She remains in a sinus rhythm. Espinoza catheter to be discontinued. Patient is complaining of constipation for which lactulose has been added. She is complaining of pain and edema to the left shoulder. Patient will be transferred to [facility] and anticipate discharge to [facility] tomorrow. 07/19: Patient remains afebrile. Pulse ox 98% on 3 L nasal cannula. Heart rate is running in the low 100s. Espinoza catheter was removed. Patient's constipation is resolved. Patient has significant edema to the left arm and pain with tenderness to the entire arm. Plan to monitor overnight and plan for discharge tomorrow. Patient does have a guardian and case management/certified social workers in health care working for discharge planning. Anticipate discharge tomorrow. Objective - Vital Signs Vital signs: Vital Signs Temp 97.7 F 07/19/18 08:00 Pulse 97 07/19/18 08:00 Resp 18 07/19/18 08:00 BP 115/70 07/19/18 08:00 Pulse Ox 97 07/19/18 08:00 Intake & Output 07/18/18 07/19/18 07/19/18 18:59 06:59 18:59 Intake Total 200 10 Output Total 500 1 Balance -300 9 Weight 105.1 kg Intake: IV 0 10 Sodium Chloride 0.9% 1, 0 10 000 ml @ 100 mls/hr IV . Q10H PJ Rx#:[id number] Oral 200 Output: Urine 500 2-way Urethral 500 Urine/Stool Mix 1 Other: Voiding Method Indwelling Catheter Bedside Commode # Voids 0 3 # Bowel Movements 0 - Exam Gen: This is a obese 68-year-old female. She is sitting up in bed. HEENT: Head is atraumatic, normocephalic. Pupils equal, round. Sclerae is anicteric. NECK: Supple. No JVD. No lymphadenopathy. No thyromegaly. LUNGS: Clear to auscultation. No wheezes or rhonchi. No intercostal retractions. HEART: Regular rate and rhythm. No murmur. ABDOMEN: Soft. Bowel sounds are present. No masses. No tenderness. EXTREMITIES: No pedal edema. No calf tenderness. Left shoulder, decreased range of motion and significant edema to the entire arm. Arm sling in place. NEUROLOGICAL: Patient is awake, alert and oriented x3. Cranial nerves 2 through 12 are grossly intact. - Labs CBC & Chem 7: 07/18/18 06:09 07/18/18 06:09 Labs: Abnormal Lab Results - Last 24 Hours (Table) 07/18/18 07/18/18 07/19/18 Range/Units 16:36 20:43 06:10 POC Glucose (mg/dL) 174 H 148 H 157 H (75-99) mg/dL 07/19/18 Range/Units 12:00 POC Glucose (mg/dL) 146 H (75-99) mg/dL Microbiology - Last 24 Hours (Table) 07/13/18 19:58 Blood Culture - Preliminary Blood No Growth after 120 hours Assessment and Plan Plan: 1. Left humerus fracture. Status post left reverse total shoulder arthroplasty with Dr. Chauhan. 2. Fall out of bed. Patient denies any loss of consciousness. Neurology consult appreciated. Carotid ultrasound as above. EEG is pending. 3. Urinary tract infection with lactic acidosis, resolved. Urine and blood culture in progress. Continue ceftriaxone. 4. Diabetes mellitus type 2. Hemoglobin A1c ordered. Continue metformin. Patient started on NovoLog scale before meals and at bedtime 5. Hyperlipidemia. Continue Lipitor 10 mg at bedtime. 6. Hypertension. Continue Norvasc 10 mg daily, lisinopril 40 mg daily, metoprolol XR 75 mg daily. 7. Chronic pain. Continue baclofen 10 mg 3 times daily and from scheduled to as needed and 5 mg 3 times daily as needed discontinued, gabapentin 100 mg 3 times daily. 8. Generalized anxiety disorder and recurrent depression. Continue trazodone 100 mg at bedtime, Effexor X are 150 mg daily, Xanax 0.25 mg 3 times daily as needed. 9. Coronary artery disease status post stent. Continue Imdur 30 mg daily. Noted patient is on Plavix but unsure of reason. Her last stent was 7 years ago. 10. Hypothyroidism. Continue levothyroxine 125 g daily. 11. Gastroesophageal reflux disease and GI prophylaxis. Continue Pepcid. 12. DVT prophylaxis. Heparin subcu and DAVID hose. 13. Obesity with obstructive sleep apnea and obesity hypoventilation syndrome. Patient will need to have another sleep study as an outpatient as she did have one many years ago and that she will require BiPAP at night. Continue oxygen support, continue other recommendation per pulmonary and cardiology. Patient was moved to [facility] for better monitoring. Discharge plan: [facility] or [facility] for subacute rehab tomorrow. Impression and plan of care have been directed as dictated by the signing physician. Africa Conner nurse practitioner acting as scribe for signing physician.
[2018-07-19] MEDS ORDERED: ALBUTEROL NEBULIZED 2.5 MG/3 ML INHALATION PRN (14:23)
--- NOTE | 2018-07-19 14:26 | P.PN ---
Subjective Progress Note Date: 07/19/18 Principal diagnosis: Hypoxemia, obstructive sleep apnea 68-year-old female who presented to the emergency department with left shoulder pain and bilateral knee pain after she slipped and fell out of bed. She apparently sustained a fracture to the left shoulder/humerus. She apparently was going to the operating room today for a surgical repair and it was noted that she had very low saturations. For that reason, the operation was canceled and hence we were asked to see her to evaluate her low oxygen saturations. The patient apparently does also have a history of sleep apnea syndrome but apparently is noncompliant with CPAP. She is obese and could have a component of obesity/hypoventilation syndrome or pickwickian syndrome. She is a lifelong nonsmoker and would likely not have COPD. According to the health record, there is no history of any lung issues that she's not on any breathing medications. She apparently does have a history of diabetes hyperlipidemia hypertension. Currently, she is far too sleepy to really get much history from him. The most of given her something in the preoperative area to sedate her. Anyway, we did order a CT angiogram of the chest to rule out pulmonary embolism. It has not been done as yet. We also noted that her saturations while not on any oxygen for the couple days or so before today, were a bit low. Progress note dated 07/17/2018 68-year-old female who was to go for shoulder surgery earlier this past week. Apparently in the operating room she was found to have low saturations. For that reason the surgery was canceled. The patient does have a history of sleep apnea syndrome has been noncompliant with her CPAP device. She also may have a component of pickwickian syndrome. In addition, the patient was found to have some mild heart failure was moved to the 6 selective unit for closer monitoring. She does not appear to have intrinsic pulmonary disease but could have some restrictive lung disease from obesity. In addition, she has a history of recent fall with left shoulder/humerus fracture, hypertension, hypothyroidism, chronic pain syndrome, hyperlipidemia, diabetes, and vitamin D deficiency. She remains relatively sleepy. We have discontinued most of her pain medications or any other medications that may have an effect on her respiratory center. The patient is seen again today 07/18/2018 in follow-up on the selective care unit. She is status post left reverse total shoulder arthroplastycemented secondary to a displaced proximal humerus fracture. Postoperative day #1. She is currently sitting up in a chair at the bedside. She is awake and alert in no acute distress. She does have ongoing pain that her surgical site. She has been receiving Speculator and Dilaudid. She denies any worsening shortness of breath. She is still requiring 4 L/m per nasal cannula to maintain O2 saturations in the mid 90s. She's been afebrile. White count 11.5. She is working well with the incentive spirometer. Patient is seen again today 07/19/2018 in follow-up on the selective care unit. She is currently resting quite comfortably in bed. She is awake and alert in no acute distress. She states her pain is a little better controlled today compared to yesterday. She denies any shortness of breath, cough or congestion. She continues to work fairly well with the incentive spirometer. He is maintaining good O2 saturations in the upper 90s on 3 L/m per nasal cannula. She's afebrile. Objective - Vital Signs Vital signs: Vital Signs Temp 97.7 F 07/19/18 08:00 Pulse 97 07/19/18 08:00 Resp 18 07/19/18 08:00 BP 115/70 07/19/18 08:00 Pulse Ox 97 07/19/18 08:00 Intake & Output 07/18/18 07/19/18 07/19/18 18:59 06:59 18:59 Intake Total 200 10 100 Output Total 500 1 Balance -300 9 100 Weight 105.1 kg Intake: IV 0 10 Sodium Chloride 0.9% 1, 0 10 000 ml @ 100 mls/hr IV . Q10H [facility] Rx#:[id number] Oral 200 100 Output: Urine 500 2-way Urethral 500 Urine/Stool Mix 1 Other: Voiding Method Indwelling Catheter Bedside Commode # Voids 0 3 1 # Bowel Movements 0 - Exam No acute distress, alert. Resting comfortably in bed HEENT examination is grossly unremarkable. Mucous membranes are moist. No oral lesions. Neck supple. Full range of motion. No adenopathy thyromegaly or neck vein distention. Cardiovascular examination reveals regular rhythm rate. S1-S2 normal. No S3 or S4. No discernible murmur noted. Lungs reveal mostly clear breath sounds. Her sounds are equal bilaterally. A few scattered mild rhonchi are noted. Minimal crackles are appreciated.. Abdomen soft bowel sounds are heard. No masses or tenderness. Abdomen is obese. Extremities are intact. No cyanosis or clubbing noted. Mild peripheral edema is appreciated. Left upper extremity sling in place. Dressing dry and intact. Skin is without rash or lesion. Neurologic examination is brief but nonfocal. - Labs CBC & Chem 7: 07/18/18 06:09 07/18/18 06:09 Labs: Abnormal Lab Results - Last 24 Hours (Table) 07/18/18 07/18/18 07/19/18 Range/Units 16:36 20:43 06:10 POC Glucose (mg/dL) 174 H 148 H 157 H (75-99) mg/dL 07/19/18 Range/Units 12:00 POC Glucose (mg/dL) 146 H (75-99) mg/dL Microbiology - Last 24 Hours (Table) 07/13/18 19:58 Blood Culture - Preliminary Blood No Growth after 120 hours Assessment and Plan Assessment: Assessment Status post fall with left shoulder/humerus fracture. Status post repair. Postoperative day #1. Low oxygen saturations throughout this hospitalization which may relate to sleep apnea syndrome and/or pickwickian syndrome (obesity/hypoventilation syndrome) central PEs ruled out. Mild fluid overload/heart failure History of sleep apnea, noncompliant with CPAP History of hypertension History of hypothyroidism History of chronic pain syndrome History of hyperlipidemia History of diabetes History of vitamin D deficiency Rule out restrictive lung disease secondary to obesity. Plan: The patient was seen and evaluated by Dr. Chavez. She is currently stable from the pulmonary standpoint. We will repeat a chest x-ray in the a.m. She does need increased encouragement regarding the use of the incentive spirometer and cough and deep breathing exercises. Increase her activity as tolerated. We' ll continue to follow. Plan is for discharge to subacute rehabilitation. I, the cosigning physician, performed a history & physical examination of the patient. Lungs sounds with faint crackles in the posterior bases. Maintaining good O2 saturations in the 90s on 3 L/m per nasal cannula. I discussed the assessment and plan of care with my nurse practitioner, Neyda Mora. I attest to the above note as dictated by her.
[2018-07-19 16:59] LABS: Glucose,Whole Blood 138 mg/dL (75-99)
[2018-07-19 21:03] LABS: Glucose,Whole Blood 119 mg/dL (75-99)
[2018-07-19] MEDS: amLODIPine 10 MG TAB PO SCH (21:06)
[2018-07-19] MEDS: traZODone HCL 100 MG TAB PO SCH (21:07)
[2018-07-19] MEDS: ATORVASTATIN 10 MG TAB PO SCH (21:07)
[2018-07-20] MEDS: HYDROcodone/APAP 7.5-325MG 1 EACH TAB PO PRN ×3 (00:53→12:12)
[2018-07-20 06:10] LABS: Glucose,Whole Blood 266 mg/dL (75-99)
[2018-07-20] MEDS: LEVOTHYROXINE 125 MCG TAB PO SCH (06:22)
[2018-07-20] MEDS: INSULIN ASPART 100 UNIT/ML 1 ML 10 ML VIAL SQ SCH (06:22)
--- NOTE | 2018-07-20 08:23 | P.PN ---
Subjective Progress Note Date: 07/20/18 Principal diagnosis: Status post reverse left total shoulder arthroplasty Patient seen today resting in her hospital chair, she appears comfortable. She notes some discomfort in the left shoulder when moving it. Ecchymosis and swelling improving. She denies any chest pain or shortness of breath. Objective - Vital Signs Vital signs: Vital Signs Temp 97.8 F 07/20/18 04:00 Pulse 100 07/20/18 04:00 Resp 18 07/20/18 04:00 BP 116/64 07/20/18 04:00 Pulse Ox 88 L 07/20/18 04:00 Intake & Output 07/19/18 07/20/18 07/20/18 18:59 06:59 18:59 Intake Total 100 246 Balance 100 246 Weight 105.3 kg Intake: Intake, IV Titration 10 Amount Sodium Chloride 0.9% 50 10 ml @ 0 mls/hr IV .STK-MED ONE with ceFAZolin 2,000 mg Rx#:[id number] Oral 100 236 Other: Voiding Method Bedside Commode Bedside Commode # Voids 1 3 - Exam Left upper extremity: Initial postop bandage was changed, Steri-Strips and suture in good position Ecchymosis and swelling present around the shoulder and arm has improved Sensory exam light touch throughout extremities intact Radial pulses 2+ - Labs CBC & Chem 7: 07/18/18 06:09 07/18/18 06:09 Labs: Abnormal Lab Results - Last 24 Hours (Table) 07/19/18 07/19/18 07/19/18 Range/Units 12:00 16:46 21:01 POC Glucose (mg/dL) 146 H 138 H 119 H (75-99) mg/dL 07/20/18 Range/Units 06:08 POC Glucose (mg/dL) 266 H (75-99) mg/dL Microbiology - Last 24 Hours (Table) 07/13/18 19:58 Blood Culture - Final Blood No Growth after 144 hours Assessment and Plan Plan: Assessment: Postop day #3 status post reverse left total shoulder arthroplasty Plan: Pain control, continue use of current medication GI and DVT prophylaxis per medical and cardiac recommendations Daily dressing changes Utilize arm sling Other medical lab director recommendations Discharge planning: On orthopedic standpoint, patient is stable for discharge. Patient would benefit from rehab stay. Patient will follow up in office in 2 weeks Time with Patient: Less than 30
[2018-07-20 08:54] VITALS: BP 125/63; PULSE 107; TEMP 97.5
[2018-07-20] MEDS: cefTRIAXone IN SWFI 1,000 MG/10 ML SYRINGE IVP SCH (09:31)
[2018-07-20] MEDS: HEPARIN SODIUM,PORCINE 5,000 UNIT/ML 1 ML VIAL SQ SCH (09:31)
[2018-07-20] MEDS: CHOLECALCIFEROL 1,000 UNIT TAB PO SCH (09:33)
[2018-07-20] MEDS: FAMOTIDINE 20 MG TAB PO SCH (09:33)
[2018-07-20] MEDS: GABAPENTIN 100 MG CAP PO SCH (09:34)
[2018-07-20] MEDS: LACTULOSE 20 GM/30 ML CUP PO SCH (09:35)
[2018-07-20] MEDS: FUROSEMIDE 20 MG TAB PO SCH (09:35)
[2018-07-20] MEDS: ISOSORBIDE MONONITRATE ER 30 MG TAB.ER.24H PO SCH (09:35)
[2018-07-20] MEDS: LISINOPRIL 20 MG TAB PO SCH (09:35)
[2018-07-20] MEDS: POTASSIUM CHLORIDE ER 10 MEQ TAB.ER.PRT PO SCH (09:36)
[2018-07-20] MEDS: METOPROLOL TARTRATE 50 MG TAB PO SCH (09:36)
[2018-07-20] MEDS: VENLAFAXINE HCL ER 150 MG CAP PO SCH (09:37)
[2018-07-20] MEDS: MULTIVITAMINS, THERA 1 EACH TAB PO SCH (12:12)
--- NOTE | 2018-07-20 12:36 | XR ---
EXAMINATION TYPE: XR chest 1V portable DATE OF EXAM: 07/20/2018 COMPARISON: 01/04/2014 HISTORY: Postoperative atelectasis TECHNIQUE: Single frontal view of the chest is obtained. FINDINGS: Exam is limited by reduced inspiration. There is postsurgical change involving the left sh oulder. Heart is enlarged. Subsegmental changes at the right lung base noted. No pneumothorax or over t failure. Hypertrophic and degenerative change of the spine. Suspect tiny bilateral pleural effusion s. Assessment interstitium limited by reduced inspiration. IMPRESSION: Right basilar atelectasis or early infiltrate. Tiny bilateral pleural effusion suspected .
[2018-07-20 16:44] LABS: Glucose,Whole Blood 155 mg/dL (75-99)
== END 2018-07-20 13:52 | DRG 483 ==
LOC: EC 11:33 → 3SUR 19:01 → 6SEL 07-17 00:44
PROVIDERS: ADMIT Internal Medicine Geriatric Medicine; ATTEND Internal Medicine Geriatric Medicine
PROC: 0RRK00Z Replacement of Left Shoulder Joint with Reverse Ball and Socket Synthetic Substitute, Open Approach (ICD-10-PCS; principal; 2018-07-17 12:30)
DX: S42.242A 4-part fracture of surgical neck of left humerus, initial encounter for closed fracture (principal); N39.0 Urinary tract infection, site not specified; E87.2 Acidosis; F33.9 Major depressive disorder, recurrent, unspecified; E66.2 Morbid (severe) obesity with alveolar hypoventilation; I47.2 Ventricular tachycardia; E11.9 Type 2 diabetes mellitus without complications; I10 Essential (primary) hypertension; E89.0 Postprocedural hypothyroidism; K21.9 Gastro-esophageal reflux disease without esophagitis; G47.33 Obstructive sleep apnea (adult) (pediatric); M85.80 Other specified disorders of bone density and structure, unspecified site; F41.1 Generalized anxiety disorder; G89.4 Chronic pain syndrome; E55.9 Vitamin D deficiency, unspecified; I25.10 Atherosclerotic heart disease of native coronary artery without angina pectoris; K59.00 Constipation, unspecified; F40.240 Claustrophobia; M12.9 Arthropathy, unspecified; E78.5 Hyperlipidemia, unspecified; Z53.9 Procedure and treatment not carried out, unspecified reason; Z91.19 Patient's noncompliance with other medical treatment and regimen; Z79.02 Long term (current) use of antithrombotics/antiplatelets; Z79.84 Long term (current) use of oral hypoglycemic drugs; Z79.890 Hormone replacement therapy; Z79.899 Other long term (current) drug therapy; Z90.710 Acquired absence of both cervix and uterus; Z95.5 Presence of coronary angioplasty implant and graft; Z86.73 Personal history of transient ischemic attack (TIA), and cerebral infarction without residual deficits; Z87.891 Personal history of nicotine dependence; Z98.51 Tubal ligation status; Z88.6 Allergy status to analgesic agent; W06.XXXA Fall from bed, initial encounter; Y92.003 Bedroom of unspecified non-institutional (private) residence as the place of occurrence of the external cause; Z82.49 Family history of ischemic heart disease and other diseases of the circulatory system; Z83.79 Family history of other diseases of the digestive system; Z84.1 Family history of disorders of kidney and ureter; R09.02 Hypoxemia
CPT/HCPCS: 36415; 70450; 71045; 71275; 80048; 80053; 81001; 83036; 83605; 83735; 83880; 84443; 84484; 85025; 85610; 87040; 87086; 88305; 88311; 93005; 93306; 95819; 96361; 96374; 96375; 99285

== ENCOUNTER 2019-09-03 18:26 | Inpatient (IN) | payer MEDICARE, OTHER ==
[2019-09-03] MEDS ORDERED: MORPHINE SULFATE 4 MG/ML SYRINGE IVP STA (18:49)
[2019-09-03] MEDS ORDERED: ONDANSETRON 4 MG/2 ML VIAL IVP STA (18:49)
--- NOTE | 2019-09-03 19:00 | ED ---
Fall HPI - General Source: EMS Mode of arrival: EMS <Zohreh Oakes - Last Filed: 09/03/19 23:03> <Thomas Croft - Last Filed: 09/08/19 07:50> - General Chief Complaint: Fall Stated Complaint: rt flank pain/Fell Time Seen by Provider: 09/03/19 18:30 - History of Present Illness Initial Comments: 69-year-old female patient presents to the emergency department today for evaluation of right sided abdominal pain. Patient states the pain started 2 days ago after experiencing a fall. Patient states that she was assisting another resident into her chair when she tripped over her pants and fell landing on the right side. Patient landed on the floor, denies hitting anything on the way down. She denies hitting her head or losing consciousness. Denies any neck or back pain. Patient states she has been having pain to the right ribs and right sided abdomen since the injury. States it hurts to take a deep breath, twists, or bend. She denies any hematuria. Patient denies any headache, chest pain, shortness of breath, dizziness, weakness, nausea, vomiting, or difficulties with bowel movements or urination. (Zohreh Oakes) - Related Data Home Medications Medication Instructions Recorded Confirmed Cholecalciferol (Vitamin D3) 2,000 unit PO DAILY@69907/09/17 09/03/19 [Vitamin D3] Clopidogrel [Plavix] 75 mg PO DAILY@69907/09/17 09/03/19 Famotidine 40 mg PO HS@199907/09/17 09/03/19 Levothyroxine Sodium [Synthroid] 125 mcg PO DAILY@69907/09/17 09/03/19 Lisinopril 40 mg PO DAILY@69907/09/17 09/03/19 Multivitamin,Therapeutic [Thera] 1 tab PO DAILY@69907/09/17 09/03/19 Potassium Chloride ER [K-Dur 10] 10 meq PO TID@0700,1599,199907/09/17 09/03/19 Venlafaxine HCl [Effexor XR] 150 mg PO DAILY@119907/09/17 09/03/19 traZODone HCL [Desyrel] 100 mg PO HS@199907/09/17 09/03/19 Diphenox-Atrop 2.5-0.025 mg 1 tab PO QID@08,12,16,20 07/13/18 09/03/19 [Lomotil] Isosorbide Mononitrate ER [Imdur] 30 mg PO DAILY@0700 07/13/18 09/03/19 Simvastatin [Zocor] 20 mg PO HS@199907/13/18 09/03/19 amLODIPine [Norvasc] 10 mg PO DAILY@0700 07/13/18 09/03/19 ALPRAZolam [Xanax] 0.25 mg PO TID@0700,1600,199909/03/19 09/03/19 Acetaminophen with Codeine 1 tab PO TID@0700,1600,199909/03/19 09/03/19 [Tylenol with Codeine #4 Tablet] Albuterol Sulfate [Ventolin HFA] 2 puff INHALATION RT-QID PRN 09/03/19 09/03/19 Baclofen [Lioresal] 10 mg PO TID@0700,1600,199909/03/19 09/03/19 Betamethasone Dipropionate 1 applic TOPICAL DAILY@0700 PRN 09/03/19 09/03/19 [Diprolene AF 0.05% Cream] Fluticasone Nasal [place] [Flonase 1 spray EA NOSTRIL DAILY@0700 09/03/19 09/03/19 Nasal [place]] Furosemide [Lasix] 40 mg PO DAILY@0700 09/03/19 09/03/19 Gabapentin 600 mg PO TID@0700,1600,199909/03/19 09/03/19 Loratadine [Claritin] 10 mg PO DAILY@0700 09/03/19 09/03/19 Metoprolol Succinate [Toprol XL] 25 mg PO BID@0700,1600 09/03/19 09/03/19 Metoprolol Tartrate [Lopressor] 50 mg PO BID@0700,1600 09/03/19 09/03/19 Nystatin 100,000 Unit/gm Powd 1 applic TOPICAL DAILY PRN 09/03/19 09/03/19 [Mycostatin Powder] metFORMIN HCL [Glucophage] 500 mg PO BID@0700,1600 09/03/19 09/03/19 Allergies Allergy/AdvReac Type Severity Reaction Status Date / Time aspirin Allergy Itching Verified 09/03/19 23:40 meperidine [From Demerol] Allergy Unknown Verified 09/03/19 23:40 morphine Allergy Unknown Verified 09/03/19 23:40 Review of Systems ROS Other: All systems not noted in ROS Statement are negative. <Zohreh Oakes - Last Filed: 09/03/19 23:03> ROS Other: All systems not noted in ROS Statement are negative. <Thomas Croft - Last Filed: 09/08/19 07:50> ROS Statement: Those systems with pertinent positive or pertinent negative responses have been documented in the HPI. Past Medical History Past Medical History: Coronary Artery Disease (CAD), Diabetes Mellitus, Hyperlipidemia, Hypertension History of Any Multi-Drug Resistant Organisms: None Reported Past Surgical History: Cholecystectomy, Heart Catheterization With Stent, Hysterectomy, Tubal Ligation Additional Past Surgical History / Comment(s): thyroidectomy Past Anesthesia/Blood Transfusion Reactions: No Reported Reaction Date of Last Stent Placement:: 2010 Past Psychological History: Anxiety, Depression Smoking Status: Never smoker Past Alcohol Use History: None Reported Past Drug Use History: None Reported - Past Family History Mother History Unknown: Yes Family Medical History: Unable to Obtain Additional Family Medical History / Comment(s): Mother in her 80s. Patient does not know cause. Father Family Medical History: Myocardial Infarction ([place]) Additional Family Medical History / Comment(s): Father in his 80s from a massive myocardial infarction. Brother(s) Family Medical History: Liver Disease, Renal Disease Additional Family Medical History / Comment(s): Patient has 1 brother and 3 sisters. Daughter(s) Additional Family Medical History / Comment(s): Patient has a total of 9 children. 2 at a very young age of 1 year of age, one was hit by a car and one drowned. <Zohreh Oakes - Last Filed: 09/03/19 23:03> General Exam Limitations: no limitations General appearance: alert, in no apparent distress, other (Physical well- developed, well-nourished adult female patient in no acute distress.) Eye exam: Present: normal appearance, PERRL, EOMI. Absent: scleral icterus, conjunctival injection, periorbital swelling ENT exam: Present: normal exam, normal oropharynx, mucous membranes moist Respiratory exam: Present: normal lung sounds bilaterally, chest wall tenderness (Right rib tenderness). Absent: respiratory distress, wheezes, rales, rhonchi, stridor Cardiovascular Exam: Present: regular rate, normal rhythm, normal heart sounds. Absent: systolic murmur, diastolic murmur, rubs, gallop, clicks GI/Abdominal exam: Present: soft, tenderness (Right upper and lower quadrant tenderness. ) Neurological exam: Present: alert, oriented X3, CN II-XII intact Psychiatric exam: Present: normal affect, normal mood Skin exam: Present: warm, dry, intact, normal color. Absent: rash <Zohreh Oakes - Last Filed: 09/03/19 23:03> Course Vital Signs 09/03/19 09/03/19 09/03/19 18:37 20:56 22:18 Temperature 98.1 F 98 F 97.7 F Pulse Rate 87 77 70 Respiratory 17 18 18 Rate Blood Pressure 141/70 101/63 105/60 O2 Sat by Pulse 93 L 92 L 84 L Oximetry Medical Decision Making - Lab Data Result diagrams: 09/03/19 19:26 09/03/19 19:26 - Radiology Data Radiology results: report reviewed, image reviewed <Zohreh Oakes - Last Filed: 09/03/19 23:03> - Lab Data Result diagrams: 09/03/19 19:26 09/03/19 19:26 <Thomas Croft - Last Filed: 09/08/19 07:50> - Medical Decision Making 69-year-old female patient presented to the emergency department today for evaluation of right rib pain and right-sided abdominal pain after experiencing a fall 2 days ago. Physical examination did reveal right upper quadrant and right lower quadrant abdominal tenderness. There is right rib tenderness. Labs reviewed and are unremarkable. CT abdomen and pelvis was obtained to rule out liver or kidney injury, this was negative for acute abnormalities. Right rib series with one view chest x-rays was obtained on did reveal evidence for right seventh and eighth rib fracture. While in the department patient was hypoxic between 85 and 87% on room air. We did attempt pain management, incentive spirometry, and deep breathing exercises. Patient was unable to tolerate this due to pain. Oxygen saturation remained low. She was started on oxygen via nasal cannula. I did discuss the case with the slag production worker physician Dr. Guzman who agrees to observation admission for pain management. Patient agrees with the plan as well. (Zohreh Oakes) I saw this patient in conjunction with the physician plant attendant or assistant operator. I performed independent history and physical exam. Agree with case management. (Thomas Croft) - Lab Data Lab Results 09/03/19 09/03/19 09/03/19 Range/Units 19:26 19:26 19:26 WBC 10.5 (3.8-10.6) k/uL RBC 4.99 (3.80-5.40) m/uL Hgb 14.7 (11.4-16.0) gm/dL Hct 45.6 (34.0-46.0) % MCV 91.4 (80.0-100.0) fL MCH 29.6 (25.0-35.0) pg MCHC 32.3 (31.0-37.0) g/dL RDW 12.8 (11.5-15.5) % Plt Count 245 (150-450) k/uL Neutrophils % 61 % Lymphocytes % 17 % Monocytes % 7 % Eosinophils % 11 % Basophils % 2 % Neutrophils # 6.4 (1.3-7.7) k/uL Lymphocytes # 1.8 (1.0-4.8) k/uL Monocytes # 0.7 (0-1.0) k/uL Eosinophils # 1.2 H (0-0.7) k/uL Basophils # 0.3 H (0-0.2) k/uL PT 10.7 (9.0-12.0) sec INR 1.0 (<1.2) APTT 23.8 (22.0-30.0) sec Sodium 144 (137-145) mmol/L Potassium 3.9 (3.5-5.1) mmol/L Chloride 101 (98-107) mmol/L Carbon Dioxide 32 H (22-30) mmol/L Anion Gap 11 mmol/L BUN 14 (7-17) mg/dL Creatinine 0.83 (0.52-1.04) mg/dL Est GFR (CKD-EPI)AfAm 85 (>60 ml/min/1.73 sqM) Est GFR (CKD-EPI)NonAf 74 (>60 ml/min/1.73 sqM) Glucose 141 H (74-99) mg/dL POC Glucose (mg/dL) (75-99) mg/dL POC Glu Deputy Clerk ID Calcium 9.3 (8.4-10.2) mg/dL Total Bilirubin 0.5 (0.2-1.3) mg/dL AST 25 (14-36) U/L ALT 32 (9-52) U/L Alkaline Phosphatase 109 (38-126) U/L Total Protein 8.4 H (6.3-8.2) g/dL Albumin 4.5 (3.5-5.0) g/dL Urine Color Urine Appearance (Clear) Urine pH (5.0-8.0) Ur Specific [place] (1.001-1.035) Urine Protein (Negative) Urine Glucose (UA) (Negative) Urine Ketones (Negative) Urine Blood (Negative) Urine Nitrite (Negative) Urine Bilirubin (Negative) Urine Urobilinogen (<2.0) mg/dL Ur Leukocyte Esterase (Negative) Urine RBC (0-5) /hpf Urine WBC (0-5) /hpf Ur Squamous Epith Cells (0-4) /hpf Urine Bacteria (None) /hpf Hyaline Casts (0-2) /lpf Urine Mucus (None) /hpf 09/03/19 09/04/19 09/04/19 Range/Units 19:56 06:55 11:38 WBC (3.8-10.6) k/uL RBC (3.80-5.40) m/uL Hgb (11.4-16.0) gm/dL Hct (34.0-46.0) % MCV (80.0-100.0) fL MCH (25.0-35.0) pg MCHC (31.0-37.0) g/dL RDW (11.5-15.5) % Plt Count (150-450) k/uL Neutrophils % % Lymphocytes % % Monocytes % % Eosinophils % % Basophils % % Neutrophils # (1.3-7.7) k/uL Lymphocytes # (1.0-4.8) k/uL Monocytes # (0-1.0) k/uL Eosinophils # (0-0.7) k/uL Basophils # (0-0.2) k/uL PT (9.0-12.0) sec INR (<1.2) APTT (22.0-30.0) sec Sodium (137-145) mmol/L Potassium (3.5-5.1) mmol/L Chloride (98-107) mmol/L Carbon Dioxide (22-30) mmol/L Anion Gap mmol/L BUN (7-17) mg/dL Creatinine (0.52-1.04) mg/dL Est GFR (CKD-EPI)AfAm (>60 ml/min/1.73 sqM) Est GFR (CKD-EPI)NonAf (>60 ml/min/1.73 sqM) Glucose (74-99) mg/dL POC Glucose (mg/dL) 146 H 117 H (75-99) mg/dL POC Glu Deputy Clerk MANUELA Guaman, Obdulio Ennis Calcium (8.4-10.2) mg/dL Total Bilirubin (0.2-1.3) mg/dL AST (14-36) U/L ALT (9-52) U/L Alkaline Phosphatase (38-126) U/L Total Protein (6.3-8.2) g/dL Albumin (3.5-5.0) g/dL Urine Color Yellow Urine Appearance Clear (Clear) Urine pH 7.5 (5.0-8.0) Ur Specific [place] 1.014 (1.001-1.035) Urine Protein Negative (Negative) Urine Glucose (UA) Negative (Negative) Urine Ketones Negative (Negative) Urine Blood Negative (Negative) Urine Nitrite Negative (Negative) Urine Bilirubin Negative (Negative) Urine Urobilinogen 3.0 (<2.0) mg/dL Ur Leukocyte Esterase Large H (Negative) Urine RBC 3 (0-5) /hpf Urine WBC 64 H (0-5) /hpf Ur Squamous Epith Cells 2 (0-4) /hpf Urine Bacteria Rare H (None) /hpf Hyaline Casts 1 (0-2) /lpf Urine Mucus Rare H (None) /hpf 09/04/19 09/04/19 09/05/19 Range/Units 17:07 19:32 06:56 WBC (3.8-10.6) k/uL RBC (3.80-5.40) m/uL Hgb (11.4-16.0) gm/dL Hct (34.0-46.0) % MCV (80.0-100.0) fL MCH (25.0-35.0) pg MCHC (31.0-37.0) g/dL RDW (11.5-15.5) % Plt Count (150-450) k/uL Neutrophils % % Lymphocytes % % Monocytes % % Eosinophils % % Basophils % % Neutrophils # (1.3-7.7) k/uL Lymphocytes # (1.0-4.8) k/uL Monocytes # (0-1.0) k/uL Eosinophils # (0-0.7) k/uL Basophils # (0-0.2) k/uL PT (9.0-12.0) sec INR (<1.2) APTT (22.0-30.0) sec Sodium (137-145) mmol/L Potassium (3.5-5.1) mmol/L Chloride (98-107) mmol/L Carbon Dioxide (22-30) mmol/L Anion Gap mmol/L BUN (7-17) mg/dL Creatinine (0.52-1.04) mg/dL Est GFR (CKD-EPI)AfAm (>60 ml/min/1.73 sqM) Est GFR (CKD-EPI)NonAf (>60 ml/min/1.73 sqM) Glucose (74-99) mg/dL POC Glucose (mg/dL) 127 H 146 H 140 H (75-99) mg/dL POC Glu Deputy Clerk ID [place] Kristen Smith, Jamie Calcium (8.4-10.2) mg/dL Total Bilirubin (0.2-1.3) mg/dL AST (14-36) U/L ALT (9-52) U/L Alkaline Phosphatase (38-126) U/L Total Protein (6.3-8.2) g/dL Albumin (3.5-5.0) g/dL Urine Color Urine Appearance (Clear) Urine pH (5.0-8.0) Ur Specific [place] (1.001-1.035) Urine Protein (Negative) Urine Glucose (UA) (Negative) Urine Ketones (Negative) Urine Blood (Negative) Urine Nitrite (Negative) Urine Bilirubin (Negative) Urine Urobilinogen (<2.0) mg/dL Ur Leukocyte Esterase (Negative) Urine RBC (0-5) /hpf Urine WBC (0-5) /hpf Ur Squamous Epith Cells (0-4) /hpf Urine Bacteria (None) /hpf Hyaline Casts (0-2) /lpf Urine Mucus (None) /hpf - Radiology Data CT abdomen and pelvis with contrast was obtained. Report was reviewed in its entirety. Impression by Dr. Marsh shows small right pleural effusion. Mild atelectasis at the lung bases. No acute abnormality within the abdomen and pelvis. Single view of the chest with 4 views of the right ribs were obtained. Report was reviewed in its entirety. Impression by Dr. Marsh shows acute fractures right seventh and eighth ribs. Interstitial pulmonary infiltrates increased compared to last exam. No gross heart failure. No pneumothorax. (Zohreh Oakes) Disposition Decision to Admit Reason: Admit from EC Decision Date: 09/03/19 Decision Time: 22:51 <Zohreh Oakes - Last Filed: 09/03/19 23:03> <Thomas Croft - Last Filed: 09/08/19 07:50> Clinical Impression: Ribs, multiple fractures, Hypoxia, Urinary tract infection Disposition: ADMITTED IP TO THIS HOSP Condition: Serious
[2019-09-03 19:34] LABS: Basophils # (A) 0.3 k/uL (0-0.2); Basophils % (A) 2 %; Eosinophils # (A) 1.2 k/uL (0-0.7); Eosinophils % (A) 11 %; HCT 45.6 % (34.0-46.0); HGB 14.7 gm/dL (11.4-16.0); Lymphocytes # (A) 1.8 k/uL (1.0-4.8); Lymphocytes % (A) 17 %; MCH 29.6 pg (25.0-35.0); MCHC 32.3 g/dL (31.0-37.0); MCV 91.4 fL (80.0-100.0); Mean Platelet Volume 8.7; Monocytes # (A) 0.7 k/uL (0-1.0); Monocytes % (A) 7 %; Neutrophils # (A) 6.4 k/uL (1.3-7.7); Neutrophils % (A) 61 %; Platelet Count 245 k/uL (150-450); RBC 4.99 m/uL (3.80-5.40); RDW 12.8 % (11.5-15.5); WBC 10.5 k/uL (3.8-10.6)
[2019-09-03 19:42] LABS: Partial Thromboplastin Time 23.8 sec (22.0-30.0); Prothrombin Time 10.7 sec (9.0-12.0)
[2019-09-03 19:45] LABS: Albumin 4.5 g/dL (3.5-5.0); Calcium 9.3 mg/dL (8.4-10.2); Potassium 3.9 mmol/L (3.5-5.1); Total Bilirubin 0.5 mg/dL (0.2-1.3); Total Protein 8.4 g/dL (6.3-8.2)
--- NOTE | 2019-09-03 20:46 | CT ---
EXAMINATION TYPE: CT abdomen pelvis w con DATE OF EXAM: 09/03/2019 COMPARISON: None HISTORY: Rt abdomen pain. Pt fell 2 days ago. Hx susan, heart cath, hysterectomy. CT DLP: 2652.4 mGycm Automated exposure control for dose reduction was used. TECHNIQUE: Helical acquisition of images was performed from the lung bases through the pelvis. CONTRAST: Performed without Oral Contrast and with IV Contrast, patient injected with 100 mL of Isovue 300. FINDINGS: There is mild right pleural effusion. There is no pericardial effusion. There is some mild atelectasi s at the lung bases. There are clips from cholecystectomy. Liver shows no focal defect. Spleen is int act. There is at the right vascular calcification. Stomach appears normal. There is no evidence of pa ncreatic mass. There is no adrenal mass. Kidneys show satisfactory contrast opacification. There is 5 mm calculus an terior right kidney. There is 2 mm calculus lower pole left kidney. There is no hydronephrosis. The u reters are not dilated. There is no retroperitoneal adenopathy. Bladder distends smoothly. There is n o inguinal hernia. There is no mesenteric edema. There is no ascites or free air. There is no sign of bowel obstruction. Appendix is not seen. No sign of thickened appendix. There is hysterectomy. There are apparent old c ompression fractures of L4 and L2 with 75% loss of height. There is osteopenia. There are spondylotic changes in the lower thoracic spine. The bony pelvis is intact. IMPRESSION: SMALL RIGHT PLEURAL EFFUSION. MILD ATELECTASIS AT THE LUNG BASES. NO ACUTE ABNORMALITY WITHIN THE ABD OMEN PELVIS. NONOBSTRUCTING BILATERAL RENAL SMALL CALCULI. MULTIPLE COMPRESSION FRACTURES PROBABLY DUE TO OSTEOPOROSIS.
[2019-09-03 21:02] LABS: Appearance,Urine Clear (Clear); Bacteria,Urine Rare /hpf; Bilirubin,Urine Negative (Negative); Blood,Urine Negative (Negative); Color,Urine Yellow; Glucose,Urine (UA) Negative (Negative); Hyaline Casts,Urine 1 /lpf (0-2); Ketones,Urine Negative (Negative); Leukocyte Esterase,Urine Large (Negative); Mucus,Urine Rare /hpf; Nitrite,Urine Negative (Negative); PH, Urine 7.5 (5.0-8.0); Protein,Urine Negative (Negative); RBC,Urine 3 /hpf (0-5); Specific Gravity,Urine 1.014 (1.001-1.035); Squamous Epithelial Cell,Urine 2 /hpf (0-4); WBC,Urine 64 /hpf (0-5)
[2019-09-03] MEDS ORDERED: CEPHALEXIN 500MG STARTER PACK 4 CAP BTL PO STA (21:09)
--- NOTE | 2019-09-03 21:48 | XR ---
EXAMINATION TYPE: XR ribs RT w pa chest xray DATE OF EXAM: 09/03/2019 COMPARISON: 07/20/2018 HISTORY: Right-sided rib pain TECHNIQUE: Single view chest with 4 views of the ribs on the right side FINDINGS: I see no pleural effusion or pneumothorax. Right lung is clear of consolidation. There is s ome minimal interstitial infiltrate in the right lung however. There are nondisplaced fractures of the lateral right seventh and eighth ribs. There is no heart fail ure. IMPRESSION: Acute fractures right seventh and eighth ribs. Interstitial pulmonary infiltrates increas ed compared to last exam. No gross heart failure. No pneumothorax.
[2019-09-03] MEDS ORDERED: ACET/COD 300 MG/30 MG STARTER PACK 6 TAB BTL PO STA (21:56)
[2019-09-03] MEDS ORDERED: IBUPROFEN 600 MG STARTER PACK 4 TAB BTL PO STA (21:56)
[2019-09-03] MEDS ORDERED: NALOXONE 0.4 MG/ML 1 ML VIAL IV PRN ×2 (22:47→22:49)
[2019-09-03] MEDS ORDERED: HYDROmorphone 0.5 MG/0.5 ML SYRINGE IVP PRN (22:47)
[2019-09-03] MEDS ORDERED: ALBUTEROL NEBULIZED 2.5 MG/3 ML INHALATION PRN (22:49)
--- NOTE | 2019-09-03 22:57 | P.HPIM ---
History of Present Illness H&P Date: 09/04/19 Chief Complaint: right chest wall pain 69-year-old female patient presents to the emergency department from adult foster care today for evaluation of right sided abdominal pain. Patient states the pain started 2 days ago after experiencing a fall. Patient states that she was assisting another resident into her chair when she tripped over her pants and fell landing on the right side. Patient landed on the floor, denies hitting anything on the way down. She denies hitting her head or losing consciousness. Denies any neck or back pain. Patient states she has been having pain to the right ribs and right sided abdomen since the injury. States it hurts to take a deep breath, twists, or bend. She denies any hematuria. Patient denies any headache, chest pain, shortness of breath, dizziness, weakness, nausea, vomiting, or difficulties with bowel movements or urination. Patient had a comprehensive workup in the ER CT abdomen and pelvis showed small right pleural effusion and mild atelectasis at the lung base no acute abnormality within the abdomen or pelvis, chest x-ray to acute fractures of the right seventh and eighth ribs with interstitial pulmonary infiltrates. Noted lab abnormalities include serum bicarb 32 blood sugar 141, urinalysis leuk e sterase positive urine WBC is 64 urine bacteria rare. The patient was given morphine ibuprofen Tylenol 3 for pain but was still noted to be hypoxic on room air in the mid 80s. She was recommended for admission Past Medical History Past Medical History: Coronary Artery Disease (CAD), Diabetes Mellitus, Hyperlipidemia, Hypertension History of Any Multi-Drug Resistant Organisms: None Reported Past Surgical History: Cholecystectomy, Heart Catheterization With Stent, Hysterectomy, Tubal Ligation Additional Past Surgical History / Comment(s): thyroidectomy Past Anesthesia/Blood Transfusion Reactions: No Reported Reaction Date of Last Stent Placement:: 2010 Past Psychological History: Anxiety, Depression Smoking Status: Never smoker Past Alcohol Use History: None Reported Past Drug Use History: None Reported - Past Family History Mother History Unknown: Yes Family Medical History: Unable to Obtain Additional Family Medical History / Comment(s): Mother in her 80s. Patient does not know cause. Father Family Medical History: Myocardial Infarction ([place]) Additional Family Medical History / Comment(s): Father in his 80s from a massive myocardial infarction. Brother(s) Family Medical History: Liver Disease, Renal Disease Additional Family Medical History / Comment(s): Patient has 1 brother and 3 si sters. Daughter(s) Additional Family Medical History / Comment(s): Patient has a total of 9 children. 2 at a very young age of 1 year of age, one was hit by a car and one drowned. Medications and Allergies Home Medications Medication Instructions Recorded Confirmed Type Cholecalciferol (Vitamin D3) 2,000 unit PO DAILY@0700 07/09/17 09/03/19 History [Vitamin D3] Clopidogrel [Plavix] 75 mg PO DAILY@69907/09/17 09/03/19 History Famotidine 40 mg PO HS@199907/09/17 09/03/19 History Levothyroxine Sodium [Synthroid] 125 mcg PO DAILY@69907/09/17 09/03/19 History Lisinopril 40 mg PO DAILY@69907/09/17 09/03/19 History Multivitamin,Therapeutic [Thera] 1 tab PO DAILY@69907/09/17 09/03/19 History Potassium Chloride ER [K-Dur 10] 10 meq PO TID@0700,1600,199907/09/17 09/03/19 History Venlafaxine HCl [Effexor XR] 150 mg PO DAILY@1200 07/09/17 09/03/19 History traZODone HCL [Desyrel] 100 mg PO HS@199907/09/17 09/03/19 History Diphenox-Atrop 2.5-0.025 mg 1 tab PO QID@08,12,16,20 07/13/18 09/03/19 History [Lomotil] Isosorbide Mononitrate ER [Imdur] 30 mg PO DAILY@00 07/13/18 09/03/19 History Simvastatin [Zocor] 20 mg PO HS@199907/13/18 09/03/19 History amLODIPine [Norvasc] 10 mg PO DAILY@69907/13/18 09/03/19 History ALPRAZolam [Xanax] 0.25 mg PO TID@0700,1600,199909/03/19 09/03/19 History Acetaminophen with Codeine 1 tab PO TID@0700,1600,199909/03/19 09/03/19 History [Tylenol with Codeine #4 Tablet] Albuterol Sulfate [Ventolin HFA] 2 puff INHALATION RT-QID PRN 09/03/19 09/03/19 History Baclofen [Lioresal] 10 mg PO TID@0700,1600,199909/03/19 09/03/19 History Betamethasone Dipropionate 1 applic TOPICAL DAILY@0700 PRN 09/03/19 09/03/19 Hi story [Diprolene AF 0.05% Cream] Fluticasone Nasal [place] [Flonase 1 spray EA NOSTRIL DAILY@0700 09/03/19 09/03/19 History Nasal [place]] Furosemide [Lasix] 40 mg PO DAILY@0700 09/03/19 09/03/19 History Gabapentin 600 mg PO TID@0700,1600,199909/03/19 09/03/19 History Loratadine [Claritin] 10 mg PO DAILY@0700 09/03/19 09/03/19 History Metoprolol Succinate [Toprol XL] 25 mg PO BID@0700,1600 09/03/19 09/03/19 History Metoprolol Tartrate [Lopressor] 50 mg PO BID@0700,1600 09/03/19 09/03/19 History Nystatin 100,000 Unit/gm Powd 1 applic TOPICAL DAILY PRN 09/03/19 09/03/19 Hist ory [Mycostatin Powder] metFORMIN HCL [Glucophage] 500 mg PO BID@0700,1600 09/03/19 09/03/19 History Allergies Allergy/AdvReac Type Severity Reaction Status Date / Time aspirin Allergy Itching Verified 09/03/19 23:40 meperidine [From Demerol] Allergy Unknown Verified 09/03/19 23:40 morphine Allergy Unknown Verified 09/03/19 23:40 Physical Exam Vitals: Vital Signs Temp Pulse Resp BP Pulse Ox 09/03/19 22:18 97.7 F 70 18 105/60 84 L 09/03/19 20:56 98 F 77 18 101/63 92 L 09/03/19 18:37 98.1 F 87 17 141/70 93 L Intake and Output 09/03/19 09/03/19 09/03/19 06:59 14:59 22:59 Other: Weight 99.79 kg Constitutional: No acute distress, conversant, pleasant Eyes: Anicteric sclerae, moist conjunctiva, no lid-lag, PERRLA ENMT: NC/AT,Oropharynx clear, no erythema, exudates Neck:Supple, FROM, no masses, or JVD, No carotid bruits; No thyromegaly Lungs: Clear to auscultation, diminished in the bases on the right, chest wall tenderness Cardiovascular: Heart regular in rate and rhythm, No murmurs, gallops, or rubs no peripheral edema Abdominal: Right sided abdominal pain, nom distended, no guarding, no rebound or rigidity, Normoactive bowel sounds No hepatomegaly, No splenomegaly, No palpable mass No abdominal wall hernia noted Skin: Normal temperature, tone, texture, turgor, No induration No subcutaneous nodules, No rash, lesions, No ulcers Extremities:No digital cyanosis No clubbing, Pedal pulses intact and symm etrical Radial pulses intact and symmetrical Normal gait and station, No calf tenderness Psychiatric: Alert and oriented to person, place and time, Appropriate affect Intact judgement Neuro: Muscles Strength 5/5 in all 4 extremities, Sensation to light touch grossly present throughout, Cranial nerves II-XII grossly intact. No focal sensory deficits Results CBC & Chem 7: 09/03/19 19:26 09/03/19 19:26 Labs: Abnormal Lab Results - Last 24 Hours (Table) 09/03/19 09/03/19 09/03/19 Range/Units 19:26 19:26 19:56 Eosinophils # 1.2 H (0-0.7) k/uL Basophils # 0.3 H (0-0.2) k/uL Carbon Dioxide 32 H (22-30) mmol/L Glucose 141 H (74-99) mg/dL Total Protein 8.4 H (6.3-8.2) g/dL Ur Leukocyte Esterase Large H (Negative) Urine WBC 64 H (0-5) /hpf Urine Bacteria Rare H (None) /hpf Urine Mucus Rare H (None) /hpf Assessment and Plan Assessment: Acute respiratory failure with hypoxia Atelectasis Traumatic rib fractures Intractable pain Chronic compression fractures Nonobstructing renal calculi Plan: Patient is placed in observation anticipate a less than 2 midnight stay with acute respiratory failure with hypoxia in the setting of traumatic right seventh and eighth rib fractures with atelectasis noted on imaging likely secondary to splinting and inability to take deep breaths secondary to pain After the patient presented with intractable pain. Imaging confirmed also compression fractures that appear to be chronic for likely secondary to history of osteopenia/osteoporosis. We'll consult orthopedics for further recommendation regarding rib and lumbar fractures. The patient is encouraged to use incentive spirometry every hour as prescribed. We'll continue analgesic therapy with Toradol and [place] for breakthrough pain. We'll plan to consult anesthesia to evaluate for intercostal nerve blockade. We'll await further recommendations from consultants. The patient is also started on Keflex for possible UTI cultures are pending. The patient is resumed on her home medications. She is continued on SCDs for DVT prophylaxis. CODE STATUS: Full code discuss plan of care with: Patient Anticipated discharge : 1-[address] : Back to adult foster care
[2019-09-04 06:58] LABS: Glucose,Whole Blood 146 mg/dL (75-99)
[2019-09-04] MEDS ORDERED: CLOPIDOGREL 75 MG TAB PO SCH (07:00)
[2019-09-04] MEDS ORDERED: metFORMIN 500 MG TAB PO SCH (07:00)
[2019-09-04] MEDS ORDERED: BETAMETHASONE DIPROPIONATE 0.05% CREAM 15 GM TUBE TOPICAL PRN (07:00)
[2019-09-04] MEDS: GABAPENTIN 300 MG CAP PO SCH ×3 (08:44→20:25)
[2019-09-04] MEDS: ALPRAZolam 0.25 MG TAB PO SCH ×3 (08:45→20:25)
[2019-09-04] MEDS: CEPHALEXIN 500 MG CAP PO SCH ×2 (08:45→20:25)
[2019-09-04] MEDS: CHOLECALCIFEROL 1,000 UNIT TAB PO SCH (08:45)
[2019-09-04] MEDS: amLODIPine 10 MG TAB PO SCH (08:45)
[2019-09-04] MEDS: LISINOPRIL 20 MG TAB PO SCH (08:45)
[2019-09-04] MEDS: POTASSIUM CHLORIDE ER 10 MEQ TAB.ER.PRT PO SCH ×3 (08:46→20:25)
[2019-09-04] MEDS: MULTIVITAMINS, THERA 1 EACH TAB PO SCH (08:46)
[2019-09-04] MEDS: METOPROLOL SUCCINATE (ER) 25 MG TAB.ER.24H PO SCH ×2 (08:46→16:26)
[2019-09-04] MEDS: FUROSEMIDE 40 MG TAB PO SCH (08:46)
[2019-09-04] MEDS: BACLOFEN 10 MG TAB PO SCH ×3 (08:46→20:24)
[2019-09-04] MEDS: LORATADINE 10 MG TAB PO SCH (08:47)
[2019-09-04] MEDS: ISOSORBIDE MONONITRATE ER 30 MG TAB.ER.24H PO SCH (08:47)
[2019-09-04] MEDS: HYDROcodone/APAP 10-325MG 1 EACH TAB PO PRN ×2 (08:48→15:38)
[2019-09-04] MEDS: DIPHENOX-ATROP 2.5-0.025 MG 1 EACH TAB PO SCH ×4 (08:48→20:25)
[2019-09-04] MEDS: LIDOCAINE 5% PATCH TOPICAL SCH (08:49)
[2019-09-04] MEDS: METOPROLOL TARTRATE 50 MG TAB PO SCH ×2 (08:50→16:26)
[2019-09-04] MEDS: KETOROLAC 30 MG/ML 1 ML VIAL IVP PRN ×2 (08:51→15:38)
[2019-09-04] MEDS: LEVOTHYROXINE 125 MCG TAB PO SCH (08:51)
[2019-09-04] MEDS: FLUTICASONE 50MCG/SPRAY NASAL 16GM EA NOSTRIL SCH (08:51)
[2019-09-04] MEDS: INSULIN ASPART (NovoLOG) 100 UNIT/ML VIAL SQ SCH ×4 (08:54→21:19)
[2019-09-04] MEDS ORDERED: NYSTATIN 100,000 UNIT/GM POWD 15 GM TOPICAL PRN (09:00)
--- NOTE | 2019-09-04 10:37 | P.CON ---
Consult Note - . Consult date: 09/04/19 Assessment/Plan:: This is a 69-year-old morbidly obese lady with history of diabetes and coronary artery disease with daily dose of Plavix. The patient fell on her right side and broke 2 ribs rib #7 and #8. The patient is complaining of chest wall pain which gets worse by deep breathing. Were consulted to do intercostal nerve block on this patient however because of her treatment with Plavix we cannot do any procedures on her at this point. She has to be off Plavix for 5-7 days before we can do this procedure. I think doing thoracic epidural infusion of local anesthetic will be more effective than doing intercostal nerve block however we cannot do this procedure due to her treatment with Plavix. By physical exam she is alert oriented 3. She is morbidly obese. She has tenderness on the right side of her chest wall laterally. The patient is to continue her treatment with IV Toradol , Lidoderm patch and oral [place] as needed. I thank you for the consultation
[2019-09-04 11:41] LABS: Glucose,Whole Blood 117 mg/dL (75-99)
[2019-09-04] MEDS: VENLAFAXINE HCL ER 150 MG CAP PO SCH (12:57)
--- NOTE | 2019-09-04 13:52 | P.GSCN ---
History of Present Illness Consult date: 09/04/19 Reason for Consult: rib fractures s/p fall Requesting physician: Chemo Griffin History of present illness: CHIEF COMPLAINT: trauma, fall, rib fractures HISTORY OF PRESENT ILLNESS: 69 year old female who was admitted to the hospital after sustaining a fall at her residence on September 01, 2019. She was helping another resident of the facility when she tripped and landed on her right side. She denies hitting her head or loss of consciousness. Patient did not initially come to the hospital after her fall, but two days later she was still having right sided discomfort so she came to the ER to be evaluated. Reports anterior chest pain that is worse with movement and deep inspiration. Only achieving 500cc on IS. Patient encouraged to increase use. Patient denies abdominal pain. Denies nausea or vomiting. She states it has been several months since her last fall, but does report chronic problems with balance. She uses a walker to ambulate. PAST MEDICAL HISTORY: See list. PAST SURGICAL HISTORY: See list. SOCIAL HISTORY: No illicit drug use. REVIEW OF SYSTEMS: CONSTITUTIONAL: Denies fever or chills. HEENT: Denies blurred vision, vision changes, or eye pain. Denies hemoptysis CARDIOVASCULAR: Denies chest pain or pressure. RESPIRATORY: No shortness of breath. Reports increased pain at rib fracture site with deep inspiration. GASTROINTESTINAL: Denies abdominal pain. HEMATOLOGIC: Denies bleeding disorders. GENITOURINARY: Denies any blood in urine. SKIN: Denies pruitis. Denies rash. PHYSICAL EXAM: VITAL SIGNS: Reviewed. GENERAL: Well-developed in no acute distress. HEENT: No sclera icterus. Extraocular movements grossly intact. Moist buccal mucosa. Head is atraumatic, normocephalic. ABDOMEN: Obese. Soft. Nondistended. Nontender. Positive bowel sounds. NEUROLOGIC: Alert and oriented. Cranial nerves II through XII grossly intact. LABORATORY DATA: WBC 10.5. Hemoglobin 14.7. Platelet count 245. sodium 144. Potassium 3.9. BUN 14. Creatinine 0.83. UA reveals large leukocyte esterase, WBC [address] abdomen and pelvis: Small right pleural effusion. Mild atelectasis at the lung bases. No acute abnormality within the abdomen and pelvis. Old compression fractures of L2 and L4 and L2 with 75% loss of height. nonobstructing bilateral small renal calculi. 2. x-ray ribs: Acute fractures right seventh and eighth ribs. Interstitial pulmonary infiltrates increased compared to last exam. No gross heart failure. No pneumothorax. ASSESSMENT: 1. Trauma, s/p fall from standing 2. Acute right sided rib fractures, 7 & 8 3. Atelectasis 4. Hypoxia requiring supplemental oxygen secondary to rib fractures, atelectasis, and inability to take deep breaths secondary to increased pain and discomfort 5. Chronic lumbar compression fractures PLAN: 1. Anesthesia consulted for nerve block. However, patient prescribed plavix therefore nerve block is unable to be completed at this time. 2. Pain control. Continue Toradol, Lidoderm patches, and [place]. 3. Continue to encourage use of incentive spirometry 4. Increase activity as tolerated. Patient reports it takes 1-2 people to get her OOB. Will consult PT for evaluation and see if they have any recommendations to make getting out OOB easier and less painful for the patient. 5. No surgical intervention intervention recommended at this time. Continue medical management per internal medicine. Nurse practitioner note has been reviewed by physician. Signing provider agrees with the documented findings, assessment, and plan of care. Past Medical History Past Medical History: Coronary Artery Disease (CAD), Diabetes Mellitus, Hyperlipidemia, Hypertension History of Any Multi-Drug Resistant Organisms: None Reported Past Surgical History: Cholecystectomy, Heart Catheterization With Stent, Hysterectomy, Tubal Ligation Additional Past Surgical History / Comment(s): thyroidectomy Past Anesthesia/Blood Transfusion Reactions: No Reported Reaction Date of Last Stent Placement:: 2010 Past Psychological History: Anxiety, Depression Smoking Status: Never smoker Past Alcohol Use History: None Reported Past Drug Use History: None Reported - Past Family History Mother History Unknown: Yes Family Medical History: Unable to Obtain Additional Family Medical History / Comment(s): Mother in her 80s. Patient does not know cause. Father Family Medical History: Myocardial Infarction ([place]) Additional Family Medical History / Comment(s): Father in his 80s from a massive myocardial infarction. Brother(s) Family Medical History: Liver Disease, Renal Disease Additional Family Medical History / Comment(s): Patient has 1 brother and 3 sis ters. Daughter(s) Additional Family Medical History / Comment(s): Patient has a total of 9 children. 2 at a very young age of 1 year of age, one was hit by a car and one drowned. Medications and Allergies Home Medications Medication Instructions Recorded Confirmed Type Cholecalciferol (Vitamin D3) 2,000 unit PO DAILY@0700 07/09/17 09/03/19 History [Vitamin D3] Clopidogrel [Plavix] 75 mg PO DAILY@0700 07/09/17 09/03/19 History Famotidine 40 mg PO HS@199907/09/17 09/03/19 History Levothyroxine Sodium [Synthroid] 125 mcg PO DAILY@0700 07/09/17 09/03/19 History Lisinopril 40 mg PO DAILY@0700 07/09/17 09/03/19 History Multivitamin,Therapeutic [Thera] 1 tab PO DAILY@0700 07/09/17 09/03/19 History Potassium Chloride ER [K-Dur 10] 10 meq PO TID@0700,1600,199907/09/17 09/03/19 History Venlafaxine HCl [Effexor XR] 150 mg PO DAILY@1200 07/09/17 09/03/19 History traZODone HCL [Desyrel] 100 mg PO HS@199907/09/17 09/03/19 History Diphenox-Atrop 2.5-0.025 mg 1 tab PO QID@08,12,16,20 07/13/18 09/03/19 History [Lomotil] Isosorbide Mononitrate ER [Imdur] 30 mg PO DAILY@0700 07/13/18 09/03/19 History Simvastatin [Zocor] 20 mg PO HS@199907/13/18 09/03/19 History amLODIPine [Norvasc] 10 mg PO DAILY@0700 07/13/18 09/03/19 History ALPRAZolam [Xanax] 0.25 mg PO TID@0700,1600,199909/03/19 09/03/19 History Acetaminophen with Codeine 1 tab PO TID@0700,1600,199909/03/19 09/03/19 History [Tylenol with Codeine #4 Tablet] Albuterol Sulfate [Ventolin HFA] 2 puff INHALATION RT-QID PRN 09/03/19 09/03/19 History Baclofen [Lioresal] 10 mg PO TID@0700,1600,199909/03/19 09/03/19 History Betamethasone Dipropionate 1 applic TOPICAL DAILY@0700 PRN 09/03/19 09/03/19 His tory [Diprolene AF 0.05% Cream] Fluticasone Nasal [place] [Flonase 1 spray EA NOSTRIL DAILY@0700 09/03/19 09/03/19 History Nasal [place]] Furosemide [Lasix] 40 mg PO DAILY@0700 09/03/19 09/03/19 History Gabapentin 600 mg PO TID@0700,1600,199909/03/19 09/03/19 History Loratadine [Claritin] 10 mg PO DAILY@0700 09/03/19 09/03/19 History Metoprolol Succinate [Toprol XL] 25 mg PO BID@0700,1600 09/03/19 09/03/19 History Metoprolol Tartrate [Lopressor] 50 mg PO BID@0700,1600 09/03/19 09/03/19 History Nystatin 100,000 Unit/gm Powd 1 applic TOPICAL DAILY PRN 09/03/19 09/03/19 Histo ry [Mycostatin Powder] metFORMIN HCL [Glucophage] 500 mg PO BID@0700,1600 09/03/19 09/03/19 History Allergies Allergy/AdvReac Type Severity Reaction Status Date / Time aspirin Allergy Itching Verified 09/03/19 23:40 meperidine [From Demerol] Allergy Unknown Verified 09/03/19 23:40 morphine Allergy Unknown Verified 09/03/19 23:40 Surgical - Exam Vital Signs Temp Pulse Resp BP Pulse Ox 98.1 F 87 17 141/70 93 L 09/03/19 18:37 09/03/19 18:37 09/03/19 18:37 09/03/19 18:37 09/03/19 18:37 Results - Labs 09/03/19 19:26 09/03/19 19:26 Abnormal Lab Results - Last 24 Hours (Table) 09/03/19 09/03/19 09/03/19 Range/Units 19:26 19:26 19:56 Eosinophils # 1.2 H (0-0.7) k/uL Basophils # 0.3 H (0-0.2) k/uL Carbon Dioxide 32 H (22-30) mmol/L Glucose 141 H (74-99) mg/dL POC Glucose (mg/dL) (75-99) mg/dL Total Protein 8.4 H (6.3-8.2) g/dL Ur Leukocyte Esterase Large H (Negative) Urine WBC 64 H (0-5) /hpf Urine Bacteria Rare H (None) /hpf Urine Mucus Rare H (None) /hpf 09/04/19 09/04/19 Range/Units 06:55 11:38 Eosinophils # (0-0.7) k/uL Basophils # (0-0.2) k/uL Carbon Dioxide (22-30) mmol/L Glucose (74-99) mg/dL POC Glucose (mg/dL) 146 H 117 H (75-99) mg/dL Total Protein (6.3-8.2) g/dL Ur Leukocyte Esterase (Negative) Urine WBC (0-5) /hpf Urine Bacteria (None) /hpf Urine Mucus (None) /hpf Microbiology - Last 24 Hours (Table) 09/03/19 19:56 Urine Culture - Preliminary Urine,Voided Diabetes panel 09/03/19 Range/Units 19:26 Sodium 144 (137-145) mmol/L Potassium 3.9 (3.5-5.1) mmol/L Chloride 101 (98-107) mmol/L Carbon Dioxide 32 H (22-30) mmol/L BUN 14 (7-17) mg/dL Creatinine 0.83 (0.52-1.04) mg/dL Glucose 141 H (74-99) mg/dL Calcium 9.3 (8.4-10.2) mg/dL AST 25 (14-36) U/L ALT 32 (9-52) U/L Alkaline Phosphatase 109 (38-126) U/L Total Protein 8.4 H (6.3-8.2) g/dL Albumin 4.5 (3.5-5.0) g/dL Calcium panel 09/03/19 Range/Units 19:26 Calcium 9.3 (8.4-10.2) mg/dL Albumin 4.5 (3.5-5.0) g/dL Pituitary panel 09/03/19 Range/Units 19:26 Sodium 144 (137-145) mmol/L Potassium 3.9 (3.5-5.1) mmol/L Chloride 101 (98-107) mmol/L Carbon Dioxide 32 H (22-30) mmol/L BUN 14 (7-17) mg/dL Creatinine 0.83 (0.52-1.04) mg/dL Glucose 141 H (74-99) mg/dL Calcium 9.3 (8.4-10.2) mg/dL Adrenal panel 09/03/19 Range/Units 19:26 Sodium 144 (137-145) mmol/L Potassium 3.9 (3.5-5.1) mmol/L Chloride 101 (98-107) mmol/L Carbon Dioxide 32 H (22-30) mmol/L BUN 14 (7-17) mg/dL Creatinine 0.83 (0.52-1.04) mg/dL Glucose 141 H (74-99) mg/dL Calcium 9.3 (8.4-10.2) mg/dL Total Bilirubin 0.5 (0.2-1.3) mg/dL AST 25 (14-36) U/L ALT 32 (9-52) U/L Alkaline Phosphatase 109 (38-126) U/L Total Protein 8.4 H (6.3-8.2) g/dL Albumin 4.5 (3.5-5.0) g/dL
--- NOTE | 2019-09-04 15:16 | P.CNOR ---
History of Present Illness - [facility] Consult date: 09/04/19 Consult reason: fracture History of present illness: Patient is 69-year-old female who came to the hospital late last night with regards to worsening right lower quadrant pain. Patient apparently had a fall about 2 days ago. She landed on the right side. Upon arrival to the hospital, imaging and lab tests are done. Images demonstrated rib fractures on the right side, computed tomography scan also picked up an age indeterminate compression fractures in the lumbar spine. Patient is known to our practice, she had a reverse left total shoulder done about a year ago from a severe comminuted and displaced left proximal humerus fracture. Patient's shoulders were done well since surgery. She also has a hi story of previous lower back problems. Patient was evaluated today on the observation unit, she is resting comfortably in bed. She notes most discomfort in the right side and right lower quadrant an teriorly. She does have intermittent back pain. She denies any paresthesias involving the lower extremities. She has no loss of bowel or bladder function. She has no pain involving the right hip. Review of Systems Constitutional: Reports as per HPI Past Medical History Past Medical History: Coronary Artery Disease (CAD), Diabetes Mellitus, Hyperlipidemia, Hypertension History of Any Multi-Drug Resistant Organisms: None Reported Past Surgical History: Cholecystectomy, Heart Catheterization With Stent, Hysterectomy, Tubal Ligation Additional Past Surgical History / Comment(s): thyroidectomy Past Anesthesia/Blood Transfusion Reactions: No Reported Reaction Date of Last Stent Placement:: 2010 Past Psychological History: Anxiety, Depression Smoking Status: Never smoker Past Alcohol Use History: None Reported Past Drug Use History: None Reported - Past Family History Mother History Unknown: Yes Family Medical History: Unable to Obtain Additional Family Medical History / Comment(s): Mother in her 80s. Patient does not know cause. Father Family Medical History: Myocardial Infarction ([place]) Additional Family Medical History / Comment(s): Father in his 80s from a massive myocardial infarction. Brother(s) Family Medical History: Liver Disease, Renal Disease Additional Family Medical History / Comment(s): Patient has 1 brother and 3 sisters. Daughter(s) Additional Family Medical History / Comment(s): Patient has a total of 9 children. 2 at a very young age of 1 year of age, one was hit by a car and one drowned. Medications and Allergies Home Medications Medication Instructions Recorded Confirmed Type Cholecalciferol (Vitamin D3) 2,000 unit PO DAILY@0700 07/09/17 09/03/19 History [Vitamin D3] Clopidogrel [Plavix] 75 mg PO DAILY@69907/09/17 09/03/19 History Famotidine 40 mg PO HS@199907/09/17 09/03/19 History Levothyroxine Sodium [Synthroid] 125 mcg PO DAILY@00 07/09/17 09/03/19 History Lisinopril 40 mg PO DAILY@69907/09/17 09/03/19 History Multivitamin,Therapeutic [Thera] 1 tab PO DAILY@00 07/09/17 09/03/19 History Potassium Chloride ER [K-Dur 10] 10 meq PO TID@0700,1600,199907/09/17 09/03/19 History Venlafaxine HCl [Effexor XR] 150 mg PO DAILY@1200 07/09/17 09/03/19 History traZODone HCL [Desyrel] 100 mg PO HS@199907/09/17 09/03/19 History Diphenox-Atrop 2.5-0.025 mg 1 tab PO QID@08,12,16,20 07/13/18 09/03/19 History [Lomotil] Isosorbide Mononitrate ER [Imdur] 30 mg PO DAILY@0700 07/13/18 09/03/19 History Simvastatin [Zocor] 20 mg PO HS@199907/13/18 09/03/19 History amLODIPine [Norvasc] 10 mg PO DAILY@0700 07/13/18 09/03/19 History ALPRAZolam [Xanax] 0.25 mg PO TID@0700,1600,199909/03/19 09/03/19 History Acetaminophen with Codeine 1 tab PO TID@0700,1600,199909/03/19 09/03/19 History [Tylenol with Codeine #4 Tablet] Albuterol Sulfate [Ventolin HFA] 2 puff INHALATION RT-QID PRN 09/03/19 09/03/19 History Baclofen [Lioresal] 10 mg PO TID@0700,1600,199909/03/19 09/03/19 History Betamethasone Dipropionate 1 applic TOPICAL DAILY@0700 PRN 09/03/19 09/03/19 History [Diprolene AF 0.05% Cream] Fluticasone Nasal [place] [Flonase 1 spray EA NOSTRIL DAILY@0700 09/03/19 09/03/19 History Nasal [place]] Furosemide [Lasix] 40 mg PO DAILY@0700 09/03/19 09/03/19 History Gabapentin 600 mg PO TID@0700,1600,199909/03/19 09/03/19 History Loratadine [Claritin] 10 mg PO DAILY@0700 09/03/19 09/03/19 History Metoprolol Succinate [Toprol XL] 25 mg PO BID@0700,1600 09/03/19 09/03/19 History Metoprolol Tartrate [Lopressor] 50 mg PO BID@0700,1600 09/03/19 09/03/19 History Nystatin 100,000 Unit/gm Powd 1 applic TOPICAL DAILY PRN 09/03/19 09/03/19 History [Mycostatin Powder] metFORMIN HCL [Glucophage] 500 mg PO BID@0700,1600 09/03/19 09/03/19 History Allergies Allergy/AdvReac Type Severity Reaction Status Date / Time aspirin Allergy Itching Verified 09/03/19 23:40 meperidine [From Demerol] Allergy Unknown Verified 09/03/19 23:40 morphine Allergy Unknown Verified 09/03/19 23:40 Physical Examination General orthopedic exam: No obvious open lesions or sores involving the right lower extremity, no significant areas of ecchymosis. No significant open lesions or ecchymosis noted in the lumbar spine. Slight tenderness along the paravertebral muscles in the lumbar spine region. Logroll maneuver of the right lower extremity reproduces no significant discomfort. She is able to straight leg raise with minimal difficulty. Sensation to light touch throughout the extremities intact, calf is soft, no tenderness with palpation. Results - Labs Labs: Abnormal Lab Results - Last 24 Hours (Table) 09/03/19 09/03/19 09/03/19 Range/Units 19:26 19:26 19:56 Eosinophils # 1.2 H (0-0.7) k/uL Basophils # 0.3 H (0-0.2) k/uL Carbon Dioxide 32 H (22-30) mmol/L Glucose 141 H (74-99) mg/dL POC Glucose (mg/dL) (75-99) mg/dL Total Protein 8.4 H (6.3-8.2) g/dL Ur Leukocyte Esterase Large H (Negative) Urine WBC 64 H (0-5) /hpf Urine Bacteria Rare H (None) /hpf Urine Mucus Rare H (None) /hpf 09/04/19 09/04/19 Range/Units 06:55 11:38 Eosinophils # (0-0.7) k/uL Basophils # (0-0.2) k/uL Carbon Dioxide (22-30) mmol/L Glucose (74-99) mg/dL POC Glucose (mg/dL) 146 H 117 H (75-99) mg/dL Total Protein (6.3-8.2) g/dL Ur Leukocyte Esterase (Negative) Urine WBC (0-5) /hpf Urine Bacteria (None) /hpf Urine Mucus (None) /hpf Microbiology - Last 24 Hours (Table) 09/03/19 19:56 Urine Culture - Preliminary Urine,Voided H & H 09/03/19 Range/Units 19:26 Hgb 14.7 (11.4-16.0) gm/dL Hct 45.6 (34.0-46.0) % Coagulation 09/03/19 Range/Units 19:26 INR 1.0 (<1.2) Result Diagrams: 09/03/19 19:26 09/03/19 19:26 Assessment and Plan Plan: Imaging: Reports of abdomen/pelvis CT demonstrated old L2 and L4 compression fractures. X-ray report also noted the right-sided rib fractures Assessment: 1. Right-sided rib fractures 2. L2/L4 compression fractures, likely old 3. Status post fall 4. Multiple medical comorbidities Plan: I was able to discuss the case, including with physical exam findings and imaging studies my attending Dr. Chauhan. I believe that these compression fractures are old, her symptoms point more towards her rib fractures being cause pain. She would not be able to tolerate a TLSO brace at this time. We recommend weight-bear as tolerated, utilizing a walker or cane at all times PT/OT evaluation No orthopedic surgical intervention needed We'll be available for any further questions regarding patient Time with Patient: Less than 30
--- NOTE | 2019-09-04 15:50 | P.PN ---
Subjective Progress Note Date: 09/04/19 The patient is a 69 yo F with a PMH of CAD, HTN, and HLD who had presented to the ED after a fall. The patient had c/o R shoulder pain after she fell when she tripped. She denied head trauma. She was noted to have R 7th and 8th rib fractures on the X-ray w/ interstitial pulm infiltrates. The patient had e ndorsed significant difficulty breathing due to the pleuritic pain. She was admitted for acute hypoxic resp failure due to traumatic rib fractures. She was seen and examind at the bedside on 09/04. She notes continued significant R sided pleuritic chest pain. She denied cough, fever, chills, nausea, vomiting, or abdominal pain. Objective - Vital Signs Vital signs: Vital Signs Temp 97.7 F 09/04/19 11:31 Pulse 67 09/04/19 11:31 Resp 18 09/04/19 11:31 BP 123/70 09/04/19 11:31 Pulse Ox 93 L 09/04/19 11:31 Intake & Output 09/03/19 09/04/19 09/04/19 18:59 06:59 18:59 Weight 99.79 kg Other: Voiding Method Toilet # Voids 1 - Exam General: Non-toxic, in mild distress, appears stated age, obese HEENT: NC/AT, anicteric sclerae, moist conjunctiva, no lid-lag, PERRLA Cardiovascular: S1/S2 wnl, no murmurs, rubs, or gallops, R lateral chest wall tenderness Lungs: Mild scattered ronchi, normal respiratory effort, no accessory muscle use Abdominal: Soft, non-tender, non-distended, no guarding, rebound, or rigidity Skin: Warm, dry Extremities: No edema or contractures Psychiatric: Alert and oriented to person, place and time, appropriate affect Neuro: CN II-XII grossly intact, Strength 5/5 in all 4 extremities, Speech intact, Sensation to light touch grossly intact throughout - Labs CBC & Chem 7: 09/03/19 19:26 09/03/19 19:26 Labs: Abnormal Lab Results - Last 24 Hours (Table) 09/03/19 09/03/19 09/03/19 Range/Units 19:26 19:26 19:56 Eosinophils # 1.2 H (0-0.7) k/uL Basophils # 0.3 H (0-0.2) k/uL Carbon Dioxide 32 H (22-30) mmol/L Glucose 141 H (74-99) mg/dL POC Glucose (mg/dL) (75-99) mg/dL Total Protein 8.4 H (6.3-8.2) g/dL Ur Leukocyte Esterase Large H (Negative) Urine WBC 64 H (0-5) /hpf Urine Bacteria Rare H (None) /hpf Urine Mucus Rare H (None) /hpf 09/04/19 09/04/19 Range/Units 06:55 11:38 Eosinophils # (0-0.7) k/uL Basophils # (0-0.2) k/uL Carbon Dioxide (22-30) mmol/L Glucose (74-99) mg/dL POC Glucose (mg/dL) 146 H 117 H (75-99) mg/dL Total Protein (6.3-8.2) g/dL Ur Leukocyte Esterase (Negative) Urine WBC (0-5) /hpf Urine Bacteria (None) /hpf Urine Mucus (None) /hpf Microbiology - Last 24 Hours (Table) 09/03/19 19:56 Urine Culture - Preliminary Urine,Voided Assessment and Plan Plan: Acute hypoxic resp failure in setting of traumatic R sided rib fractures; atalectasis -Likely secondary to pain from rib fractures -C/w supplemental oxygen -Orthopedic surg recs appreciated -Anesthesiology planning on doing a nerve block as an outpatient after 5 days of plavix being held -Incentive spirometry -C/w pain control w/ [place] and Toradol UTI -C/w Keflex and f/u cultures HTN -C/w home meds DM -C/w insulin with blood glucose monitoring Hypothyroidism -C/w levothyroxine DVT prophylaxis -IPCDs Discussed with: Patient Anticipated discharge date: 09/[address]: Home A total of 35 minutes was spent on the care of this complex patient more than 50% of the time was spent in counseling and care coordination.
[2019-09-04 17:09] LABS: Glucose,Whole Blood 127 mg/dL (75-99)
[2019-09-04 19:33] LABS: Glucose,Whole Blood 146 mg/dL (75-99)
[2019-09-04] MEDS: traZODone HCL 100 MG TAB PO SCH (20:24)
[2019-09-04] MEDS: FAMOTIDINE 20 MG TAB PO SCH (20:25)
[2019-09-04] MEDS: ATORVASTATIN 10 MG TAB PO SCH (20:25)
[2019-09-04] MEDS: ONDANSETRON 4 MG/2 ML VIAL IVP PRN (21:50)
[2019-09-05] MEDS: HYDROcodone/APAP 10-325MG 1 EACH TAB PO PRN ×2 (03:24→22:18)
[2019-09-05 06:59] LABS: Glucose,Whole Blood 140 mg/dL (75-99)
[2019-09-05] MEDS: GABAPENTIN 300 MG CAP PO SCH (08:22)
[2019-09-05] MEDS: DIPHENOX-ATROP 2.5-0.025 MG 1 EACH TAB PO SCH ×4 (08:22→22:20)
[2019-09-05] MEDS: LISINOPRIL 20 MG TAB PO SCH (08:22)
[2019-09-05] MEDS: ISOSORBIDE MONONITRATE ER 30 MG TAB.ER.24H PO SCH (08:22)
[2019-09-05] MEDS: amLODIPine 10 MG TAB PO SCH (08:22)
[2019-09-05] MEDS: POTASSIUM CHLORIDE ER 10 MEQ TAB.ER.PRT PO SCH ×3 (08:22→22:10)
[2019-09-05] MEDS: CHOLECALCIFEROL 1,000 UNIT TAB PO SCH (08:23)
[2019-09-05] MEDS: BACLOFEN 10 MG TAB PO SCH (08:23)
[2019-09-05] MEDS: LORATADINE 10 MG TAB PO SCH (08:23)
[2019-09-05] MEDS: FUROSEMIDE 40 MG TAB PO SCH (08:23)
[2019-09-05] MEDS: MULTIVITAMINS, THERA 1 EACH TAB PO SCH (08:23)
[2019-09-05] MEDS: ALPRAZolam 0.25 MG TAB PO SCH ×3 (08:23→22:10)
[2019-09-05] MEDS: METOPROLOL TARTRATE 50 MG TAB PO SCH ×2 (08:23→17:23)
[2019-09-05] MEDS: LEVOTHYROXINE 125 MCG TAB PO SCH (08:24)
[2019-09-05] MEDS: CEPHALEXIN 500 MG CAP PO SCH ×2 (08:24→22:10)
[2019-09-05] MEDS: FLUTICASONE 50MCG/SPRAY NASAL 16GM EA NOSTRIL SCH (08:24)
[2019-09-05] MEDS: LIDOCAINE 5% PATCH TOPICAL SCH (08:25)
[2019-09-05] MEDS: INSULIN ASPART (NovoLOG) 100 UNIT/ML VIAL SQ SCH ×4 (08:35→20:13)
[2019-09-05] MEDS: METOPROLOL SUCCINATE (ER) 25 MG TAB.ER.24H PO SCH (09:30)
[2019-09-05] MEDS ORDERED: BACLOFEN 10 MG TAB PO PRN (10:38)
--- NOTE | 2019-09-05 11:45 | ECHOF ---
Referral Reason:hypoxia MEASUREMENTS -------- HEIGHT: 152.4 cm WEIGHT: 99.8 kg BP: RVIDd: 3.2 cm (< 3.3) IVSd: 1.4 cm (0.6 - 1.1) LVIDd: 3.4 cm (3.9 - 5.3) LVPWd: 1.4 cm (0.6 - 1.1) IVSs: 1.7 cm LVIDs: 1.8 cm LVPWs: 1.4 cm LAESV Index (A-L): 27.92 ml/m Ao Diam: 3.1 cm (2.0 - 3.7) AV Cusp: 2.0 cm (1.5 - 2.6) LA Diam: 4.0 cm (2.7 - 3.8) MV E Gus: 1.06 m/s MV DecT: 151 ms MV A Gus: 1.00 m/s MV E/A Ratio: 1.06 RAP: 5.00 mmHg RVSP: 12.56 mmHg TAPSE: 23.86 mm FINDINGS -------- Sinus rhythm. This was a technically adequate study. The left ventricular size is normal. There is moderate concentric left ventricular hypertrophy. O verall left ventricular systolic function is normal with, an EF between 60 - 65 %. Normal LAP Grade 1 Diastolic Dysfunction. The right ventricle is normal in size. The left atrial size is normal. Normal LA size by volume 22+/-6 ml/m2. The right atrial size is normal. Interatrial and interventricular septum intact. The aortic valve is trileaflet and appears structurally normal. The mitral valve is normal. Mild mitral annular calcification present. Mild mitral regurgitation is present. The tricuspid valve appears structurally normal. Mild tricuspid regurgitation present. Right vent ricular systolic pressure is normal at < 35 mmHg. There is no pulmonic regurgitation present. The aortic root size is normal. IVC Not well visulized. There is no pericardial effusion. CONCLUSIONS -------- 1. Sinus rhythm. 2. This was a technically adequate study. 3. The left ventricular size is normal. 4. There is moderate concentric left ventricular hypertrophy. 5. Overall left ventricular systolic function is normal with, an EF between 60 - 65 %. 6. Normal LAP Grade 1 Diastolic Dysfunction. 7. The right ventricle is normal in size. 8. The left atrial size is normal. 9. Normal LA size by volume 22+/-6 ml/m2. 10. The right atrial size is normal. 11. Interatrial and interventricular septum intact. 12. The aortic valve is trileaflet and appears structurally normal. 13. The mitral valve is normal. 14. Mild mitral annular calcification present. 15. Mild mitral regurgitation is present. 16. The tricuspid valve appears structurally normal. 17. Mild tricuspid regurgitation present. 18. Right ventricular systolic pressure is normal at < 35 mmHg. 19. There is no pulmonic regurgitation present. 20. The aortic root size is normal. 21. IVC Not well visulized. 22. There is no pericardial effusion. [employer] MANAGER: Yuli Keller RDCS
[2019-09-05 12:23] LABS: Glucose,Whole Blood 110 mg/dL (75-99)
[2019-09-05] MEDS: VENLAFAXINE HCL ER 150 MG CAP PO SCH (12:48)
--- NOTE | 2019-09-05 13:09 | P.PN ---
Subjective Progress Note Date: 09/05/19 The patient is a 69 yo F with a PMH of CAD, HTN, and HLD who had presented to the ED after a fall. The patient, a resident of an adult foster group home, fell when she was helping another resident into their chair. The patient fell on her R side and denied hitting her head. She initially didn't come to the ED, though after her R sided chest pain persisted, she decided to seek medical attention. In the ED, she was noted to have R 7th and 8th rib fractures on the X-ray w/ interstitial pulm infiltrates. The patient had endorsed significant difficulty breathing due to the pleuritic pain. The patient was also noted to have compression fractures of the L2 and L4 vertebre. She was admitted for acute hypoxic resp failure due to traumatic rib fractures. Orthopedic surgery was consulted and recommended that the vertebral fractures are likely old and conservative management with weight bearing as tolerated. Gen surgery was consulted for the rib fractures and recommended possible nerve block for which anesthesiology evaluated the patient and recommended that since she is on plavix, she won't be able to undergo any nerve blocks unless plavix is held for at least 5 days. The patient was seen and examined at the bedside on 09/05. She notes continued significant R sided pleuritic chest pain. She also endorsed some dizziness, described as lightheadedness. She denied fever, chills, cough, nausea, or vomiting. Objective - Vital Signs Vital signs: Vital Signs Temp 98.1 F 09/05/19 11:00 Pulse 78 09/05/19 11:10 Resp 14 09/05/19 11:00 BP 136/87 09/05/19 11:10 Pulse Ox 94 L 09/05/19 11:00 Intake & Output 09/04/19 09/05/19 09/05/19 18:59 06:59 18:59 Other: Voiding Method Toilet Toilet Toilet Incontinent Incontinent # Voids 1 2 - Exam General: Non-toxic, in mild distress, appears stated age, obese HEENT: NC/AT, anicteric sclerae, moist conjunctiva, no lid-lag, PERRLA Cardiovascular: S1/S2 wnl, no murmurs, rubs, or gallops, R lateral chest wall tenderness Lungs: CTABL, normal respiratory effort, no accessory muscle use Abdominal: Soft, non-tender, non-distended, no guarding, rebound, or rigidity Skin: Warm, dry Extremities: No edema or contractures Psychiatric: Alert and oriented to person, place and time, appropriate affect Neuro: CN II-XII grossly intact, Strength 5/5 in all 4 extremities, Speech intact, Sensation to light touch grossly intact throughout - Labs CBC & Chem 7: 09/03/19 19:26 09/03/19 19:26 Labs: Abnormal Lab Results - Last 24 Hours (Table) 09/04/19 09/04/19 09/05/19 Range/Units 17:07 19:32 06:56 POC Glucose (mg/dL) 127 H 146 H 140 H (75-99) mg/dL Microbiology - Last 24 Hours (Table) 09/03/19 19:56 Urine Culture - Preliminary Urine,Voided Assessment and Plan Plan: Acute hypoxic resp failure in setting of traumatic R sided rib fractures -Pt has hx of low saturations on prior admission (06/2018) -- was thought to possible be due to sleep-apnea syndrome and/or obesity hypoventilation syndrome -Likely secondary to pain from rib fractures vs above listed -C/w supplemental oxygen -Orthopedic surg recs appreciated -Incentive spirometry -C/w pain control w/ [place] and Toradol Dizziness, likely multifactorial -Will DC patient's scheduled baclofen and gabapentin for now -Orthostatics negative -BP borderline, will DC imdur -Fall precautions -OT/PT consult UTI -C/w Keflex and f/u cultures Coronary artery disease -C/w Plavix HTN -C/w home meds. DCed Imdur DM -C/w insulin with blood glucose monitoring Hypothyroidism -C/w levothyroxine DVT prophylaxis -IPCDs Discussed with: Patient Anticipated discharge date: 09/[address]: Home/[facility] A total of 35 minutes was spent on the care of this complex patient more than 50% of the time was spent in counseling and care coordination.
--- NOTE | 2019-09-05 13:51 | CT ---
EXAMINATION TYPE: CT brain wo con DATE OF EXAM: 09/05/2019 COMPARISON: Prior CT brain 07/13/2018 HISTORY: Weakness and dizziness CT DLP: 1025.4 mGycm Automated exposure control for dose reduction was used. Helical imaging through the brain. FINDINGS: There is no significant change. Probable small lacunar infarct external capsule on the left. There is no hemorrhage or hydrocephalus. Periventricular white matter shows patchy low attenuation. Calvarium is intact. Paranasal sinuses and mastoid air cells as visualized are normal. The orbits show symmetr ic appearance. IMPRESSION: STABLE EXAM, NO ACUTE ABNORMALITY. PROBABLE CHRONIC SMALL VESSEL ISCHEMIC CHANGES, AGE RELATED ATROPH Y.
--- NOTE | 2019-09-05 14:11 | P.PN ---
Subjective Progress Note Date: 09/05/19 CHIEF COMPLAINT: trauma, fall, rib fractures HISTORY OF PRESENT ILLNESS: Patient examined at the bedside. She reports continued right chest pain with deep inspiration. She is only acheiving 500cc on incentive spirometer. Encouraged use 10 times an hour. Tolerating diet. Denies nausea or vomiting. PHYSICAL EXAM: VITAL SIGNS: Reviewed. GENERAL: Well-developed in no acute distress. HEENT: No sclera icterus. Extraocular movements grossly intact. Moist buccal mucosa. Head is atraumatic, normocephalic. ABDOMEN: Obese. Soft. Nondistended. Nontender. Positive bowel sounds. NEUROLOGIC: Alert and oriented. Cranial nerves II through XII grossly intact. ASSESSMENT: 1. Trauma, s/p fall from standing 2. Acute right sided rib fractures, 7 & 8 3. Atelectasis 4. Hypoxia requiring supplemental oxygen secondary to rib fractures, atelectasis, and inability to take deep breaths secondary to increased pain and discomfort 5. Chronic lumbar compression fractures PLAN: 1. Anesthesia consulted for nerve block. However, patient prescribed plavix therefore nerve block is unable to be completed at this time. 2. Pain control. Continue Toradol, Lidoderm patches, and [place]. 3. Continue to encourage use of incentive spirometry 4. Increase activity as tolerated. PT/OT consulted. 5. No surgical intervention intervention recommended at this time. Continue medical management per internal medicine. Nurse practitioner note has been reviewed by physician. Signing provider agrees with the documented findings, assessment, and plan of care. Objective - Vital Signs Vital signs: Vital Signs Temp 98.1 F 09/05/19 11:00 Pulse 78 09/05/19 11:10 Resp 14 09/05/19 11:00 BP 136/87 09/05/19 11:10 Pulse Ox 94 L 09/05/19 11:00 Intake & Output 09/04/19 09/05/19 09/05/19 18:59 06:59 18:59 Other: Voiding Method Toilet Toilet Toilet Incontinent Incontinent # Voids 1 2 - Labs CBC & Chem 7: 09/03/19 19:26 09/03/19 19:26 Labs: Abnormal Lab Results - Last 24 Hours (Table) 09/04/19 09/04/19 09/05/19 Range/Units 17:07 19:32 06:56 POC Glucose (mg/dL) 127 H 146 H 140 H (75-99) mg/dL 09/05/19 Range/Units 12:18 POC Glucose (mg/dL) 110 H (75-99) mg/dL Microbiology - Last 24 Hours (Table) 09/03/19 19:56 Urine Culture - Final Urine,Voided
[2019-09-05 16:53] LABS: Glucose,Whole Blood 176 mg/dL (75-99)
[2019-09-05] MEDS: CLOPIDOGREL 75 MG TAB PO SCH (17:23)
--- NOTE | 2019-09-05 19:47 | CT ---
EXAMINATION TYPE: CT angio chest DATE OF EXAM: 09/05/2019 7:15 PM COMPARISON: 07/15/2018 HISTORY: Hypoxia. CT DLP: 822.5 mGycm Automated exposure control for dose reduction was used. CONTRAST: CTA scan of the thorax is performed with IV Contrast, patient injected with 77ml mL of Isovue 370, pu lmonary embolism protocol. . FINDINGS: There are 3-D post processed images. There are bilateral pleural effusions and larger on the right side. There is bilateral lower lobe pul monary airspace infiltrate and atelectasis. There is no pericardial effusion. Heart is enlarged. Thor acic aorta is atheromatous. I see no filling defects in the pulmonary arteries. There is no mediastin al adenopathy. There are no hilar masses. There is spurring in the thoracic spine. I see no bony dest ructive process. IMPRESSION: NO EVIDENCE OF PULMONARY EMBOLISM. BASILAR PULMONARY INFILTRATES AND ATELECTASIS WITH PLEURAL EFFUSIO NS. THIS COULD RELATE TO CHRONIC CONGESTIVE HEART FAILURE. PLEURAL FLUID INCREASED COMPARED TO OLD EX AM.
[2019-09-05 20:19] LABS: Glucose,Whole Blood 120 mg/dL (75-99)
[2019-09-05] MEDS: ONDANSETRON 4 MG/2 ML VIAL IVP PRN (20:29)
[2019-09-05] MEDS ORDERED: GABAPENTIN 300 MG CAP PO SCH (21:00)
[2019-09-05] MEDS: ATORVASTATIN 10 MG TAB PO SCH (22:09)
[2019-09-05] MEDS: FAMOTIDINE 20 MG TAB PO SCH (22:09)
[2019-09-05] MEDS: traZODone HCL 100 MG TAB PO SCH (22:10)
[2019-09-06] MEDS: KETOROLAC 30 MG/ML 1 ML VIAL IVP PRN ×3 (01:40→23:46)
[2019-09-06 07:06] LABS: Glucose,Whole Blood 115 mg/dL (75-99)
[2019-09-06] MEDS: INSULIN ASPART (NovoLOG) 100 UNIT/ML VIAL SQ SCH ×4 (07:26→20:36)
[2019-09-06] MEDS: LISINOPRIL 20 MG TAB PO SCH (07:38)
[2019-09-06] MEDS: MULTIVITAMINS, THERA 1 EACH TAB PO SCH (07:39)
[2019-09-06] MEDS: amLODIPine 10 MG TAB PO SCH (07:39)
[2019-09-06] MEDS: CHOLECALCIFEROL 1,000 UNIT TAB PO SCH (07:39)
[2019-09-06] MEDS: LEVOTHYROXINE 125 MCG TAB PO SCH (07:40)
[2019-09-06] MEDS: ALPRAZolam 0.25 MG TAB PO SCH ×3 (07:40→20:28)
[2019-09-06] MEDS: CEPHALEXIN 500 MG CAP PO SCH ×2 (07:40→20:29)
[2019-09-06] MEDS: POTASSIUM CHLORIDE ER 10 MEQ TAB.ER.PRT PO SCH ×3 (07:40→20:29)
[2019-09-06] MEDS: CLOPIDOGREL 75 MG TAB PO SCH (07:41)
[2019-09-06] MEDS: FUROSEMIDE 40 MG TAB PO SCH (07:41)
[2019-09-06] MEDS: METOPROLOL TARTRATE 50 MG TAB PO SCH ×2 (07:41→17:33)
[2019-09-06] MEDS: DIPHENOX-ATROP 2.5-0.025 MG 1 EACH TAB PO SCH ×2 (07:42→12:56)
[2019-09-06] MEDS: LIDOCAINE 5% PATCH TOPICAL SCH (07:42)
[2019-09-06] MEDS: FLUTICASONE 50MCG/SPRAY NASAL 16GM EA NOSTRIL SCH (08:27)
[2019-09-06] MEDS: VENLAFAXINE HCL ER 150 MG CAP PO SCH (12:58)
--- NOTE | 2019-09-06 13:55 | P.PN ---
Subjective Progress Note Date: 09/06/19 CHIEF COMPLAINT: trauma, fall, rib fractures HISTORY OF PRESENT ILLNESS: Patient examined at the bedside. She reports continued right chest pain with deep inspiration. She is only acheiving 500cc on incentive spirometer. Encouraged use 10 times an hour. Tolerating diet. Denies nausea or vomiting. PHYSICAL EXAM: VITAL SIGNS: Reviewed. GENERAL: Well-developed in no acute distress. HEENT: No sclera icterus. Extraocular movements grossly intact. Moist buccal mucosa. Head is atraumatic, normocephalic. ABDOMEN: Obese. Soft. Nondistended. Nontender. Positive bowel sounds. NEUROLOGIC: Alert and oriented. Cranial nerves II through XII grossly intact. ASSESSMENT: 1. Trauma, s/p fall from standing 2. Acute right sided rib fractures, 7 & 8 3. Atelectasis 4. Hypoxia requiring supplemental oxygen secondary to rib fractures, atelectasis, and inability to take deep breaths secondary to increased pain and discomfort 5. Chronic lumbar compression fractures PLAN: 1. Anesthesia consulted for nerve block. However, patient prescribed plavix therefore nerve block is unable to be completed at this time. 2. Pain management per internal medicine 3. Continue to encourage use of incentive spirometry 4. Increase activity as tolerated. PT/OT on consult 5. No surgical intervention intervention recommended at this time. 6. Discharge per medicine Nurse practitioner note has been reviewed by physician. Signing provider agrees with the documented findings, assessment, and plan of care. Objective - Vital Signs Vital signs: Vital Signs Temp 98 F 09/06/19 08:00 Pulse 70 09/06/19 08:00 Resp 12 09/06/19 08:00 BP 113/73 09/06/19 08:00 Pulse Ox 84 L 09/06/19 09:50 Intake & Output 09/05/19 09/06/19 09/06/19 18:59 06:59 18:59 Output Total 300 500 Balance -300 -500 Output: Urine 300 500 Other: Voiding Method Toilet Toilet Incontinent Incontinent # Voids 1 - Labs CBC & Chem 7: 09/03/19 19:26 09/03/19 19:26 Labs: Abnormal Lab Results - Last 24 Hours (Table) 09/05/19 09/05/19 09/05/19 Range/Units 15:30 16:51 20:08 D-Dimer 1.50 H (<0.60) mg/L FEU POC Glucose (mg/dL) 176 H 120 H (75-99) mg/dL 09/06/19 Range/Units 06:53 D-Dimer (<0.60) mg/L FEU POC Glucose (mg/dL) 115 H (75-99) mg/dL Microbiology - Last 24 Hours (Table) 09/03/19 19:56 Urine Culture - Final Urine,Voided
--- NOTE | 2019-09-06 15:39 | P.PN ---
Subjective Progress Note Date: 09/06/19 The patient is a 69 yo F with a PMH of CAD, HTN, and HLD who had presented to the ED after a fall. The patient, a resident of an adult foster [facility] living, fell when she was helping another resident into their chair. The patient fell on her R side and denied hitting her head. She initially didn't come to the ED, though after her R sided chest pain persisted, she decided to seek medical attention. In the ED, she was noted to have R 7th and 8th rib fractures on the X-ray w/ interstitial pulm infiltrates. The patient had endorsed significant difficulty breathing due to the pleuritic pain. The patient was also noted to have compression fractures of the L2 and L4 vertebre. She was admitted for acute hypoxic resp failure due to traumatic rib fractures. Orthopedic surgery was consulted and recommended that the vertebral fractures are likely old and conservative management with weight bearing as tolerated. Gen surgery was consulted for the rib fractures and recommended possible nerve block for which anesthesiology evaluated the patient and recommended that since she is on plavix, she won't be able to undergo any nerve blocks unless plavix is held for at least 5 days. The patient was seen and examined at the bedside on 09/06. The patient notes that her dizziness had improved significantly since yesterday. She notes continued R sided pleuritic chest pain along with difficulty ambulating due to her pain. She notes using her incentive spirometer as advised. Objective - Vital Signs Vital signs: Vital Signs Temp 98 F 09/06/19 08:00 Pulse 70 09/06/19 08:00 Resp 12 09/06/19 08:00 BP 113/73 09/06/19 08:00 Pulse Ox 84 L 09/06/19 09:50 Intake & Output 09/05/19 09/06/19 09/06/19 18:59 06:59 18:59 Output Total 300 500 Balance -300 -500 Output: Urine 300 500 Other: Voiding Method Toilet Toilet Incontinent Incontinent # Voids 1 - Exam General: Non-toxic, in mild distress, appears stated age, obese HEENT: NC/AT, anicteric sclerae, moist conjunctiva, no lid-lag, PERRLA Cardiovascular: S1/S2 wnl, no murmurs, rubs, or gallops, R lateral chest wall tenderness Lungs: CTABL, normal respiratory effort, no accessory muscle use Abdominal: Soft, non-tender, non-distended, no guarding, rebound, or rigidity Skin: Warm, dry Extremities: No edema or contractures Psychiatric: Alert and oriented to person, place and time, appropriate affect Neuro: CN II-XII grossly intact, Strength 5/5 in all 4 extremities, Speech intact, Sensation to light touch grossly intact throughout - Labs CBC & Chem 7: 09/03/19 19:26 09/03/19 19:26 Labs: Abnormal Lab Results - Last 24 Hours (Table) 09/05/19 09/05/19 09/05/19 Range/Units 15:30 16:51 20:08 D-Dimer 1.50 H (<0.60) mg/L FEU POC Glucose (mg/dL) 176 H 120 H (75-99) mg/dL 09/06/19 Range/Units 06:53 D-Dimer (<0.60) mg/L FEU POC Glucose (mg/dL) 115 H (75-99) mg/dL Microbiology - Last 24 Hours (Table) 09/03/19 19:56 Urine Culture - Final Urine,Voided Assessment and Plan Plan: Acute hypoxic resp failure in setting of traumatic R sided rib fractures -Pt has hx of low saturations on prior admission (06/2018) -- was thought to possible be due to sleep-apnea syndrome and/or obesity hypoventilation syndrome -Likely secondary to pain from rib fractures vs above listed -C/w supplemental oxygen -Orthopedic surg recs appreciated -Incentive spirometry -C/w pain control w/ [place] and Toradol -Chest CTA neg for PE Dizziness, likely multifactorial, improved -Orthostatics negative -Imdur, baclofen, and gabapentin DCed -Fall precautions -PT recommended JEREMY UTI -C/w Keflex and f/u cultures Coronary artery disease -C/w Plavix HTN -C/w home meds. DCed Imdur DM -C/w insulin with blood glucose monitoring Hypothyroidism -C/w levothyroxine DVT prophylaxis -IPCDs Discussed with: Patient Anticipated discharge date: 09/[address]: [facility] A total of 35 minutes was spent on the care of this complex patient more than 50% of the time was spent in counseling and care coordination.
[2019-09-06 16:46] LABS: Glucose,Whole Blood 125 mg/dL (75-99)
[2019-09-06] MEDS: ONDANSETRON 4 MG/2 ML VIAL IVP PRN (20:24)
[2019-09-06] MEDS: ATORVASTATIN 10 MG TAB PO SCH (20:28)
[2019-09-06] MEDS: FAMOTIDINE 20 MG TAB PO SCH (20:29)
[2019-09-06] MEDS: traZODone HCL 100 MG TAB PO SCH (20:29)
[2019-09-06] MEDS: HYDROcodone/APAP 10-325MG 1 EACH TAB PO PRN (20:37)
[2019-09-06 20:39] LABS: Glucose,Whole Blood 134 mg/dL (75-99)
[2019-09-07] MEDS: HYDROcodone/APAP 10-325MG 1 EACH TAB PO PRN ×2 (05:03→15:49)
[2019-09-07 07:19] LABS: Glucose,Whole Blood 141 mg/dL (75-99)
[2019-09-07] MEDS: INSULIN ASPART (NovoLOG) 100 UNIT/ML VIAL SQ SCH ×4 (09:13→20:21)
[2019-09-07] MEDS: ALPRAZolam 0.25 MG TAB PO SCH ×3 (09:14→20:19)
[2019-09-07] MEDS: POTASSIUM CHLORIDE ER 10 MEQ TAB.ER.PRT PO SCH ×3 (09:14→20:20)
[2019-09-07] MEDS: METOPROLOL TARTRATE 50 MG TAB PO SCH ×2 (09:14→15:50)
[2019-09-07] MEDS: MULTIVITAMINS, THERA 1 EACH TAB PO SCH (09:14)
[2019-09-07] MEDS: FUROSEMIDE 40 MG TAB PO SCH (09:14)
[2019-09-07] MEDS: amLODIPine 10 MG TAB PO SCH (09:14)
[2019-09-07] MEDS: CEPHALEXIN 500 MG CAP PO SCH ×2 (09:14→20:20)
[2019-09-07] MEDS: LISINOPRIL 20 MG TAB PO SCH (09:14)
[2019-09-07] MEDS: CHOLECALCIFEROL 1,000 UNIT TAB PO SCH (09:15)
[2019-09-07] MEDS: LIDOCAINE 5% PATCH TOPICAL SCH (09:15)
[2019-09-07] MEDS: CLOPIDOGREL 75 MG TAB PO SCH (09:15)
[2019-09-07] MEDS: LEVOTHYROXINE 125 MCG TAB PO SCH (09:15)
[2019-09-07] MEDS: FLUTICASONE 50MCG/SPRAY NASAL 16GM EA NOSTRIL SCH (09:15)
[2019-09-07 11:48] LABS: Glucose,Whole Blood 122 mg/dL (75-99)
[2019-09-07] MEDS: VENLAFAXINE HCL ER 150 MG CAP PO SCH (11:50)
--- NOTE | 2019-09-07 13:09 | P.PN ---
Subjective Progress Note Date: 09/07/19 CHIEF COMPLAINT: trauma, fall, rib fractures HISTORY OF PRESENT ILLNESS: Patient examined at the bedside. She reports continued right chest pain with deep inspiration. She is only acheiving 500cc on incentive spirometer. Encouraged use 10 times an hour. Tolerating diet. Denies nausea or vomiting. PHYSICAL EXAM: VITAL SIGNS: Reviewed. GENERAL: Well-developed in no acute distress. HEENT: No sclera icterus. Extraocular movements grossly intact. Moist buccal mucosa. Head is atraumatic, normocephalic. ABDOMEN: Obese. Soft. Nondistended. Nontender. Positive bowel sounds. NEUROLOGIC: Alert and oriented. Cranial nerves II through XII grossly intact. ASSESSMENT: 1. Trauma, s/p fall from standing 2. Acute right sided rib fractures, 7 & 8 3. Atelectasis 4. Hypoxia requiring supplemental oxygen secondary to rib fractures, atelectasis, and inability to take deep breaths secondary to increased pain and discomfort 5. Chronic lumbar compression fractures PLAN: 1. Anesthesia consulted for nerve block. However, patient prescribed plavix therefore nerve block is unable to be completed at this time. 2. Pain management per internal medicine 3. Continue to encourage use of incentive spirometry 4. Increase activity as tolerated. PT/OT on consult 5. No surgical intervention intervention recommended at this time. 6. Discharge per medicine 7. We will sign off. Reconsult if needed Nurse practitioner note has been reviewed by physician. Signing provider agrees with the documented findings, assessment, and plan of care. Objective - Vital Signs Vital signs: Vital Signs Temp 97.7 F 09/07/19 07:53 Pulse 79 09/07/19 07:53 Resp 16 09/07/19 07:53 BP 108/74 09/07/19 07:53 Pulse Ox 92 L 09/07/19 08:46 Intake & Output 09/06/19 09/07/19 09/07/19 18:59 06:59 18:59 Output Total 500 550 Balance -500 -550 Output: Urine 500 550 Other: Voiding Method Toilet Incontinent # Voids 8 1 - Labs CBC & Chem 7: 09/03/19 19:26 09/03/19 19:26 Labs: Abnormal Lab Results - Last 24 Hours (Table) 09/06/19 09/06/19 09/07/19 Range/Units 16:44 20:28 06:57 POC Glucose (mg/dL) 125 H 134 H 141 H (75-99) mg/dL 09/07/19 Range/Units 11:46 POC Glucose (mg/dL) 122 H (75-99) mg/dL
--- NOTE | 2019-09-07 15:27 | P.PN ---
Subjective Progress Note Date: 09/07/19 The patient is a 69 yo F with a PMH of CAD, HTN, and HLD who had presented to the ED after a fall. The patient, a resident of an adult foster shelter, fell when she was helping another resident into their chair. The patient fell on her R side and denied hitting her head. She initially didn't come to the ED, though after her R sided chest pain persisted, she decided to seek medical attention. In the ED, she was noted to have R 7th and 8th rib fractures on the X-ray w/ interstitial pulm infiltrates. The patient had endorsed significant difficulty breathing due to the pleuritic pain. The patient was also noted to have compression fractures of the L2 and L4 vertebre. She was admitted for acute hypoxic resp failure due to traumatic rib fractures. Orthopedic surgery was consulted and recommended that the vertebral fractures are likely old and conservative management with weight bearing as tolerated. Gen surgery was consulted for the rib fractures and recommended possible nerve block for which anesthesiology evaluated the patient and recommended that since she is on plavix, she won't be able to undergo any nerve blocks unless plavix is held for at least 5 days. Due to persistent hypoxia, the patient underwent a chest CTA on 09/05 which was negative for PE. The patient was seen and examined at the bedside on 09/07. The patient notes that her dizziness continues to improve. She notes continued R sided pleuritic chest pain along with difficulty ambulating due to her pain. She denied SOB, nausea, or vomiting. Objective - Vital Signs Vital signs: Vital Signs Temp 98.2 F 09/07/19 15:04 Pulse 80 09/07/19 15:04 Resp 16 09/07/19 15:04 BP 140/74 09/07/19 15:04 Pulse Ox 94 L 09/07/19 15:04 Intake & Output 09/06/19 09/07/19 09/07/19 18:59 06:59 18:59 Output Total 500 550 Balance -500 -550 Output: Urine 500 550 Other: Voiding Method Toilet Incontinent # Voids 8 1 3 - Exam General: Non-toxic, in mild distress, appears stated age, obese HEENT: NC/AT, anicteric sclerae, moist conjunctiva, no lid-lag, PERRLA Cardiovascular: S1/S2 wnl, no murmurs, rubs, or gallops, R lateral chest wall tenderness Lungs: CTABL, normal respiratory effort, no accessory muscle use Abdominal: Soft, non-tender, non-distended, no guarding, rebound, or rigidity Skin: Warm, dry Extremities: No edema or contractures Psychiatric: Alert and oriented to person, place and time, appropriate affect Neuro: CN II-XII grossly intact, no focal deficits - Labs CBC & Chem 7: 09/03/19 19:26 09/03/19 19:26 Labs: Abnormal Lab Results - Last 24 Hours (Table) 09/06/19 09/06/19 09/07/19 Range/Units 16:44 20:28 06:57 POC Glucose (mg/dL) 125 H 134 H 141 H (75-99) mg/dL 09/07/19 Range/Units 11:46 POC Glucose (mg/dL) 122 H (75-99) mg/dL Assessment and Plan Plan: Acute hypoxic resp failure in setting of traumatic R sided rib fractures -Pt has hx of low saturations on prior admission (06/2018) -- was thought to possible be due to sleep-apnea syndrome and/or obesity hypoventilation syndrome -Likely secondary to pain from rib fractures vs above listed -C/w supplemental oxygen, will attempt to wean -Orthopedic surg recs appreciated -Incentive spirometry -C/w pain control w/ [place] and Toradol -Chest CTA neg for PE Dizziness, likely multifactorial, improved -Orthostatics negative -Imdur, baclofen, and gabapentin DCed -Fall precautions -PT recommended JEREMY UTI -Urine culture negative -Will DC Keflex Coronary artery disease -C/w Plavix HTN -C/w home meds. DCed Imdur DM -C/w insulin with blood glucose monitoring Hypothyroidism -C/w levothyroxine DVT prophylaxis -IPCDs Discussed with: Patient Anticipated discharge date: 09/[address]: [facility] A total of 35 minutes was spent on the care of this complex patient more than 50% of the time was spent in counseling and care coordination.
[2019-09-07 17:08] LABS: Glucose,Whole Blood 121 mg/dL (75-99)
[2019-09-07] MEDS: ATORVASTATIN 10 MG TAB PO SCH (20:19)
[2019-09-07] MEDS: FAMOTIDINE 20 MG TAB PO SCH (20:19)
[2019-09-07 20:20] LABS: Glucose,Whole Blood 114 mg/dL (75-99)
[2019-09-07] MEDS: traZODone HCL 100 MG TAB PO SCH (20:20)
[2019-09-08] MEDS: HYDROcodone/APAP 10-325MG 1 EACH TAB PO PRN ×2 (04:24→15:31)
[2019-09-08 07:06] LABS: Glucose,Whole Blood 118 mg/dL (75-99)
[2019-09-08 07:28] VITALS: BP 131/74; RESP 16; TEMP 98
[2019-09-08] MEDS: INSULIN ASPART (NovoLOG) 100 UNIT/ML VIAL SQ SCH ×2 (07:36→12:12)
[2019-09-08] MEDS: ALPRAZolam 0.25 MG TAB PO SCH ×2 (09:29→15:30)
[2019-09-08] MEDS: METOPROLOL TARTRATE 50 MG TAB PO SCH ×2 (09:30→15:30)
[2019-09-08] MEDS: FUROSEMIDE 40 MG TAB PO SCH (09:30)
[2019-09-08] MEDS: LISINOPRIL 20 MG TAB PO SCH (09:30)
[2019-09-08] MEDS: MULTIVITAMINS, THERA 1 EACH TAB PO SCH (09:30)
[2019-09-08] MEDS: CEPHALEXIN 500 MG CAP PO SCH (09:30)
[2019-09-08] MEDS: CLOPIDOGREL 75 MG TAB PO SCH (09:30)
[2019-09-08] MEDS: CHOLECALCIFEROL 1,000 UNIT TAB PO SCH (09:30)
[2019-09-08] MEDS: amLODIPine 10 MG TAB PO SCH (09:30)
[2019-09-08] MEDS: POTASSIUM CHLORIDE ER 10 MEQ TAB.ER.PRT PO SCH ×2 (09:31→15:30)
[2019-09-08] MEDS: LIDOCAINE 5% PATCH TOPICAL SCH (09:31)
[2019-09-08] MEDS: FLUTICASONE 50MCG/SPRAY NASAL 16GM EA NOSTRIL SCH (09:31)
[2019-09-08] MEDS: LEVOTHYROXINE 125 MCG TAB PO SCH (09:31)
[2019-09-08 11:50] LABS: Glucose,Whole Blood 148 mg/dL (75-99)
[2019-09-08] MEDS: VENLAFAXINE HCL ER 150 MG CAP PO SCH (12:24)
--- NOTE | 2019-09-08 16:21 | P.DS ---
Providers Date of admission: 09/05/19 08:51 Expected date of discharge: 09/08/19 Attending physician: Bryn Guzman MD Consults: 09/03/19 22:53 Consult Physician Routine Consulting Provider: Mo Chauhan Consult Reason/Comments: rib fractures/Lumbar fracture Do you want consulting provider notified?: Yes 09/03/19 22:54 Consult to Anesthesia Routine Consulting Provider: Anesthesia,Services Consult Reason/Comments: nerve block re: rib fracture 09/04/19 12:10 Consult Physician Routine Consulting Provider: Bharat Isbell Consult Reason/Comments: rib fractures r/t fall Do you want consulting provider notified?: Yes Primary care physician: Jose Martin Vincent [facility] Course: Discharge diagnosis Acute hypoxic respiratory failure Atelectasis Traumatic right-sided rib fractures Dizziness Chronic compression fractures Nonobstructing renal calculi Asymptomatic bacteriuria The patient is a 69 yo F with a PMH of CAD, HTN, and HLD who had presented to the ED after a fall. The patient, a resident of an adult foster halfway, fell when she was helping another resident into their chair. The patient fell on her R side and denied hitting her head. She initially didn't come to the ED, though after her R sided chest pain persisted, she decided to seek medical attention. In the ED, she was noted to have R 7th and 8th rib fractures on the X-ray w/ interstitial pulm infiltrates. The patient had endorsed significant difficulty breathing due to the pleuritic pain. The patient was also noted to have compression fractures of the L2 and L4 vertebre. She was admitted for acute hypoxic resp failure due to traumatic rib fractures. Orthopedic surgery was consulted and recommended that the vertebral fractures are likely old and conservative management with weight bearing as tolerated. Gen surgery was consulted for the rib fractures and recommended possible nerve block for which anesthesiology evaluated the patient and recommended that since she is on plavix, she won't be able to undergo any nerve blocks unless plavix is held for at least 5 days. Patient complained of dizziness and several of her medications were discontinued including Imdur, gabapentin and baclofen. Due to persistent hypoxia, the patient underwent a chest CTA on 09/05 which was negative for PE. The patient was treated presumptively for UTI however urine cultures only confirmed skin and genital brittany. When attempting to wean the patient to room air she desatted to 88% at rest and was kept on 2 L by nasal cannula Subsequently discharged to medical [facility] with instructions to follow-up in pain clinic per anesthesia. This discharge process took approximately 30 minutes Focused exam Respiratory: Clear to auscultation bilaterally no wheezes or rhonchi, unlabored on 2 L by nasal cannula Patient Condition at Discharge: Good Plan - Discharge Summary New Discharge Prescriptions: New Lidocaine 5% Patch [Lidoderm 5% Patch] 1 patch TOPICAL DAILY #7 patch HYDROcodone/APAP 10-325MG [[place] 10-325] 1 each PO Q6H PRN #20 tab PRN Reason: Pain Continue traZODone HCL [Desyrel] 100 mg PO HS@2000 Potassium Chloride ER [K-Dur 10] 10 meq PO TID@0700,1600,2000 Lisinopril 40 mg PO DAILY@0700 Levothyroxine Sodium [Synthroid] 125 mcg PO DAILY@0700 Famotidine 40 mg PO HS@2000 Clopidogrel [Plavix] 75 mg PO DAILY@0700 Cholecalciferol (Vitamin D3) [Vitamin D3] 2,000 unit PO DAILY@0700 Venlafaxine HCl [Effexor XR] 150 mg PO DAILY@1200 Multivitamin,Therapeutic [Thera] 1 tab PO DAILY@0700 Simvastatin [Zocor] 20 mg PO HS@2000 Isosorbide Mononitrate ER [Imdur] 30 mg PO DAILY@0700 Diphenox-Atrop 2.5-0.025 mg [Lomotil] 1 tab PO QID@08,12,16,20 amLODIPine [Norvasc] 10 mg PO DAILY@0700 Fluticasone Nasal [place] [Flonase Nasal [place]] 1 spray EA NOSTRIL DAILY@0700 Betamethasone Dipropionate [Diprolene AF 0.05% Cream] 1 applic TOPICAL DAILY@ 0700 PRN PRN Reason: Rash Albuterol Sulfate [Ventolin HFA] 2 puff INHALATION RT-QID PRN PRN Reason: Shortness Of Breath Nystatin 100,000 Unit/gm Powd [Mycostatin Powder] 1 applic TOPICAL DAILY PRN PRN Reason: Rash metFORMIN HCL [Glucophage] 500 mg PO BID@0700,1600 Metoprolol Tartrate [Lopressor] 50 mg PO BID@0700,1600 Furosemide [Lasix] 40 mg PO DAILY@0700 Metoprolol Succinate [Toprol XL] 25 mg PO BID@0700,1600 Loratadine [Claritin] 10 mg PO DAILY@0700 ALPRAZolam [Xanax] 0.25 mg PO TID@0700,1599,1999 #21 tab Discontinued Gabapentin 600 mg PO TID@07,1599,1999 Acetaminophen with Codeine [Tylenol with Codeine #4 Tablet] 1 tab PO TID@0700,1599,1999 Baclofen [Lioresal] 10 mg PO TID@0700,1599,1999 Discharge Medication List Cholecalciferol (Vitamin D3) [Vitamin D3] 2,000 unit PO DAILY@0707/09/17 [History] Clopidogrel [Plavix] 75 mg PO DAILY@69907/09/17 [History] Famotidine 40 mg PO HS@199907/09/17 [History] Levothyroxine Sodium [Synthroid] 125 mcg PO DAILY@0707/09/17 [History] Lisinopril 40 mg PO DAILY@0707/09/17 [History] Multivitamin,Therapeutic [Thera] 1 tab PO DAILY@0707/09/17 [History] Potassium Chloride ER [K-Dur 10] 10 meq PO TID@0700,1599,199907/09/17 [History] Venlafaxine HCl [Effexor XR] 150 mg PO DAILY@1200 07/09/17 [History] traZODone HCL [Desyrel] 100 mg PO HS@199907/09/17 [History] Diphenox-Atrop 2.5-0.025 mg [Lomotil] 1 tab PO QID@08,12,16,20 07/13/18 [History] Isosorbide Mononitrate ER [Imdur] 30 mg PO DAILY@69907/13/18 [History] Simvastatin [Zocor] 20 mg PO HS@199907/13/18 [History] amLODIPine [Norvasc] 10 mg PO DAILY@69907/13/18 [History] Albuterol Sulfate [Ventolin HFA] 2 puff INHALATION RT-QID PRN 09/03/19 [History] Betamethasone Dipropionate [Diprolene AF 0.05% Cream] 1 applic TOPICAL DAILY@07 PRN 09/03/19 [History] Fluticasone Nasal [place] [Flonase Nasal [place]] 1 spray EA NOSTRIL DAILY@0700 09/03/19 [History] Furosemide [Lasix] 40 mg PO DAILY@0700 09/03/19 [History] Loratadine [Claritin] 10 mg PO DAILY@0700 09/03/19 [History] Metoprolol Succinate [Toprol XL] 25 mg PO BID@0700,1600 09/03/19 [History] Metoprolol Tartrate [Lopressor] 50 mg PO BID@0700,1600 09/03/19 [History] Nystatin 100,000 Unit/gm Powd [Mycostatin Powder] 1 applic TOPICAL DAILY PRN 09/03/19 [History] metFORMIN HCL [Glucophage] 500 mg PO BID@0700,1600 09/03/19 [History] ALPRAZolam [Xanax] 0.25 mg PO TID@0700,1600,1999 #21 tab 09/08/19 [Rx] HYDROcodone/APAP 10-325MG [[place] 10-325] 1 each PO Q6H PRN #20 tab 09/08/19 [Rx] Lidocaine 5% Patch [Lidoderm 5% Patch] 1 patch TOPICAL DAILY #7 patch 09/08/19 [Rx] Follow up Appointment(s)/Referral(s): Jose Martin Mahmood MD [Primary Care Provider] - 1-2 days [facility] [NON-STAFF] - 3 Days Discharge Disposition: HOME SELF-CARE
[2019-09-08 17:04] VITALS: PULSE 79
[2019-09-08] MEDS ORDERED: FAMOTIDINE 20 MG TAB PO SCH (20:00)
== END 2019-09-08 17:14 | DRG 183 ==
LOC: EC 18:26 → 1SOBS 22:51 → OBSVTOIN 09-05 08:51 → 4SSUR 09-05 10:41
PROVIDERS: ADMIT Family Medicine; ATTEND Family Medicine
DX: S22.41XA Multiple fractures of ribs, right side, initial encounter for closed fracture (principal); J96.01 Acute respiratory failure with hypoxia; Z68.41 Body mass index [BMI] 40.0-44.9, adult; J98.11 Atelectasis; M80.08XA Age-related osteoporosis with current pathological fracture, vertebra(e), initial encounter for fracture; N39.0 Urinary tract infection, site not specified; E11.9 Type 2 diabetes mellitus without complications; E66.01 Morbid (severe) obesity due to excess calories; E78.5 Hyperlipidemia, unspecified; E89.0 Postprocedural hypothyroidism; F32.9 Major depressive disorder, single episode, unspecified; F41.9 Anxiety disorder, unspecified; I10 Essential (primary) hypertension; I25.10 Atherosclerotic heart disease of native coronary artery without angina pectoris; N20.0 Calculus of kidney; W01.0XXA Fall on same level from slipping, tripping and stumbling without subsequent striking against object, initial encounter; Z79.02 Long term (current) use of antithrombotics/antiplatelets; Z79.84 Long term (current) use of oral hypoglycemic drugs; Z79.890 Hormone replacement therapy; Z79.899 Other long term (current) drug therapy; Z82.49 Family history of ischemic heart disease and other diseases of the circulatory system; Z90.710 Acquired absence of both cervix and uterus; Z88.6 Allergy status to analgesic agent; Z88.5 Allergy status to narcotic agent; Z90.49 Acquired absence of other specified parts of digestive tract
CPT/HCPCS: 36415; 70450; 71275; 74177; 80053; 81001; 85025; 85379; 85610; 85730; 87086; 93306; 94760; 96374; 96375; 99285

== ENCOUNTER 2019-09-23 09:29 | Emergency (ER) | payer MEDICARE, OTHER ==
[2019-09-23] MEDS ORDERED: DIPH,PERTUS(ACELL)TETVAC-LF 0.5 ML VIAL IM ONE (10:26)
--- NOTE | 2019-09-23 10:30 | ED ---
General Adult HPI <Diane Emerson Monica - Last Filed: 09/23/19 11:13> - General Source: patient, EMS, RN notes reviewed Mode of arrival: EMS Limitations: no limitations <Elio Mendoza - Last Filed: 09/23/19 12:47> - General Chief complaint: Fall Stated complaint: fall Time Seen by Provider: 09/23/19 09:50 - History of Present Illness Initial comments: Patient is a pleasant [age]-year-old female presenting to the emergency department following a fall. Episode occurred this morning just prior to arriva l. Patient was getting out of bed when she slipped and fell. Patient states she did hurt her back. Patient has chronic lower back pain that is somewhat worse than normal. Patient also has some discomfort of the thoracic back. No chest pain or dyspnea. No abdominal pain. Patient states she also struck the area under her nose and did notice some bleeding. Unclear last tetanus immunization. Patient denies any head injury other than the area below her nose. Patient is not on any blood thinners. Patient denies syncope. Patient denies loss of consciousness. (Elio Mendoza) - Related Data Home Medications Medication Instructions Recorded Confirmed Cholecalciferol (Vitamin D3) 2,000 unit PO DAILY@0700 07/09/17 09/23/19 [Vitamin D3] Clopidogrel [Plavix] 75 mg PO DAILY@69907/09/17 09/23/19 Famotidine 40 mg PO HS@199907/09/17 09/23/19 Levothyroxine Sodium [Synthroid] 125 mcg PO DAILY@69907/09/17 09/23/19 Lisinopril 40 mg PO DAILY@69907/09/17 09/23/19 Multivitamin,Therapeutic [Thera] 1 tab PO DAILY@69907/09/17 09/23/19 Potassium Chloride ER [K-Dur 10] 10 meq PO TID@0700,1599,199907/09/17 09/23/19 Venlafaxine HCl [Effexor XR] 150 mg PO DAILY@1200 07/09/17 09/23/19 traZODone HCL [Desyrel] 100 mg PO HS@199907/09/17 09/23/19 Diphenox-Atrop 2.5-0.025 mg 1 tab PO QID@08,12,16,20 07/13/18 09/23/19 [Lomotil] Simvastatin [Zocor] 20 mg PO HS@199907/13/18 09/23/19 amLODIPine [Norvasc] 10 mg PO DAILY@0700 07/13/18 09/23/19 Albuterol Sulfate [Ventolin HFA] 2 puff INHALATION RT-QID 09/03/19 09/23/19 Betamethasone Dipropionate 1 applic TOPICAL DAILY@0700 PRN 09/03/19 09/23/19 [Diprolene AF 0.05% Cream] Fluticasone Nasal [place] [Flonase 1 spray EA NOSTRIL DAILY@0700 09/03/19 09/23/19 Nasal [place]] Furosemide [Lasix] 40 mg PO DAILY@0700 09/03/19 09/23/19 Loratadine [Claritin] 10 mg PO DAILY@0700 09/03/19 09/23/19 Metoprolol Succinate [Toprol XL] 25 mg PO BID@0700,1600 09/03/19 09/23/19 Metoprolol Tartrate [Lopressor] 50 mg PO BID@0700,1600 09/03/19 09/23/19 Nystatin 100,000 Unit/gm Powd 1 applic TOPICAL DAILY PRN 09/03/19 09/23/19 [Mycostatin Powder] metFORMIN HCL [Glucophage] 500 mg PO BID@0700,1600 09/03/19 09/23/19 Acetaminophen with Codeine 1 tab PO TID@0700,1600,199909/23/19 09/23/19 [Tylenol with Codeine #4 Tablet] Baclofen 10 mg PO TID@0700,1600,199909/23/19 09/23/19 Gabapentin [Neurontin] 600 mg PO TID@0700,1600,199909/23/19 09/23/19 Isosorbide Mononitrate ER [Imdur] 30 mg PO DAILY@0700 09/23/19 09/23/19 Previous Rx's Medication Instructions Recorded ALPRAZolam [Xanax] 0.25 mg PO TID@0700,1600,1999 #21 09/08/19 tab Allergies Allergy/AdvReac Type Severity Reaction Status Date / Time aspirin Allergy Itching Verified 09/23/19 11:39 meperidine [From Demerol] Allergy Unknown Verified 09/23/19 11:39 morphine Allergy Unknown Verified 09/23/19 11:39 Review of Systems ROS Other: All systems not noted in ROS Statement are negative. <Diane Emerson - Last Filed: 09/23/19 11:13> ROS Other: All systems not noted in ROS Statement are negative. Constitutional: Denies: fever Eyes: Denies: eye pain ENT: Denies: ear pain Respiratory: Denies: cough Cardiovascular: Denies: chest pain Endocrine: Denies: fatigue Gastrointestinal: Denies: abdominal pain Genitourinary: Denies: dysuria Musculoskeletal: Reports: as per HPI, back pain Skin: Denies: rash Neurological: Denies: headache, weakness, confusion <Elio Mendoza - Last Filed: 09/23/19 12:47> ROS Statement: Those systems with pertinent positive or pertinent negative responses have been documented in the HPI. Past Medical History Past Medical History: Coronary Artery Disease (CAD), Diabetes Mellitus, Hyperlipidemia, Hypertension History of Any Multi-Drug Resistant Organisms: None Reported Past Surgical History: Cholecystectomy, Heart Catheterization With Stent, Hysterectomy, Tubal Ligation Additional Past Surgical History / Comment(s): thyroidectomy Past Anesthesia/Blood Transfusion Reactions: No Reported Reaction Date of Last Stent Placement:: 2010 Past Psychological History: Anxiety, Depression Smoking Status: Never smoker Past Alcohol Use History: None Reported Past Drug Use History: None Reported - Past Family History Mother History Unknown: Yes Family Medical History: Unable to Obtain Additional Family Medical History / Comment(s): Mother in her 80s. Patient does not know cause. Father Family Medical History: Myocardial Infarction ([place]) Additional Family Medical History / Comment(s): Father in his 80s from a massive myocardial infarction. Brother(s) Family Medical History: Liver Disease, Renal Disease Additional Family Medical History / Comment(s): Patient has 1 brother and 3 sisters. Daughter(s) Additional Family Medical History / Comment(s): Patient has a total of 9 children. 2 at a very young age of 1 year of age, one was hit by a car and one drowned. <Elio Mendoza - Last Filed: 09/23/19 12:47> General Exam Limitations: no limitations General appearance: alert, in no apparent distress Head exam: Present: atraumatic Eye exam: Present: normal appearance, PERRL ENT exam: Present: normal oropharynx, other (Abrasions to upper central incisors) Neck exam: Present: normal inspection, full ROM. Absent: tenderness Respiratory exam: Present: normal lung sounds bilaterally Cardiovascular Exam: Present: regular rate, normal rhythm GI/Abdominal exam: Present: soft. Absent: distended, tenderness Extremities exam: Present: normal inspection, full ROM. Absent: tenderness Back exam: Present: tenderness (Mild tenderness in the L3 area as well as mild tenderness in the T8/T9 region.). Absent: CVA tenderness (R), CVA tenderness (L) Neurological exam: Present: alert, oriented X3, CN II-XII intact. Absent: motor sensory deficit Expanded Neurological exam: Present: protecting the airway Patient oriented to: Present: person, place, time Speech: Present: fluid speech Motor strength exam: RUE: 5, LUE: 5, RLE: 5, LLE: 5 Eye Response: (4) open spontaneously Motor Response: (6) obeys commands Verbal Response: (5) oriented Psychiatric exam: Present: normal affect, normal mood Skin exam: Present: other (Laceration between the upper lip and nose) <Elio Mendoza - Last Filed: 09/23/19 12:47> Course Vital Signs 09/23/19 09/23/19 09:39 11:17 Temperature 97.4 F L Pulse Rate 68 65 Respiratory 20 18 Rate Blood Pressure 108/81 90/60 O2 Sat by Pulse 100 94 L Oximetry EKG Findings - EKG Comments: EKG Findings:: Normal sinus rhythm 68. AL 176. QRS 90. QT 448. QTC 476. Left axis. Inferior Q waves. Nonspecific T waves. <Elio Mendoza - Last Filed: 09/23/19 12:47> Procedures - Laceration Laceration #1 Consent Obtained: verbal consent Indication: laceration Site: face (philtrum space, proximal to upper lip) Size (cm): 1 Description: irregular (Jagged shaped) Depth: simple, single layer Anesthetic Used: lidocaine 1% Anesthesia Technique: local infiltration Amount (mls): 2 Pre-repair: irrigated extensively Type of Sutures: nylon Size of Sutures: 5-0 Number of Sutures: 3 Technique: simple, interrupted Patient Tolerated Procedure: well <Diane Emerson - Last Filed: 09/23/19 11:13> Medical Decision Making <Elio Mendoza - Last Filed: 09/23/19 12:47> - Medical Decision Making Patient reevaluated and updated. Abdomen remained soft and nontender. Case was discussed with radiologist Dr. Pierce. Previous CT scans were done from earlier in the month showing that compression fractures were present at that point. (Elio Mendoza) Disposition <Diane Emerson - Last Filed: 09/23/19 11:13> Is patient prescribed a controlled substance at d/c from ED?: No Time of Disposition: 12:47 <Elio Mendoza - Last Filed: 09/23/19 12:47> Clinical Impression: Fall, Laceration of lip Disposition: HOME SELF-CARE Condition: Stable Instructions (If sedation given, give patient instructions): Fall Prevention (ED) Additional Instructions: Please follow-up with primary care physician in the next day or 2 for recheck. [id number] Tylenol as needed. Return for difficulty breathing, weakness or increased pain, worsening symptoms or other concerns. Referrals: Jose Martin Mahmood MD [Primary Care Provider] - 1-2 days
[2019-09-23] MEDS ORDERED: LIDOCAINE 1% INJ 10MG/ML (20 ML MDV) SQ ONE (10:42)
[2019-09-23 11:18] VITALS: RESP 18
--- NOTE | 2019-09-23 12:05 | XR ---
EXAMINATION TYPE: XR thoracic spine complete , 3 VIEWS DATE OF EXAM ORDERED: 09/23/2019 HISTORY: fall. COMPARISON: None. FINDINGS: A left shoulder arthroplasty is in place. There is minimal wedging of one of the mid dorsal vertebra. The age of this is not determined. There is diffuse hypertrophic spondylosis throughout the lumbar spine. There is spondylosis deformans. IMPRESSION: 1. MILD COMPRESSION OF WHAT I BELIEVE IS THE T6 VERTEBRAL BODY, AGE INDETERMINANT. 2. DIFFUSE HYPERTROPHIC SPONDYLOSIS AND SPONDYLOSIS DEFORMANS. 3. POSTSURGICAL CHANGE.
--- NOTE | 2019-09-23 12:08 | XR ---
EXAMINATION TYPE: XR lumbosacral spine min 4V , 5 VIEWS DATE OF EXAM ORDERED: 09/23/2019 HISTORY: fall. COMPARISON: None. FINDINGS: There has been a previous cholecystectomy. There is calcification of the splenic artery. There is severe wedging of the L4 vertebral body and to a lesser extent the L2 vertebral body. Alignm ent remains normal. There is no spondylolysis or spondylolisthesis. There is mild, diffuse facet arth ropathy. The pedicles are difficult to visualize secondary to osteopenia. IMPRESSION: WEDGE COMPRESSION DEFORMITIES OF L2 AND L4, AGE NOT DETERMINED.
[2019-09-23] MEDS ORDERED: ACETAMINOPHEN TAB 500 MG TAB PO STA (12:45)
[2019-09-23 15:22] VITALS: BP 122/72; PULSE 87; TEMP 97.9
== END 2019-09-23 15:19 | disposition home or self-care (01) ==
LOC: EC 09:29
DX: S01.511A Laceration without foreign body of lip, initial encounter (principal); M48.50XA Collapsed vertebra, not elsewhere classified, site unspecified, initial encounter for fracture; G89.29 Other chronic pain; M54.5 Low back pain; I25.10 Atherosclerotic heart disease of native coronary artery without angina pectoris; E11.9 Type 2 diabetes mellitus without complications; E78.5 Hyperlipidemia, unspecified; I10 Essential (primary) hypertension; F32.9 Major depressive disorder, single episode, unspecified; F41.9 Anxiety disorder, unspecified; Z88.5 Allergy status to narcotic agent; Z88.6 Allergy status to analgesic agent; Z79.02 Long term (current) use of antithrombotics/antiplatelets; Z79.51 Long term (current) use of inhaled steroids; Z79.84 Long term (current) use of oral hypoglycemic drugs; Z79.891 Long term (current) use of opiate analgesic; Z79.890 Hormone replacement therapy; Z79.899 Other long term (current) drug therapy; Z95.5 Presence of coronary angioplasty implant and graft; Z23 Encounter for immunization; W06.XXXA Fall from bed, initial encounter; Y93.89 Activity, other specified
CPT/HCPCS: 93005; 72072; 72110; 90715; 99284; 12011; 90471; J2001

== ENCOUNTER 2019-09-25 08:22 | Inpatient (IN) | payer MEDICARE, OTHER ==
[2019-09-25] MEDS ORDERED: SODIUM CHLORIDE 0.9% 500 ML 500 ML IV STA (08:37)
[2019-09-25] MEDS ORDERED: IPRATROPIUM-ALBUTEROL 3 ML NEB INHALATION STA (08:40)
--- NOTE | 2019-09-25 08:55 | ED ---
General Adult HPI - General Chief complaint: Weakness Stated complaint: Fell Time Seen by Provider: 09/25/19 08:25 Source: patient, EMS, RN notes reviewed, old records reviewed Mode of arrival: EMS Limitations: no limitations - History of Present Illness Initial comments: This is a 69-year-old female who presents emergency Department complaining that she fell again. Patient has fallen 3-4 times in the last week. Patient was at rehab prior to going to the assisted living facility. Patient states she doesn't know why she falls she just becomes weak and falls. Patient states she had no injury today. Patient states she landed on her buttocks. Patient denies hitting her head or neck. Patient denies any numbness or weakness. Patient denies any chest pain palpitations difficulty breathing shortness of breath per patient denies abdominal pain patient denies nausea vomiting diarrhea. Patient states lately she's become weaker but not focally weak just generally weak. Patient states this is happened on multiple occasions where she gets too weak and she falls. Patient denies being short of breath however her pulse ox on room air is 91%. Patient is an extremely poor historian - Related Data Home Medications Medication Instructions Recorded Confirmed Cholecalciferol (Vitamin D3) 2,000 unit PO DAILY@0700 07/09/17 09/25/19 [Vitamin D3] Clopidogrel [Plavix] 75 mg PO DAILY@69907/09/17 09/25/19 Famotidine 40 mg PO HS@199907/09/17 09/25/19 Levothyroxine Sodium [Synthroid] 125 mcg PO DAILY@0707/09/17 09/25/19 Lisinopril 40 mg PO DAILY@0707/09/17 09/25/19 Multivitamin,Therapeutic [Thera] 1 tab PO DAILY@0707/09/17 09/25/19 Potassium Chloride ER [K-Dur 10] 10 meq PO TID@0700,1599,199907/09/17 09/25/19 Venlafaxine HCl [Effexor XR] 150 mg PO DAILY@1200 07/09/17 09/25/19 traZODone HCL [Desyrel] 100 mg PO HS@199907/09/17 09/25/19 Diphenox-Atrop 2.5-0.025 mg 1 tab PO QID@08,12,16,20 07/13/18 09/25/19 [Lomotil] Simvastatin [Zocor] 20 mg PO HS@199907/13/18 09/25/19 amLODIPine [Norvasc] 10 mg PO DAILY@0700 07/13/18 09/25/19 Albuterol Sulfate [Ventolin HFA] 2 puff INHALATION RT-QID 09/03/19 09/25/19 Betamethasone Dipropionate 1 applic TOPICAL DAILY@0700 PRN 09/03/19 09/25/19 [Diprolene AF 0.05% Cream] Fluticasone Nasal [place] [Flonase 1 spray EA NOSTRIL DAILY@0700 09/03/19 09/25/19 Nasal [place]] Furosemide [Lasix] 40 mg PO DAILY@0700 09/03/19 09/25/19 Loratadine [Claritin] 10 mg PO DAILY@0700 09/03/19 09/25/19 Metoprolol Succinate [Toprol XL] 25 mg PO BID@0700,1600 09/03/19 09/25/19 Metoprolol Tartrate [Lopressor] 50 mg PO BID@0700,1600 09/03/19 09/25/19 Nystatin 100,000 Unit/gm Powd 1 applic TOPICAL DAILY PRN 09/03/19 09/25/19 [Mycostatin Powder] metFORMIN HCL [Glucophage] 500 mg PO BID@0700,1600 09/03/19 09/25/19 Acetaminophen with Codeine 1 tab PO TID@0700,1600,199909/23/19 09/25/19 [Tylenol with Codeine #4 Tablet] Baclofen 10 mg PO TID@0700,1600,199909/23/19 09/25/19 Gabapentin [Neurontin] 600 mg PO TID@0700,1600,199909/23/19 09/25/19 Isosorbide Mononitrate ER [Imdur] 30 mg PO DAILY@0700 09/23/19 09/25/19 Previous Rx's Medication Instructions Recorded ALPRAZolam [Xanax] 0.25 mg PO TID@0700,1600,1999 #21 09/08/19 tab Allergies Allergy/AdvReac Type Severity Reaction Status Date / Time aspirin Allergy Itching Verified 10/28/19 08:50 meperidine [From Demerol] Allergy Unknown Verified 09/25/19 08:50 morphine Allergy Unknown Verified 09/25/19 08:50 Review of Systems ROS Statement: Those systems with pertinent positive or pertinent negative responses have been documented in the HPI. ROS Other: All systems not noted in ROS Statement are negative. Past Medical History Past Medical History: Coronary Artery Disease (CAD), Diabetes Mellitus, Hyperlipidemia, Hypertension History of Any Multi-Drug Resistant Organisms: None Reported Past Surgical History: Cholecystectomy, Heart Catheterization With Stent, Hysterectomy, Tubal Ligation Additional Past Surgical History / Comment(s): thyroidectomy Past Anesthesia/Blood Transfusion Reactions: No Reported Reaction Date of Last Stent Placement:: 2010 Past Psychological History: Anxiety, Depression Smoking Status: Never smoker Past Alcohol Use History: None Reported Past Drug Use History: None Reported - Past Family History Mother History Unknown: Yes Family Medical History: Unable to Obtain Additional Family Medical History / Comment(s): Mother in her 80s. Patient does not know cause. Father Family Medical History: Myocardial Infarction ([place]) Additional Family Medical History / Comment(s): Father in his 80s from a massive myocardial infarction. Brother(s) Family Medical History: Liver Disease, Renal Disease Additional Family Medical History / Comment(s): Patient has 1 brother and 3 sisters. Daughter(s) Additional Family Medical History / Comment(s): Patient has a total of 9 children. 2 at a very young age of 1 year of age, one was hit by a car and one drowned. General Exam - General Exam Comments Initial Comments: GENERAL: Patient is well-developed and well-nourished. Patient is nontoxic and well- hydrated and is in no acute distress. ENT: Neck is soft and supple. No significant lymphadenopathy is noted. Oropharynx is clear. Moist mucous membranes. Neck has full range of motion without eliciting any pain. EYES: The sclera were anicteric and conjunctiva were pink and moist. Extraocular movements were intact and pupils were equal round and reactive to light. Eyel ids were unremarkable. PULMONARY: Unlabored respirations. Good breath sounds bilaterally. Patient has crackles in the bases bilaterally CARDIOVASCULAR: There is a regular rate and rhythm without any murmurs gallops or rubs. Patient has some right-sided rib pain. ABDOMEN: Soft and nontender with normal bowel sounds. SKIN: Skin is clear with no lesions or rashes and otherwise unremarkable. NEUROLOGIC: Patient is alert and oriented x3. Cranial nerves II through XII are grossly intact. Motor and sensory are also intact. Normal speech, volume and content. Symmetrical smile. MUSCULOSKELETAL: Normal extremities with adequate strength and full range of motion. LYMPHATICS: No significant lymphadenopathy is noted PSYCHIATRIC: Normal psychiatric evaluation. Limitations: no limitations Course Vital Signs 09/25/19 09/25/19 09/25/19 08:26 09:28 09:38 Temperature 97.7 F Pulse Rate 79 70 73 Respiratory 19 Rate Blood Pressure 122/82 O2 Sat by Pulse 94 L Oximetry 09/25/19 10:00 Temperature Pulse Rate 77 Respiratory 18 Rate Blood Pressure 113/82 O2 Sat by Pulse 93 L Oximetry Medical Decision Making - Medical Decision Making EKG shows normal sinus rhythm at 71 bpm ME interval is 174 QRS is 90 QT i ntervals 422 QTC is 458. Patient's EKG shows no ST segment elevation. Chest x-ray shows no acute abnormality Patient was given Rocephin for the urinary tract infection emergency department I spoke with Dr. Morgan in about the patient he agreed to admit the patient admitted the patient wrote admitting orders. - Lab Data Result diagrams: 09/25/19 09:30 09/25/19 09:30 Lab Results 09/25/19 09/25/19 09/25/19 Range/Units 09:30 09:30 09:30 WBC 10.3 (3.8-10.6) k/uL RBC 4.49 (3.80-5.40) m/uL Hgb 13.3 (11.4-16.0) gm/dL Hct 40.4 (34.0-46.0) % MCV 89.9 (80.0-100.0) fL MCH 29.6 (25.0-35.0) pg MCHC 32.9 (31.0-37.0) g/dL RDW 12.3 (11.5-15.5) % Plt Count 198 (150-450) k/uL Neutrophils % 74 % Lymphocytes % 13 % Monocytes % 6 % Eosinophils % 4 % Basophils % 0 % Neutrophils # 7.7 (1.3-7.7) k/uL Lymphocytes # 1.4 (1.0-4.8) k/uL Monocytes # 0.7 (0-1.0) k/uL Eosinophils # 0.4 (0-0.7) k/uL Basophils # 0.0 (0-0.2) k/uL PT (9.0-12.0) sec INR (<1.2) APTT (22.0-30.0) sec Sodium 141 (137-145) mmol/L Potassium 4.2 (3.5-5.1) mmol/L Chloride 104 (98-107) mmol/L Carbon Dioxide 28 (22-30) mmol/L Anion Gap 9 mmol/L BUN 24 H (7-17) mg/dL Creatinine 0.95 (0.52-1.04) mg/dL Est GFR (CKD-EPI)AfAm 72 (>60 ml/min/1.73 sqM) Est GFR (CKD-EPI)NonAf 63 (>60 ml/min/1.73 sqM) Glucose 160 H (74-99) mg/dL Plasma Lactic Acid [place] 1.6 (0.7-2.0) mmol/L Calcium 8.4 (8.4-10.2) mg/dL Magnesium 1.5 L (1.6-2.3) mg/dL Total Bilirubin 0.4 (0.2-1.3) mg/dL AST 16 (14-36) U/L ALT 24 (9-52) U/L Alkaline Phosphatase 88 (38-126) U/L Troponin I (0.000-0.034) ng/mL Total Protein 7.0 (6.3-8.2) g/dL Albumin 3.8 (3.5-5.0) g/dL Urine Color Urine Appearance (Clear) Urine pH (5.0-8.0) Ur Specific [place] (1.001-1.035) Urine Protein (Negative) Urine Glucose (UA) (Negative) Urine Ketones (Negative) Urine Blood (Negative) Urine Nitrite (Negative) Urine Bilirubin (Negative) Urine Urobilinogen (<2.0) mg/dL Ur Leukocyte Esterase (Negative) Urine RBC (0-5) /hpf Urine WBC (0-5) /hpf Urine WBC Clumps (None) /hpf Urine Bacteria (None) /hpf Urine Mucus (None) /hpf 09/25/19 09/25/19 09/25/19 Range/Units 09:30 09:30 10:00 WBC (3.8-10.6) k/uL RBC (3.80-5.40) m/uL Hgb (11.4-16.0) gm/dL Hct (34.0-46.0) % MCV (80.0-100.0) fL MCH (25.0-35.0) pg MCHC (31.0-37.0) g/dL RDW (11.5-15.5) % Plt Count (150-450) k/uL Neutrophils % % Lymphocytes % % Monocytes % % Eosinophils % % Basophils % % Neutrophils # (1.3-7.7) k/uL Lymphocytes # (1.0-4.8) k/uL Monocytes # (0-1.0) k/uL Eosinophils # (0-0.7) k/uL Basophils # (0-0.2) k/uL PT 11.3 (9.0-12.0) sec INR 1.1 (<1.2) APTT 24.6 (22.0-30.0) sec Sodium (137-145) mmol/L Potassium (3.5-5.1) mmol/L Chloride (98-107) mmol/L Carbon Dioxide (22-30) mmol/L Anion Gap mmol/L BUN (7-17) mg/dL Creatinine (0.52-1.04) mg/dL Est GFR (CKD-EPI)AfAm (>60 ml/min/1.73 sqM) Est GFR (CKD-EPI)NonAf (>60 ml/min/1.73 sqM) Glucose (74-99) mg/dL Plasma Lactic Acid [place] (0.7-2.0) mmol/L Calcium (8.4-10.2) mg/dL Magnesium (1.6-2.3) mg/dL Total Bilirubin (0.2-1.3) mg/dL AST (14-36) U/L ALT (9-52) U/L Alkaline Phosphatase (38-126) U/L Troponin I <0.012 (0.000-0.034) ng/mL Total Protein (6.3-8.2) g/dL Albumin (3.5-5.0) g/dL Urine Color Yellow Urine Appearance Turbid H (Clear) Urine pH 5.0 (5.0-8.0) Ur Specific [place] 1.013 (1.001-1.035) Urine Protein Trace H (Negative) Urine Glucose (UA) Negative (Negative) Urine Ketones Negative (Negative) Urine Blood Small H (Negative) Urine Nitrite Positive H (Negative) Urine Bilirubin Negative (Negative) Urine Urobilinogen <2.0 (<2.0) mg/dL Ur Leukocyte Esterase Large H (Negative) Urine RBC 5 (0-5) /hpf Urine WBC >182 H (0-5) /hpf Urine WBC Clumps Many H (None) /hpf Urine Bacteria Occasional H (None) /hpf Urine Mucus Rare H (None) /hpf Disposition Clinical Impression: Generalized weakness, Multiple falls, Urinary tract infection Disposition: ADMITTED IP TO THIS HOSP Referrals: Jose Martin Mahmood MD [Primary Care Provider] - 1-2 days Time of Disposition: 10:32
--- NOTE | 2019-09-25 09:25 | XR ---
EXAMINATION TYPE: XR chest 2V DATE OF EXAM: 09/25/2019 COMPARISON: Prior chest x-ray 09/03/2019 HISTORY: Weakness, dizziness, abnormal chest x-ray TECHNIQUE: Frontal and lateral views of the chest are obtained. FINDINGS: The heart remains enlarged. Central vascularity is prominent, interstitium mildly increase d. Subsegmental basilar atelectatic changes are suspected. Postop change again noted to the left shou lder. No evident pneumothorax or pleural effusion. Aorta is dense. Exam is expiratory and rotated. IMPRESSION: Expiratory rotated exam. Cardiomegaly. Probable basilar subsegmental atelectatic changes . Follow-up as indicated. Correlate to exclude pulmonary venous hypertension and interstitial edema.
[2019-09-25 09:55] LABS: Basophils % (A) 0 %; Eosinophils # (A) 0.4 k/uL (0-0.7); Eosinophils % (A) 4 %; HCT 40.4 % (34.0-46.0); HGB 13.3 gm/dL (11.4-16.0); Lymphocytes # (A) 1.4 k/uL (1.0-4.8); Lymphocytes % (A) 13 %; MCH 29.6 pg (25.0-35.0); MCHC 32.9 g/dL (31.0-37.0); MCV 89.9 fL (80.0-100.0); Mean Platelet Volume 7.9; Monocytes # (A) 0.7 k/uL (0-1.0); Monocytes % (A) 6 %; Neutrophils # (A) 7.7 k/uL (1.3-7.7); Neutrophils % (A) 74 %; Platelet Count 198 k/uL (150-450); RBC 4.49 m/uL (3.80-5.40); RDW 12.3 % (11.5-15.5); WBC 10.3 k/uL (3.8-10.6)
[2019-09-25 10:03] LABS: INR 1.1 (<1.2); Partial Thromboplastin Time 24.6 sec (22.0-30.0); Prothrombin Time 11.3 sec (9.0-12.0)
[2019-09-25 10:13] LABS: Albumin 3.8 g/dL (3.5-5.0); Calcium 8.4 mg/dL (8.4-10.2); Magnesium 1.5 mg/dL (1.6-2.3); Potassium 4.2 mmol/L (3.5-5.1); Total Bilirubin 0.4 mg/dL (0.2-1.3)
[2019-09-25 10:27] LABS: Appearance,Urine Turbid (Clear); Bacteria,Urine Occasional /hpf; Bilirubin,Urine Negative (Negative); Blood,Urine Small (Negative); Color,Urine Yellow; Glucose,Urine (UA) Negative (Negative); Ketones,Urine Negative (Negative); Leukocyte Esterase,Urine Large (Negative); Mucus,Urine Rare /hpf; Nitrite,Urine Positive (Negative); Protein,Urine Trace (Negative); RBC,Urine 5 /hpf (0-5); Specific Gravity,Urine 1.013 (1.001-1.035); Urobilinogen,Urine <2.0 mg/dL (<2.0)
[2019-09-25] MEDS ORDERED: cefTRIAXone IN SWFI 1,000 MG/10 ML SYRINGE IVP STA (10:29)
[2019-09-25] MEDS ORDERED: SODIUM CHLORIDE 0.9% 1,000 ML IV ONE (10:32)
[2019-09-25 12:21] LABS: Glucose,Whole Blood 96 mg/dL (75-99)
[2019-09-25] MEDS ORDERED: NYSTATIN 100,000 UNIT/GM POWD 15 GM TOPICAL PRN (15:18)
[2019-09-25] MEDS: ALBUTEROL NEBULIZED 2.5 MG/3 ML INHALATION SCH ×2 (15:44→19:30)
[2019-09-25] MEDS: Acetaminophen-Codeine 300-30mg TAB PO SCH ×2 (16:17→20:01)
[2019-09-25] MEDS: ALPRAZolam 0.25 MG TAB PO SCH ×2 (16:18→20:00)
[2019-09-25] MEDS: GABAPENTIN 300 MG CAP PO SCH ×2 (16:18→20:01)
[2019-09-25] MEDS: BACLOFEN 10 MG TAB PO SCH ×2 (16:18→20:00)
[2019-09-25] MEDS: METOPROLOL SUCCINATE (ER) 25 MG TAB.ER.24H PO SCH (16:18)
[2019-09-25] MEDS: POTASSIUM CHLORIDE ER 10 MEQ TAB.ER.PRT PO SCH ×2 (16:18→20:01)
[2019-09-25] MEDS: DIPHENOX-ATROP 2.5-0.025 MG 1 EACH TAB PO SCH ×2 (16:18→20:00)
[2019-09-25 17:23] LABS: Glucose,Whole Blood 131 mg/dL (75-99)
[2019-09-25] MEDS: metFORMIN 500 MG TAB PO SCH (17:29)
[2019-09-25] MEDS: traZODone HCL 100 MG TAB PO SCH (20:00)
[2019-09-25] MEDS: FAMOTIDINE 20 MG TAB PO SCH (20:00)
[2019-09-25 20:22] LABS: Glucose,Whole Blood 171 mg/dL (75-99)
[2019-09-26 02:55] LABS: Hemoglobin A1C 6.6 % (4.0-6.0)
[2019-09-26] MEDS ORDERED: BETAMETHASONE DIPROPIONATE 0.05% CREAM 15 GM TUBE TOPICAL PRN (07:00)
[2019-09-26] MEDS: ALBUTEROL NEBULIZED 2.5 MG/3 ML INHALATION SCH ×4 (07:04→19:41)
[2019-09-26 07:07] LABS: Glucose,Whole Blood 205 mg/dL (75-99)
[2019-09-26] MEDS: GABAPENTIN 300 MG CAP PO SCH ×3 (08:40→20:36)
[2019-09-26] MEDS: metFORMIN 500 MG TAB PO SCH ×2 (08:40→17:09)
[2019-09-26] MEDS: FUROSEMIDE 40 MG TAB PO SCH (08:40)
[2019-09-26] MEDS: CLOPIDOGREL 75 MG TAB PO SCH (08:41)
[2019-09-26] MEDS: POTASSIUM CHLORIDE ER 10 MEQ TAB.ER.PRT PO SCH ×3 (08:41→20:36)
[2019-09-26] MEDS: LEVOTHYROXINE 125 MCG TAB PO SCH (08:41)
[2019-09-26] MEDS: METOPROLOL SUCCINATE (ER) 25 MG TAB.ER.24H PO SCH ×2 (08:41→17:09)
[2019-09-26] MEDS: ALPRAZolam 0.25 MG TAB PO SCH (08:41)
[2019-09-26] MEDS: DIPHENOX-ATROP 2.5-0.025 MG 1 EACH TAB PO SCH ×4 (08:41→20:36)
[2019-09-26] MEDS: ISOSORBIDE MONONITRATE ER 30 MG TAB.ER.24H PO SCH (08:41)
[2019-09-26] MEDS: LISINOPRIL 20 MG TAB PO SCH (08:41)
[2019-09-26] MEDS: LORATADINE 10 MG TAB PO SCH (08:41)
[2019-09-26] MEDS: amLODIPine 10 MG TAB PO SCH (08:41)
[2019-09-26] MEDS: BACLOFEN 10 MG TAB PO SCH (08:42)
[2019-09-26] MEDS: Acetaminophen-Codeine 300-30mg TAB PO SCH (08:42)
[2019-09-26] MEDS: FLUTICASONE 50MCG/SPRAY NASAL 16GM EA NOSTRIL SCH (08:43)
[2019-09-26 11:48] LABS: Glucose,Whole Blood 122 mg/dL (75-99)
[2019-09-26] MEDS: VENLAFAXINE HCL ER 150 MG CAP PO SCH (12:44)
--- NOTE | 2019-09-26 16:09 | US ---
EXAMINATION TYPE: US carotid duplex BILAT DATE OF EXAM: 09/26/2019 COMPARISON: CLINICAL HISTORY: syncope. HTN Exam was performed portable Suboptimal exam due to patient thick neck and unable to turn head EXAM MEASUREMENTS: RIGHT: Peak Systolic Velocity (PSV) cm/sec ----- Right CCA: 71.1 ----- Right ICA: 64.5 ----- Right ECA: 114.5 ICA/CCA ratio: 0.9 RIGHT: End Diastole cm/sec ----- Right CCA: 11.5 ----- Right ICA: 22.6 ----- Right ECA: 4.7 LEFT: Peak Systolic Velocity (PSV) cm/sec ----- Left CCA: 79.7 ----- Left ICA: 68.1 ----- Left ECA: 119.8 ICA/CCA ratio: 0.9 LEFT: End Diastole cm/sec ----- Left CCA: 13.7 ----- Left ICA: 7.2 ----- Left ECA: 12.4 VERTEBRALS (direction of flow): Right Vertebral: Antegrade Left Vertebral: Antegrade Rhythm: Normal Bilateral wall thickening. No elevated velocities or significant stenosis. Plaque seen in bilateral bulbs. IMPRESSION: Mild degree of grayscale atheromatous plaquing with no sonographically evident hemodynam ically significant stenosis within either visualized carotid arterial system. Criteria for Assigning % of Stenosis / Diameter reduction (Estimation based on the indirect measurements of the internal carotid artery velocities (ICA PSV). 1. Normal (no stenosis)=ICA PSV < 125 cm/s: ratio < 2.0: ICA EDV<40 cm/s. 2. Less than 50% stenosis=ICA PSV < 125 cm/s: ratio < 2.0: ICA EDV<40 cm/s. 3. 50 to 69% stenosis=ICA PSV of 125 to 230 cm/s: ration 2.0 ? 4.0: ICA EDV 40-100 cm/s. 4. Greater than 70% stenosis to near occlusion= ICA PSV > 230 cm/s: ratio > 4.0: ICA EDV > 100 cm/s. 5. Near occlusion= ICA PSV velocities may be low or undetectable: variable ratio and ICA EDV. 6. Total occlusion=unable to detect flow.
[2019-09-26 16:31] LABS: Glucose,Whole Blood 116 mg/dL (75-99)
--- NOTE | 2019-09-26 17:04 | HP ---
HISTORY AND PHYSICAL CHIEF COMPLAINT: Frequent falling and general debility. HISTORY OF PRESENT ILLNESS: This is the first known admission to this hospital for this 69-year-old white female from a [place] [facility]. She is probably not a good historian. Apparently, she has been falling. She is on a number of drugs that could be related to ataxia, instability and falling. In the emergency room, she was identified as having UTI, which could contribute as well. There is essentially no other significant history on this lady. REVIEW OF SYSTEMS: She denies any headaches, focal neurologic deficits, difficulty with vision or hearing, chest pain, cough, hemoptysis, abdominal pain, nausea, vomiting, diarrhea, jaundice, renal failure, etc. PAST MEDICAL HISTORY: She apparently does have diabetes. She has a history of having had coronary artery problem with a stent placement according to her. She also states she might once and have had a "stroke." ALLERGIES: She is ALLERGIC to aspirin and codeine. PAST SURGICAL HISTORY: Surgically she has had a procedure on the left shoulder, hysterectomy and cholecystectomy. MEDICATIONS: Medication list is extensive and can be found in the MAR. SOCIAL HISTORY: She does not smoke or drink. PHYSICAL EXAMINATION: Blood pressure is 138/89 with a pulse of 84, respirations of 36 and she is afebrile. In general, she appeared to be overweight in no acute distress. Skin color is normal. Skin is warm, dry. Lymph nodes not enlarged. Head, ears, eyes, nose, mouth, and throat were normal. Neck veins not distended. Thyroid is not enlarged. Chest is clear. Cardiac exam demonstrates what sounds like normal sinus rhythm and no murmurs or extra sounds. The abdomen is slightly protuberant. Abdomen is soft, nontender without visceromegaly or masses. Bowel sounds are present. Extremities are normal. Neurologically she seems to be intact without any obvious sensory or motor deficit. IMPRESSION: She is admitted to hospital with diagnoses: 1. Atrial fibrillation with frequent episodes of falling. 2. General debility. 3. History of coronary artery disease. 4. History of diabetes mellitus. 5. History of possible cerebrovascular accident. 6. History of hypertension. 7. Headache. PLAN: 1. Bed rest. 2. IV fluids. 3. Frequent monitoring of her neurologic status and vital signs. 4. CT of the brain. 5. EEG. 6. Carotid duplex imaging. 7. Echocardiogram. 8. Stop most or many of the medications that could be contributing to her falling. MMODL / IJN: [id number] /
[2019-09-26 20:13] LABS: Glucose,Whole Blood 141 mg/dL (75-99)
[2019-09-26] MEDS: FAMOTIDINE 20 MG TAB PO SCH (20:36)
[2019-09-26] MEDS: traZODone HCL 100 MG TAB PO SCH (20:36)
[2019-09-27] MEDS: ACETAMINOPHEN TAB 325 MG TAB PO PRN ×2 (05:17→18:22)
[2019-09-27 07:13] LABS: Glucose,Whole Blood 136 mg/dL (75-99)
[2019-09-27] MEDS: ALBUTEROL NEBULIZED 2.5 MG/3 ML INHALATION SCH ×4 (07:27→19:57)
[2019-09-27] MEDS: LORATADINE 10 MG TAB PO SCH (10:59)
[2019-09-27] MEDS: CLOPIDOGREL 75 MG TAB PO SCH (10:59)
[2019-09-27] MEDS: ISOSORBIDE MONONITRATE ER 30 MG TAB.ER.24H PO SCH (10:59)
[2019-09-27] MEDS: LISINOPRIL 20 MG TAB PO SCH (10:59)
[2019-09-27] MEDS: metFORMIN 500 MG TAB PO SCH ×2 (10:59→17:27)
[2019-09-27] MEDS: METOPROLOL SUCCINATE (ER) 25 MG TAB.ER.24H PO SCH ×2 (10:59→17:27)
[2019-09-27] MEDS: FUROSEMIDE 40 MG TAB PO SCH (10:59)
[2019-09-27] MEDS: POTASSIUM CHLORIDE ER 10 MEQ TAB.ER.PRT PO SCH ×3 (10:59→19:38)
[2019-09-27] MEDS: amLODIPine 10 MG TAB PO SCH (10:59)
[2019-09-27] MEDS: FLUTICASONE 50MCG/SPRAY NASAL 16GM EA NOSTRIL SCH (11:00)
[2019-09-27] MEDS: GABAPENTIN 300 MG CAP PO SCH ×3 (11:00→19:38)
[2019-09-27] MEDS: LEVOTHYROXINE 125 MCG TAB PO SCH (11:00)
[2019-09-27] MEDS: DIPHENOX-ATROP 2.5-0.025 MG 1 EACH TAB PO SCH ×4 (11:00→19:48)
[2019-09-27 12:01] LABS: Glucose,Whole Blood 244 mg/dL (75-99)
[2019-09-27] MEDS: VENLAFAXINE HCL ER 150 MG CAP PO SCH (13:20)
--- NOTE | 2019-09-27 15:33 | DS ---
DISCHARGE SUMMARY CHIEF COMPLAINT: Multiple falls, generalized weakness and urinary tract infection. HISTORY OF PRESENT ILLNESS AND PHYSICAL EXAM: Details of this lady's history and physical can be found in the initial workup. LABORATORY STUDIES: While she was in a hospital, she had laboratory studies, details of which can be found in the laboratory section of her chart. COURSE IN THE HOSPITAL: After admission, she was placed on bedrest and started on intravenous fluids. Several studies were performed that failed to give any evidence as to why she would be falling. She was on a large number of medications which could have been related and these were tapered or stopped. Carotid studies were done and everything else was essentially negative. She will not be able to return to the detention and arrangements were made for her to go to a [facility]. FINAL DIAGNOSES: 1. Multiple falls. 2. Probable medication excess causing ataxia. 3. Urinary tract infection. 4. Hypothyroidism. 5. Hypertension. 6. History of coronary artery disease. OPERATIONS: None. CONSULTATION: None. She is improved. MMODL / IJN: [id number] /
[2019-09-27 17:20] LABS: Glucose,Whole Blood 88 mg/dL (75-99)
[2019-09-27] MEDS: traZODone HCL 100 MG TAB PO SCH (19:37)
[2019-09-27] MEDS: FAMOTIDINE 20 MG TAB PO SCH (19:38)
--- NOTE | 2019-09-27 20:25 | PN ---
PROGRESS NOTE DATE OF SERVICE: 09/26/2019 CHIEF COMPLAINT: General debility, frequent falling, and urinary tract infection. HISTORY OF PRESENT ILLNESS: This lady is doing fairly well, but she is starting to complain of a lot of pain. This is likely usual for her considering all the medication that she is on. PHYSICAL EXAMINATION: Chest is clear. Cardiac exam is normal. Abdomen is soft, nontender. IMPRESSION: 1. Frequent falling. 2. General debility. 3. Over-medication. 4. Chronic pain. PLAN: 1. Continue to work on a discharge plan. 2. Wait for other studies that have been ordered before discharging her. MMODL / IJN: [id number] /
[2019-09-27 21:10] LABS: Glucose,Whole Blood 100 mg/dL (75-99)
--- NOTE | 2019-09-27 22:39 | EEG ---
ELECTROENCEPHALOGRAM REPORT DATE OF PROCEDURE: 09/27/2019 ELECTROENCEPHALOGRAM (EEG) REPORT: TECHNIQUE: A routine 18-channel EEG was performed with video using the 10/20 international electrode placement system. HISTORY: Generalized weakness, frequent falls. CURRENT MEDICATIONS: 1. Effexor. 2. Desyrel. 3. Potassium chloride. 4. Metoprolol. 5. Metformin. 6. Loratadine. STUDY DURATION: 26 minutes. FINDINGS: BACKGROUND: The background activity consisted of 7 to 8 Hz rhythmic waveforms symmetrically distributed through both posterior quadrants. ACTIVATION: Hyperventilation: Not performed. Photic stimulation: No driving seen. Sleep: Stages I and II sleep noted. ABNORMALITIES: Intermittent diffuse 5 to 7 Hz polymorphic theta range slowing was seen. IMPRESSION: Mildly abnormal EEG. The intermittent diffuse theta range slowing mentioned above is not epileptiform in nature. In combination with the slow background, these findings indicate mild diffuse cerebral dysfunction as may be seen in a toxometabolic encephalopathy. No seizures were recorded. No epileptiform activity was present. MMODL / IJN: [id number] /
[2019-09-28] MEDS: ACETAMINOPHEN TAB 325 MG TAB PO PRN (04:02)
[2019-09-28 05:12] VITALS: BP 147/88; RESP 16; TEMP 98.2
[2019-09-28] MEDS: ALBUTEROL NEBULIZED 2.5 MG/3 ML INHALATION SCH (06:57)
[2019-09-28 07:03] LABS: Glucose,Whole Blood 132 mg/dL (75-99)
[2019-09-28 07:06] VITALS: PULSE 100
[2019-09-28] MEDS: METOPROLOL SUCCINATE (ER) 25 MG TAB.ER.24H PO SCH (08:18)
[2019-09-28] MEDS: DIPHENOX-ATROP 2.5-0.025 MG 1 EACH TAB PO SCH (08:18)
[2019-09-28] MEDS: GABAPENTIN 300 MG CAP PO SCH (08:18)
[2019-09-28] MEDS: CLOPIDOGREL 75 MG TAB PO SCH (08:18)
[2019-09-28] MEDS: metFORMIN 500 MG TAB PO SCH (08:18)
[2019-09-28] MEDS: FUROSEMIDE 40 MG TAB PO SCH (08:18)
[2019-09-28] MEDS: LISINOPRIL 20 MG TAB PO SCH (08:18)
[2019-09-28] MEDS: POTASSIUM CHLORIDE ER 10 MEQ TAB.ER.PRT PO SCH (08:18)
[2019-09-28] MEDS: FLUTICASONE 50MCG/SPRAY NASAL 16GM EA NOSTRIL SCH (08:19)
[2019-09-28] MEDS: ISOSORBIDE MONONITRATE ER 30 MG TAB.ER.24H PO SCH (08:19)
[2019-09-28] MEDS: LEVOTHYROXINE 125 MCG TAB PO SCH (08:19)
[2019-09-28] MEDS: amLODIPine 10 MG TAB PO SCH (08:19)
[2019-09-28] MEDS: LORATADINE 10 MG TAB PO SCH (08:19)
--- NOTE | 2019-09-28 20:19 | PN ---
PROGRESS NOTE CHIEF COMPLAINT: Urinary tract infection, generalized weakness and debility with frequent falls. HISTORY OF PRESENT ILLNESS: This lady is doing much better. She seems much more awake and alert and appreciates being off of some of her medications, which were making her too dizzy and lethargic. PHYSICAL EXAMINATION: Chest is clear. Cardiac exam is normal. She is tender in the right upper quadrant, which is a new finding. She has had a cholecystectomy. There is no mass. IMPRESSION: 1. Frequent falling. 2. Urinary tract infection. 3. General debility. 4. Right upper quadrant pain, etiology unknown. PLAN: Continue to monitor her and increase activity. If her right upper quadrant discomfort continues, this will be further investigated. Otherwise, she can go to a longterm and have this done as an outpatient. MMODL / IJN: [id number] /
== END 2019-09-28 11:21 | DRG 92 ==
LOC: EC 08:22 → 4MS4W 10:32 → OBSVTOIN 09-26 16:24
PROVIDERS: ADMIT Family Medicine; ATTEND Family Medicine
DX: R27.0 Ataxia, unspecified (principal); N39.0 Urinary tract infection, site not specified; I48.91 Unspecified atrial fibrillation; R29.6 Repeated falls; T50.915A Adverse effect of multiple unspecified drugs, medicaments and biological substances, initial encounter; E11.9 Type 2 diabetes mellitus without complications; E78.5 Hyperlipidemia, unspecified; E89.0 Postprocedural hypothyroidism; G89.29 Other chronic pain; I10 Essential (primary) hypertension; I25.10 Atherosclerotic heart disease of native coronary artery without angina pectoris; F32.9 Major depressive disorder, single episode, unspecified; F41.9 Anxiety disorder, unspecified; R10.11 Right upper quadrant pain; R51 Headache; R53.1 Weakness; R53.81 Other malaise; Z79.84 Long term (current) use of oral hypoglycemic drugs; Z79.899 Other long term (current) drug therapy; Z79.02 Long term (current) use of antithrombotics/antiplatelets; Z79.890 Hormone replacement therapy; Z90.710 Acquired absence of both cervix and uterus; Z86.73 Personal history of transient ischemic attack (TIA), and cerebral infarction without residual deficits; Z88.6 Allergy status to analgesic agent; Z88.5 Allergy status to narcotic agent; Z90.49 Acquired absence of other specified parts of digestive tract; Z95.5 Presence of coronary angioplasty implant and graft; Z98.51 Tubal ligation status
CPT/HCPCS: 36415; 71046; 80053; 81001; 83036; 83605; 83735; 84484; 85025; 85610; 85730; 87040; 87077; 87086; 87186; 93005; 93880; 94640; 94760; 95816; 96360; 96361; 99285

== ENCOUNTER → 2020-05-23 | Outpatient (CLI) | payer MEDICARE, OTHER ==
[2020-05-23 15:23] LABS: Basophils # (A) 0.1 k/uL (0-0.2); Basophils % (A) 1 %; Eosinophils # (A) 0.5 k/uL (0-0.7); Eosinophils % (A) 5 %; HCT 42.6 % (34.0-46.0); HGB 13.8 gm/dL (11.4-16.0); Lymphocytes # (A) 2.7 k/uL (1.0-4.8); Lymphocytes % (A) 28 %; MCH 29.2 pg (25.0-35.0); MCHC 32.4 g/dL (31.0-37.0); MCV 90.1 fL (80.0-100.0); Mean Platelet Volume 8.8; Monocytes # (A) 0.8 k/uL (0-1.0); Monocytes % (A) 8 %; Neutrophils # (A) 5.4 k/uL (1.3-7.7); Neutrophils % (A) 56 %; Platelet Count 249 k/uL (150-450); RBC 4.73 m/uL (3.80-5.40); RDW 12.5 % (11.5-15.5); WBC 9.7 k/uL (3.8-10.6)
[2020-05-23 18:40] LABS: African American GFR (CKD) 88.4 (60.0-200.0); Anion Gap 5.8 mmol/L (4.00-12.00); Calcium 8.8 mg/dL (8.7-10.3); Carbon Dioxide 32.2 mmol/L (21.6-31.8); Non-African American GFR(CKD) 76.3 (60.0-200.0); Potassium 3.8 mmol/L (3.5-5.5)
== END | disposition home or self-care (01) ==
LOC: LABWHC1 15:05
PROVIDERS: ATTEND Nurse Practitioner
DX: R19.5 Other fecal abnormalities (principal)
CPT/HCPCS: 36415; 80048; 85025

== ENCOUNTER → 2020-06-04 | Outpatient (CLI) | payer MEDICARE, OTHER ==
--- NOTE | 2020-06-05 13:29 | MM ---
Reason for exam: screening (asymptomatic). Last mammogram was performed 6 years and 8 months ago. Physical Findings: A clinical breast exam by your physician is recommended on an annual basis and results should be correlated with mammographic findings. MG 3D Screening Mammo W/Cad Bilateral CC and MLO view(s) were taken. Prior study comparison: October 16, 2013, bilateral digital screening mammo w/CAD. There are scattered fibroglandular densities. No significant changes when compared with prior studies. ASSESSMENT: Benign, BI-RAD 2 RECOMMENDATION: Routine screening mammogram of both breasts in 1 year.
== END | disposition home or self-care (01) ==
LOC: RADMAMWWP 09:46
PROVIDERS: ATTEND General Practice
DX: Z12.31 Encounter for screening mammogram for malignant neoplasm of breast (principal); E03.9 Hypothyroidism, unspecified; I25.10 Atherosclerotic heart disease of native coronary artery without angina pectoris; Z11.1 Encounter for screening for respiratory tuberculosis
CPT/HCPCS: 77063; 77067

== ENCOUNTER 2020-06-21 09:04 | Day surgery (SDC) | payer MEDICARE, OTHER ==
[~2020-06-21 09:04] MED LIST: LACTATED RINGERS 1,000 ML IV SCH
[2020-06-21] MEDS ORDERED: LACTATED RINGERS 1,000 ML IV ONE (09:35)
[2020-06-21 09:37] LABS: Glucose,Whole Blood 138 mg/dL (75-99)
[2020-06-21 09:39] VITALS: TEMP 97.8
[2020-06-21] MEDS ORDERED: LIDOCAINE 1% (10MG/ML) FOR IV START INTRADERMA ONE (09:42)
[2020-06-21] MEDS ORDERED: PROPOFOL 10 MG/ML 20 ML VIAL IV ONE (10:34)
[2020-06-21] MEDS ORDERED: LIDOCAINE 1% INJ 10MG/ML (20 ML MDV) ONE (10:34)
[2020-06-21 11:06] VITALS: RESP 16
--- NOTE | 2020-06-21 11:09 | P.PCN ---
Date of Procedure: 06/21/20 Procedure(s) Performed: Brief history: Patient is a pleasant 70-year-old white female scheduled for an elective upper endoscopy as well as colonoscopy as a part of evaluation of GERD/chronic diarrhea and blood in the stool. Procedure performed: Esophagogastroduodenoscopy with biopsy Colonoscopy with biopsy and snare polypectomy Preoperative diagnosis: GERD Chronic diarrhea Anesthesia: [facility] [place] Procedure: After informed consent was obtained from the patient was brought into the endoscopy unit and IV sedation was administered by anesthesia under continuous monitoring. Initially upper endoscopy was done. The Olympus GF 160 video endoscope was inserted inserted into the mouth and esophagus intubated without any difficulty and was gradually advanced into the stomach and duodenum and carefully examined. The bulb and second part of the duodenum appeared normal. Abscesses were done from the duodenum to rule out celiac disease. The scope was then withdrawn into the stomach adequately insufflated with air and upon careful examination the antrum and mild gastritis and biopsies were done from this area. The body, cardia and fundus appeared normal. The scope was then withdrawn into the esophagus. The GE junction was located at 40 cm to the incisors. It appeared regular with no erythema erosions or ulcerations. Rest of the esophagus appeared normal. Patient tolerated the procedure well. At this time the patient continued to remain sedation. Initial digital rectal examination was normal. Olympus CF 160 video colonoscope was then inserted into the rectum and gradually advanced to the cecum without any difficulty. Careful examination was performed as the scope was gradually being withdrawn. The prep was excellent. The cecum, ascending colon appeared normal. In the proximal transverse colon there was a 1 cm and 3 cm broad-based polyp that was removed by piecemeal snare polypectomy and complete polypectomy accomplished. Rest of the, transverse colon, descending colon, sigmoid colon and rectum appeared normal. Random biopsies were done from ascending and ascending colon to rule out microscopic/collagenous colitis. Retroflexion was performed in the rectum and no lesions were noted. Patient tolerated the procedure well. Impression: 1. Upper Endoscopy revealed mild antral gastritis and mild duodenitis 2. Colonoscopy revealed 1 cm and a 3 cm broad-based proximal transverse colon polyp status post snare polypectomys, Recommendations: Findings of this examination were discussed with the patient as well his family. She was advised to follow with the biopsy results. . In the biopsy results will plan a repeat colonoscopy in 3 years. She'll be seen in office in 2 weeks.
[2020-06-21 11:20] VITALS: BP 143/81; PULSE 81
== END 2020-06-21 11:57 | disposition home or self-care (01) ==
LOC: ORWHC2ENDO 09:04
PROVIDERS: ATTEND Internal Medicine Gastroenterology
DX: K63.5 Polyp of colon (principal); K52.9 Noninfective gastroenteritis and colitis, unspecified; K21.9 Gastro-esophageal reflux disease without esophagitis; K29.80 Duodenitis without bleeding; K29.50 Unspecified chronic gastritis without bleeding; I10 Essential (primary) hypertension; I25.10 Atherosclerotic heart disease of native coronary artery without angina pectoris; E78.5 Hyperlipidemia, unspecified; G47.33 Obstructive sleep apnea (adult) (pediatric); E07.9 Disorder of thyroid, unspecified; E55.9 Vitamin D deficiency, unspecified; G43.909 Migraine, unspecified, not intractable, without status migrainosus; G62.9 Polyneuropathy, unspecified; Z88.6 Allergy status to analgesic agent; Z88.5 Allergy status to narcotic agent; Z79.890 Hormone replacement therapy; Z79.51 Long term (current) use of inhaled steroids; Z79.899 Other long term (current) drug therapy; Z95.5 Presence of coronary angioplasty implant and graft; Z99.89 Dependence on other enabling machines and devices; Z79.02 Long term (current) use of antithrombotics/antiplatelets; Z79.891 Long term (current) use of opiate analgesic; Z90.49 Acquired absence of other specified parts of digestive tract; Z90.710 Acquired absence of both cervix and uterus; Z98.890 Other specified postprocedural states
CPT/HCPCS: 88305; 45380; 45385; 43239; J2001; J2704

== ENCOUNTER 2020-10-20 14:16 | Observation (INO) | payer MEDICARE, OTHER ==
[2020-10-20 15:02] LABS: Basophils # (A) 0.1 k/uL (0-0.2); Basophils % (A) 1 %; Eosinophils # (A) 0.9 k/uL (0-0.7); Eosinophils % (A) 8 %; HCT 43.4 % (34.0-46.0); HGB 14.8 gm/dL (11.4-16.0); Lymphocytes # (A) 2.1 k/uL (1.0-4.8); Lymphocytes % (A) 19 %; MCH 29.3 pg (25.0-35.0); MCHC 34.1 g/dL (31.0-37.0); Mean Platelet Volume 8.6; Monocytes # (A) 0.7 k/uL (0-1.0); Monocytes % (A) 6 %; Neutrophils # (A) 7.1 k/uL (1.3-7.7); Neutrophils % (A) 65 %; Platelet Count 231 k/uL (150-450); RBC 5.04 m/uL (3.80-5.40); WBC 10.9 k/uL (3.8-10.6)
[2020-10-20 15:20] LABS: Albumin 3.7 g/dL (3.5-5.0); Calcium 8.6 mg/dL (8.4-10.2); Magnesium 1.7 mg/dL (1.6-2.3); Total Bilirubin 0.6 mg/dL (0.2-1.3); Total Protein 7.2 g/dL (6.3-8.2)
[2020-10-20 15:27] LABS: Prothrombin Time 10.8 sec (9.0-12.0)
--- NOTE | 2020-10-20 15:30 | XR ---
EXAMINATION TYPE: XR chest 2V DATE OF EXAM: 10/20/2020 COMPARISON: 09/25/2019. HISTORY: Chest pain. TECHNIQUE: Frontal and lateral views of the chest are obtained. FINDINGS: There is mild interstitial edema with bibasilar streaky opacity. No pleural effusion, or p neumothorax seen. Cardiomegaly. The osseous structures demonstrate no acute abnormality. Partially imaged left shoulder arthroplasty. IMPRESSION: Mild interstitial edema versus atelectasis.
[2020-10-20 15:34] LABS: D-Dimer 1.43 mg/L FEU (<0.60)
[2020-10-20 15:36] LABS: Partial Thromboplastin Time 21.5 sec (22.0-30.0)
--- NOTE | 2020-10-20 15:52 | ED ---
Chest Pain HPI - General Chief Complaint: Chest Pain Stated Complaint: Chest pain Time Seen by Provider: 10/20/20 14:29 Source: patient, EMS, RN notes reviewed Mode of arrival: EMS Limitations: no limitations - History of Present Illness Initial Comments: This is a 70-year-old female presents emergency department via EMS chief complaint of chest pain and shortness of breath. Patient states that symptoms started primarily yesterday worsened today. Patient states she has some/chest pain she has had prior NM with 2 stent placements. Patient states that her last stent placed was approximately 10 years ago. Patient denies any fevers or chills no cough or URI symptoms slight nausea. Patient was given nitro by EMS which has helped her symptoms. - Related Data Home Medications Medication Instructions Recorded Confirmed Clopidogrel [Plavix] 75 mg PO DAILY@0800 07/09/17 10/20/20 Levothyroxine Sodium [Synthroid] 125 mcg PO DAILY@0700 07/09/17 10/20/20 Potassium Chloride ER [K-Dur 10] 10 meq PO BID 07/09/17 10/20/20 Venlafaxine HCl [Effexor XR] 150 mg PO DAILY@0800 07/09/17 10/20/20 lisinopriL 40 mg PO DAILY@0800 07/09/17 10/20/20 Furosemide [Lasix] 40 mg PO DAILY@0800 09/03/19 10/20/20 Loratadine [Claritin] 10 mg PO HS PRN 09/03/19 10/20/20 Isosorbide Mononitrate ER [Imdur] 30 mg PO DAILY@0800 09/23/19 10/20/20 ALPRAZolam [Xanax] 0.25 mg PO TID PRN 06/20/20 10/20/20 Acetaminophen with Codeine 1 tab PO TID PRN 06/20/20 10/20/20 [Tylenol w/Codeine #4 Tablet] Baclofen 10 mg PO TID 06/20/20 10/20/20 Famotidine 20 mg PO BID 06/20/20 10/20/20 Gabapentin [Neurontin] 400 mg PO TID 06/20/20 10/20/20 Loperamide [Imodium] 2 mg PO QID 06/20/20 10/20/20 Metoprolol Tartrate [Lopressor] 75 mg PO BID 06/20/20 10/20/20 Simvastatin [Zocor] 20 mg PO HS 06/20/20 10/20/20 amLODIPine [Norvasc] 5 mg PO DAILY 06/20/20 10/20/20 Ammonium Lactate Cream [Lac-Hydrin 1 applic TOPICAL HS 10/20/20 10/20/20 12% Cream] Hydrocortisone Cream 1 applic TOPICAL DAILY PRN 10/20/20 10/20/20 [Hydrocortisone 2.5% Cream] Nystatin 100,000 Unit/gm Powd 1 applic TOPICAL BID 10/20/20 10/20/20 [Mycostatin Powder] traZODone HCL 150 mg PO HS 10/20/20 10/20/20 Allergies Allergy/AdvReac Type Severity Reaction Status Date / Time aspirin Allergy Itching Verified 10/20/20 15:16 meperidine [From Demerol] Allergy Unknown Verified 10/20/20 15:16 morphine Allergy Unknown Verified 10/20/20 15:16 Review of Systems ROS Statement: Those systems with pertinent positive or pertinent negative responses have been documented in the HPI. ROS Other: All systems not noted in ROS Statement are negative. EKG Findings - EKG Comments: EKG Findings:: EKG performed at 14:37 normal sinus rhythm with left anterior fascicular block, rate of 93 NE 170 QRS 92 QT/QTC 392/487 Past Medical History Past Medical History: Coronary Artery Disease (CAD), Diabetes Mellitus, Hyperlipidemia, Myocardial Infarction (NM) Additional Past Medical History / Comment(s): Pt recently admitted to [facility] on 09/05/19 acute hypoxic respiratory failure/atelectasis/traumatic R side rib fractures (T7 and T8), dizziness, nonobstructive renal calculi, asymptomatic bacturia. Other hx: Chronic compression fractures L2/L4, chronic back pain, migraines, osteoporosis/vitamin D deficiency, increasing generalized weakness/falls, NM in 2008/takotsubo in 2011, NIDDM type II, neuropathy hands/feet, LUIS without device, hypothyroid, UTIs, hemorrhoids Last Myocardial Infarction Date:: 2011 History of Any Multi-Drug Resistant Organisms: None Reported Past Surgical History: Cholecystectomy, Heart Catheterization, Heart Catheterization With Stent, Hysterectomy, Joint Replacement, Tubal Ligation Additional Past Surgical History / Comment(s): PCI with stent in 2008 and 2009, cardiac caths, subtotal thyroidectomy d/t nodules, L reversed shoulder arthroplasty d/t fracture, colonoscopy. Past Anesthesia/Blood Transfusion Reactions: No Reported Reaction Date of Last Stent Placement:: 2009 Past Psychological History: Anxiety, Depression Smoking Status: Former smoker Past Alcohol Use History: None Reported Past Drug Use History: None Reported - Past Family History Mother History Unknown: Yes Family Medical History: Unable to Obtain Additional Family Medical History / Comment(s): Mother in her 80s. Patient does not know cause. Father Family Medical History: Myocardial Infarction (NM) Additional Family Medical History / Comment(s): Father in his 80s from a massive myocardial infarction. Brother(s) Family Medical History: Liver Disease, Renal Disease Additional Family Medical History / Comment(s): Patient has 1 brother and 3 sisters. Daughter(s) Additional Family Medical History / Comment(s): Patient has a total of 9 children. 2 at a very young age of 1 year of age, one was hit by a car and one drowned. General Exam Limitations: no limitations General appearance: alert, in no apparent distress Head exam: Present: atraumatic, normocephalic, normal inspection Eye exam: Present: normal appearance, PERRL, EOMI. Absent: scleral icterus, conjunctival injection, periorbital swelling Neck exam: Present: normal inspection. Absent: tenderness, meningismus, lymphadenopathy Respiratory exam: Present: normal lung sounds bilaterally. Absent: respiratory distress, wheezes, rales, rhonchi, stridor Cardiovascular Exam: Present: regular rate, normal rhythm, normal heart sounds. Absent: systolic murmur, diastolic murmur, rubs, gallop, clicks GI/Abdominal exam: Present: soft, normal bowel sounds. Absent: distended, tenderness, guarding, rebound, rigid Course Vital Signs 10/20/20 14:42 Temperature 98.5 F Pulse Rate 94 Respiratory 18 Rate Blood Pressure 131/74 O2 Sat by Pulse 95 Oximetry Chest Pain MDM - MDM X-ray is unremarkable CT was performed secondary to elevated d-dimer no PE. Patient does have mild hyperglycemia, multiple risk factors with history coronary disease. Patient be admitted for cardiac rule out patient was started on heparin. Disposition Clinical Impression: Chest pain Disposition: ADMITTED IP TO THIS HOSP Condition: Fair Referrals: Jc Petersen MD [Primary Care Provider] - 1-2 days
--- NOTE | 2020-10-20 16:48 | CT ---
EXAMINATION TYPE: CT chest angio for PE DATE OF EXAM: 10/20/2020 COMPARISON: Same-day radiograph. CT 09/05/2019. HISTORY: SOB, elevated d-dimer CT DLP: 714.6 mGycm Automated exposure control for dose reduction was used. CONTRAST: CT Chest for pulmonary embolism performed with with IV Contrast, patient injected with 100 mL of Isov ue 370. FINDINGS: LUNGS: There is mild bibasilar atelectasis. Otherwise the lungs are grossly clear, there is no concer zo parenchymal mass or nodule identified. There is no pleural effusion or pneumothorax seen. The tracheobronchial tree is patent. MEDIASTINUM: There is satisfactory enhancement of the pulmonary artery and its branches, there is no CT evidence for pulmonary embolism. There are no greater than 1 cm hilar or mediastinal lymph nodes. No pericardial effusion is seen. There is moderate to advanced thoracic aorta and coronary athero sclerotic disease. OTHER: No additional significant abnormality is seen. Chronic appearing mild T12 compression deformi ty. IMPRESSION: No acute PE or other cardiopulmonary abnormality.
[2020-10-20] MEDS ORDERED: NITROGLYCERIN SL TABS 0.4 MG TAB SUBLINGUAL PRN (16:53)
[2020-10-20] MEDS ORDERED: HEPARIN SOD,PORK IN 0.45% NACL 25,000 UNIT in 0.45% NACL 1 250ML.BAG IV SCH (17:00)
[2020-10-20] MEDS ORDERED: ACETAMINOPHEN TAB 325 MG TAB PO STA (17:17)
[2020-10-20] MEDS: HEPARIN SODIUM,PORCINE 5,000 UNIT/ML 1 ML VIAL IV ONE (17:46)
[2020-10-20] MEDS ORDERED: TRIAMCINOLONE 0.1% CREAM 80 GM TUBE TOPICAL PRN (19:31)
[2020-10-20] MEDS ORDERED: LORATADINE 10 MG TAB PO PRN (19:31)
[2020-10-20] MEDS ORDERED: ALPRAZolam 0.25 MG TAB PO PRN (19:31)
[2020-10-20] MEDS: traZODone HCL 50 MG TAB PO SCH (21:27)
[2020-10-20] MEDS: METOPROLOL TARTRATE 25 MG TAB PO SCH (21:29)
[2020-10-20] MEDS: BACLOFEN 10 MG TAB PO SCH (21:30)
[2020-10-20] MEDS: POTASSIUM CHLORIDE ER 10 MEQ TAB.ER.PRT PO SCH (21:30)
[2020-10-20] MEDS: ATORVASTATIN 10 MG TAB PO SCH (21:30)
[2020-10-20] MEDS: FAMOTIDINE 20 MG TAB PO SCH (21:30)
[2020-10-20] MEDS: LOPERAMIDE 2 MG CAP PO SCH (21:33)
[2020-10-20] MEDS: GABAPENTIN 400 MG CAP PO SCH (21:51)
[2020-10-20] MEDS: Acetaminophen-Codeine 300-30mg TAB PO PRN (21:57)
[2020-10-20] MEDS: AMMONIUM LACTATE 12% CREAM 140 GM TUBE TOPICAL SCH (22:03)
[2020-10-20] MEDS: NYSTATIN 100,000 UNIT/GM POWD 15 GM TOPICAL SCH (22:03)
[2020-10-21] MEDS ORDERED: HEPARIN SODIUM 1,000 UN/ML (10ML VL) MISCELLANE ONE (00:44)
[2020-10-21] MEDS: HEPARIN SODIUM,PORCINE 5,000 UNIT/ML 1 ML VIAL IV ONE (00:46)
[2020-10-21] MEDS ORDERED: HEPARIN SODIUM,PORCINE 5,000 UNIT/ML 1 ML VIAL IV PRN (01:00)
[2020-10-21 05:13] VITALS: RESP 18
[2020-10-21 06:12] LABS: Glucose,Whole Blood 195 mg/dL (75-99)
[2020-10-21] MEDS: LEVOTHYROXINE 125 MCG TAB PO SCH (06:17)
[2020-10-21] MEDS ORDERED: IBUPROFEN 400 MG TAB PO STA (08:32)
[2020-10-21] MEDS: amLODIPine 5 MG TAB PO SCH (09:05)
[2020-10-21] MEDS: GABAPENTIN 400 MG CAP PO SCH ×3 (09:06→20:38)
[2020-10-21] MEDS: METOPROLOL TARTRATE 25 MG TAB PO SCH (09:06)
[2020-10-21] MEDS: POTASSIUM CHLORIDE ER 10 MEQ TAB.ER.PRT PO SCH ×2 (09:06→20:38)
[2020-10-21] MEDS: FUROSEMIDE 40 MG TAB PO SCH (09:06)
[2020-10-21] MEDS: CLOPIDOGREL 75 MG TAB PO SCH (09:06)
[2020-10-21] MEDS: LOPERAMIDE 2 MG CAP PO SCH ×4 (09:06→20:38)
[2020-10-21] MEDS: lisinopriL 20 MG TAB PO SCH (09:06)
[2020-10-21] MEDS: FAMOTIDINE 20 MG TAB PO SCH ×2 (09:07→20:38)
[2020-10-21] MEDS: BACLOFEN 10 MG TAB PO SCH ×3 (09:07→20:38)
[2020-10-21] MEDS: ISOSORBIDE MONONITRATE ER 30 MG TAB.ER.24H PO SCH (09:07)
[2020-10-21] MEDS: NYSTATIN 100,000 UNIT/GM POWD 15 GM TOPICAL SCH ×2 (09:10→20:39)
--- NOTE | 2020-10-21 09:26 | P.CRDCN ---
<Leonarda Navarrete - Last Filed: 10/21/20 09:13> History of Present Illness History of present illness: doing dishes felt light headed and had chest pain HISTORY OF PRESENTING ILLNESS This is a pleasant 70-year-old female past medical history significant for coronary artery disease s/p LAD PCI, diabetes mellitus, hypertension, dyslipidemia and neuropathy. She follows in the office with Dr. Coello. We have been asked to see in consultation for chest pain. She states yesterday while she was standing at the sink doing the dishes she felt light headed and had pain in her chest. She was able to walk over to a chair and sat down. She did not pass out or fall. She states the pain is in the mid-sternal region. It does not radiate anywhere. She has some associated shortness of breath. For the previous 1-month she has been coughing with no significant sputum production. Her pain is exacerbated by movement of her torso, palpation of her chest and coughing or deep breathing. Most recent stress test performed in the office January 2020 with a Lexiscan stress test revealed a fixed anterior apical and inferior defect with no reversibility noted. Most recent echocardiogram obtained in the office January 2020 revealed preserved LV systolic function with ejection fraction 55% and normal diastolic function. DIAGNOSTICS EKG reveals sinus mechanism heart rate of 93, left anterior fascicular block Q waves noted in V3 and nonspecific ST abnormalities. Telemetry tracings unremarkable. Chest xray mild interstitial edema versus atelectasis. CTA negative for pulmonary embolism with grossly clear lungs. Laboratory reviewed, WBC 10.9, hemoglobin 14.8, platelets 231, d-dimer 1.43, sodium 138, potassium 4.0, creatinine 0.95, cardiac enzymes negative 3, NT proBNP 163 and magnesium 1.7. Current cardiac medications include Plavix 75 mg daily, lisinopril 40 mg daily, amlodipine 5 mg daily, simvastatin 20 mg daily, Lopressor 75 mg twice a day, Imdur 30 mg daily, Lasix 40 mg daily and daily potassium supplementation.. REVIEW OF SYSTEMS At the time of my exam: CONSTITUTIONAL: Denies fever or chills. CARDIOVASCULAR: Denies chest pain, shortness of breath, orthopnea, PND or palpitations. RESPIRATORY: Denies cough. GASTROINTESTINAL: Denies abdominal pain, diarrhea, constipation, nausea or vomiting. MUSCULOSKELETAL: Denies myalgias. NEUROLOGIC: Denies numbness, tingling or weakness. ENDOCRINE: Denies fatigue, weight change, polydipsia or polyurina. GENITOURINARY: Denies burning, hematuria or urgency with micturation. HEMATOLOGIC: Denies history of anemia or bleeding. PHYSICAL EXAMINATION Blood pressure 152/86 heart rate 83 afebrile and maintaining oxygen saturation on room air. CONSTITUTIONAL: No apparent distress. Obese. HEENT: Head is normocephalic. Pupils are equal, round. Sclerae anicteric. Mucous membranes of the mouth are moist. No JVD. No carotid bruit. CHEST EXAMINATION: Lungs are clear to auscultation. No chest wall tenderness is noted on palpation or with deep breathing. HEART EXAMINATION: Regular rate and rhythm. S1, S2 heard. No murmurs, gallops or rub. ABDOMEN: Soft, nontender. Positive bowel sounds. EXTREMITIES: 2+ peripheral pulses, no lower extremity edema and no calf t enderness. NEUROLOGIC EXAMINATION: Patient is awake, alert and oriented x3. ASSESSMENT Chest pain, atypical for angina. Musculoskeletal. Coronary artery disease status post PCI to the LAD Diabetes mellitus Hypertension Dyslipidemia Obesity, BMI 39 PLAN An acute coronary event has been ruled out. Recent stress test negative for reversibility. Discontinue heparin infusion. Continue plavix for secondary prevention since she is allergic to aspirin. Pain is atypical for angina, likely due to muscular strain from coughing. Echocardiogram has been obtained and was reviewed by Dr. Martinez at the bedside. Stable for discharge from a cardiac perspective. Follow up in the office with Dr. Coello in 2 weeks. Thank you kindly for this consultation. Nurse Practitioner note has been reviewed, I agree with a documented findings and plan of care. Patient was seen and examined. Past Medical History Past Medical History: Coronary Artery Disease (CAD), Diabetes Mellitus, Hyperlipidemia, Myocardial Infarction (CA) Additional Past Medical History / Comment(s): Pt recently admitted to [facility] on 09/05/19 acute hypoxic respiratory failure/atelectasis/traumatic R side rib fractures (T7 and T8), dizziness, nonobstructive renal calculi, asymptomatic bacturia. Other hx: Chronic compression fractures L2/L4, chronic back pain, migraines, osteoporosis/vitamin D deficiency, increasing generalized weakness/falls, CA in 2008/takotsubo in 2011, NIDDM type II, neuropathy hands/feet, LUIS without device, hypothyroid, UTIs, hemorrhoids Last Myocardial Infarction Date:: 2011 History of Any Multi-Drug Resistant Organisms: None Reported Past Surgical History: Cholecystectomy, Heart Catheterization, Heart Catheterization With Stent, Hysterectomy, Joint Replacement, Tubal Ligation Additional Past Surgical History / Comment(s): PCI with stent in 2008 and 2009, cardiac caths, subtotal thyroidectomy d/t nodules, L reversed shoulder art hroplasty d/t fracture, colonoscopy. Past Anesthesia/Blood Transfusion Reactions: No Reported Reaction Date of Last Stent Placement:: 2009 Past Psychological History: Anxiety, Depression Additional Psychological History / Comment(s): Pt resides at [facility]. She states she wants to leave there. She has a public legal guardian. She uses a walker to ambulate. Smoking Status: Former smoker Past Alcohol Use History: None Reported Additional Past Alcohol Use History / Comment(s): She denies any marijuana, street drug or alcohol use. She is . She lives alone in a senior apartment. Past Drug Use History: None Reported - Past Family History Mother History Unknown: Yes Family Medical History: Unable to Obtain Additional Family Medical History / Comment(s): Mother in her 80s. Patient does not know cause. Father Family Medical History: Myocardial Infarction (CA) Additional Family Medical History / Comment(s): Father in his 80s from a massive myocardial infarction. Brother(s) Family Medical History: Liver Disease, Renal Disease Additional Family Medical History / Comment(s): Patient has 1 brother and 3 sisters. Daughter(s) Additional Family Medical History / Comment(s): Patient has a total of 9 children. 2 at a very young age of 1 year of age, one was hit by a car and one drowned. Medications and Allergies Home Medications Medication Instructions Recorded Confirmed Type Clopidogrel [Plavix] 75 mg PO DAILY@79907/09/17 10/20/20 History Levothyroxine Sodium [Synthroid] 125 mcg PO DAILY@69907/09/17 10/20/20 History Potassium Chloride ER [K-Dur 10] 10 meq PO BID 07/09/17 10/20/20 History Venlafaxine HCl [Effexor XR] 150 mg PO DAILY@79907/09/17 10/20/20 History lisinopriL 40 mg PO DAILY@0800 07/09/17 10/20/20 History Furosemide [Lasix] 40 mg PO DAILY@0800 09/03/19 10/20/20 History Loratadine [Claritin] 10 mg PO HS PRN 09/03/19 10/20/20 History Isosorbide Mononitrate ER [Imdur] 30 mg PO DAILY@0800 09/23/19 10/20/20 History ALPRAZolam [Xanax] 0.25 mg PO TID PRN 06/20/20 10/20/20 History Acetaminophen with Codeine 1 tab PO TID PRN 06/20/20 10/20/20 History [Tylenol w/Codeine #4 Tablet] Baclofen 10 mg PO TID 06/20/20 10/20/20 History Famotidine 20 mg PO BID 06/20/20 10/20/20 History Gabapentin [Neurontin] 400 mg PO TID 06/20/20 10/20/20 History Loperamide [Imodium] 2 mg PO QID 06/20/20 10/20/20 History Metoprolol Tartrate [Lopressor] 75 mg PO BID 06/20/20 10/20/20 History Simvastatin [Zocor] 20 mg PO HS 06/20/20 10/20/20 History amLODIPine [Norvasc] 5 mg PO DAILY 06/20/20 10/20/20 History Ammonium Lactate Cream [Lac-Hydrin 1 applic TOPICAL HS 10/20/20 10/20/20 History 12% Cream] Hydrocortisone Cream 1 applic TOPICAL DAILY PRN 10/20/20 10/20/20 History [Hydrocortisone 2.5% Cream] Nystatin 100,000 Unit/gm Powd 1 applic TOPICAL BID 10/20/20 10/20/20 History [Mycostatin Powder] traZODone HCL 150 mg PO HS 10/20/20 10/20/20 History Allergies Allergy/AdvReac Type Severity Reaction Status Date / Time aspirin Allergy Itching Verified 10/20/20 15:16 meperidine [From Demerol] Allergy Unknown Verified 10/20/20 15:16 morphine Allergy Unknown Verified 10/20/20 15:16 Physical Exam Vitals: Vital Signs Temp Pulse Pulse Resp BP BP Pulse Ox 10/21/20 05:00 98.5 F 83 18 152/86 98 10/21/20 04:07 97.7 F 77 18 154/90 92 L 10/21/20 02:00 80 20 150/85 97 10/21/20 01:00 98.5 F 89 18 145/88 97 10/20/20 23:00 91 22 156/97 97 10/20/20 21:00 98.4 F 100 18 149/94 97 10/20/20 18:00 97 18 152/99 95 10/20/20 17:00 96 18 166/99 95 10/20/20 16:00 95 18 156/98 95 10/20/20 15:44 93 18 156/89 95 10/20/20 14:42 98.5 F 94 18 131/74 95 Intake and Output 10/20/20 10/21/20 10/21/20 22:59 06:59 14:59 Intake Total 172.833 Output Total 0 Balance 172.833 Intake: Intake, IV Titration 72.833 Amount Heparin Sod,Pork in 0.45% 72.833 NaCl 25,000 unit In 0.45 % NaCl 1 250ml.bag @ 11. 023 UNITS/KG/HR 10 mls/hr IV .Q24H [facility] Rx#: [id number] Oral 100 Output: Urine 0 Other: Weight 90.718 kg Results 10/20/20 14:52 10/20/20 14:52 Cardiac Enzymes 10/20/20 10/20/20 10/20/20 Range/Units 14:52 14:52 17:37 AST 29 (14-36) U/L Troponin I <0.012 <0.012 (0.000-0.034) ng/mL 10/20/20 Range/Units 20:59 AST (14-36) U/L Troponin I <0.012 (0.000-0.034) ng/mL Coagulation 10/20/20 10/21/20 Range/Units 14:52 00:10 PT 10.8 (9.0-12.0) sec APTT 21.5 L 38.6 H (22.0-30.0) sec CBC 10/20/20 Range/Units 14:52 WBC 10.9 H (3.8-10.6) k/uL RBC 5.04 (3.80-5.40) m/uL Hgb 14.8 (11.4-16.0) gm/dL Hct 43.4 (34.0-46.0) % Plt Count 231 (150-450) k/uL Comprehensive Metabolic Panel 10/20/20 Range/Units 14:52 Sodium 138 (137-145) mmol/L Potassium 4.0 (3.5-5.1) mmol/L Chloride 101 (98-107) mmol/L Carbon Dioxide 31 H (22-30) mmol/L BUN 13 (7-17) mg/dL Creatinine 0.95 (0.52-1.04) mg/dL Glucose 252 H (74-99) mg/dL Calcium 8.6 (8.4-10.2) mg/dL AST 29 (14-36) U/L ALT 26 (4-34) U/L Alkaline Phosphatase 82 (38-126) U/L Total Protein 7.2 (6.3-8.2) g/dL Albumin 3.7 (3.5-5.0) g/dL Current Medications Generic Name Dose Route Start Last Admin Trade Name Freq PRN Reason Stop Dose Admin Acetaminophen/Codeine Phosphate 1 each 10/20/20 19:31 10/20/20 21:57 Acetaminophen-Codeine 300-30mg Tab PO 1 each TID PRN Administration Pain Alprazolam 0.25 mg 10/20/20 19:31 Alprazolam 0.25 Mg Tab PO TID PRN Anxiety Amlodipine Besylate 5 mg 10/21/20 09:00 Amlodipine 5 Mg Tab PO DAILY [facility] Atorvastatin Calcium 10 mg 10/20/20 21:00 10/20/20 21:30 Atorvastatin 10 Mg Tab PO 10 mg HS [facility] Administration Baclofen 10 mg 10/20/20 22:00 10/20/20 21:30 Baclofen 10 Mg Tab PO 10 mg TID PJ Administration Clopidogrel Bisulfate 75 mg 10/21/20 08:00 Clopidogrel 75 Mg Tab PO DAILY@0800 [facility] Famotidine 20 mg 10/20/20 21:00 10/20/20 21:30 Famotidine 20 Mg Tab PO 20 mg BID PJ Administration Furosemide 40 mg 10/21/20 08:00 Furosemide 40 Mg Tab PO DAILY@0800 [facility] Gabapentin 400 mg 10/20/20 22:00 10/20/20 21:51 Gabapentin 400 Mg Cap PO 400 mg TID PJ Administration Heparin Sodium (Porcine) 0 unit 10/21/20 01:00 10/21/20 01:03 Heparin Sodium,Porcine 5,000 Unit/Ml 1 Ml Vial IV 2,267.5 unit PER PROTOCOL PRN Administration Low PTT Protocol Heparin Sodium/Sodium Chloride 250 mls @ 10 mls/hr 10/20/20 17:00 10/21/20 01:04 25,000 unit/ Sodium Chloride IV 13.23 units/kg/hr .Q24H [facility] 12 mls/hr Titration Protocol 11.023 UNITS/KG/HR Isosorbide Mononitrate 30 mg 10/21/20 08:00 Isosorbide Mononitrate Er 30 Mg Tab.Er.24h PO DAILY@0800 [facility] Lactic Acid 1 applic 10/20/20 21:00 10/20/20 22:03 Ammonium Lactate 12% Cream 140 Gm Tube TOPICAL 1 applic HS [facility] Administration Levothyroxine Sodium 125 mcg 10/21/20 07:00 10/21/20 06:17 Levothyroxine 125 Mcg Tab PO 125 mcg DAILY@0700 [facility] Administration Lisinopril 40 mg 10/21/20 08:00 Lisinopril 20 Mg Tab PO DAILY@0800 [facility] Loperamide HCl 2 mg 10/20/20 22:00 10/20/20 21:33 Loperamide 2 Mg Cap PO 2 mg QID [facility] Administration Loratadine 10 mg 10/20/20 19:31 10/20/20 21:30 Loratadine 10 Mg Tab PO 10 mg HS PRN Administration Allergy Symptoms Metoprolol Tartrate 75 mg 10/20/20 21:00 10/20/20 21:29 Metoprolol Tartrate 25 Mg Tab PO 75 mg BID [facility] Administration Nitroglycerin 0.4 mg 10/20/20 16:53 Nitroglycerin Sl Tabs 0.4 Mg Tab SUBLINGUAL Q5M PRN Chest Pain Nystatin 1 applic 10/20/20 21:00 10/20/20 22:03 Nystatin 100,000 Unit/Gm Powd 15 Gm TOPICAL 1 applic BID [facility] Administration Potassium Chloride 10 meq 10/20/20 21:00 10/20/20 21:30 Potassium Chloride Er 10 Meq Tab.Er.Prt PO 10 meq BID [facility] Administration Trazodone HCl 150 mg 10/20/20 21:00 10/20/20 21:27 Trazodone Hcl 50 Mg Tab PO 150 mg HS [facility] Administration Triamcinolone Acetonide 1 applic 10/20/20 19:31 Triamcinolone 0.1% Cream 80 Gm Tube TOPICAL DAILY PRN Rash Venlafaxine HCl 150 mg 10/21/20 08:00 Venlafaxine Hcl Er 150 Mg Cap PO DAILY@0800 [facility] Intake and Output 10/20/20 10/21/20 10/21/20 22:59 06:59 14:59 Intake Total 172.833 Output Total 0 Balance 172.833 Intake: Intake, IV Titration 72.833 Amount Heparin Sod,Pork in 0.45% 72.833 NaCl 25,000 unit In 0.45 % NaCl 1 250ml.bag @ 11. 023 UNITS/KG/HR 10 mls/hr IV .Q24H [facility] Rx#: [id number] Oral 100 Output: Urine 0 Other: Weight 90.718 kg 10/20/20 14:52 10/20/20 14:52 <Ravinder Martinez - Last Filed: 10/21/20 15:45> History of Present Illness History of present illness: Patient seen and examined. Pain is reproducible on exam in the anterior chest wall. Do not suspect cardiac etiology and patient may be discharged home with outpt followup. Ravinedr Martinez, DO Physical Exam Vitals: Vital Signs Temp Pulse Pulse Resp BP BP Pulse Ox 10/21/20 08:00 97.7 F 90 18 156/58 92 L 10/21/20 05:00 98.5 F 83 18 152/86 98 10/21/20 04:07 97.7 F 77 18 154/90 92 L 10/21/20 02:00 80 20 150/85 97 10/21/20 01:00 98.5 F 89 18 145/88 97 10/20/20 23:00 91 22 156/97 97 10/20/20 21:00 98.4 F 100 18 149/94 97 10/20/20 18:00 97 18 152/99 95 10/20/20 17:00 96 18 166/99 95 10/20/20 16:00 95 18 156/98 95 Intake and Output 10/21/20 10/21/20 10/21/20 06:59 14:59 22:59 Intake Total 172.833 240 Output Total 0 650 Balance 172.833 -410 Intake: Intake, IV Titration 72.833 Amount Heparin Sod,Pork in 0.45% 72.833 NaCl 25,000 unit In 0.45 % NaCl 1 250ml.bag @ 11. 023 UNITS/KG/HR 10 mls/hr IV .Q24H [facility] Rx#: [id number] Oral 100 240 Output: Urine 0 650 Other: Weight 90.718 kg Results 10/21/20 07:44 10/20/20 14:52 Cardiac Enzymes 10/20/20 10/20/20 Range/Units 17:37 20:59 Troponin I <0.012 <0.012 (0.000-0.034) ng/mL Coagulation 10/21/20 10/21/20 Range/Units 00:10 07:44 APTT 38.6 H 52.7 H (22.0-30.0) sec Lipids 10/21/20 Range/Units 07:44 Triglycerides 120 (<150) mg/dL Cholesterol 155 (<200) mg/dL HDL Cholesterol 39 L (40-60) mg/dL CBC 10/21/20 Range/Units 07:44 Plt Count 233 (150-450) k/uL Current Medications Generic Name Dose Route Start Last Admin Trade Name Freq PRN Reason Stop Dose Admin Acetaminophen/Codeine Phosphate 1 each 10/20/20 19:31 10/20/20 21:57 Acetaminophen-Codeine 300-30mg Tab PO 1 each TID PRN Administration Pain Alprazolam 0.25 mg 10/20/20 19:31 Alprazolam 0.25 Mg Tab PO TID PRN Anxiety Amlodipine Besylate 5 mg 10/21/20 09:00 10/21/20 09:05 Amlodipine 5 Mg Tab PO 5 mg DAILY [facility] Administration Atorvastatin Calcium 10 mg 10/20/20 21:00 10/20/20 21:30 Atorvastatin 10 Mg Tab PO 10 mg HS [facility] Administration Baclofen 10 mg 10/20/20 22:00 10/21/20 09:07 Baclofen 10 Mg Tab PO 10 mg TID [facility] Administration Clopidogrel Bisulfate 75 mg 10/21/20 08:00 10/21/20 09:06 Clopidogrel 75 Mg Tab PO 75 mg DAILY@0800 [facility] Administration Famotidine 20 mg 10/20/20 21:00 10/21/20 09:07 Famotidine 20 Mg Tab PO 20 mg BID [facility] Administration Furosemide 40 mg 10/21/20 08:00 10/21/20 09:06 Furosemide 40 Mg Tab PO 40 mg DAILY@0800 [facility] Administration Gabapentin 400 mg 10/20/20 22:00 10/21/20 09:06 Gabapentin 400 Mg Cap PO 400 mg TID PJ Administration Heparin Sodium (Porcine) 0 unit 10/21/20 01:00 10/21/20 01:03 Heparin Sodium,Porcine 5,000 Unit/Ml 1 Ml Vial IV 2,267.5 unit PER PROTOCOL PRN Administration Low PTT Protocol Isosorbide Mononitrate 30 mg 10/21/20 08:00 10/21/20 09:07 Isosorbide Mononitrate Er 30 Mg Tab.Er.24h PO 30 mg DAILY@0800 [facility] Administration Lactic Acid 1 applic 10/20/20 21:00 10/20/20 22:03 Ammonium Lactate 12% Cream 140 Gm Tube TOPICAL 1 applic HS [facility] Administration Levothyroxine Sodium 125 mcg 10/21/20 07:00 10/21/20 06:17 Levothyroxine 125 Mcg Tab PO 125 mcg DAILY@0700 [facility] Administration Lisinopril 40 mg 10/21/20 08:00 10/21/20 09:06 Lisinopril 20 Mg Tab PO 40 mg DAILY@0800 [facility] Administration Loperamide HCl 2 mg 10/20/20 22:00 10/21/20 09:06 Loperamide 2 Mg Cap PO 2 mg QID [facility] Administration Loratadine 10 mg 10/20/20 19:31 10/20/20 21:30 Loratadine 10 Mg Tab PO 10 mg HS PRN Administration Allergy Symptoms Metoprolol Tartrate 100 mg 10/21/20 21:00 Metoprolol Tartrate 50 Mg Tab PO BID [facility] Nitroglycerin 0.4 mg 10/20/20 16:53 Nitroglycerin Sl Tabs 0.4 Mg Tab SUBLINGUAL Q5M PRN Chest Pain Nystatin 1 applic 10/20/20 21:00 10/21/20 09:10 Nystatin 100,000 Unit/Gm Powd 15 Gm TOPICAL 1 applic BID [facility] Administration Potassium Chloride 10 meq 10/20/20 21:00 10/21/20 09:06 Potassium Chloride Er 10 Meq Tab.Er.Prt PO 10 meq BID [facility] Administration Trazodone HCl 150 mg 10/20/20 21:00 10/20/20 21:27 Trazodone Hcl 50 Mg Tab PO 150 mg HS [facility] Administration Triamcinolone Acetonide 1 applic 10/20/20 19:31 Triamcinolone 0.1% Cream 80 Gm Tube TOPICAL DAILY PRN Rash Venlafaxine HCl 150 mg 10/21/20 08:00 10/21/20 11:58 Venlafaxine Hcl Er 150 Mg Cap PO 150 mg DAILY@0800 [facility] Administration Intake and Output 10/21/20 10/21/20 10/21/20 06:59 14:59 22:59 Intake Total 172.833 240 Output Total 0 650 Balance 172.833 -410 Intake: Intake, IV Titration 72.833 Amount Heparin Sod,Pork in 0.45% 72.833 NaCl 25,000 unit In 0.45 % NaCl 1 250ml.bag @ 11. 023 UNITS/KG/HR 10 mls/hr IV .Q24H [facility] Rx#: [id number] Oral 100 240 Output: Urine 0 650 Other: Weight 90.718 kg 10/21/20 07:44 10/20/20 14:52
[2020-10-21 10:19] LABS: Mean Platelet Volume 8.7; Platelet Count 233 k/uL (150-450)
[2020-10-21 10:37] LABS: Cholesterol 155 mg/dL (<200); HDL Cholesterol 39 mg/dL (40-60); LDL Cholesterol,Calculated 92 mg/dL (0-99); Triglycerides 120 mg/dL (<150)
[2020-10-21] MEDS: VENLAFAXINE HCL ER 150 MG CAP PO SCH (11:58)
[2020-10-21 12:24] LABS: Glucose,Whole Blood 202 mg/dL (75-99)
--- NOTE | 2020-10-21 13:38 | ECHOF ---
Referral Reason:chest pain MEASUREMENTS -------- HEIGHT: 152.4 cm WEIGHT: 90.7 kg BP: 154/90 IVSd: 1.8 cm (0.6 - 1.1) LVIDd: 3.6 cm (3.9 - 5.3) LVPWd: 1.6 cm (0.6 - 1.1) EDV(Teich): 54 ml IVSs: 1.9 cm LVIDs: 2.6 cm LVPWs: 1.7 cm %IVS Thck: 6 % ESV(Teich): 24 ml EF(Teich): 55 % %FS: 28 % SV(Teich): 29 ml LA Diam: 4.1 cm (2.7 - 3.8) RVIDd: 3.1 cm (< 3.3) Ao Diam: 3.3 cm (2.0 - 3.7) AV Cusp: 2.0 cm (1.5 - 2.6) EPSS: 0.6 cm MV DecT: 78 ms MV PHT: 32 ms MVA By PHT: 6.8 cm AV Vmax: 0.90 m/s AV maxP.21 mmHg TR Vmax: 2.02 m/s TR maxP.28 mmHg MV EF SLOPE: 85.64 mm/s (70 - 150) MV EXCURSION: 11.06 mm (> 18.000) FINDINGS -------- Sinus rhythm. This was a technically difficult study with suboptimal views. The left ventricular size is normal. There is severe concentric left ventricular hypertrophy. Ove rall left ventricular systolic function is normal with, an EF between 60 - 65 %. Apical septum LV w all motion is hyperkinetic. The right ventricle is normal in size. The left atrium is mildly dilated. The right atrium was not well visualized. Interatrial and interventricular septum intact. There is mild aortic valve sclerosis. Mild mitral annular calcification present. The tricuspid valve appears structurally normal. Trace/mild (physiologic) pulmonic regurgitation. The aortic root size is normal. IVC Not well visulized. There is no pericardial effusion. CONCLUSIONS -------- 1. The left ventricular size is normal. 2. There is severe concentric left ventricular hypertrophy. 3. Overall left ventricular systolic function is normal with, an EF between 60 - 65 %. 4. Apical septum LV wall motion is hyperkinetic. 5. The left atrium is mildly dilated. 6. Trace/mild (physiologic) pulmonic regurgitation. 7. There is no pericardial effusion. BROKE HANDLER: Rosanna Vega RDCS
[2020-10-21] MEDS: Acetaminophen-Codeine 300-30mg TAB PO PRN (16:29)
[2020-10-21 17:00] LABS: Glucose,Whole Blood 175 mg/dL (75-99)
[2020-10-21 20:06] LABS: Glucose,Whole Blood 179 mg/dL (75-99)
[2020-10-21] MEDS: INSULIN ASPART (NovoLOG) 100 UNIT/ML VIAL SQ SCH (20:38)
[2020-10-21] MEDS: ATORVASTATIN 10 MG TAB PO SCH (20:38)
[2020-10-21] MEDS: METOPROLOL TARTRATE 50 MG TAB PO SCH (20:38)
[2020-10-21] MEDS: traZODone HCL 50 MG TAB PO SCH (20:38)
[2020-10-21] MEDS: AMMONIUM LACTATE 12% CREAM 140 GM TUBE TOPICAL SCH (20:39)
--- NOTE | 2020-10-21 22:44 | P.HPIM ---
History of Present Illness H&P Date: 10/21/20 Chief Complaint: Chest pressure History of presenting complaint: This is a 70-year-old patient, follows with visiting physicians Dr. Petersen. Chronic stable medical conditions include diabetes, hyperlipidemia, nonobstructive renal Clinic, chronic compression fracture of L2 L4, chronic back pain, osteoporosis, diabetes type 2 with peripheral neuropathy, hypothyroid hemorrhoids. Patient has a prior history of coronary artery disease with stent in 2008, 2009. Subtotal thyroidectomy. Patient lives at [facility]. Has a public guardian. Patient now presents with sensation of somebody sitting on her chest off and on. No obvious precipitating or relieving factors. No radiation no dizziness, lightheadedness. Normally uses a walker. No fever no chills. No shortness of breath Review of systems: GEN.: Tired EYES: None HEENT: None NECK: None RESPIRATORY: None CARDIOVASCULAR: As above] GASTROINTESTINAL: None GENITOURINARY: None MUSCULOSKELETAL: Joint pains LYMPHATICS: None HEMATOLOGICAL: None PSYCHIATRY: None NEUROLOGICAL: Uses a walker Past medical history to include: Renal calculi, chronic compression fracture L2 L4, osteoporosis, diabetes type 2 with peripheral neuropathy, obstructive sleep apnea without device, hypothyroid, coronary artery disease with stent in 1999 [id number], anxiety depression Social history: Lives at [facility]. Uses a walker. Did smoke in the past. Physical examination: VITAL SIGNS: 98.5, 94, 18, 131/74, 85% on 2 L GENERAL: BMI 39.1, laying in bed, awake. EYES: Pupils equal. Conjunctiva normal. HEENT: External appearance of nose and ears normal, oral cavity grossly normal. NECK: JVD not raised; masses not palpable. HEART: First and second heart sounds are normal; no edema. LUNGS: Respiratory rate normal; clear to auscultation. ABDOMEN: Soft, nontender, liver spleen not palpable, no masses palpable. PSYCH: Able tonsil simple questionsl MUSCULAR skeletal: Evidence of some OA. NEUROLOGICAL: Cranial nerves grossly intact; no facial asymmetry, power and sensation grossly intact. LYMPHATICS: No lymph nodes palpable in the axilla and neck INVESTIGATIONS, reviewed in the clinical context: White count 10.9 hemoglobin 14.8 weight last 231 d-dimer 1.43 potassium 4 creatinine 0.95, blood glucose 252 Troponin I 3 less than 0.012 proBNP 163 EKG tracing personally reviewed by -normal sinus rhythm nonspecific T-wave changes Chest CTA-negative for PE. Chest x-ray film personally reviewed by me-underpenetrated. No obvious infiltrate Assessment: -Possible unstable angina in a patient with known coronary artery disease with stent -Coronary artery disease with a prior stent in 2008 through -Obesity BMI 39.1 -Diabetes mellitus type 2 -Hyperlipidemia -Essential hypertension-uncontrolled -Chronic compression fracture L2-L4 -Chronic gait dysfunction uses a walker -Diabetic peripheral neuropathy -Obstructive sleep apnea does not use a device -Hypothyroid -Anxiety depression not otherwise specified Plan: Home medications resumed. Cardiology was consulted. Looking increased. Up blockers both in view to the blood pressure and angina. Patient cannot be return to the [facility] home was patient's COVID testing still pending. Care was discussed with the patient. Past Medical History Past Medical History: Coronary Artery Disease (CAD), Diabetes Mellitus, H yperlipidemia, Myocardial Infarction (MS) Additional Past Medical History / Comment(s): Pt recently admitted to [facility] on 09/05/19 acute hypoxic respiratory failure/atelectasis/traumatic R side rib fractures (T7 and T8), dizziness, nonobstructive renal calculi, asymptomatic dilip turia. Other hx: Chronic compression fractures L2/L4, chronic back pain, migraines, osteoporosis/vitamin D deficiency, increasing generalized weakness/falls, [place] in 2008/takotsubo in 2011, NIDDM type II, neuropathy hands/feet, LUIS without device, hypothyroid, UTIs, hemorrhoids Last Myocardial Infarction Date:: 2011 History of Any Multi-Drug Resistant Organisms: None Reported Past Surgical History: Cholecystectomy, Heart Catheterization, Heart Catheterization With Stent, Hysterectomy, Joint Replacement, Tubal Ligation Additional Past Surgical History / Comment(s): PCI with stent in 2008 and 2009, cardiac caths, subtotal thyroidectomy d/t nodules, L reversed shoulder arthroplasty d/t fracture, colonoscopy. Past Anesthesia/Blood Transfusion Reactions: No Reported Reaction Date of Last Stent Placement:: 2009 Past Psychological History: Anxiety, Depression Additional Psychological History / Comment(s): Pt resides at [facility]. She states she wants to leave there. She has a public legal guardian. She uses a walker to ambulate. Smoking Status: Former smoker Past Alcohol Use History: None Reported Additional Past Alcohol Use History / Comment(s): She denies any marijuana, street drug or alcohol use. She is . She lives alone in a senior apartment. Past Drug Use History: None Reported - Past Family History Mother History Unknown: Yes Family Medical History: Unable to Obtain Additional Family Medical History / Comment(s): Mother in her 80s. Patient does not know cause. Father Family Medical History: Myocardial Infarction (MS) Additional Family Medical History / Comment(s): Father in his 80s from a massive myocardial infarction. Brother(s) Family Medical History: Liver Disease, Renal Disease Additional Family Medical History / Comment(s): Patient has 1 brother and 3 sisters. Daughter(s) Additional Family Medical History / Comment(s): Patient has a total of 9 children. 2 at a very young age of 1 year of age, one was hit by a car and one drowned. Medications and Allergies Home Medications Medication Instructions Recorded Confirmed Type Clopidogrel [Plavix] 75 mg PO DAILY@0800 07/09/17 10/20/20 History Levothyroxine Sodium [Synthroid] 125 mcg PO DAILY@69907/09/17 10/20/20 History Potassium Chloride ER [K-Dur 10] 10 meq PO BID 07/09/17 10/20/20 History Venlafaxine HCl [Effexor XR] 150 mg PO DAILY@0800 07/09/17 10/20/20 History lisinopriL 40 mg PO DAILY@0800 07/09/17 10/20/20 History Furosemide [Lasix] 40 mg PO DAILY@0800 09/03/19 10/20/20 History Loratadine [Claritin] 10 mg PO HS PRN 09/03/19 10/20/20 History Isosorbide Mononitrate ER [Imdur] 30 mg PO DAILY@0800 09/23/19 10/20/20 History ALPRAZolam [Xanax] 0.25 mg PO TID PRN 06/20/20 10/20/20 History Acetaminophen with Codeine 1 tab PO TID PRN 06/20/20 10/20/20 History [Tylenol w/Codeine #4 Tablet] Baclofen 10 mg PO TID 06/20/20 10/20/20 History Famotidine 20 mg PO BID 06/20/20 10/20/20 History Gabapentin [Neurontin] 400 mg PO TID 06/20/20 10/20/20 History Loperamide [Imodium] 2 mg PO QID 06/20/20 10/20/20 History Metoprolol Tartrate [Lopressor] 75 mg PO BID 06/20/20 10/20/20 History Simvastatin [Zocor] 20 mg PO HS 06/20/20 10/20/20 History amLODIPine [Norvasc] 5 mg PO DAILY 06/20/20 10/20/20 History Ammonium Lactate Cream [Lac-Hydrin 1 applic TOPICAL HS 10/20/20 10/20/20 History 12% Cream] Hydrocortisone Cream 1 applic TOPICAL DAILY PRN 10/20/20 10/20/20 History [Hydrocortisone 2.5% Cream] Nystatin 100,000 Unit/gm Powd 1 applic TOPICAL BID 10/20/20 10/20/20 History [Mycostatin Powder] traZODone HCL 150 mg PO HS 10/20/20 10/20/20 History Allergies Allergy/AdvReac Type Severity Reaction Status Date / Time aspirin Allergy Itching Verified 10/20/20 15:16 meperidine [From Demerol] Allergy Unknown Verified 10/20/20 15:16 morphine Allergy Unknown Verified 10/20/20 15:16 Physical Exam Vitals: Vital Signs Temp Pulse Pulse Resp BP BP Pulse Ox 10/21/20 05:00 98.5 F 83 18 152/86 98 10/21/20 04:07 97.7 F 77 18 154/90 92 L 10/21/20 02:00 80 20 150/85 97 10/21/20 01:00 98.5 F 89 18 145/88 97 10/20/20 23:00 91 22 156/97 97 10/20/20 21:00 98.4 F 100 18 149/94 97 10/20/20 18:00 97 18 152/99 95 10/20/20 17:00 96 18 166/99 95 10/20/20 16:00 95 18 156/98 95 10/20/20 15:44 93 18 156/89 95 10/20/20 14:42 98.5 F 94 18 131/74 95 Intake and Output 10/20/20 10/21/20 10/21/20 22:59 06:59 14:59 Intake Total 172.833 0 Output Total 0 Balance 172.833 0 Intake: Intake, IV Titration 72.833 Amount Heparin Sod,Pork in 0.45% 72.833 NaCl 25,000 unit In 0.45 % NaCl 1 250ml.bag @ 11. 023 UNITS/KG/HR 10 mls/hr IV .Q24H [facility] Rx#: [id number] Oral 100 0 Output: Urine 0 Other: Weight 90.718 kg Results CBC & Chem 7: 10/21/20 07:44 10/20/20 14:52 Labs: Abnormal Lab Results - Last 24 Hours (Table) 10/20/20 10/20/20 10/20/20 Range/Units 14:52 14:52 14:52 WBC 10.9 H (3.8-10.6) k/uL Eosinophils # 0.9 H (0-0.7) k/uL APTT 21.5 L (22.0-30.0) sec D-Dimer 1.43 H (<0.60) mg/L FEU Carbon Dioxide 31 H (22-30) mmol/L Glucose 252 H (74-99) mg/dL POC Glucose (mg/dL) (75-99) mg/dL 10/21/20 10/21/20 Range/Units 00:10 06:11 WBC (3.8-10.6) k/uL Eosinophils # (0-0.7) k/uL APTT 38.6 H (22.0-30.0) sec D-Dimer (<0.60) mg/L FEU Carbon Dioxide (22-30) mmol/L Glucose (74-99) mg/dL POC Glucose (mg/dL) 195 H (75-99) mg/dL Thrombosis Risk Factor Assmnt - Choose All That Apply Each Risk Factor Represents 2 Points: Age 61-74 years Thrombosis Risk Factor Assessment Total Risk Factor Score: 2 Thrombosis Risk Factor Assessment Level: Low Risk
[2020-10-21] MEDS: ENOXAPARIN 40 MG/0.4 ML SYRINGE SQ SCH (23:18)
[2020-10-22 06:11] LABS: Glucose,Whole Blood 191 mg/dL (75-99)
[2020-10-22] MEDS: INSULIN ASPART (NovoLOG) 100 UNIT/ML VIAL SQ SCH ×2 (06:30→12:16)
[2020-10-22] MEDS: LEVOTHYROXINE 125 MCG TAB PO SCH (06:30)
[2020-10-22 07:58] VITALS: BP 130/71; PULSE 83; TEMP 97.8
[2020-10-22 08:17] LABS: HCT 45.2 % (34.0-46.0); HGB 14.7 gm/dL (11.4-16.0); MCH 28.5 pg (25.0-35.0); MCHC 32.5 g/dL (31.0-37.0); MCV 87.5 fL (80.0-100.0); Mean Platelet Volume 8.8; Platelet Count 227 k/uL (150-450); RBC 5.17 m/uL (3.80-5.40); RDW 13.2 % (11.5-15.5); WBC 9.7 k/uL (3.8-10.6)
[2020-10-22 08:37] LABS: Calcium 8.6 mg/dL (8.4-10.2); Potassium 4.2 mmol/L (3.5-5.1)
[2020-10-22] MEDS: ENOXAPARIN 40 MG/0.4 ML SYRINGE SQ SCH (09:45)
[2020-10-22] MEDS: VENLAFAXINE HCL ER 150 MG CAP PO SCH (09:46)
[2020-10-22] MEDS: Acetaminophen-Codeine 300-30mg TAB PO PRN ×2 (09:46→13:28)
[2020-10-22] MEDS: GABAPENTIN 400 MG CAP PO SCH (09:46)
[2020-10-22] MEDS: lisinopriL 20 MG TAB PO SCH (09:46)
[2020-10-22] MEDS: FAMOTIDINE 20 MG TAB PO SCH (09:46)
[2020-10-22] MEDS: METOPROLOL TARTRATE 50 MG TAB PO SCH (09:47)
[2020-10-22] MEDS: CLOPIDOGREL 75 MG TAB PO SCH (09:47)
[2020-10-22] MEDS: ISOSORBIDE MONONITRATE ER 30 MG TAB.ER.24H PO SCH (09:47)
[2020-10-22] MEDS: BACLOFEN 10 MG TAB PO SCH (09:47)
[2020-10-22] MEDS: POTASSIUM CHLORIDE ER 10 MEQ TAB.ER.PRT PO SCH (09:47)
[2020-10-22] MEDS: FUROSEMIDE 40 MG TAB PO SCH (09:47)
[2020-10-22] MEDS: amLODIPine 5 MG TAB PO SCH (09:47)
[2020-10-22] MEDS: LOPERAMIDE 2 MG CAP PO SCH ×2 (09:47→12:16)
[2020-10-22] MEDS: NYSTATIN 100,000 UNIT/GM POWD 15 GM TOPICAL SCH (09:48)
[2020-10-22 11:50] LABS: Glucose,Whole Blood 148 mg/dL (75-99)
[2020-10-22 15:13] LABS: Hemoglobin A1C 8.5 % (4.0-6.0)
[2020-10-22 16:37] LABS: Glucose,Whole Blood 137 mg/dL (75-99)
--- NOTE | 2020-10-22 21:32 | P.DS ---
Providers Date of admission: 10/20/20 16:52 Expected date of discharge: 10/22/20 Attending physician: Reji Canada Consults: 10/20/20 16:53 Consult Physician Urgent Consulting Provider: Jim Ricci Consult Reason/Comments: chest pain Do you want consulting provider notified?: Yes [facility] Course: Chief Complaint: Chest pressure History of presenting complaint: This is a 70-year-old patient, follows with visiting physicians Dr. Petersen. Chronic stable medical conditions include diabetes, hyperlipidemia, nonobs tructive renal Clinic, chronic compression fracture of L2 L4, chronic back pain, osteoporosis, diabetes type 2 with peripheral neuropathy, hypothyroid hemorrhoids. Patient has a prior history of coronary artery disease with stent in 2008, 2009. Subtotal thyroidectomy. Patient lives at [facility]. Has a public guardian. Patient now presents with sensation of somebody sitting on her chest off and on. No obvious precipitating or relieving factors. No radiation no dizziness, lightheadedness. Normally uses a walker. No fever no chills. No shortness of breath. Dose of beta marisa was increased. Troponins were negative. Seen by cardiology. [place] to be muscular skeletal. Discharge planning more than 35 minutes Consultation: Dr. Martinez from cardiology Physical examination: VITAL SIGNS: 97.8, 83, 18, 130/71, 94% on 2 L GENERAL: BMI 39.1, laying in bed, awake. EYES: Pupils equal. Conjunctiva normal. HEENT: External appearance of nose and ears normal, oral cavity grossly normal. NECK: JVD not raised; masses not palpable. HEART: First and second heart sounds are normal; no edema. LUNGS: Respiratory rate normal; clear to auscultation. ABDOMEN: Soft, nontender, liver spleen not palpable, no masses palpable. PSYCH: Able tonsil simple questionsl MUSCULAR skeletal: Evidence of some OA. NEUROLOGICAL: Cranial nerves grossly intact; no facial asymmetry, power and sensation grossly intact. LYMPHATICS: No lymph nodes palpable in the axilla and neck INVESTIGATIONS, reviewed in the clinical context: White count 10.9 hemoglobin 14.8 weight last 231 d-dimer 1.43 potassium 4 creatinine 0.95, blood glucose 252 Troponin I 3 less than 0.012 proBNP 163 EKG tracing personally reviewed by me-normal sinus rhythm nonspecific T-wave changes Chest CTA-negative for PE. Chest x-ray film personally reviewed by me-underpenetrated. No obvious infiltrate Coronavirus P/Cr-not detected Assessment: -Anterior chest wall pain-possibly muscular schedule. -Coronary artery disease with a prior stent in 2008 -Obesity BMI 39.1 -Diabetes mellitus type 2 -Hyperlipidemia -Essential hypertension-uncontrolled -Chronic compression fracture L2-L4 -Chronic gait dysfunction uses a walker -Diabetic peripheral neuropathy -Obstructive sleep apnea does not use a device -Hypothyroid -Anxiety depression not otherwise specified Disposition: [facility] Patient Condition at Discharge: Stable Plan - Discharge Summary Discharge Rx Participant: No New Discharge Prescriptions: New Atorvastatin [Lipitor] 10 mg PO HS #30 tab Metoprolol Tartrate [Lopressor] 100 mg PO BID #60 tab Nitroglycerin Sl Tabs [Nitrostat] 0.4 mg SUBLINGUAL Q5M PRN #25 tab PRN Reason: Chest Pain Continue Potassium Chloride ER [K-Dur 10] 10 meq PO BID lisinopriL 40 mg PO DAILY@0800 Levothyroxine Sodium [Synthroid] 125 mcg PO DAILY@0700 Clopidogrel [Plavix] 75 mg PO DAILY@0800 Venlafaxine HCl [Effexor XR] 150 mg PO DAILY@0800 Furosemide [Lasix] 40 mg PO DAILY@0800 Loratadine [Claritin] 10 mg PO HS PRN PRN Reason: Allergy Symptoms Isosorbide Mononitrate ER [Imdur] 30 mg PO DAILY@0800 Acetaminophen with Codeine [Tylenol w/Codeine #4 Tablet] 1 tab PO TID PRN PRN Reason: Pain ALPRAZolam [Xanax] 0.25 mg PO TID PRN PRN Reason: Anxiety amLODIPine [Norvasc] 5 mg PO DAILY Baclofen 10 mg PO TID Famotidine 20 mg PO BID Gabapentin [Neurontin] 400 mg PO TID Loperamide [Imodium] 2 mg PO QID Ammonium Lactate Cream [Lac-Hydrin 12% Cream] 1 applic TOPICAL HS Hydrocortisone Cream [Hydrocortisone 2.5% Cream] 1 applic TOPICAL DAILY PRN PRN Reason: Rash Nystatin 100,000 Unit/gm Powd [Mycostatin Powder] 1 applic TOPICAL BID traZODone HCL 150 mg PO HS Discontinued Metoprolol Tartrate [Lopressor] 75 mg PO BID Simvastatin [Zocor] 20 mg PO HS Discharge Medication List Clopidogrel [Plavix] 75 mg PO DAILY@79907/09/17 [History] Levothyroxine Sodium [Synthroid] 125 mcg PO DAILY@69907/09/17 [History] Potassium Chloride ER [K-Dur 10] 10 meq PO BID 07/09/17 [History] Venlafaxine HCl [Effexor XR] 150 mg PO DAILY@79907/09/17 [History] lisinopriL 40 mg PO DAILY@79907/09/17 [History] Furosemide [Lasix] 40 mg PO DAILY@79909/03/19 [History] Loratadine [Claritin] 10 mg PO HS PRN 09/03/19 [History] Isosorbide Mononitrate ER [Imdur] 30 mg PO DAILY@79909/23/19 [History] ALPRAZolam [Xanax] 0.25 mg PO TID PRN 06/20/20 [History] Acetaminophen with Codeine [Tylenol w/Codeine #4 Tablet] 1 tab PO TID PRN 06/20/20 [History] Baclofen 10 mg PO TID 06/20/20 [History] Famotidine 20 mg PO BID 06/20/20 [History] Gabapentin [Neurontin] 400 mg PO TID 06/20/20 [History] Loperamide [Imodium] 2 mg PO QID 06/20/20 [History] amLODIPine [Norvasc] 5 mg PO DAILY 06/20/20 [History] Ammonium Lactate Cream [Lac-Hydrin 12% Cream] 1 applic TOPICAL HS 10/20/20 [History] Hydrocortisone Cream [Hydrocortisone 2.5% Cream] 1 applic TOPICAL DAILY PRN 10/20/20 [History] Nystatin 100,000 Unit/gm Powd [Mycostatin Powder] 1 applic TOPICAL BID 10/20/20 [History] traZODone HCL 150 mg PO HS 10/20/20 [History] Atorvastatin [Lipitor] 10 mg PO HS #30 tab 10/22/20 [Rx] Metoprolol Tartrate [Lopressor] 100 mg PO BID #60 tab 10/22/20 [Rx] Nitroglycerin Sl Tabs [Nitrostat] 0.4 mg SUBLINGUAL Q5M PRN #25 tab 10/22/20 [Rx] Follow up Appointment(s)/Referral(s): Dylan Coello MD [STAFF PHYSICIAN] - 11/06/20 3:00 pm (This appointment is going to be with Tyra Iniguez NP.) Jc Petersen MD [Primary Care Provider] - 1-2 days (Please call for an appointment.) Discharge Disposition: HOME SELF-CARE
== END 2020-10-22 17:30 | disposition home or self-care (01) ==
LOC: EC 14:16 → 1SOBS 16:52 → 3SCARD 10-21 05:53
PROVIDERS: ADMIT Hospitalist; ATTEND Hospitalist
DX: R07.89 Other chest pain (principal); R06.02 Shortness of breath; R42 Dizziness and giddiness; R05 Cough; I25.10 Atherosclerotic heart disease of native coronary artery without angina pectoris; E66.9 Obesity, unspecified; E11.42 Type 2 diabetes mellitus with diabetic polyneuropathy; E78.5 Hyperlipidemia, unspecified; I10 Essential (primary) hypertension; M48.56XA Collapsed vertebra, not elsewhere classified, lumbar region, initial encounter for fracture; R26.9 Unspecified abnormalities of gait and mobility; G47.33 Obstructive sleep apnea (adult) (pediatric); E89.0 Postprocedural hypothyroidism; F41.8 Other specified anxiety disorders; I25.2 Old myocardial infarction; I44.4 Left anterior fascicular block; G89.29 Other chronic pain; Z20.828 Contact with and (suspected) exposure to other viral communicable diseases; G43.909 Migraine, unspecified, not intractable, without status migrainosus; M81.0 Age-related osteoporosis without current pathological fracture; E55.9 Vitamin D deficiency, unspecified; R79.1 Abnormal coagulation profile; E11.65 Type 2 diabetes mellitus with hyperglycemia; R94.31 Abnormal electrocardiogram [ECG] [EKG]; R91.8 Other nonspecific abnormal finding of lung field; Z95.5 Presence of coronary angioplasty implant and graft; Z79.02 Long term (current) use of antithrombotics/antiplatelets; Z79.890 Hormone replacement therapy; Z79.899 Other long term (current) drug therapy; Z88.6 Allergy status to analgesic agent; Z88.5 Allergy status to narcotic agent; Z87.81 Personal history of (healed) traumatic fracture; Z87.442 Personal history of urinary calculi; Z87.09 Personal history of other diseases of the respiratory system; Z91.81 History of falling; Z86.79 Personal history of other diseases of the circulatory system; Z87.440 Personal history of urinary (tract) infections; Z87.19 Personal history of other diseases of the digestive system; Z90.49 Acquired absence of other specified parts of digestive tract; Z90.710 Acquired absence of both cervix and uterus; Z96.612 Presence of left artificial shoulder joint; Z98.51 Tubal ligation status; Z98.890 Other specified postprocedural states; Z87.891 Personal history of nicotine dependence; Z68.39 Body mass index [BMI] 39.0-39.9, adult; Z82.49 Family history of ischemic heart disease and other diseases of the circulatory system; Z83.79 Family history of other diseases of the digestive system; Z84.1 Family history of disorders of kidney and ureter
CPT/HCPCS: 96372 ×2; 96376 ×2; 96365; 96366 ×2; 99285; 36415; 93005 ×2; 85379; 83880; 80061; 80053; 80048; 83735; 84484; 85025; 85027; 85049 ×2; 85610; 85730 ×2; 83036; 87635; 71046; 71275; G0378 ×4; C8929; U0003; J1644 ×3; J1650 ×2; Q9950; Q9967; 93306

== ENCOUNTER 2020-11-09 06:04 | Emergency (ER) | payer MEDICARE, OTHER ==
[2020-11-09 06:10] VITALS: TEMP 98.1
[2020-11-09] MEDS ORDERED: HYDROmorphone 1 MG/ML 1 ML SYRINGE IM STA (06:45)
--- NOTE | 2020-11-09 07:07 | ED ---
Fall HPI - General Chief Complaint: Fall Stated Complaint: Fall Time Seen by Provider: 11/09/20 06:06 Source: patient, EMS, RN notes reviewed Mode of arrival: EMS Limitations: no limitations - History of Present Illness Initial Comments: This a 70-year-old female presents emergency Department with chief complaint of a fall. Patient was trying to go to the bathroom states that she went to turn her walker around and states that she fell over. She had no syncopal episode. Patient states that she believes she hit her head and has some back pain, left leg pain. Patient has chronic pain states this is a of her chronic pain unchanged from her normal. Patient has no chest pain or shortness breath no fevers or chills patient has no other complaints. - Related Data Home Medications Medication Instructions Recorded Confirmed Clopidogrel [Plavix] 75 mg PO DAILY@0807/09/17 10/20/20 Levothyroxine Sodium [Synthroid] 125 mcg PO DAILY@0707/09/17 10/20/20 Potassium Chloride ER [K-Dur 10] 10 meq PO BID 07/09/17 10/20/20 Venlafaxine HCl [Effexor XR] 150 mg PO DAILY@0807/09/17 10/20/20 lisinopriL 40 mg PO DAILY@0807/09/17 10/20/20 Furosemide [Lasix] 40 mg PO DAILY@0800 09/03/19 10/20/20 Loratadine [Claritin] 10 mg PO HS PRN 09/03/19 10/20/20 Isosorbide Mononitrate ER [Imdur] 30 mg PO DAILY@0809/23/19 10/20/20 ALPRAZolam [Xanax] 0.25 mg PO TID PRN 06/20/20 10/20/20 Acetaminophen with Codeine 1 tab PO TID PRN 06/20/20 10/20/20 [Tylenol w/Codeine #4 Tablet] Baclofen 10 mg PO TID 06/20/20 10/20/20 Famotidine 20 mg PO BID 06/20/20 10/20/20 Gabapentin [Neurontin] 400 mg PO TID 06/20/20 10/20/20 Loperamide [Imodium] 2 mg PO QID 06/20/20 10/20/20 amLODIPine [Norvasc] 5 mg PO DAILY 06/20/20 10/20/20 Ammonium Lactate Cream [Lac-Hydrin 1 applic TOPICAL HS 10/20/20 10/20/20 12% Cream] Hydrocortisone Cream 1 applic TOPICAL DAILY PRN 10/20/20 10/20/20 [Hydrocortisone 2.5% Cream] Nystatin 100,000 Unit/gm Powd 1 applic TOPICAL BID 10/20/20 10/20/20 [Mycostatin Powder] traZODone HCL 150 mg PO HS 10/20/20 10/20/20 Previous Rx's Medication Instructions Recorded Atorvastatin [Lipitor] 10 mg PO HS #30 tab 10/22/20 Metoprolol Tartrate [Lopressor] 100 mg PO BID #60 tab 10/22/20 Nitroglycerin Sl Tabs [Nitrostat] 0.4 mg SUBLINGUAL Q5M PRN #25 tab 10/22/20 Allergies Allergy/AdvReac Type Severity Reaction Status Date / Time aspirin Allergy Itching Verified 11/09/20 06:09 meperidine [From Demerol] Allergy Unknown Verified 11/09/20 06:09 morphine Allergy Unknown Verified 11/09/20 06:09 Review of Systems ROS Statement: Those systems with pertinent positive or pertinent negative responses have been documented in the HPI. ROS Other: All systems not noted in ROS Statement are negative. Past Medical History Past Medical History: Coronary Artery Disease (CAD), Diabetes Mellitus, Hyperlipidemia, Myocardial Infarction (AK) Additional Past Medical History / Comment(s): Pt recently admitted to [facility] on 09/05/19 acute hypoxic respiratory failure/atelectasis/traumatic R side rib fractures (T7 and T8), dizziness, nonobstructive renal calculi, asymptomatic bacturia. Other hx: Chronic compression fractures L2/L4, chronic back pain, migraines, osteoporosis/vitamin D deficiency, increasing generalized weakness/falls, [place] in 2008/takotsubo in 2011, NIDDM type II, neuropathy hands/feet, LUIS without device, hypothyroid, UTIs, hemorrhoids Last Myocardial Infarction Date:: 2011 History of Any Multi-Drug Resistant Organisms: None Reported Past Surgical History: Cholecystectomy, Heart Catheterization, Heart Catheterization With Stent, Hysterectomy, Joint Replacement, Tubal Ligation Additional Past Surgical History / Comment(s): PCI with stent in 2008 and 2009, cardiac caths, subtotal thyroidectomy d/t nodules, L reversed shoulder arthro plasty d/t fracture, colonoscopy. Past Anesthesia/Blood Transfusion Reactions: No Reported Reaction Date of Last Stent Placement:: 2009 Past Psychological History: Anxiety, Depression Smoking Status: Former smoker Past Alcohol Use History: None Reported Past Drug Use History: None Reported - Past Family History Mother History Unknown: Yes Family Medical History: Unable to Obtain Additional Family Medical History / Comment(s): Mother in her 80s. Patient does not know cause. Father Family Medical History: Myocardial Infarction ([place]) Additional Family Medical History / Comment(s): Father in his 80s from a massive myocardial infarction. Brother(s) Family Medical History: Liver Disease, Renal Disease Additional Family Medical History / Comment(s): Patient has 1 brother and 3 sisters. Daughter(s) Additional Family Medical History / Comment(s): Patient has a total of 9 children. 2 at a very young age of 1 year of age, one was hit by a car and one drowned. General Exam Limitations: no limitations General appearance: alert, in no apparent distress Head exam: Present: atraumatic, normocephalic, normal inspection Eye exam: Present: normal appearance, PERRL, EOMI. Absent: scleral icterus, conjunctival injection, periorbital swelling ENT exam: Present: normal exam, normal oropharynx, mucous membranes moist Neck exam: Present: normal inspection, full ROM. Absent: tenderness, meningismus, lymphadenopathy Respiratory exam: Present: normal lung sounds bilaterally. Absent: respiratory distress, wheezes, rales, rhonchi, stridor Cardiovascular Exam: Present: regular rate, normal rhythm, normal heart sounds. Absent: systolic murmur, diastolic murmur, rubs, gallop, clicks Extremities exam: Present: other (Diffuse tenderness of the left leg patient cannot localize tenderness) Back exam: Present: full ROM, tenderness (Lumbar), paraspinal tenderness, vertebral tenderness Neurological exam: Present: alert, oriented X3, CN II-XII intact, motor sensory deficit Skin exam: Present: warm, dry, intact, normal color. Absent: rash Course Vital Signs 11/09/20 06:06 Temperature 98.1 F Pulse Rate 83 Respiratory 16 Rate Blood Pressure 163/94 O2 Sat by Pulse 95 Oximetry Medical Decision Making - Medical Decision Making 70-year-old female presented for mechanical fall. CT of brain and C-spine is unremarkable. X-ray of the tib-fib and femur unremarkable x-ray of the lumbar spine shows normal T12 compression fracture. She has no pain above the site. Patient case discussed with Dr. Yeh she will follow-up in office next week she was offered a TLSO brace patient declines. Patient will be discharged back to adult foster care. Patient provided pain control. Patient's pain currently is very mild, she is neurologically intact. Disposition Clinical Impression: Fall, Thoracic compression fracture Disposition: HOME SELF-CARE Condition: Stable Instructions (If sedation given, give patient instructions): Fall Prevention (ED), Vertebral Compression Fracture (ED) Additional Instructions: Please return to the Emergency Department if symptoms worsen or any other concerns. Is patient prescribed a controlled substance at d/c from ED?: No Referrals: None,Stated [Primary Care Provider] - 1-2 days Alma Jordan, [Doctor of Osteopathic Medicine] - 1-2 days Time of Disposition: 09:02
--- NOTE | 2020-11-09 07:39 | CT ---
EXAMINATION TYPE: CT brain sameerine wo con DATE OF EXAM: 11/09/2020 COMPARISON: 09/05/2019 HISTORY: fall while walking to bathroom CT DLP: 1639 mGycm, Automated exposure control for dose reduction was used. CONTRAST: None CT of the brain is performed utilizing 3 mm thick sections through the posterior fossa and 3 mm thick sections through the remaining calvarium. Study is performed within 24 hours of arrival to the hospital. No abnormal hyperdensity is present to suggest an acute intracranial hemorrhage. No mass lesion is evident. No acute infarcts are evident. Some mild periventricular white matter hypodensity is present, likely on the basis of chronic white matter ischemic changes. This was present previously. Ventricles and sulci are appropriate for the patient age. Paranasal sinuses and mastoid air cells within the [id number] are clear. No acute fractures are ev ident. IMPRESSIONS: 1. . Periventricular white matter ischemic type changes. 2. No acute intracranial process. CT cervical spine. COMPARISON: None CT of the cervical spine is performed in the axial plane at 2 mm thick sections. Reconstructed image s in the coronal, and sagittal plane are reviewed on the computer. No acute fractures are evident. Vertebral body alignment is normal. Disc heights are preserved. Vertebral body heights are preserved. No spinal canal stenosis is evident. Mild facet hypertrophy is present IMPRESSIONS: 1. No acute osseous abnormality cervical spine
--- NOTE | 2020-11-09 08:39 | XR ---
EXAMINATION TYPE: XR lumbosacral spine min 4V DATE OF EXAM: 11/09/2020 COMPARISON: 09/23/2019 HISTORY: Pain from fall TECHNIQUE: Five-view lumbar spine FINDINGS: There 5 lumbar-type vertebral bodies. Pedicles are intact. Compression deformities T12 L2 a nd L4 evident. Lumbar vertebral compression deformities are stable from comparison. The T12 compressi on deformity is an interval finding. No posterior wall displacement is evident. The alignment is norm al. No spondylolytic defects are evident. Mild facet degenerative changes present. Vascular calcifica tion is within the aorta. IMPRESSION: 1. There is an interval T12 compression deformity without posterior wall displacement compared to 2018 examination. This is indeterminate age. 2. Stable compression deformities L2 and L4.
--- NOTE | 2020-11-09 08:40 | XR ---
EXAMINATION TYPE: XR femur LT DATE OF EXAM: 11/09/2020 COMPARISON: None HISTORY: Fall, pain TECHNIQUE: 2 view left femur FINDINGS: Femoral head articulate acetabulum. No acute fracture or dislocation is evident. Some mild degenerative changes at the knee joint space. IMPRESSION: 1. No acute fracture left femur
--- NOTE | 2020-11-09 08:41 | XR ---
EXAMINATION TYPE: XR tibia fibula LT DATE OF EXAM: 11/09/2020 COMPARISON: 11/09/2020 HISTORY: Pain TECHNIQUE: 2 view left tibia and fibula FINDINGS: No acute fractures or dislocations are evident. Joint spaces appear intact. Some degenerati ve changes at the knee. Plantar and Achilles tendon calcaneal heel spurs are present. Soft tissues ar e normal. IMPRESSION: 1. No acute osseous abnormality left tibia and fibula
[2020-11-09] MEDS ORDERED: HYDROcodone/APAP 7.5-325MG 1 EACH TAB PO ONE (09:00)
[2020-11-09] MEDS ORDERED: ACET/COD 300 MG/30 MG STARTER PACK 6 TAB BTL PO STA (09:00)
[2020-11-09 09:36] VITALS: BP 130/92; PULSE 78; RESP 18
== END 2020-11-09 09:49 | disposition home or self-care (01) ==
LOC: EC 06:04
DX: G89.29 Other chronic pain (principal); S22.089A Unspecified fracture of T11-T12 vertebra, initial encounter for closed fracture; I25.10 Atherosclerotic heart disease of native coronary artery without angina pectoris; I25.2 Old myocardial infarction; E78.5 Hyperlipidemia, unspecified; M54.9 Dorsalgia, unspecified; M81.0 Age-related osteoporosis without current pathological fracture; E55.9 Vitamin D deficiency, unspecified; E11.42 Type 2 diabetes mellitus with diabetic polyneuropathy; E03.9 Hypothyroidism, unspecified; F41.9 Anxiety disorder, unspecified; F32.9 Major depressive disorder, single episode, unspecified; Z79.890 Hormone replacement therapy; Z79.899 Other long term (current) drug therapy; Z79.02 Long term (current) use of antithrombotics/antiplatelets; Z95.5 Presence of coronary angioplasty implant and graft; Z87.891 Personal history of nicotine dependence; Z88.5 Allergy status to narcotic agent; Z88.6 Allergy status to analgesic agent; W18.39XA Other fall on same level, initial encounter; Y93.89 Activity, other specified; Y92.009 Unspecified place in unspecified non-institutional (private) residence as the place of occurrence of the external cause
CPT/HCPCS: 72110; 73552; 73590; 72125; 70450; 99284; 96372; J1170

== ENCOUNTER 2021-02-10 07:55 | Emergency (ER) | payer MEDICARE, OTHER ==
[2021-02-10 08:14] VITALS: RESP 18
[2021-02-10] MEDS ORDERED: HYDROmorphone 1 MG/ML 1 ML SYRINGE IM STA (08:32)
--- NOTE | 2021-02-10 08:32 | ED ---
Extremity Problem HPI - General Chief complaint: Extremity Problem,Nontraumatic Stated complaint: leg pain Time Seen by Provider: 02/10/21 08:04 Source: patient, EMS Mode of arrival: EMS Limitations: no limitations - History of Present Illness Initial comments: 70-year-old female with past nuchal history of coronary artery disease, diabetes, chronic back pain who presents to the emergency department with reported left leg pain. Patient states the pain has been going on for the past 2 weeks. Starts in her left buttock and radiates down her thigh. Denies any falls. No numbness or tingling. No issues with her bowel or bladder. Denies any saddle anesthesia. No back pain. Has been taking her normal Tylenol threes for pain without improvement. No fevers or chills. Denies history of drug use. No other alleviating, precipitating or modifying factors - Related Data Home Medications Medication Instructions Recorded Confirmed Clopidogrel [Plavix] 75 mg PO DAILY@0807/09/17 10/20/20 Levothyroxine Sodium [Synthroid] 125 mcg PO DAILY@0707/09/17 10/20/20 Potassium Chloride ER [K-Dur 10] 10 meq PO BID 07/09/17 10/20/20 Venlafaxine HCl [Effexor XR] 150 mg PO DAILY@0807/09/17 10/20/20 lisinopriL 40 mg PO DAILY@0807/09/17 10/20/20 Furosemide [Lasix] 40 mg PO DAILY@0800 09/03/19 10/20/20 Loratadine [Claritin] 10 mg PO HS PRN 09/03/19 10/20/20 Isosorbide Mononitrate ER [Imdur] 30 mg PO DAILY@0809/23/19 10/20/20 ALPRAZolam [Xanax] 0.25 mg PO TID PRN 06/20/20 10/20/20 Acetaminophen with Codeine 1 tab PO TID PRN 06/20/20 10/20/20 [Tylenol w/Codeine #4 Tablet] Baclofen 10 mg PO TID 06/20/20 10/20/20 Famotidine 20 mg PO BID 06/20/20 10/20/20 Gabapentin [Neurontin] 400 mg PO TID 06/20/20 10/20/20 Loperamide [Imodium] 2 mg PO QID 06/20/20 10/20/20 amLODIPine [Norvasc] 5 mg PO DAILY 06/20/20 10/20/20 Ammonium Lactate Cream [Lac-Hydrin 1 applic TOPICAL HS 10/20/20 10/20/20 12% Cream] Hydrocortisone Cream 1 applic TOPICAL DAILY PRN 10/20/20 10/20/20 [Hydrocortisone 2.5% Cream] Nystatin 100,000 Unit/gm Powd 1 applic TOPICAL BID 10/20/20 10/20/20 [Mycostatin Powder] traZODone HCL 150 mg PO HS 10/20/20 10/20/20 Previous Rx's Medication Instructions Recorded Atorvastatin [Lipitor] 10 mg PO HS #30 tab 10/22/20 Metoprolol Tartrate [Lopressor] 100 mg PO BID #60 tab 10/22/20 Nitroglycerin Sl Tabs [Nitrostat] 0.4 mg SUBLINGUAL Q5M PRN #25 tab 10/22/20 HYDROcodone/APAP 7.5-325MG [[place] 1 tab PO Q4HR PRN 3 Days #18 tab 02/10/21 7.5-325] predniSONE [Deltasone] 20 mg PO BID #10 tab 02/10/21 Allergies Allergy/AdvReac Type Severity Reaction Status Date / Time aspirin Allergy Itching Verified 02/10/21 08:13 meperidine [From Demerol] Allergy Unknown Verified 02/10/21 08:13 morphine Allergy Unknown Verified 02/10/21 08:13 Review of Systems ROS Statement: Those systems with pertinent positive or pertinent negative responses have been documented in the HPI. ROS Other: All systems not noted in ROS Statement are negative. Past Medical History Past Medical History: Coronary Artery Disease (CAD), Diabetes Mellitus, Hyperlipidemia, Hypertension, Myocardial Infarction ([place]) Additional Past Medical History / Comment(s): 09/05/19 acute hypoxic respiratory failure/atelectasis/traumatic R side rib fractures (T7 and T8), dizziness, nonobstructive renal calculi, asymptomatic bacturia. Other hx: Chronic compression fractures L2/L4, chronic back pain, migraines, osteoporosis/vitamin D deficiency, increasing generalized weakness/falls, [place] in 2008/takotsubo in 2011, NIDDM type II, neuropathy hands/feet, LUIS without device, hypothyroid, UTIs, hemorrhoids Last Myocardial Infarction Date:: 2011 History of Any Multi-Drug Resistant Organisms: None Reported Past Surgical History: Cholecystectomy, Heart Catheterization, Heart Catheterization With Stent, Hysterectomy, Joint Replacement, Tubal Ligation Additional Past Surgical History / Comment(s): PCI with stent in 2008 and 2009, cardiac caths, subtotal thyroidectomy d/t nodules, L reversed shoulder arthroplasty d/t fracture, colonoscopy. Past Anesthesia/Blood Transfusion Reactions: No Reported Reaction Date of Last Stent Placement:: 2009 Past Psychological History: Anxiety, Depression Smoking Status: Former smoker Past Alcohol Use History: None Reported Past Drug Use History: None Reported - Past Family History Mother History Unknown: Yes Family Medical History: Unable to Obtain Additional Family Medical History / Comment(s): Mother in her 80s. Patient does not know cause. Father Family Medical History: Myocardial Infarction ([place]) Additional Family Medical History / Comment(s): Father in his 80s from a massive myocardial infarction. Brother(s) Family Medical History: Liver Disease, Renal Disease Additional Family Medical History / Comment(s): Patient has 1 brother and 3 sisters. Daughter(s) Additional Family Medical History / Comment(s): Patient has a total of 9 children. 2 at a very young age of 1 year of age, one was hit by a car and one drowned. General Exam Limitations: no limitations Course Vital Signs 02/10/21 02/10/21 08:08 10:21 Temperature 97.6 F 97.8 F Pulse Rate 89 72 Respiratory 18 18 Rate Blood Pressure 152/80 99/52 O2 Sat by Pulse 94 L 94 L Oximetry Medical Decision Making - Medical Decision Making Upon arrival patient was placed into room 15. A thorough history and physical exam was performed. Patient does have 2+ palpable pulses. Good capillary r efill. Intact sensation. Patient does get up and a bili to the bathroom. She was given a dose of Dilaudid IM. X-rays are performed of the patient's right tib-fib and knee. Also performed a venous Doppler study. Results are reviewed and are negative. Patient reports improvement in her pain. She is able to get up and ambulatory to the bathroom. Normally ambulates with a walker. Did recommend switching the patient's Tylenol 3's to [place] and putting the patient on a steroid pack. She does have a history of diabetes and she is instructed she must monitor her sugars closely. Patient is to follow up with orthopedic doctor. Return to the emergency department for any new or worsening symptoms. Patient was discharged home ambulatory in stable condition - Lab Data Lab Results 02/10/21 Range/Units 08:46 Urine Color Light Yellow Urine Appearance Clear (Clear) Urine pH 6.5 (5.0-8.0) Ur Specific Alicia 1.013 (1.001-1.035) Urine Protein Trace H (Negative) Urine Glucose (UA) Negative (Negative) Urine Ketones Negative (Negative) Urine Blood Negative (Negative) Urine Nitrite Negative (Negative) Urine Bilirubin Negative (Negative) Urine Urobilinogen <2.0 (<2.0) mg/dL Ur Leukocyte Esterase Negative (Negative) Disposition Clinical Impression: Left leg pain Disposition: HOME SELF-CARE Condition: Stable Instructions (If sedation given, give patient instructions): Leg Pain (ED) Additional Instructions: You are being switched to [place]. Take as directed and follow up with the orthopedic doctor. STOP taking the Tylenol #4 while taking the [place]. Return to the ED for any new or worsening symptoms. Watch your sugars closely while on the steroids - 4x daily Prescriptions: predniSONE [Deltasone] 20 mg PO BID #10 tab HYDROcodone/APAP 7.5-325MG [[place] 7.5-325] 1 tab PO Q4HR PRN 3 Days #18 tab PRN Reason: Pain Is patient prescribed a controlled substance at d/c from ED?: Yes When asked, does pt state using other controlled substances?: Yes If prescribed controlled substance>3 days was MAPS reviewed?: Prescribed <3 Days If opioid is for acute pain is fill amount 7 days or less?: Yes If Rx opioid, was Start Talking consent form obtained?: Yes Referrals: Keith Leal NPC [Primary Care Provider] - 1-2 days Mo Chauhan MD [STAFF PHYSICIAN] - 1-2 days Time of Disposition: 10:11
[2021-02-10 08:59] LABS: Appearance,Urine Clear (Clear); Bilirubin,Urine Negative (Negative); Blood,Urine Negative (Negative); Color,Urine Light Yellow; Glucose,Urine (UA) Negative (Negative); Ketones,Urine Negative (Negative); Leukocyte Esterase,Urine Negative (Negative); Nitrite,Urine Negative (Negative); PH, Urine 6.5 (5.0-8.0); Protein,Urine Trace (Negative); Specific Gravity,Urine 1.013 (1.001-1.035); Urobilinogen,Urine <2.0 mg/dL (<2.0)
--- NOTE | 2021-02-10 09:04 | XR ---
EXAMINATION TYPE: XR tibia fibula LT DATE OF EXAM: 02/10/2021 COMPARISON: NONE HISTORY: Pain TECHNIQUE: Two views are submitted. FINDINGS: The osseous structures are intact. The joint spaces are preserved. Diffuse osteopenia. Calcaneal sp ur noted chronic appearing deformity involving the proximal fibula stable exam. IMPRESSION: 1. No acute osseous abnormality.
--- NOTE | 2021-02-10 09:05 | XR ---
EXAMINATION TYPE: XR knee complete LT DATE OF EXAM: 02/10/2021 COMPARISON: NONE HISTORY: Pain TECHNIQUE: Three views are submitted. FINDINGS: Joint spaces are preserved. Osseous structures are intact. No acute fracture seen. Mild diffuse os teopenia and hypertrophic spurring involving the patella. IMPRESSION: 1. No acute fracture or dislocation.
--- NOTE | 2021-02-10 09:26 | US ---
EXAMINATION TYPE: US venous doppler duplex LE LT DATE OF EXAM: 02/10/2021 9:21 AM COMPARISON: NONE CLINICAL HISTORY: leg pain, hx dvt. SIDE PERFORMED: Left TECHNIQUE: The lower extremity deep venous system is examined utilizing real time linear array sonog april with graded compression, doppler sonography and color-flow sonography. VESSELS IMAGED: Common Femoral Vein Deep Femoral Vein Greater Saphenous Vein * Femoral Vein Popliteal Vein Small Saphenous Vein * Proximal Calf Veins (* superficial vessels) Left Leg: Negative for DVT IMPRESSION: Grayscale, color doppler, spectral doppler imaging performed of the deep veins of the lo wer extremities. There is normal flow, compressibility, vascular waveforms.
[2021-02-10] MEDS ORDERED: LORazepam 2 MG/ML INJ IV STA (10:07)
[2021-02-10] MEDS ORDERED: LORazepam 2 MG/ML INJ IM STA (10:09)
[2021-02-10] MEDS ORDERED: predniSONE 20 MG TAB PO STA (10:09)
[2021-02-10 10:23] VITALS: BP 99/52; PULSE 72; TEMP 97.8
== END 2021-02-10 10:50 | disposition home or self-care (01) ==
LOC: EC 07:55
DX: M79.605 Pain in left leg (principal); I25.10 Atherosclerotic heart disease of native coronary artery without angina pectoris; E78.5 Hyperlipidemia, unspecified; I10 Essential (primary) hypertension; I21.9 Acute myocardial infarction, unspecified; E11.40 Type 2 diabetes mellitus with diabetic neuropathy, unspecified; G47.33 Obstructive sleep apnea (adult) (pediatric); E03.9 Hypothyroidism, unspecified; Z86.718 Personal history of other venous thrombosis and embolism; Z87.891 Personal history of nicotine dependence; M81.0 Age-related osteoporosis without current pathological fracture
CPT/HCPCS: 81003; 73590; 73562; 93971; 99284; 96372 ×2; J2060; J1170; J7512

== ENCOUNTER 2021-03-09 07:56 | Emergency (ER) | payer MEDICARE, OTHER ==
[2021-03-09] MEDS ORDERED: ACET/COD 300 MG/30 MG STARTER PACK 6 TAB BTL PO STA (08:22)
--- NOTE | 2021-03-09 08:34 | ED ---
Fall HPI - General Stated Complaint: Fall L Leg pain Source: RN notes reviewed, old records reviewed - History of Present Illness Initial Comments: This is a 70-year-old female presents from a extended care facility home. She presents today for concern for fall. She reports she was getting up to go to breakfast and she fell injuring her left leg. She points of pain at the left foot left knee and hip. She ports that pain was too severe for her to continue to walk and had the ECF call a ambulance. Patient reports no head or neck injury. Denies any other complaints. - Related Data Home Medications Medication Instructions Recorded Confirmed Clopidogrel [Plavix] 75 mg PO DAILY@0800 07/09/17 10/20/20 Levothyroxine Sodium [Synthroid] 125 mcg PO DAILY@69907/09/17 10/20/20 Potassium Chloride ER [K-Dur 10] 10 meq PO BID 07/09/17 10/20/20 Venlafaxine HCl [Effexor XR] 150 mg PO DAILY@0807/09/17 10/20/20 lisinopriL 40 mg PO DAILY@0807/09/17 10/20/20 Furosemide [Lasix] 40 mg PO DAILY@0800 09/03/19 10/20/20 Loratadine [Claritin] 10 mg PO HS PRN 09/03/19 10/20/20 Isosorbide Mononitrate ER [Imdur] 30 mg PO DAILY@0800 09/23/19 10/20/20 ALPRAZolam [Xanax] 0.25 mg PO TID PRN 06/20/20 10/20/20 Acetaminophen with Codeine 1 tab PO TID PRN 06/20/20 10/20/20 [Tylenol w/Codeine #4 Tablet] Baclofen 10 mg PO TID 06/20/20 10/20/20 Famotidine 20 mg PO BID 06/20/20 10/20/20 Gabapentin [Neurontin] 400 mg PO TID 06/20/20 10/20/20 Loperamide [Imodium] 2 mg PO QID 06/20/20 10/20/20 amLODIPine [Norvasc] 5 mg PO DAILY 06/20/20 10/20/20 Ammonium Lactate Cream [Lac-Hydrin 1 applic TOPICAL HS 10/20/20 10/20/20 12% Cream] Hydrocortisone Cream 1 applic TOPICAL DAILY PRN 10/20/20 10/20/20 [Hydrocortisone 2.5% Cream] Nystatin 100,000 Unit/gm Powd 1 applic TOPICAL BID 10/20/20 10/20/20 [Mycostatin Powder] traZODone HCL 150 mg PO HS 10/20/20 10/20/20 Previous Rx's Medication Instructions Recorded Atorvastatin [Lipitor] 10 mg PO HS #30 tab 10/22/20 Metoprolol Tartrate [Lopressor] 100 mg PO BID #60 tab 10/22/20 Nitroglycerin Sl Tabs [Nitrostat] 0.4 mg SUBLINGUAL Q5M PRN #25 tab 10/22/20 HYDROcodone/APAP 7.5-325MG [[place] 1 tab PO Q4HR PRN 3 Days #18 tab 02/10/21 7.5-325] predniSONE [Deltasone] 20 mg PO BID #10 tab 02/10/21 Allergies Allergy/AdvReac Type Severity Reaction Status Date / Time aspirin Allergy Itching Verified 03/09/21 08:03 meperidine [From Demerol] Allergy Unknown Verified 03/09/21 08:03 morphine Allergy Unknown Verified 03/09/21 08:03 Review of Systems ROS Statement: Those systems with pertinent positive or pertinent negative responses have been documented in the HPI. ROS Other: All systems not noted in ROS Statement are negative. Past Medical History Past Medical History: Coronary Artery Disease (CAD), Diabetes Mellitus, Hyperlipidemia, Hypertension, Myocardial Infarction ([place]) Additional Past Medical History / Comment(s): 09/05/19 acute hypoxic respiratory failure/atelectasis/traumatic R side rib fractures (T7 and T8), dizziness, nonobstructive renal calculi, asymptomatic bacturia. Other hx: Chronic compression fractures L2/L4, chronic back pain, migraines, osteoporosis/vitamin D deficiency, increasing generalized weakness/falls, [place] in 2008/[place] in 2011, NIDDM type II, neuropathy hands/feet, LUIS without device, hypothyroid, UTIs, hemorrhoids Last Myocardial Infarction Date:: 2011 History of Any Multi-Drug Resistant Organisms: None Reported Past Surgical History: Cholecystectomy, Heart Catheterization, Heart Catheteriza tion With Stent, Hysterectomy, Joint Replacement, Tubal Ligation Additional Past Surgical History / Comment(s): PCI with stent in 2008 and 2009, cardiac caths, subtotal thyroidectomy d/t nodules, L reversed shoulder arthroplasty d/t fracture, colonoscopy. Past Anesthesia/Blood Transfusion Reactions: No Reported Reaction Date of Last Stent Placement:: 2009 Past Psychological History: Anxiety, Depression Smoking Status: Former smoker Past Alcohol Use History: None Reported Past Drug Use History: None Reported - Past Family History Mother History Unknown: Yes Family Medical History: Unable to Obtain Additional Family Medical History / Comment(s): Mother in her 80s. Patient does not know cause. Father Family Medical History: Myocardial Infarction ([place]) Additional Family Medical History / Comment(s): Father in his 80s from a massive myocardial infarction. Brother(s) Family Medical History: Liver Disease, Renal Disease Additional Family Medical History / Comment(s): Patient has 1 brother and 3 sisters. Daughter(s) Additional Family Medical History / Comment(s): Patient has a total of 9 children. 2 at a very young age of 1 year of age, one was hit by a car and one drowned. General Exam - General Exam Comments Initial Comments: 62-year-old female. No acute distress General appearance: alert, in no apparent distress Head exam: Present: atraumatic, normocephalic, normal inspection Eye exam: Present: normal appearance, PERRL, EOMI. Absent: scleral icterus, conjunctival injection, periorbital swelling ENT exam: Present: normal exam, mucous membranes moist Neck exam: Present: normal inspection. Absent: tenderness, meningismus, lymphadenopathy Respiratory exam: Present: normal lung sounds bilaterally. Absent: respiratory distress, wheezes, rales, rhonchi, stridor Cardiovascular Exam: Present: regular rate, normal rhythm, normal heart sounds. Absent: systolic murmur, diastolic murmur, rubs, gallop, clicks GI/Abdominal exam: Present: soft, normal bowel sounds. Absent: distended, tenderness, guarding, rebound, rigid Extremities exam: Present: normal inspection, full ROM, normal capillary refill. Absent: tenderness, pedal edema, joint swelling, calf tenderness Left Upper Leg exam: Present: normal inspection, full ROM Knee exam: Present: normal inspection, full ROM Lower Leg exam: Present: normal inspection, full ROM Ankle exam: Present: normal inspection, full ROM Foot/Toe exam: Present: swelling (medial malleolus, no bruising. ) Neurovascular tendon exam: Present: no vascular compromise Gait: observed and normal Back exam: Present: normal inspection Neurological exam: Present: alert, oriented X3, CN II-XII intact Course Vital Signs 03/09/21 08:03 Temperature 97.6 F Pulse Rate 96 Respiratory 16 Rate Blood Pressure 133/68 O2 Sat by Pulse 92 L Oximetry Medical Decision Making - Medical Decision Making 70 year old ashia presents for left leg and ankle pain after slipping out of bed at [facility] home. She is able to ambulate, minimal swelling to left foot and ankle. She is neurovascularly intact in bilateral lower extremities. Xray of foot, tib fib and hip are normal with no fractures. Patient given santi wrap for ankle. Advised to follow up with PCP and ortho. DC back to [facility] facility. - Radiology Data Radiology results: report reviewed L foot xray: Normal, no fracture. L Tib fib: Normal, no fracture L hip and AP pelvis: Mild degenerative changes, no fracture. Disposition Clinical Impression: Fall, Ankle sprain Disposition: HOME SELF-CARE Condition: Good Instructions (If sedation given, give patient instructions): Fall Prevention (ED) Additional Instructions: Patient advised to have the Santi wrap to help with swelling. Patient can follow- up with orthopedic or primary care doctor. Patient should return to emergency department if any alarming signs or symptoms occur. Is patient prescribed a controlled substance at d/c from ED?: No Referrals: Keith Leal NPC [REFERRING] - 1-2 days Time of Disposition: 10:08
[2021-03-09 08:36] VITALS: BP 133/68; PULSE 96; RESP 16; TEMP 97.6
--- NOTE | 2021-03-09 09:06 | XR ---
EXAMINATION TYPE: XR tibia fibula LT DATE OF EXAM: 03/09/2021 COMPARISON: None HISTORY: Fall, pain TECHNIQUE: 2 view left tibia and fibula FINDINGS: No acute fracture or dislocation is evident. Joint spaces are preserved. Soft tissues appea r normal. Follow-up can be performed 7-10 days from acute trauma for continued pain. IMPRESSION: 1. Normal left tibia and fibula.
--- NOTE | 2021-03-09 09:08 | XR ---
EXAMINATION TYPE: XR Hip LT and AP Pelvis DATE OF EXAM: 03/09/2021 COMPARISON: None HISTORY: Fall, pain TECHNIQUE: AP pelvis 2 view left hip FINDINGS: Sacroiliac joints and symphysis pubis are normal. The hip articulates with the with the acetabulum. No acute fractures or dislocations are evident. Left hip is examined in 2 projections. No acute fractures are evident. Mild joint space narrowing may be present. IMPRESSION: 1. Mild degenerative changes. 2. No acute osseous abnormality left hip.
--- NOTE | 2021-03-09 09:09 | XR ---
EXAMINATION TYPE: XR foot complete LT DATE OF EXAM: 03/09/2021 COMPARISON: None HISTORY: Fall, pain TECHNIQUE: Three-view left foot FINDINGS: Plantar and Achilles tendon calcaneal heel spurs are present. Joint spaces appear preserved . No acute fractures are evident. Alignment is unremarkable. Follow up exams can be performed 7-10 days from acute trauma for continued pain. IMPRESSION: 1. Three-view left foot
== END 2021-03-09 11:39 | disposition home or self-care (01) ==
LOC: EC 07:56
DX: S93.402A Sprain of unspecified ligament of left ankle, initial encounter (principal); I10 Essential (primary) hypertension; I25.10 Atherosclerotic heart disease of native coronary artery without angina pectoris; I25.2 Old myocardial infarction; E11.9 Type 2 diabetes mellitus without complications; E78.5 Hyperlipidemia, unspecified; F41.9 Anxiety disorder, unspecified; F32.9 Major depressive disorder, single episode, unspecified; W19.XXXA Unspecified fall, initial encounter
CPT/HCPCS: 73502; 99283

== ENCOUNTER 2021-09-23 13:02 | Inpatient (IN) | payer MEDICARE, OTHER ==
[2021-09-23] MEDS ORDERED: NALOXONE 0.4 MG/ML 1 ML VIAL IV STA (13:36)
--- NOTE | 2021-09-23 13:56 | ED ---
General Adult HPI - General Source: patient, EMS, RN notes reviewed, old records reviewed Mode of arrival: EMS Limitations: no limitations <Ryan Diaz - Last Filed: 09/23/21 14:50> <Ray Olivera - Last Filed: 09/23/21 22:19> - General Chief complaint: Weakness Stated complaint: Lethargic Time Seen by Provider: 09/23/21 13:28 - History of Present Illness Initial comments: 71-year-old female presenting from assisted living facility with chief complaint of "I'm tired". Patient was sent over, there is a note from staff dictating that the patient has been more lethargic and there was concern for stroke. There was no reported focal numbness or weakness. No headache. Patient is on multiple sedating medications according to the vehicle record which accompanies the patient. Patient herself has no specific complaint. History is limited and the patient requires stimulation to answer any question. (Ryan Diaz) Patient is a 71-year-old female who presents from an [facility] home. Patient was initially evaluated by a different attending physician. Workup was started. Patient has been more lethargic the facility. Patient just feels tired. No focal deficits at this time or reported at the outside facility. The only complaint that the patient conveys is some abdominal discomfort but she refuses to go into it further. She denies any nausea or vomiting. Denies diarrhea. She is easily arousable to voice at this time. She seems sleepy and lethargic at this time. (Ray Olivera) - Related Data Home Medications Medication Instructions Recorded Confirmed Clopidogrel [Plavix] 75 mg PO DAILY@0700 07/09/17 09/23/21 Levothyroxine Sodium [Synthroid] 125 mcg PO DAILY@0630 07/09/17 09/23/21 Potassium Chloride ER [K-Dur 10] 10 meq PO BID@0700,2200 07/09/17 09/23/21 Venlafaxine HCl [Effexor XR] 150 mg PO DAILY@0700 07/09/17 09/23/21 Isosorbide Mononitrate ER [Imdur] 30 mg PO DAILY@0700 09/23/19 09/23/21 ALPRAZolam [Xanax] 0.25 mg PO TID PRN 06/20/20 09/23/21 Baclofen 10 mg PO BID@0700,199906/20/20 09/23/21 Famotidine 20 mg PO BID@0700,199906/20/20 09/23/21 Gabapentin [Neurontin] 400 mg PO TID@0700,1599,199906/20/20 09/23/21 Loperamide [Imodium] 2 mg PO QID PRN 06/20/20 09/23/21 Ammonium Lactate Cream [Lac-Hydrin 1 applic TOPICAL DAILY PRN 10/20/20 09/23/21 12% Cream] Hydrocortisone Cream 1 applic TOPICAL BID PRN 10/20/20 09/23/21 [Hydrocortisone 2.5% Cream] Nystatin 100,000 Unit/gm Powd 1 applic TOPICAL BID PRN 10/20/20 09/23/21 [Mycostatin Powder] traZODone HCL 150 mg PO HS@22010/20/20 09/23/21 Cholecalciferol (Vitamin D3) 125 mcg PO DAILY@0700 09/23/21 09/23/21 [Vitamin D3 (125 MCG = 5,000 IU)] HYDROcodone/APAP 7.5-325MG [[place] 1 tab PO TID@0700,1600,219909/23/21 09/23/21 7.5-325] Meclizine [Antivert] 25 mg PO DAILY PRN 09/23/21 09/23/21 Metoprolol Tartrate [Lopressor] 100 mg PO BID@0700,1600 09/23/21 09/23/21 Simvastatin [Zocor] 20 mg PO HS@219909/23/21 09/23/21 Triamcinolone 0.1% Cream [Kenalog 1 applicatio TOPICAL BID PRN 09/23/21 09/23/21 0.1% Cream] amLODIPine [Norvasc] 10 mg PO DAILY@0700 09/23/21 09/23/21 sitaGLIPtin PHOS/metFORMIN HCL 1 tab PO DAILY@0700 09/23/21 09/23/21 [Janumet 50-500 mg Tablet] Previous Rx's Medication Instructions Recorded Nitroglycerin Sl Tabs [Nitrostat] 0.4 mg SUBLINGUAL Q5M PRN #25 tab 10/22/20 Allergies Allergy/AdvReac Type Severity Reaction Status Date / Time aspirin Allergy Itching Verified 09/23/21 13:52 meperidine [From Demerol] Allergy Unknown Verified 09/23/21 13:52 morphine Allergy Unknown Verified 09/23/21 13:52 Review of Systems ROS Other: All systems not noted in ROS Statement are negative. <CharlottemcRyan Elijah - Last Filed: 09/23/21 14:50> ROS Other: All systems not noted in ROS Statement are negative. <Ray Olivera - Last Filed: 09/23/21 22:19> ROS Statement: Those systems with pertinent positive or pertinent negative responses have been documented in the HPI. Review of Systems: CONST: Denies fever EYES: Denies blurry vision ENT: Denies nasal congestion C/V: Denies Chest pain RESP: Denies shortness of breath GI: Endorses abdominal pain : Denies dysuria SKIN: Denies rash. MSK: Denies joint pain. NEURO: Denies headache (Ray Olivera) Past Medical History Past Medical History: Coronary Artery Disease (CAD), Diabetes Mellitus, Hyperl ipidemia, Hypertension, Myocardial Infarction (LA) Additional Past Medical History / Comment(s): 09/05/19 acute hypoxic respiratory failure/atelectasis/traumatic R side rib fractures (T7 and T8), dizziness, nonobstructive renal calculi, asymptomatic bacturia. Other hx: Chronic compression fractures L2/L4, chronic back pain, migraines, osteoporosis/vitamin D deficiency, increasing generalized weakness/falls, LA in 2008/t[place]ub[place] in 2011, NIDDM type II, neuropathy hands/feet, LUIS without device, hypothyroid, UTIs, hemorrhoids Last Myocardial Infarction Date:: 2011 History of Any Multi-Drug Resistant Organisms: None Reported Past Surgical History: Cholecystectomy, Heart Catheterization, Heart Catheterization With Stent, Hysterectomy, Joint Replacement, Tubal Ligation Additional Past Surgical History / Comment(s): PCI with stent in 2008 and 2009, cardiac caths, subtotal thyroidectomy d/t nodules, L reversed shoulder arthroplasty d/t fracture, colonoscopy. Past Anesthesia/Blood Transfusion Reactions: No Reported Reaction Date of Last Stent Placement:: 2009 Past Psychological History: Anxiety, Depression Smoking Status: Former smoker Past Alcohol Use History: None Reported Past Drug Use History: None Reported - Past Family History Mother History Unknown: Yes Family Medical History: Unable to Obtain Additional Family Medical History / Comment(s): Mother in her 80s. Patient does not know cause. Father Family Medical History: Myocardial Infarction (LA) Additional Family Medical History / Comment(s): Father in his 80s from a massive myocardial infarction. Brother(s) Family Medical History: Liver Disease, Renal Disease Additional Family Medical History / Comment(s): Patient has 1 brother and 3 sisters. Daughter(s) Additional Family Medical History / Comment(s): Patient has a total of 9 children. 2 at a very young age of 1 year of age, one was hit by a car and one drowned. <Ryan Diaz Elijah - Last Filed: 09/23/21 14:50> General Exam Limitations: no limitations General appearance: in no apparent distress, lethargic Head exam: Present: atraumatic, normocephalic Eye exam: Present: normal appearance, PERRL ENT exam: Present: mucous membranes dry Neck exam: Present: normal inspection. Absent: tenderness, meningismus Respiratory exam: Present: normal lung sounds bilaterally. Absent: respiratory distress, wheezes Cardiovascular Exam: Present: regular rate, normal rhythm GI/Abdominal exam: Present: soft. Absent: distended, tenderness, guarding Extremities exam: Present: normal inspection, normal capillary refill. Absent: pedal edema Neurological exam: Present: alert. Absent: motor sensory deficit Psychiatric exam: Present: flat affect Skin exam: Present: warm, dry, intact <LissettebekaRyan Elijah - Last Filed: 09/23/21 14:50> <Ray Olivera - Last Filed: 09/23/21 22:19> - General Exam Comments Initial Comments: General: Patient is obese and sleepy but easily arousable. HEAD: Normal with no signs of head trauma. EYES: PERRLA, EOMI, conjunctiva normal, no discharge. Pupils are 3 mm and equal bilaterally. ENT: Hearing grossly intact, normal oropharynx. RESPIRATORY: Clear breath sounds bilaterally. No wheezes, rales, or rhonchi. C/V: Regular rate and rhythm. S1 and S2 auscultated, no edema, peripheral pulses 2+ and intact throughout ABD: Patient is obese. Abdomen is soft, nondistended, nontender to palpation. EXT: Normal range of motion, no obvious deformity SKIN: No rashes or lesions observed on exposed skin. NEURO: Alert and oriented 2-3. Somewhat tired but easily arousable by voice. No obvious neurological deficits him including no weakness or sensory deficits elicited. NIH appears to be 0. (Ray Olivera) Course <Ryan Diaz - Last Filed: 09/23/21 14:50> Vital Signs 09/23/21 09/23/21 09/23/21 13:11 13:58 14:15 Temperature 97.0 F L Pulse Rate 69 64 Pulse Rate [ Pulse Oximetery ] Respiratory 18 12 12 Rate Blood Pressure 122/64 114/62 Blood Pressure [Right Arm] O2 Sat by Pulse 95 96 Oximetry 09/23/21 09/23/21 09/23/21 14:45 15:45 16:00 Temperature Pulse Rate 61 71 77 Pulse Rate [ Pulse Oximetery ] Respiratory 18 16 18 Rate Blood Pressure 93/54 123/70 123/70 Blood Pressure [Right Arm] O2 Sat by Pulse 95 95 96 Oximetry 09/23/21 09/23/21 09/23/21 17:00 18:00 19:00 Temperature Pulse Rate 86 74 78 Pulse Rate [ Pulse Oximetery ] Respiratory 16 18 16 Rate Blood Pressure 130/78 119/68 140/81 Blood Pressure [Right Arm] O2 Sat by Pulse 95 95 95 Oximetry 09/23/21 20:30 Temperature 97.6 F Pulse Rate Pulse Rate [ 78 Pulse Oximetery ] Respiratory 16 Rate Blood Pressure Blood Pressure 148/87 [Right Arm] O2 Sat by Pulse 95 Oximetry - Reevaluation(s) Reevaluation #1: 09/23/21 1500 Patient care signed out to Dr. Olivera (Ryan Diaz) EKG Findings - EKG Comments: EKG Findings:: Normal sinus rhythm, left anterior fascicular block, similar compared to prior EKGs, rate of 68, MD interval 192, QRS duration 92, QTC 444, no ST segment elevation. <Ryan Diaz - Last Filed: 09/23/21 14:50> Medical Decision Making - Lab Data Result diagrams: 09/23/21 13:54 09/23/21 13:54 <Ryan Diaz - Last Filed: 09/23/21 14:50> - Lab Data Result diagrams: 09/23/21 13:54 10/26/21 13:54 - EKG Data -: EKG Interpreted by Me <Ray Olivera - Last Filed: 09/23/21 22:19> - Medical Decision Making Based on the patient's presentation and physical exam, altered mental status workup was ordered by the prior emergency department physician. I added on blood cultures, lactic acid, as well as a CT abdomen and pelvis as that is her only complaint at this time. Narcan was attempted by the previous physician with minimal improvement in symptoms. She seems to be improving at this time upon my evaluation and is easily arousable by voice. She was in agreement with the plan for the workup. Patient's laboratory studies were remarkable for a chronically elevated CO2 of 33, pCO2 is minimally elevated 65. Urinalysis is unremarkable. UDS is positive for opiates as well as TCAs. Has no anion gap. Troponin is negative. BNP is negative. Head CT shows no acute intracranial process. There is chronic atrophy. Chest x-ray reveals interstitial edema. CT abdomen and pelvis revealed chronic findings, including improving atelectasis and infiltrates in the lung bases, and improving pleural effusion, nonobstructing renal calculi, and multiple lumbar compression fractures without significant change. Lactic acid is pending at this time as are blood cultures. On reevaluation come patient remains somewhat sleepy but easily arousable. I do believe it is best to admit him to the hospital. She'll be admitted for altered mental status. I spoke with neurology, Dr. Mccann over the phone who accepted the consultation. I spoke with the admitting physician, Dr. Canada, who accepted the patient. Patient was admitted to a telemetry bed and serous condition. (Ray Olivera) - Lab Data Lab Results 09/23/21 09/23/21 09/23/21 Range/Units 13:54 13:54 13:54 WBC 8.7 (3.8-10.6) k/uL RBC 4.82 (3.80-5.40) m/uL Hgb 14.1 (11.4-16.0) gm/dL Hct 43.3 (34.0-46.0) % MCV 89.9 (80.0-100.0) fL MCH 29.2 (25.0-35.0) pg MCHC 32.5 (31.0-37.0) g/dL RDW 12.7 (11.5-15.5) % Plt Count 210 (150-450) k/uL MPV 9.0 Neutrophils % 64 % Lymphocytes % 21 % Monocytes % 9 % Eosinophils % 4 % Basophils % 1 % Neutrophils # 5.5 (1.3-7.7) k/uL Lymphocytes # 1.8 (1.0-4.8) k/uL Monocytes # 0.8 (0-1.0) k/uL Eosinophils # 0.3 (0-0.7) k/uL Basophils # 0.1 (0-0.2) k/uL PT 11.2 (9.0-12.0) sec INR 1.1 (<1.2) APTT 23.1 (22.0-30.0) sec VBG pH (7.31-7.41) VBG pCO2 (37-51) mmHg VBG HCO3 (24-28) mmol/L Sodium (137-145) mmol/L Potassium (3.5-5.1) mmol/L Chloride (98-107) mmol/L Carbon Dioxide (22-30) mmol/L Anion Gap mmol/L BUN (7-17) mg/dL Creatinine (0.52-1.04) mg/dL Est GFR (CKD-EPI)AfAm (>60 ml/min/1.73 sqM) Est GFR (CKD-EPI)NonAf (>60 ml/min/1.73 sqM) Glucose (74-99) mg/dL Calcium (8.4-10.2) mg/dL Total Bilirubin (0.2-1.3) mg/dL AST (14-36) U/L ALT (4-34) U/L Alkaline Phosphatase (38-126) U/L Troponin I (0.000-0.034) ng/mL NT-Pro-B Natriuret Pep pg/mL Total Protein (6.3-8.2) g/dL Albumin (3.5-5.0) g/dL TSH (0.465-4.680) mIU/L Urine Color Yellow Urine Appearance Clear (Clear) Urine pH 5.5 (5.0-8.0) Ur Specific [place] 1.020 (1.001-1.035) Urine Protein Trace H (Negative) Urine Glucose (UA) Negative (Negative) Urine Ketones Negative (Negative) Urine Blood Negative (Negative) Urine Nitrite Negative (Negative) Urine Bilirubin Negative (Negative) Urine Urobilinogen <2.0 (<2.0) mg/dL Ur Leukocyte Esterase Negative (Negative) Urine Opiates Screen Detected H (NotDetected) Ur Oxycodone Screen Not Detected (NotDetected) Urine Methadone Screen Not Detected (NotDetected) Ur Propoxyphene Screen Not Detected (NotDetected) Ur Barbiturates Screen Not Detected (NotDetected) U Tricyclic Antidepress Detected H (NotDetected) Ur Phencyclidine Scrn Not Detected (NotDetected) Ur Amphetamines Screen Not Detected (NotDetected) U Methamphetamines Scrn Not Detected (NotDetected) U Benzodiazepines Scrn Not Detected (NotDetected) Urine Cocaine Screen Not Detected (NotDetected) U Marijuana (THC) Screen Not Detected (NotDetected) Serum Alcohol mg/dL 09/23/21 09/23/21 09/23/21 Range/Units 13:54 13:54 15:35 WBC (3.8-10.6) k/uL RBC (3.80-5.40) m/uL Hgb (11.4-16.0) gm/dL Hct (34.0-46.0) % MCV (80.0-100.0) fL MCH (25.0-35.0) pg MCHC (31.0-37.0) g/dL RDW (11.5-15.5) % Plt Count (150-450) k/uL MPV Neutrophils % % Lymphocytes % % Monocytes % % Eosinophils % % Basophils % % Neutrophils # (1.3-7.7) k/uL Lymphocytes # (1.0-4.8) k/uL Monocytes # (0-1.0) k/uL Eosinophils # (0-0.7) k/uL Basophils # (0-0.2) k/uL PT (9.0-12.0) sec INR (<1.2) APTT (22.0-30.0) sec VBG pH 7.30 L (7.31-7.41) VBG pCO2 65 H (37-51) mmHg VBG HCO3 31 H (24-28) mmol/L Sodium 142 (137-145) mmol/L Potassium 4.2 (3.5-5.1) mmol/L Chloride 104 (98-107) mmol/L Carbon Dioxide 33 H (22-30) mmol/L Anion Gap 5 mmol/L BUN 18 H (7-17) mg/dL Creatinine 0.63 (0.52-1.04) mg/dL Est GFR (CKD-EPI)AfAm >90 (>60 ml/min/1.73 sqM) Est GFR (CKD-EPI)NonAf >90 (>60 ml/min/1.73 sqM) Glucose 126 H (74-99) mg/dL Calcium 8.9 (8.4-10.2) mg/dL Total Bilirubin 0.4 (0.2-1.3) mg/dL AST 22 (14-36) U/L ALT 17 (4-34) U/L Alkaline Phosphatase 72 (38-126) U/L Troponin I <0.012 (0.000-0.034) ng/mL NT-Pro-B Natriuret Pep pg/mL Total Protein 7.2 (6.3-8.2) g/dL Albumin 3.8 (3.5-5.0) g/dL TSH (0.465-4.680) mIU/L Urine Color Urine Appearance (Clear) Urine pH (5.0-8.0) Ur Specific [place] (1.001-1.035) Urine Protein (Negative) Urine Glucose (UA) (Negative) Urine Ketones (Negative) Urine Blood (Negative) Urine Nitrite (Negative) Urine Bilirubin (Negative) Urine Urobilinogen (<2.0) mg/dL Ur Leukocyte Esterase (Negative) Urine Opiates Screen (NotDetected) Ur Oxycodone Screen (NotDetected) Urine Methadone Screen (NotDetected) Ur Propoxyphene Screen (NotDetected) Ur Barbiturates Screen (NotDetected) U Tricyclic Antidepress (NotDetected) Ur Phencyclidine Scrn (NotDetected) Ur Amphetamines Screen (NotDetected) U Methamphetamines Scrn (NotDetected) U Benzodiazepines Scrn (NotDetected) Urine Cocaine Screen (NotDetected) U Marijuana (THC) Screen (NotDetected) Serum Alcohol <10 mg/dL 09/23/21 09/23/21 Range/Units 15:35 15:35 WBC (3.8-10.6) k/uL RBC (3.80-5.40) m/uL Hgb (11.4-16.0) gm/dL Hct (34.0-46.0) % MCV (80.0-100.0) fL MCH (25.0-35.0) pg MCHC (31.0-37.0) g/dL RDW (11.5-15.5) % Plt Count (150-450) k/uL MPV Neutrophils % % Lymphocytes % % Monocytes % % Eosinophils % % Basophils % % Neutrophils # (1.3-7.7) k/uL Lymphocytes # (1.0-4.8) k/uL Monocytes # (0-1.0) k/uL Eosinophils # (0-0.7) k/uL Basophils # (0-0.2) k/uL PT (9.0-12.0) sec INR (<1.2) APTT (22.0-30.0) sec VBG pH (7.31-7.41) VBG pCO2 (37-51) mmHg VBG HCO3 (24-28) mmol/L Sodium (137-145) mmol/L Potassium (3.5-5.1) mmol/L Chloride (98-107) mmol/L Carbon Dioxide (22-30) mmol/L Anion Gap mmol/L BUN (7-17) mg/dL Creatinine (0.52-1.04) mg/dL Est GFR (CKD-EPI)AfAm (>60 ml/min/1.73 sqM) Est GFR (CKD-EPI)NonAf (>60 ml/min/1.73 sqM) Glucose (74-99) mg/dL Calcium (8.4-10.2) mg/dL Total Bilirubin (0.2-1.3) mg/dL AST (14-36) U/L ALT (4-34) U/L Alkaline Phosphatase (38-126) U/L Troponin I (0.000-0.034) ng/mL NT-Pro-B Natriuret Pep 232 pg/mL Total Protein (6.3-8.2) g/dL Albumin (3.5-5.0) g/dL TSH 0.954 (0.465-4.680) mIU/L Urine Color Urine Appearance (Clear) Urine pH (5.0-8.0) Ur Specific [place] (1.001-1.035) Urine Protein (Negative) Urine Glucose (UA) (Negative) Urine Ketones (Negative) Urine Blood (Negative) Urine Nitrite (Negative) Urine Bilirubin (Negative) Urine Urobilinogen (<2.0) mg/dL Ur Leukocyte Esterase (Negative) Urine Opiates Screen (NotDetected) Ur Oxycodone Screen (NotDetected) Urine Methadone Screen (NotDetected) Ur Propoxyphene Screen (NotDetected) Ur Barbiturates Screen (NotDetected) U Tricyclic Antidepress (NotDetected) Ur Phencyclidine Scrn (NotDetected) Ur Amphetamines Screen (NotDetected) U Methamphetamines Scrn (NotDetected) U Benzodiazepines Scrn (NotDetected) Urine Cocaine Screen (NotDetected) U Marijuana (THC) Screen (NotDetected) Serum Alcohol mg/dL - EKG Data EKG Comments: 12-lead Electrocardiogram Interpretation Note EKG was reviewed and interpreted by myself. 12-lead ECG performed at 1345 is interpreted by me as revealing normal sinus rhythm at a rate of 65 beats per minute. Left axis deviation. MD interval is 184 ms, QRS duration is 94 ms, QTc is 461 ms.. Patient has T-wave inversions in lead III, aVF, V5 and V6. These are chronic.. Percussion across the precordium was delayed.. By my interpretation this EKG is non-diagnostic for acute ischemia. (Ray Olivera) Disposition <Ryan Diaz - Last Filed: 09/23/21 14:50> <Ray Olivera - Last Filed: 09/23/21 22:19> Clinical Impression: AMS (altered mental status), Chronic respiratory acidosis Disposition: ADMITTED IP TO THIS HOSP Condition: Serious
[2021-09-23 14:18] LABS: Basophils # (A) 0.1 k/uL (0-0.2); Basophils % (A) 1 %; Eosinophils # (A) 0.3 k/uL (0-0.7); Eosinophils % (A) 4 %; HCT 43.3 % (34.0-46.0); HGB 14.1 gm/dL (11.4-16.0); Lymphocytes # (A) 1.8 k/uL (1.0-4.8); Lymphocytes % (A) 21 %; MCH 29.2 pg (25.0-35.0); MCHC 32.5 g/dL (31.0-37.0); MCV 89.9 fL (80.0-100.0); Monocytes # (A) 0.8 k/uL (0-1.0); Monocytes % (A) 9 %; Neutrophils # (A) 5.5 k/uL (1.3-7.7); Neutrophils % (A) 64 %; Platelet Count 210 k/uL (150-450); RBC 4.82 m/uL (3.80-5.40); RDW 12.7 % (11.5-15.5); VBG PH 7.3 (7.31-7.41); WBC 8.7 k/uL (3.8-10.6)
[2021-09-23 14:29] LABS: ALT 17 U/L (4-34); AST 22 U/L (14-36); African American GFR (CKD) >90 (>60 ml/min/1.73 sqM); Albumin 3.8 g/dL (3.5-5.0); Alcohol <10 mg/dL; Alkaline Phosphatase 72 U/L (38-126); Anion Gap 5 mmol/L; Blood Urea Nitrogen 18 mg/dL (7-17); Calcium 8.9 mg/dL (8.4-10.2); Carbon Dioxide 33 mmol/L (22-30); Chloride 104 mmol/L (98-107); Glucose 126 mg/dL (74-99); Non-African American GFR(CKD) >90 (>60 ml/min/1.73 sqM); Potassium 4.2 mmol/L (3.5-5.1); Sodium 142 mmol/L (137-145); Total Bilirubin 0.4 mg/dL (0.2-1.3); Total Protein 7.2 g/dL (6.3-8.2)
[2021-09-23 14:32] LABS: Appearance,Urine Clear (Clear); Bilirubin,Urine Negative (Negative); Blood,Urine Negative (Negative); Color,Urine Yellow; Glucose,Urine (UA) Negative (Negative); Ketones,Urine Negative (Negative); Leukocyte Esterase,Urine Negative (Negative); Nitrite,Urine Negative (Negative); PH, Urine 5.5 (5.0-8.0); Protein,Urine Trace (Negative); Urobilinogen,Urine <2.0 mg/dL (<2.0)
[2021-09-23 14:37] LABS: INR 1.1 (<1.2); Partial Thromboplastin Time 23.1 sec (22.0-30.0); Prothrombin Time 11.2 sec (9.0-12.0)
--- NOTE | 2021-09-23 14:39 | XR ---
EXAMINATION TYPE: XR chest 1V portable DATE OF EXAM: 09/23/2021 COMPARISON: Chest x-ray 10/20/2020 HISTORY: Altered mental status TECHNIQUE: Single frontal view of the chest is obtained. FINDINGS: The heart remains enlarged. Central vascularity is somewhat prominent, interstitium is mil dly increased. No evident pneumothorax or pleural effusion. There is dense. IMPRESSION: Correlate for possible pulmonary venous hypertension and interstitial edema
[2021-09-23 14:41] LABS: Cocaine Screen,Urine Not Detected (NotDetected); Opiate Screen,Urine Detected (NotDetected); Phencyclidine Screen,Urine Not Detected (NotDetected); Urn Cannabinoid Scrn Not Detected (NotDetected)
[2021-09-23 14:42] LABS: Amphetamine Screen,Urine Not Detected (NotDetected); Barbiturate Screen,Urine Not Detected (NotDetected); Benzodiazepines Screen,Urine Not Detected (NotDetected); Methadone Screen, Urine Not Detected (NotDetected); Oxycodone Screen, Urine Not Detected (NotDetected); Tricyclic Antidepressant,Urine Detected (NotDetected)
--- NOTE | 2021-09-23 15:25 | CT ---
EXAMINATION TYPE: CT brain wo con DATE OF EXAM: 09/23/2021 HISTORY: Altered mental status. CT DLP: 1232.4 mGycm. Automated Exposure Control for Dose Reduction was Utilized. TECHNIQUE: CT scan of the head is performed without contrast. COMPARISON: CT brain November 09, 2020. FINDINGS: There is no acute intracranial hemorrhage or midline shift identified. There is mild to m oderate diffuse ventricular and sulcal prominence consistent with diffuse age-related cerebral atroph y. There is mild to moderate low-attenuation in the periventricular white matter consistent with chr onic small vessel ischemic change. The globes are intact and the visualized sinuses are clear. IMPRESSION: No acute intracranial hemorrhage or midline shift. There is mild to moderate diffuse ce rebral atrophy and chronic small vessel ischemic change redemonstrated. No significant change from pr ior.
--- NOTE | 2021-09-23 17:15 | CT ---
EXAMINATION TYPE: CT abdomen pelvis w con DATE OF EXAM: 09/23/2021 COMPARISON: 09/03/2019 HISTORY: Patient poor historian. CT DLP: 2335.1 mGycm Automated exposure control for dose reduction was used. CONTRAST: Performed with IV Contrast, patient injected with 100 mL of Isovue 300. Images obtained from the diaphragm to the floor the pelvis with IV contrast. There is some patchy atelectasis at the lung bases. There is coronary artery calcification. Heart aleta ears slightly enlarged. There are clips from cholecystectomy. Liver is intact. Spleen is intact. There is no evidence of panc reatic mass. Stomach is intact. Bile ducts are nondilated. There is no adrenal mass. Kidneys show satisfactory contrast opacification. There is no hydronephrosi s. There is 6 mm calculus lower pole right kidney. There is 2 mm calculus lower pole left kidney. Ure ters are not dilated. There is no retroperitoneal adenopathy. Bladder distends smoothly. There is no inguinal hernia. There is no free fluid in the pelvis. There is no mesenteric edema. There is no ascites or free air. There is no bowel obstruction. Appendi x is not seen. There is no sign of thickened appendix. Lumbar vertebra have normal alignment. There is compression deformity of numerous lumbar vertebra inv olving L5 and L4 and L2 and T12 up to 70%. There is some osteopenia. There is biconcave deformity con sistent with osteomalacia. The bony pelvis is intact. The hip joints are intact. IMPRESSION: Interstitial infiltrates and atelectasis at the posterior lung bases similar to old exam. There is pa rtial clearing of a right pleural effusion compared to old exam. Nonobstructing renal calculi. No acute abnormality within the abdomen pelvis. Multiple lumbar compression fractures without significant change.
[2021-09-23] MEDS ORDERED: ONDANSETRON 4 MG/2 ML VIAL IVP PRN (17:39)
[2021-09-23] MEDS ORDERED: AMMONIUM LACTATE 12% CREAM 140 GM TUBE TOPICAL PRN (20:50)
[2021-09-23] MEDS ORDERED: NITROGLYCERIN SL TABS 0.4 MG TAB SUBLINGUAL PRN (20:50)
[2021-09-23] MEDS ORDERED: TRIAMCINOLONE 0.1% CREAM 80 GM TUBE TOPICAL PRN (20:50)
[2021-09-23] MEDS ORDERED: NYSTATIN 100,000 UNIT/GM POWD 15 GM TOPICAL PRN (20:50)
[2021-09-23] MEDS ORDERED: ALPRAZolam 0.25 MG TAB PO PRN (20:50)
[2021-09-23] MEDS ORDERED: HYDROCORTISONE 1% CREAM 30 GM TUBE TOPICAL PRN (20:50)
--- NOTE | 2021-09-23 20:57 | P.HPIM ---
History of Present Illness H&P Date: 09/23/21 Chief Complaint: Tired History of presenting complaint: This is a 71-year-old patient, follows with visiting physicians Dr. Petersen. Chronic stable medical conditions include diabetes, hyperlipidemia, nonobstructive renal calculi, chronic compression fracture of L2 L4, chronic back pain, osteoporosis, diabetes type 2 with peripheral neuropathy, hypothyroid hemorrhoids. Patient has a prior history of coronary artery disease with stent in 2008, 2009. Subtotal thyroidectomy. Patient lives at [facility]. Has a public guardian. Patient is brought to the ER by EMS. They were told that patient been complaining of feeling lethargic for last 2 days. No pain no trauma. No shor tness of breath. Patient thinks she may have had a fever earlier. No short of breath no cough no urinary symptoms. Patient has chronic low back pain. Normally has a bowel movement every 3-4 days. Review of systems: GEN.: Tired EYES: None HEENT: None NECK: None RESPIRATORY: None CARDIOVASCULAR: As above] GASTROINTESTINAL: None GENITOURINARY: None MUSCULOSKELETAL: Joint pains, chronic low back pain LYMPHATICS: None HEMATOLOGICAL: None PSYCHIATRY: None NEUROLOGICAL: Uses a walker Past medical history to include: Renal calculi, chronic compression fracture L2 L4, osteoporosis, diabetes type 2 with peripheral neuropathy, obstructive sleep apnea without device, hypothyroid, coronary artery disease with stent in 1999 [id number], anxiety depression Social history: Lives at [facility]. Uses a walker. Did smoke in the past. Physical examination: VITAL SIGNS: Afebrile, 78, 16, 140/81, 95% room air GENERAL: BMI 45.9, laying in bed, lethargic but able to answer questions EYES: Pupils equal. Conjunctiva normal. HEENT: External appearance of nose and ears normal, oral cavity dry mucous membranes NECK: JVD not raised; masses not palpable. HEART: First and second heart sounds are normal; no edema. LUNGS: Respiratory rate normal; clear to auscultation. ABDOMEN: Soft, nontender, liver spleen not palpable, no masses palpable. PSYCH: Able to answer simple questions MUSCULAR skeletal: Evidence of some OA. NEUROLOGICAL: Cranial nerves grossly intact; no facial asymmetry, power and sensation grossly intact. LYMPHATICS: No lymph nodes palpable in the axilla and neck INVESTIGATIONS, reviewed in the clinical context: WBC 8.7 hemoglobin 14.1 platelets 210 sodium 142 potassium 4.2 BUN 18 creatinine 0.63 UA positive for protein trace Urine drug screen positive for opiates, tricyclic antidepressants Coronavirus [PCR]: Not detected Troponin I less than 0.012. ProBNP 232 TSH 0.954 EKG tracing personally reviewed by me-normal sinus rhythm. Nonspecific T-wave changes.. Computed tomography scan of the abdomen pelvis. Interstitial infiltrates and posterior lung bases. Chronic. Nonobstructing renal calculi. Multiple lumbar compression fractures. Chest x-ray film personally reviewed by me-portable. Underpenetrated. Cannot rule out infiltrate Assessment and plan: -Patient has been feeling weak diet and on for last 2 days. Decreased appetite. Has a dry mucous membrane. Elevated BUN. Clinically dehydrated IV fluids -Coronary artery disease with a prior stent in 2008 Imdur ER 30 mg daily Lopressor 100 mg twice a day Zocor 20 mg daily at bedtime Norvasc 10 mg daily -Morbid obesity BMI 45.9 Weight loss measures -Diabetes mellitus type 2, on oral hypoglycemic Follow Accu-Cheks. janumet -Hyperlipidemia Zocor -Essential hypertension- Lopressor 100 mg twice a day. Hold off amlodipine for now -Chronic compression fracture L2-L4 Mamta pad. Resume baclofen at 5 mg 3 times a day. -Chronic gait dysfunction uses a walker Fall precautions -Diabetic peripheral neuropathy -Obstructive sleep apnea does not use a device Follow FiO2 -Hypothyroid Levothyroxine 125 g daily. -Anxiety depression not otherwise specified Effexor XL 150 mg daily, trazodone 150 mg by mouth every daily at bedtime IV fluids. Hold off Norvasc. Other medications to continue. Change baclofen to 5 mg 3 times a day. No obvious evidence of any infection. Past Medical History Past Medical History: Coronary Artery Disease (CAD), Diabetes Mellitus, Hyperlipidemia, Hypertension, Myocardial Infarction ([place]) Additional Past Medical History / Comment(s): 09/05/19 acute hypoxic respiratory failure/atelectasis/traumatic R side rib fractures (T7 and T8), dizziness, nonobstructive renal calculi, asymptomatic bacturia. Other hx: Chronic compression fractures L2/L4, chronic back pain, migraines, osteoporosis/vitamin D deficiency, increasing generalized weakness/falls, [place] in 2008/takotsubo in 2011, NIDDM type II, neuropathy hands/feet, LUIS without device, hypothyroid, UTIs, hemorrhoids Last Myocardial Infarction Date:: 2011 History of Any Multi-Drug Resistant Organisms: None Reported Past Surgical History: Cholecystectomy, Heart Catheterization, Heart Catheterization With Stent, Hysterectomy, Joint Replacement, Tubal Ligation Additional Past Surgical History / Comment(s): PCI with stent in 2008 and 2009, cardiac caths, subtotal thyroidectomy d/t nodules, L reversed shoulder arthroplasty d/t fracture, colonoscopy. Past Anesthesia/Blood Transfusion Reactions: No Reported Reaction Date of Last Stent Placement:: 2009 Past Psychological History: Anxiety, Depression Smoking Status: Former smoker Past Alcohol Use History: None Reported Past Drug Use History: None Reported - Past Family History Mother History Unknown: Yes Family Medical History: Unable to Obtain Additional Family Medical History / Comment(s): Mother in her 80s. Patient does not know cause. Father Family Medical History: Myocardial Infarction ([place]) Additional Family Medical History / Comment(s): Father in his 80s from a massive myocardial infarction. Brother(s) Family Medical History: Liver Disease, Renal Disease Additional Family Medical History / Comment(s): Patient has 1 brother and 3 sisters. Daughter(s) Additional Family Medical History / Comment(s): Patient has a total of 9 children. 2 at a very young age of 1 year of age, one was hit by a car and one drowned. Medications and Allergies Home Medications Medication Instructions Recorded Confirmed Type Clopidogrel [Plavix] 75 mg PO DAILY@0700 07/09/17 09/23/21 History Levothyroxine Sodium [Synthroid] 125 mcg PO DAILY@0630 07/09/17 09/23/21 History Potassium Chloride ER [K-Dur 10] 10 meq PO BID@0700,2200 07/09/17 09/23/21 History Venlafaxine HCl [Effexor XR] 150 mg PO DAILY@0700 07/09/17 09/23/21 History Isosorbide Mononitrate ER [Imdur] 30 mg PO DAILY@0700 09/23/19 09/23/21 History ALPRAZolam [Xanax] 0.25 mg PO TID PRN 06/20/20 09/23/21 History Baclofen 10 mg PO BID@0700,199906/20/20 09/23/21 History Famotidine 20 mg PO BID@0700,199906/20/20 09/23/21 History Gabapentin [Neurontin] 400 mg PO TID@0700,1599,199906/20/20 09/23/21 History Loperamide [Imodium] 2 mg PO QID PRN 06/20/20 09/23/21 History Ammonium Lactate Cream [Lac-Hydrin 1 applic TOPICAL DAILY PRN 10/20/20 09/23/21 History 12% Cream] Hydrocortisone Cream 1 applic TOPICAL BID PRN 10/20/20 09/23/21 History [Hydrocortisone 2.5% Cream] Nystatin 100,000 Unit/gm Powd 1 applic TOPICAL BID PRN 10/20/20 09/23/21 History [Mycostatin Powder] traZODone HCL 150 mg PO HS@219910/20/20 09/23/21 History Nitroglycerin Sl Tabs [Nitrostat] 0.4 mg SUBLINGUAL Q5M PRN #25 tab 10/22/20 09/23/21 Rx Cholecalciferol (Vitamin D3) 125 mcg PO DAILY@0700 09/23/21 09/23/21 History [Vitamin D3 (125 MCG = 5,000 IU)] HYDROcodone/APAP 7.5-325MG [Broadway 1 tab PO TID@0700,1600,219909/23/21 09/23/21 History 7.5-325] Meclizine [Antivert] 25 mg PO DAILY PRN 09/23/21 09/23/21 History Metoprolol Tartrate [Lopressor] 100 mg PO BID@0700,1600 09/23/21 09/23/21 History Simvastatin [Zocor] 20 mg PO HS@2200 09/23/21 09/23/21 History Triamcinolone 0.1% Cream [Kenalog 1 applicatio TOPICAL BID PRN 09/23/21 09/23/21 History 0.1% Cream] amLODIPine [Norvasc] 10 mg PO DAILY@0700 09/23/21 09/23/21 History sitaGLIPtin PHOS/metFORMIN HCL 1 tab PO DAILY@0700 09/23/21 09/23/21 History [Janumet 50-500 mg Tablet] Allergies Allergy/AdvReac Type Severity Reaction Status Date / Time aspirin Allergy Itching Verified 09/23/21 13:52 meperidine [From Demerol] Allergy Unknown Verified 09/23/21 13:52 morphine Allergy Unknown Verified 09/23/21 13:52 Physical Exam Vitals: Vital Signs Temp Pulse Resp BP Pulse Ox 09/23/21 19:00 78 16 140/81 95 09/23/21 18:00 74 18 119/68 95 09/23/21 17:00 86 16 130/78 95 09/23/21 16:00 77 18 123/70 96 09/23/21 15:45 71 16 123/70 95 09/23/21 14:45 61 18 93/54 95 09/23/21 14:15 64 12 114/62 96 09/23/21 13:58 12 09/23/21 13:11 97.0 F L 69 18 122/64 95 Intake and Output 09/23/21 09/23/21 09/23/21 06:59 14:59 22:59 Other: Weight 106.594 kg Results CBC & Chem 7: 09/23/21 13:54 09/23/21 13:54 Labs: Abnormal Lab Results - Last 24 Hours (Table) 09/23/21 09/23/21 09/23/21 Range/Units 13:54 13:54 13:54 VBG pH 7.30 L (7.31-7.41) VBG pCO2 65 H (37-51) mmHg VBG HCO3 31 H (24-28) mmol/L Carbon Dioxide 33 H (22-30) mmol/L BUN 18 H (7-17) mg/dL Glucose 126 H (74-99) mg/dL Urine Protein Trace H (Negative) Urine Opiates Screen Detected H (NotDetected) U Tricyclic Antidepress Detected H (NotDetected)
[2021-09-23] MEDS ORDERED: traZODone HCL 50 MG TAB PO SCH (22:00)
[2021-09-23 23:05] LABS: Glucose,Whole Blood 106 mg/dL (75-99)
[2021-09-23] MEDS: INSULIN ASPART (NovoLOG) 100 UNIT/ML VIAL SQ SCH (23:06)
[2021-09-23] MEDS: BACLOFEN 10 MG TAB PO SCH (23:11)
[2021-09-23] MEDS: ENOXAPARIN 40 MG/0.4 ML SYRINGE SQ SCH (23:12)
[2021-09-23] MEDS: POTASSIUM CHLORIDE ER 10 MEQ TAB.ER.PRT PO SCH (23:12)
[2021-09-23] MEDS: ATORVASTATIN 10 MG TAB PO SCH (23:12)
[2021-09-23] MEDS: SODIUM CHLORIDE 0.9% 1,000 ML IV SCH (23:12)
[2021-09-24] MEDS: SODIUM CHLORIDE 0.9% 1,000 ML IV SCH ×3 (05:38→20:53)
[2021-09-24 05:40] LABS: Glucose,Whole Blood 128 mg/dL (75-99)
[2021-09-24] MEDS: LEVOTHYROXINE 125 MCG TAB PO SCH (05:40)
[2021-09-24 07:24] LABS: Glucose,Whole Blood 134 mg/dL (75-99)
[2021-09-24] MEDS: CHOLECALCIFEROL 25 MCG (1000 IU) TABLET PO SCH (08:48)
[2021-09-24] MEDS: ENOXAPARIN 40 MG/0.4 ML SYRINGE SQ SCH (08:48)
[2021-09-24] MEDS: FAMOTIDINE 20 MG TAB PO SCH ×2 (08:48→20:53)
[2021-09-24] MEDS: metFORMIN 500 MG TAB PO SCH (08:49)
[2021-09-24] MEDS: VENLAFAXINE HCL ER 150 MG CAP PO SCH (08:49)
[2021-09-24] MEDS: BACLOFEN 10 MG TAB PO SCH ×3 (08:49→22:09)
[2021-09-24] MEDS: POTASSIUM CHLORIDE ER 10 MEQ TAB.ER.PRT PO SCH ×2 (08:49→22:09)
[2021-09-24] MEDS: GABAPENTIN 400 MG CAP PO SCH ×3 (08:50→20:53)
[2021-09-24] MEDS: METOPROLOL TARTRATE 50 MG TAB PO SCH ×2 (08:50→16:38)
[2021-09-24] MEDS: CLOPIDOGREL 75 MG TAB PO SCH (08:50)
[2021-09-24] MEDS: ISOSORBIDE MONONITRATE ER 30 MG TAB.ER.24H PO SCH (08:50)
[2021-09-24] MEDS: LINAGLIPTIN 5 MG TABLET PO SCH (08:50)
[2021-09-24] MEDS: INSULIN ASPART (NovoLOG) 100 UNIT/ML VIAL SQ SCH ×4 (08:51→20:53)
--- NOTE | 2021-09-24 10:16 | P.CNNES ---
History of Present Illness Consult date: 09/24/21 Requesting physician: Ray Olivera Reason for Consult: altered mental status History of Present Illness: This is a 71-year-old woman with medical history of diabetes, hypertension, hyperlipidemia, neuropathy, myocardial infarction with stents, chronic lower back pain who presented to the emergency department from [facility] home on 09/23/2021 for complaint of "I am tired". Patient is a poor historian. She stated that s he is having generalized weakness and can not tell me for how long This has been going on for. She is also having abdominal pain. She denies any focal weakness. Denies any new numbness or difficulty getting her words out. She denies of any new headaches. She has chronic lower back pain and said it's getting worse in the last 3 days. She denies any radiation to the lower back pain. She states that the she is been constipated recently. Otherwise denies any focal weakness lower extremity. He just feels more lethargic and tired. Patient is on multiple sedating medication. And Narcan was given in the ED since that was felt that that she had the also the mentation and she was more arousable. Patient was complaining more of abdominal pain. Today the patient had a bowel movement but continues to have abdominal pain. Patient is on multiple home medication: Baclofen 10 mg 1 tablet twice a day, Xanax 0.25 mg a tablet 3 times a day when necessary, trazodone 250 mg daily at bedtime, amlodipine, Effexor 150 mg daily, Zocor 20 mg daily at bedtime, metoprolol, Antivert, Synthroid, Cucumber 7.5/325 one tablet 3 times a day, gabapentin 400 mg one tablet at 3 times a day, M.D., Plavix, vitamin D3, ammonium lactate cream, Sitaglipti. Some of the workup in the hospital consisted of: Initial vital signs his blood pressure of 122/64, heart rate is 69, respiratory rate 18, temperature of 97.0 Fahrenheit oral and pulse ox of 95% of the on 2 L of nasal cannula. So far the patient has been afebrile in our facility. CBC with differential is unremarkable. Chemistry panel is sodium is 142, creatnine 0.63, glucose is 126, calcium is 8.9, AST of 22, ALT of 17, TSH is 0.954. Calcium is 8.9. Urinalysis is negative for urinary tract infection. Urine drug screen is positive for tricyclic and antidepressant as well as opiates. Serum alcohol is < 10. Lopez virus PCR was not detected. Venous blood gas is that the pH is 7.3, pCO2 of 65 and a car based 31. Plasma lactic acid is 1.8. CT of the head is reported as no acute intracranial hemorrhage or midline shift. There is mild to moderate diffuse cerebral atrophy and chronic small vessel changes redemonstrated. No significant change from prior. I personally reviewed the CT of the head and there is no acute or subacute ischemia that is evident and there is no intraparenchymal hemorrhage. EKG is reported as normal sinus rhythm. Left anterior fascicular block. Nonspecific T wave abnormality. Abnormal EKG. CT abdomen pelvis is reported as instructed infiltrates and atelectasis in the posture along the base similar to old exam. Patient has a partial clearing of the right pleural effusion compared to old exam. No acute abnormality within the at the abdomen pelvis that is reported the patient has multiple lumbar compression fraction without significant change. Review of Systems Review of system: The 12 point system was reviewed and apparent positive and negative per HPI. Past Medical History Past Medical History: Coronary Artery Disease (CAD), Diabetes Mellitus, Hyperlipidemia, Hypertension, Myocardial Infarction ([place]) Additional Past Medical History / Comment(s): 09/05/19 acute hypoxic respiratory failure/atelectasis/traumatic R side rib fractures (T7 and T8), dizziness, nonobstructive renal calculi, asymptomatic bacturia. Other hx: Chronic compression fractures L2/L4, chronic back pain, migraines, osteoporosis/vitamin D deficiency, increasing generalized weakness/falls, [place] in 2009/takotsubo in 2 012, NIDDM type II, neuropathy hands/feet, LUIS without device, hypothyroid, UTIs, hemorrhoids Last Myocardial Infarction Date:: 2011 History of Any Multi-Drug Resistant Organisms: None Reported Past Surgical History: Cholecystectomy, Heart Catheterization, Heart Catheterization With Stent, Hysterectomy, Joint Replacement, Tubal Ligation Additional Past Surgical History / Comment(s): PCI with stent in 2008 and 2009, cardiac caths, subtotal thyroidectomy d/t nodules, L reversed shoulder arthroplasty d/t fracture, colonoscopy. Past Anesthesia/Blood Transfusion Reactions: No Reported Reaction Date of Last Stent Placement:: 2010 Past Psychological History: Anxiety, Depression Smoking Status: Former smoker Past Alcohol Use History: None Reported Past Drug Use History: None Reported - Past Family History Mother History Unknown: Yes Family Medical History: Unable to Obtain Additional Family Medical History / Comment(s): Mother in her 80s. Patient does not know cause. Father Family Medical History: Myocardial Infarction ([place]) Additional Family Medical History / Comment(s): Father in his 80s from a massive myocardial infarction. Brother(s) Family Medical History: Liver Disease, Renal Disease Additional Family Medical History / Comment(s): Patient has 1 brother and 3 sisters. Daughter(s) Additional Family Medical History / Comment(s): Patient has a total of 9 children. 2 at a very young age of 1 year of age, one was hit by a car and one drowned. Medications and Allergies Home Medications Medication Instructions Recorded Confirmed Type Clopidogrel [Plavix] 75 mg PO DAILY@0700 07/09/17 09/23/21 History Levothyroxine Sodium [Synthroid] 125 mcg PO DAILY@0630 07/09/17 09/23/21 History Potassium Chloride ER [K-Dur 10] 10 meq PO BID@0700,2200 07/09/17 09/23/21 History Venlafaxine HCl [Effexor XR] 150 mg PO DAILY@0700 07/09/17 09/23/21 History Isosorbide Mononitrate ER [Imdur] 30 mg PO DAILY@0700 09/23/19 09/23/21 History ALPRAZolam [Xanax] 0.25 mg PO TID PRN 06/20/20 09/23/21 History Baclofen 10 mg PO BID@07,199906/20/20 09/23/21 History Famotidine 20 mg PO BID@0700,199906/20/20 09/23/21 History Gabapentin [Neurontin] 400 mg PO TID@0700,1599,199906/20/20 09/23/21 History Loperamide [Imodium] 2 mg PO QID PRN 06/20/20 09/23/21 History Ammonium Lactate Cream [Lac-Hydrin 1 applic TOPICAL DAILY PRN 10/20/20 09/23/21 History 12% Cream] Hydrocortisone Cream 1 applic TOPICAL BID PRN 10/20/20 09/23/21 History [Hydrocortisone 2.5% Cream] Nystatin 100,000 Unit/gm Powd 1 applic TOPICAL BID PRN 10/20/20 09/23/21 History [Mycostatin Powder] traZODone HCL 150 mg PO HS@2200 10/20/20 09/23/21 History Nitroglycerin Sl Tabs [Nitrostat] 0.4 mg SUBLINGUAL Q5M PRN #25 tab 10/22/20 09/23/21 Rx Cholecalciferol (Vitamin D3) 125 mcg PO DAILY@0700 09/23/21 09/23/21 History [Vitamin D3 (125 MCG = 5,000 IU)] HYDROcodone/APAP 7.5-325MG [Cucumber 1 tab PO TID@0700,1600,2200 09/23/21 09/23/21 History 7.5-325] Meclizine [Antivert] 25 mg PO DAILY PRN 09/23/21 09/23/21 History Metoprolol Tartrate [Lopressor] 100 mg PO BID@0700,1600 09/23/21 09/23/21 History Simvastatin [Zocor] 20 mg PO HS@2200 09/23/21 09/23/21 History Triamcinolone 0.1% Cream [Kenalog 1 applicatio TOPICAL BID PRN 09/23/21 09/23/21 History 0.1% Cream] amLODIPine [Norvasc] 10 mg PO DAILY@0700 09/23/21 09/23/21 History sitaGLIPtin PHOS/metFORMIN HCL 1 tab PO DAILY@0700 09/23/21 09/23/21 History [Janumet 50-500 mg Tablet] Allergies Allergy/AdvReac Type Severity Reaction Status Date / Time aspirin Allergy Itching Verified 09/23/21 13:52 meperidine [From Demerol] Allergy Unknown Verified 09/23/21 13:52 morphine Allergy Unknown Verified 09/23/21 13:52 Physical Examination - Vital Signs Vital Signs: Vital Signs Temp Pulse Pulse Resp BP BP Pulse Ox 09/24/21 07:00 97.6 F 56 L 17 154/85 93 L 09/24/21 02:05 97.6 F 83 16 151/82 95 09/24/21 01:32 16 09/23/21 20:30 97.6 F 78 16 148/87 95 09/23/21 19:00 78 16 140/81 95 09/23/21 18:00 74 18 119/68 95 09/23/21 17:00 86 16 130/78 95 09/23/21 16:00 77 18 123/70 96 09/23/21 15:45 71 16 123/70 95 09/23/21 14:45 61 18 93/54 95 09/23/21 14:15 64 12 114/62 96 09/23/21 13:58 12 09/23/21 13:11 97.0 F L 69 18 122/64 95 Intake and Output 09/23/21 09/24/21 09/24/21 22:59 06:59 14:59 Other: # Voids 1 5 Weight 106.594 kg GENERAL: The patient is lying in bed and is in mild to moderate acute distress. CHEST: The heart rate is regular rate rhythm. No murmurs to auscultation. LUNG: Clear to auscultation bilaterally no wheezing noted throughout. Not labored breathing. ABDOMEN/GI: Bowel sounds present in all 4 quadrants. Has distended abdomen. Positive tenderness to palpation throughout. NEUROLOGICAL: Higher mental function: The patient is slightly drowsy, awakeable to voice. Is oriented to self and place. Initially she stated it was 2001 but on repeat she correctly stated the year. She correctly stated the month. Patient is following simple commands. No aphasia and no neglect. Cranial nerves: The pupils are round, equal and reactive to light and accommodation. Visual nguyen are full to confrontation throughout. Extraocular movement is intact no nystagmus is noted. Facial sensation is normal to touch throughout. The facial strength is normal throughout. Hearing is moderately decreased bilaterally to hand rub. Tongue is midline and moved [id number] without any difficulty. No dysarthria is noted. Shoulder shrug is normal bilaterally. Motor: Gait is deferred because of her pain. 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 The right lower extremity is 5/5 while left is 4+ but limited because of pain. Normal tone and bulk. Cerebellum: Normal finger to nose bilaterally. Sensation: Sensation is normal to touch throughout. Reflexes (right/left): Could not assess left patellar because of pain. 2+ throughout except ankles are 1+ bilaterally. Plantars are mute bilaterally. Results - Laboratory Findings CBC and BMP: 09/24/21 06:40 09/24/21 06:40 Abnormal Lab Findings: Abnormal Labs 09/23/21 09/23/21 09/23/21 13:54 13:54 13:54 VBG pH 7.30 L VBG pCO2 65 H VBG HCO3 31 H Carbon Dioxide 33 H BUN 18 H Glucose 126 H POC Glucose (mg/dL) Urine Protein Trace H Urine Opiates Screen Detected H U Tricyclic Antidepress Detected H 09/23/21 09/24/21 09/24/21 23:03 05:38 07:21 VBG pH VBG pCO2 VBG HCO3 Carbon Dioxide BUN Glucose POC Glucose (mg/dL) 106 H 128 H 134 H Urine Protein Urine Opiates Screen U Tricyclic Antidepress Assessment and Plan Assessment: Generalized weakness and lethargy seems due to polypharamc (some of medications are sedative), abdominal pain. Altered metal status seems due to toxic encephalopathy Chronic lower back pain but feels worse in the past few days and has compression fracture on CT abd/pelvis Polypharmacy Abdominal pain Urine drug screen is positive for opiates and tricyclic History of hypertension History of hyperlipidemia Diabetes History of diabetic neuropathy History of CAD s/p stent Hypothyroidism Plan: Recommend for the patient to avoid as much as possible and NSAID/opiates and any sedating medication. Continue neuro checks I ordered vitamin B12, folate level. I ordered a hemoglobin A1c. Ordered routine EEG. I will not start the patient on antiepileptic drug unless there is epileptiform discharges or seizure on the EEG. Ordered CT lumbar and consulted Orthopedic team for her compression fracture of lumbar and her history of low back pain. Consulted physical therapy and occupational therapy. Will Defer the rest of the medical management to the primary team. The plan is discussed with the patient's nurse. Thank you for the consultation. Harshal Mccann M.D. Neuro-hospitalist Time with Patient: Greater than 30
[2021-09-24 11:14] LABS: Basophils # (A) 0.06 X 10*3/uL (0.00-0.10); Basophils % (A) 0.6 %; Eosinophils # (A) 0.45 X 10*3/uL (0.04-0.35); Eosinophils % (A) 4.8 %; HCT 46.2 % (37.2-46.3); HGB 14.4 g/dL (12.0-15.0); Lymphocytes # (A) 1.47 X 10*3/uL (0.90-5.00); Lymphocytes % (A) 15.7 %; MCH 28.3 pg (27.0-32.0); MCHC 31.2 g/dL (32.0-37.0); MCV 90.8 fL (80.0-97.0); Mean Platelet Volume 11.7 fL (9.5-12.2); Monocytes # (A) 1.12 X 10*3/uL (0.20-1.00); Monocytes % (A) 11.9 %; Neutrophils # (A) 6.24 X 10*3/uL (1.80-7.70); Neutrophils % (A) 66.6 %; Platelet Count 209 X 10*3/uL (140-440); RBC 5.09 X 10*6/uL (4.10-5.20); RDW 12.5 % (11.5-14.5); WBC 9.38 X 10*3/uL (4.50-10.00)
--- NOTE | 2021-09-24 11:43 | P.CNOR ---
History of Present Illness - [facility] Consult date: 09/24/21 Requesting physician: Reji Canada Consult reason: back pain (chronic back pain; vertebral compression fractures) History of present illness: Patient was seen at bedside this morning lying semirecumbent in bed. 71-year-old female presenting the hospital from assisted care facility with chief complaint of weakness/lethargy. Orthopedics has been consult for chronic back pain and vertebral compression fractures at multiple levels in the spine. Patient says she shas had back pain for many years. Patient says she normally can ambulate around using walker to help get around. Patient denies any recent falls/trauma to her back. Patient says most the pain in her back is located in lower back in the midline region. Patient denies any radiation of pain down her legs. Patient denies any previous back surgeries. Patient has a history of left shoulder arthroplasty in 2018. Patient denies chest pain, fever, shortness breath, nausea, vomiting, change in vision, loss of bowel/bladder control. Past Medical History Past Medical History: Coronary Artery Disease (CAD), Diabetes Mellitus, Hyperlipidemia, Hypertension, Myocardial Infarction (WA) Additional Past Medical History / Comment(s): 09/05/19 acute hypoxic respiratory failure/atelectasis/traumatic R side rib fractures (T7 and T8), dizziness, nonobstructive renal calculi, asymptomatic bacturia. Other hx: Chronic compression fractures L2/L4, chronic back pain, migraines, osteoporosis/vitamin D deficiency, increasing generalized weakness/falls, [place] in 2008/takotsubo in 2011, NIDDM type II, neuropathy hands/feet, LUIS without device, hypothyroid, UTIs, hemorrhoids Last Myocardial Infarction Date:: 2011 History of Any Multi-Drug Resistant Organisms: None Reported Past Surgical History: Cholecystectomy, Heart Catheterization, Heart Catheterization With Stent, Hysterectomy, Joint Replacement, Tubal Ligation Additional Past Surgical History / Comment(s): PCI with stent in 2008 and 2009, cardiac caths, subtotal thyroidectomy d/t nodules, L reversed shoulder arthroplasty d/t fracture, colonoscopy. Past Anesthesia/Blood Transfusion Reactions: No Reported Reaction Date of Last Stent Placement:: 2009 Past Psychological History: Anxiety, Depression Smoking Status: Former smoker Past Alcohol Use History: None Reported Past Drug Use History: None Reported - Past Family History Mother History Unknown: Yes Family Medical History: Unable to Obtain Additional Family Medical History / Comment(s): Mother in her 80s. Patient does not know cause. Father Family Medical History: Myocardial Infarction ([place]) Additional Family Medical History / Comment(s): Father in his 80s from a massive myocardial infarction. Brother(s) Family Medical History: Liver Disease, Renal Disease Additional Family Medical History / Comment(s): Patient has 1 brother and 3 sisters. Daughter(s) Additional Family Medical History / Comment(s): Patient has a total of 9 chil dren. 2 at a very young age of 1 year of age, one was hit by a car and one drowned. Medications and Allergies Home Medications Medication Instructions Recorded Confirmed Type Clopidogrel [Plavix] 75 mg PO DAILY@0700 07/09/17 09/23/21 History Levothyroxine Sodium [Synthroid] 125 mcg PO DAILY@0630 07/09/17 09/23/21 History Potassium Chloride ER [K-Dur 10] 10 meq PO BID@0700,2200 07/09/17 09/23/21 History Venlafaxine HCl [Effexor XR] 150 mg PO DAILY@0700 07/09/17 09/23/21 History Isosorbide Mononitrate ER [Imdur] 30 mg PO DAILY@0700 09/23/19 09/23/21 History ALPRAZolam [Xanax] 0.25 mg PO TID PRN 06/20/20 09/23/21 History Baclofen 10 mg PO BID@0700,199906/20/20 09/23/21 History Famotidine 20 mg PO BID@07,199906/20/20 09/23/21 History Gabapentin [Neurontin] 400 mg PO TID@0700,1599,199906/20/20 09/23/21 History Loperamide [Imodium] 2 mg PO QID PRN 06/20/20 09/23/21 History Ammonium Lactate Cream [Lac-Hydrin 1 applic TOPICAL DAILY PRN 10/20/20 09/23/21 History 12% Cream] Hydrocortisone Cream 1 applic TOPICAL BID PRN 10/20/20 09/23/21 History [Hydrocortisone 2.5% Cream] Nystatin 100,000 Unit/gm Powd 1 applic TOPICAL BID PRN 10/20/20 09/23/21 History [Mycostatin Powder] traZODone HCL 150 mg PO HS@2200 10/20/20 09/23/21 History Nitroglycerin Sl Tabs [Nitrostat] 0.4 mg SUBLINGUAL Q5M PRN #25 tab 10/22/20 09/23/21 Rx Cholecalciferol (Vitamin D3) 125 mcg PO DAILY@0700 09/23/21 09/23/21 History [Vitamin D3 (125 MCG = 5,000 IU)] HYDROcodone/APAP 7.5-325MG [[place] 1 tab PO TID@0700,1600,2200 09/23/21 09/23/21 History 7.5-325] Meclizine [Antivert] 25 mg PO DAILY PRN 09/23/21 09/23/21 History Metoprolol Tartrate [Lopressor] 100 mg PO BID@0700,1600 09/23/21 09/23/21 Hi story Simvastatin [Zocor] 20 mg PO HS@2200 09/23/21 09/23/21 History Triamcinolone 0.1% Cream [Kenalog 1 applicatio TOPICAL BID PRN 09/23/21 09/23/21 History 0.1% Cream] amLODIPine [Norvasc] 10 mg PO DAILY@0700 09/23/21 09/23/21 History sitaGLIPtin PHOS/metFORMIN HCL 1 tab PO DAILY@0700 09/23/21 09/23/21 History [Janumet 50-500 mg Tablet] Allergies Allergy/AdvReac Type Severity Reaction Status Date / Time aspirin Allergy Itching Verified 09/23/21 13:52 meperidine [From Demerol] Allergy Unknown Verified 09/23/21 13:52 morphine Allergy Unknown Verified 09/23/21 13:52 Physical Examination Inspection: Negative for any open fractures, ecchymosis, erythema, nodules Palpation: Mild TTP throughout the midline lumbar spine. Nontender to palpation throughout rest of exam Sensation: Sensation is equal, symmetric, bilaterally intact throughout Range of motion: Patient has full range of motion bilateral lower extremities and plantar/dorsiflexion ankles, knee flexion/extension and hip flexion/extension. Patient's full range of motion right upper extremity and elbow flexion/extension and shoulder abduction, forward elevation and external and internal rotation. Left upper extremity full range of motion in elbow extension/flexion. Limited range of motion left shoulder and forward elevation and abduction. Motor: 5/5 in all major motor groups bilateral upper and lower extremities Special tests: Negative Debbie's bilaterally; negative Homans bilaterally; negative clonus bilaterally Neurovascular status: Radial pulses intact, bilaterally 2+. Cap refill under 3 seconds bilaterally in upper extremities Results - Labs Labs: Abnormal Lab Results - Last 24 Hours (Table) 09/23/21 09/23/21 09/23/21 Range/Units 13:54 13:54 13:54 MCHC (32.0-37.0) g/dL Monocytes # (0.20-1.00) X 10*3/uL Eosinophils # (0.04-0.35) X 10*3/uL VBG pH 7.30 L (7.31-7.41) VBG pCO2 65 H (37-51) mmHg VBG HCO3 31 H (24-28) mmol/L Carbon Dioxide 33 H (22-30) mmol/L BUN 18 H (7-17) mg/dL Glucose 126 H (74-99) mg/dL POC Glucose (mg/dL) (75-99) mg/dL Urine Protein Trace H (Negative) Urine Opiates Screen Detected H (NotDetected) U Tricyclic Antidepress Detected H (NotDetected) 09/23/21 09/24/21 09/24/21 Range/Units 23:03 05:38 06:40 MCHC 31.2 L (32.0-37.0) g/dL Monocytes # 1.12 H (0.20-1.00) X 10*3/uL Eosinophils # 0.45 H (0.04-0.35) X 10*3/uL VBG pH (7.31-7.41) VBG pCO2 (37-51) mmHg VBG HCO3 (24-28) mmol/L Carbon Dioxide (22-30) mmol/L BUN (7-17) mg/dL Glucose (74-99) mg/dL POC Glucose (mg/dL) 106 H 128 H (75-99) mg/dL Urine Protein (Negative) Urine Opiates Screen (NotDetected) U Tricyclic Antidepress (NotDetected) 09/24/21 Range/Units 07:21 MCHC (32.0-37.0) g/dL Monocytes # (0.20-1.00) X 10*3/uL Eosinophils # (0.04-0.35) X 10*3/uL VBG pH (7.31-7.41) VBG pCO2 (37-51) mmHg VBG HCO3 (24-28) mmol/L Carbon Dioxide (22-30) mmol/L BUN (7-17) mg/dL Glucose (74-99) mg/dL POC Glucose (mg/dL) 134 H (75-99) mg/dL Urine Protein (Negative) Urine Opiates Screen (NotDetected) U Tricyclic Antidepress (NotDetected) H & H 09/23/21 09/24/21 Range/Units 13:54 06:40 Hgb 14.1 14.4 (11.4-16.0) gm/dL Hct 43.3 46.2 (34.0-46.0) % Coagulation 09/23/21 Range/Units 13:54 INR 1.1 (<1.2) Result Diagrams: 09/24/21 06:40 09/23/21 13:54 Assessment and Plan Assessment: 1. Chronic back pain 2. Vertebral compression fractures at T12, L2, L4, L5 3. Osteopenia Plan: 1. Chronic back pain; vertebral compression fractures at T12, L2, L4, L5 - CT abdomen/pelvis revealed compression fractures at multiple levels. The fractures appear to be chronic on imaging. Further imaging may be needed on lumbar spine for more complete evaluation. I will discuss results with my attending, Dr. Layo patterson. We do not recommend any emergent orthopedic surgical intervention at this time. Plan to treat back pain conservatively at this time with pain medication and potential LSO bracing. We will continue follow patient in hospital. Recommend follow-up in outpatient setting for further evaluation 2. Appreciate medical management 3. Appreciate consult 4. Pain management - gabapentin; baclofen 5. DVT prophylaxis - Lovenox; Plavix 6. GI prophylaxis - pepcid 7. PT/OT - weightbearing as tolerated with walker for assistance Time with Patient: Less than 30
[2021-09-24 11:45] LABS: African American GFR (CKD) 107.8 (60.0-200.0); Albumin 4.1 g/dL (3.8-4.9); Albumin/Globulin Ratio 1.28 (1.60-3.17); Anion Gap 13.8 mmol/L (4.00-12.00); BUN/Creat Ratio 17.5 Ratio (12.00-20.00); Blood Urea Nitrogen 10.5 mg/dL (9.0-27.0); Calcium 8.5 mg/dL (8.7-10.3); Carbon Dioxide 27.2 mmol/L (21.6-31.8); Globulin 3.2 g/dL (1.6-3.3); Magnesium 1.9 mg/dL (1.5-2.4); Potassium 3.8 mmol/L (3.5-5.5); Total Bilirubin 0.4 mg/dL (0.30-1.20); Total Protein 7.3 g/dL (6.2-8.2)
[2021-09-24] MEDS: NAPROXEN 250 MG TAB PO SCH ×3 (13:37→22:10)
[2021-09-24 13:40] LABS: Glucose,Whole Blood 203 mg/dL (75-99)
[2021-09-24 15:00] LABS: Folate, Serum 9.1 ng/mL (4.40-31.00)
[2021-09-24 18:12] LABS: Glucose,Whole Blood 99 mg/dL (75-99)
--- NOTE | 2021-09-24 18:21 | P.PN ---
Progress Note - Text Progress Note Date: 09/24/21 Chief Complaint: Tired History of presenting complaint: This is a 71-year-old patient, follows with visiting physicians Dr. Petersen. Chronic stable medical conditions include diabetes, hyperlipidemia, nonobstructive renal calculi, chronic compression fracture of L2 L4, chronic back pain, osteoporosis, diabetes type 2 with peripheral neuropathy, hypothyroid hemorrhoids. Patient has a prior history of coronary artery disease with stent in 2008, 2009. Subtotal thyroidectomy. Patient lives at [facility]. Has a public guardian. Patient is brought to the ER by EMS. They were told that patient been complaining of feeling lethargic for last 2 days. No pain no trauma. No shortness of breath. Patient thinks she may have had a fever earlier. No short of breath no cough no urinary symptoms. Patient has chronic low back pain. Normally has a bowel movement every 3-4 days. Admitted with what was felt to be dehydration from decreased oral intake and also metabolic encephalopathy from medications. 09/24/2021. Patient more awake today. She has chronic low back pain not acute. Mamta pad is ordered. Neurology did order orthopedic consult. Naproxen is also added. Discussed with the patient about concerns using more narcotics and chronic pain. Patient does state that she is quite a bit sleepy at home. Evening dose of trazodone cutback 200 mg. Lab the patient sit up in a chair. Review of systems: Was done for constitutional, cardiovascular, GI, pulmonary. r elevant finding as above Active Medications Atorvastatin Calcium (Atorvastatin 10 Mg Tab) 10 mg PO HS@2200 [facility] Last Admin: 09/23/21 23:12 Dose: 10 mg Documented by: Baclofen (Baclofen 10 Mg Tab) 5 mg PO TID [facility] Last Admin: 09/24/21 16:38 Dose: 5 mg Documented by: Cholecalciferol (Cholecalciferol 25 Mcg (1000 Iu) Tablet) 125 mcg PO DAILY@0700 [facility] Last Admin: 09/24/21 08:48 Dose: 125 mcg Documented by: Clopidogrel Bisulfate (Clopidogrel 75 Mg Tab) 75 mg PO DAILY@0700 [facility] Last Admin: 09/24/21 08:50 Dose: 75 mg Documented by: Enoxaparin Sodium (Enoxaparin 40 Mg/0.4 Ml Syringe) 40 mg SQ DAILY [facility] Last Admin: 09/24/21 08:48 Dose: 40 mg Documented by: Famotidine (Famotidine 20 Mg Tab) 20 mg PO BID@699,1999 [facility] Last Admin: 09/24/21 08:48 Dose: 20 mg Documented by: Gabapentin (Gabapentin 400 Mg Cap) 400 mg PO TID@0700,1599,1999 [facility] Last Admin: 09/24/21 16:39 Dose: 400 mg Documented by: Hydrocortisone (Hydrocortisone 1% Cream 30 Gm Tube) 1 applic TOPICAL BID PRN PRN Reason: Rash Sodium Chloride (Saline 0.9%) 1,000 mls @ 130 mls/hr IV .Q7H42M [facility] Last Admin: 09/24/21 13:40 Dose: 130 mls/hr Documented by: Insulin Aspart (Insulin Aspart (Novolog) 100 Unit/Ml Vial) 0 unit SQ ACHS [facility]; Protocol Last Admin: 09/24/21 13:38 Dose: 4 unit Documented by: Isosorbide Mononitrate (Isosorbide Mononitrate Er 30 Mg Tab.Er.24h) 30 mg PO DAILY@0700 [facility] Last Admin: 09/24/21 08:50 Dose: 30 mg Documented by: Lactic Acid (Ammonium Lactate 12% Cream 140 Gm Tube) 1 applic TOPICAL DAILY PRN; Protocol PRN Reason: Rash Levothyroxine Sodium (Levothyroxine 125 Mcg Tab) 125 mcg PO DAILY@0630 [facility] Last Admin: 09/24/21 05:40 Dose: 125 mcg Documented by: Linagliptin (Linagliptin 5 Mg Tablet) 5 mg PO DAILY@0700 [facility] Last Admin: 09/24/21 08:50 Dose: 5 mg Documented by: Metformin HCl (Metformin 500 Mg Tab) 500 mg PO DAILY@0700 [facility] Last Admin: 09/24/21 08:49 Dose: 500 mg Documented by: Metoprolol Tartrate (Metoprolol Tartrate 50 Mg Tab) 100 mg PO BID@0700,1600 [facility] Last Admin: 09/24/21 16:38 Dose: 100 mg Documented by: Naproxen (Naproxen 250 Mg Tab) 250 mg PO TID [facility] Last Admin: 09/24/21 16:41 Dose: 250 mg Documented by: Nitroglycerin (Nitroglycerin Sl Tabs 0.4 Mg Tab) 0.4 mg SUBLINGUAL Q5M PRN PRN Reason: Chest Pain Nystatin (Nystatin 100,000 Unit/Gm Powd 15 Gm) 1 applic TOPICAL BID PRN; Protocol PRN Reason: Rash Ondansetron HCl (Ondansetron 4 Mg/2 Ml Vial) 4 mg IVP Q8HR PRN PRN Reason: Nausea And Vomiting Potassium Chloride (Potassium Chloride Er 10 Meq Tab.Er.Prt) 10 meq PO BID@0700,2200 [facility] Last Admin: 09/24/21 08:49 Dose: 10 meq Documented by: Trazodone HCl (Trazodone Hcl 100 Mg Tab) 100 mg PO HS [facility] Triamcinolone Acetonide (Triamcinolone 0.1% Cream 80 Gm Tube) 1 applic TOPICAL BID PRN; Protocol PRN Reason: Rash Venlafaxine HCl (Venlafaxine Hcl Er 150 Mg Cap) 150 mg PO DAILY@0700 [facility] Last Admin: 09/24/21 08:49 Dose: 150 mg Documented by: Past medical history to include: Renal calculi, chronic compression fracture L2 L4, osteoporosis, diabetes type 2 with peripheral neuropathy, obstructive sleep apnea without device, hypothyroid, coronary artery disease with stent in 1999 9009, anxiety depression Social history: Lives at [facility]. Uses a walker. Did smoke in the past. Physical examination: VITAL SIGNS: 97.6, 56, 17, 154/85, 93% on 2 L GENERAL: more awake today. EYES: Pupils equal. Conjunctiva normal. HEENT: External appearance of nose and ears normal, oral cavity dry mucous membranes NECK: JVD not raised; masses not palpable. HEART: First and second heart sounds are normal; no edema. LUNGS: Respiratory rate normal; clear to auscultation. ABDOMEN: Soft, nontender, liver spleen not palpable, no masses palpable. PSYCH: Answering questions appropriately MUSCULAR skeletal: Evidence of some OA. INVESTIGATIONS, reviewed in the clinical context: September 24: White count 9.3 hemoglobin 14.4 platelets 209 potassium 3.9 creatinine 0.6 WBC 8.7 hemoglobin 14.1 platelets 210 sodium 142 potassium 4.2 BUN 18 creatinine 0.63 UA positive for protein trace Urine drug screen positive for opiates, tricyclic antidepressants Coronavirus [PCR]: Not detected Troponin I less than 0.012. ProBNP 232 TSH 0.954 EKG tracing personally reviewed by me-normal sinus rhythm. Nonspecific T-wave changes.. Computed tomography scan of the abdomen pelvis. Interstitial infiltrates and posterior lung bases. Chronic. Nonobstructing renal calculi. Multiple lumbar compression fractures. Chest x-ray film personally reviewed by me-portable. Underpenetrated. Cannot rule out infiltrate Assessment and plan: -Patient has been feeling weak diet and on for last 2 days. Decreased appetite. Has a dry mucous membrane. Elevated BUN. Clinically dehydrated: Better Decrease IV fluids -Coronary artery disease with a prior stent in 2008 Imdur ER 30 mg daily Lopressor 100 mg twice a day Zocor 20 mg daily at bedtime Norvasc 10 mg daily -Morbid obesity BMI 45.9 Weight loss measures -Diabetes mellitus type 2, on oral hypoglycemic Follow Accu-Cheks. janumet -Hyperlipidemia Zocor -Essential hypertension- Lopressor 100 mg twice a day. Hold off amlodipine for now -Chronic compression fracture L2-L4 K- pad. Resume baclofen at 5 mg 3 times a day. Add naproxen 250 mg 3 times a day. -Chronic gait dysfunction uses a walker Fall precautions -Diabetic peripheral neuropathy -Obstructive sleep apnea does not use a device Follow FiO2 -Hypothyroid Levothyroxine 125 g daily. -Anxiety depression not otherwise specified Effexor XL 150 mg daily, trazodone 150 mg by mouth every daily at bedtime -Acute metabolic encephalopathy from medications Decrease trazodone 200 mg at night. IV fluids. Hold off Norvasc. Other medications to continue. Change baclofen to 5 mg 3 times a day. No obvious evidence of any infection. Discussed with the patient use of narcotics not appropriate in chronic pain. Naproxen added. K pad. Cutback evening dose of trazodone. Up in chair.
--- NOTE | 2021-09-24 18:56 | EEG ---
ELECTROENCEPHALOGRAM REPORT DATE OF SERVICE: 09/24/2021. CLINICAL HISTORY: This is a 71-year-old woman with altered mental status. This video EEG is obtained to evaluate for seizure epileptiform activity. RELEVANT MEDICATION: The patient is on gabapentin. Otherwise, the patient is not on any antiepileptic drugs. EEG TYPE: A routine 21 channel EEG is performed with video using the 10/20 electrode placement system. DESCRIPTION: Awake state is obtained. During awake state, the background consists of low to moderate voltage of 6-7 hertz theta activity. At times the background consists of diffuse nonrhythmic delta activity. There is no physiological sleep architecture seen. There is no focal slowing seen. Interictal and ictal is none. ACTIVATION PROCEDURE: Photic stimulation and hyperventilation is not performed. CLINICAL INTERPRETATION: This is an abnormal routine EEG. The background slowing is suggestive of moderate encephalopathy. There are no focal slowing, epileptiform discharges or seizure on the EEG. Clinical correlation is recommended. DAYRON / WILMA: [id number] / [email or web address]
[2021-09-24 19:50] LABS: Glucose,Whole Blood 110 mg/dL (75-99)
[2021-09-24] MEDS ORDERED: VANCOMYCIN IV PER PHARMACY 1 EACH MISC MISCELLANE PRN (20:59)
[2021-09-24] MEDS ORDERED: traZODone HCL 100 MG TAB PO SCH (21:00)
[2021-09-24] MEDS ORDERED: VANCOMYCIN 1,750 MG in SODIUM CHLORIDE 0.9% 500 ML 500 ML IVPB ONE (21:30)
[2021-09-24] MEDS: ATORVASTATIN 10 MG TAB PO SCH (22:09)
[2021-09-25 01:50] LABS: Glucose,Whole Blood 108 mg/dL (75-99)
[2021-09-25] MEDS: SODIUM CHLORIDE 0.9% 1,000 ML IV SCH ×2 (04:54→12:45)
[2021-09-25 06:12] LABS: Glucose,Whole Blood 116 mg/dL (75-99)
[2021-09-25] MEDS: LEVOTHYROXINE 125 MCG TAB PO SCH (06:17)
[2021-09-25 08:04] VITALS: RESP 18
[2021-09-25] MEDS: LINAGLIPTIN 5 MG TABLET PO SCH (08:20)
[2021-09-25] MEDS: ISOSORBIDE MONONITRATE ER 30 MG TAB.ER.24H PO SCH (08:20)
[2021-09-25] MEDS: VENLAFAXINE HCL ER 150 MG CAP PO SCH (08:20)
[2021-09-25] MEDS: GABAPENTIN 400 MG CAP PO SCH (08:20)
[2021-09-25] MEDS: FAMOTIDINE 20 MG TAB PO SCH (08:20)
[2021-09-25] MEDS: BACLOFEN 10 MG TAB PO SCH (08:20)
[2021-09-25] MEDS: CHOLECALCIFEROL 25 MCG (1000 IU) TABLET PO SCH (08:21)
[2021-09-25] MEDS: metFORMIN 500 MG TAB PO SCH (08:21)
[2021-09-25] MEDS: CLOPIDOGREL 75 MG TAB PO SCH (08:21)
[2021-09-25] MEDS: ENOXAPARIN 40 MG/0.4 ML SYRINGE SQ SCH (08:21)
[2021-09-25] MEDS: METOPROLOL TARTRATE 50 MG TAB PO SCH (08:21)
[2021-09-25] MEDS: POTASSIUM CHLORIDE ER 10 MEQ TAB.ER.PRT PO SCH (08:21)
[2021-09-25] MEDS: INSULIN ASPART (NovoLOG) 100 UNIT/ML VIAL SQ SCH ×2 (08:22→13:21)
[2021-09-25] MEDS: NAPROXEN 250 MG TAB PO SCH (08:24)
--- NOTE | 2021-09-25 10:50 | P.PN ---
Subjective Progress Note Date: 09/25/21 Principal diagnosis: Chronic back pain, compression fractures T12, L2, L4, L5 vertebra Patient was evaluated today at bedside, Dr. Arzate was also available to examine the patient. Patient does note mild discomfort in the lower back. She notes no worsening discomfort over the last day or so. We discussed treatment options with the patient today bedside. She has no other orthopedic complaints at this time. Objective - Vital Signs Vital signs: Vital Signs Temp 98.1 F 09/25/21 07:00 Pulse 83 09/25/21 07:00 Resp 18 09/25/21 07:00 BP 159/84 09/25/21 07:00 Pulse Ox 93 L 09/25/21 07:00 Intake & Output 09/24/21 09/25/21 09/25/21 18:59 06:59 18:59 Intake Total 200 180 Balance 200 180 Intake: Oral 200 180 Other: # Voids 1 5 1 # Bowel Movements 1 1 - Exam Gen: AOx3, NAD VSS stable at this time Integument: No obvious open lesions or sores visualized cervical, thoracic or lumbar spine Palpation: No tenderness with palpation of the cervical or upper thoracic region. She has mild tenderness with palpation over thoracic and lumbar region mainly in the midline ROM: Patient demonstrates full range of motion in all major muscle groups in the bilateral upper and lower extremities, limited elevation and abduction with the left upper extremity Sensory Exam: Senory exam to light touch is intact C5-T1 Senosry exam to light touch is intact L2-S1 Reflexes: Negative Debbie's bilaterally Negative Babinski bilaterally Negative clonus bilaterally - Labs CBC & Chem 7: 09/24/21 06:40 09/24/21 06:40 Labs: Abnormal Lab Results - Last 24 Hours (Table) 09/24/21 09/24/21 09/24/21 Range/Units 06:40 06:40 06:40 MCHC 31.2 L (32.0-37.0) g/dL Monocytes # 1.12 H (0.20-1.00) X 10*3/uL Eosinophils # 0.45 H (0.04-0.35) X 10*3/uL Anion Gap 13.80 H (4.00-12.00) mmol/L Glucose 126 H (70-110) mg/dL POC Glucose (mg/dL) (75-99) mg/dL Hemoglobin A1c 6.5 H (4.0-6.0) % Calcium 8.5 L (8.7-10.3) mg/dL Albumin/Globulin Ratio 1.28 L (1.60-3.17) g/dL 09/24/21 09/24/21 09/25/21 Range/Units 13:38 19:48 01:48 MCHC (32.0-37.0) g/dL Monocytes # (0.20-1.00) X 10*3/uL Eosinophils # (0.04-0.35) X 10*3/uL Anion Gap (4.00-12.00) mmol/L Glucose (70-110) mg/dL POC Glucose (mg/dL) 203 H 110 H 108 H (75-99) mg/dL Hemoglobin A1c (4.0-6.0) % Calcium (8.7-10.3) mg/dL Albumin/Globulin Ratio (1.60-3.17) g/dL 09/25/21 Range/Units 06:11 MCHC (32.0-37.0) g/dL Monocytes # (0.20-1.00) X 10*3/uL Eosinophils # (0.04-0.35) X 10*3/uL Anion Gap (4.00-12.00) mmol/L Glucose (70-110) mg/dL POC Glucose (mg/dL) 116 H (75-99) mg/dL Hemoglobin A1c (4.0-6.0) % Calcium (8.7-10.3) mg/dL Albumin/Globulin Ratio (1.60-3.17) g/dL Microbiology - Last 24 Hours (Table) 09/24/21 19:00 Blood Culture Gram Stain - Preliminary Blood Blood Culture - Preliminary Staphylococcus epidermidis 09/23/21 18:45 Blood Culture - Preliminary Blood No Growth after 24 hours 09/23/21 19:00 Blood Culture - Final Blood Assessment and Plan Assessment: Chronic back pain Compression fractures T12, L2, L4, L5 vertebral body Other medical comorbidities Plan: Dr. Arzate was available also today to discuss treatment options with the patient. No emergent orthopedic surgical intervention is recommended at this time. We will continue with conservative measures at this time, recommending LSO brace, prescription was placed in chart and case management was made aware Recommend use of walker with ambulation at all times, no lifting, bending or twisting recommended Recommend follow-up with Dr. Arzate in the outpatient setting for recheck in the next 2-3 weeks Other medical specialty recommendation Time with Patient: Less than 30
[2021-09-25] MEDS ORDERED: VANCOMYCIN 1,750 MG in SODIUM CHLORIDE 0.9% 500 ML 500 ML IVPB SCH (12:00)
[2021-09-25 12:50] LABS: Glucose,Whole Blood 120 mg/dL (75-99)
[2021-09-25 14:25] VITALS: BP 162/80; PULSE 85; TEMP 97.8
--- NOTE | 2021-09-25 20:34 | P.DS ---
Providers Date of admission: 09/25/21 07:44 Expected date of discharge: 09/25/21 Attending physician: Reji Canada Consults: 09/23/21 17:42 Consult Physician Routine Consulting Provider: Harshal Mccann Consult Reason/Comments: altered mental status Do you want consulting provider notified?: Yes, Notify in am 09/24/21 11:17 Consult Physician Routine Consulting Provider: Germán Arzate Consult Reason/Comments: chronic back pain Do you want consulting provider notified?: Yes Primary care physician: Jc [facility] Course: Chief Complaint: Tired History of presenting complaint: This is a 71-year-old patient, follows with visiting physicians Dr. Petersen. Chronic stable medical conditions include diabetes, hyperlipidemia, nonobstructive renal calculi, chronic compression fracture of L2 L4, chronic back pain, osteoporosis, diabetes type 2 with peripheral neuropathy, hypothyroid hemorrhoids. Patient has a prior history of coronary artery disease with stent in 2008, 2009. Subtotal thyroidectomy. Patient lives at [facility]. Has a public guardian. Patient is brought to the ER by EMS. They were told that patient been complaining of feeling lethargic for last 2 days. No pain no trauma. No shortness of breath. Patient thinks she may have had a fever earlier. No short of breath no cough no urinary symptoms. Patient has chronic low back pain. Normally has a bowel movement every 3-4 days. Admitted with what was felt to be dehydration from decreased oral intake and also metabolic encephalopathy from medications. 09/24/2021. Patient more awake today. She has chronic low back pain not acute. Mamta pad is ordered. Neurology did order orthopedic consult. Naproxen is also added. Discussed with the patient about concerns using more narcotics and chronic pain. Patient does state that she is quite a bit sleepy at home. Evening dose of trazodone cutback 200 mg. Lab the patient sit up in a chair. 09/25/2021. Care was discussed in detail with the patient. Reinforced not to increase the dose of narcotics. Doing well with naproxen and heating pad. Discussed with neurology. No further studies to be done. Patient more awake today after cutting back the dose of trazodone. Follow-up with orthopedics as needed. Discussion and discharge planning more than 35 minutes Consultation: Dr. Arzate from orthopedics Dr. Mccann from neurology Past medical history to include: Renal calculi, chronic compression fracture L2 L4, osteoporosis, diabetes type 2 with peripheral neuropathy, obstructive sleep apnea without device, hypothyroid, coronary artery disease with stent in 1999 9009, anxiety depression Social history: Lives at [facility]. Uses a walker. Did smoke in the past. Physical examination: VITAL SIGNS: 97.8, 85, 18, 162/82, 92% room air GENERAL: Awake, indicated. EYES: Pupils equal. Conjunctiva normal. HEENT: External appearance of nose and ears normal, oral cavity dry mucous membranes NECK: JVD not raised; masses not palpable. HEART: First and second heart sounds are normal; no edema. LUNGS: Respiratory rate normal; clear to auscultation. ABDOMEN: Soft, nontender, liver spleen not palpable, no masses palpable. PSYCH: AO 3, mood and affect normal MUSCULAR skeletal: Evidence of some OA. INVESTIGATIONS, reviewed in the clinical context: EEG: No seizure activity. Finding suggestive of encephalopathy. September 24: White count 9.3 hemoglobin 14.4 platelets 209 potassium 3.9 creatinine 0.6 WBC 8.7 hemoglobin 14.1 platelets 210 sodium 142 potassium 4.2 BUN 18 creatinine 0.63 UA positive for protein trace Urine drug screen positive for opiates, tricyclic antidepressants Coronavirus [PCR]: Not detected Troponin I less than 0.012. ProBNP 232 TSH 0.954 EKG tracing personally reviewed by me-normal sinus rhythm. Nonspecific T-wave changes.. Computed tomography scan of the abdomen pelvis. Interstitial infiltrates and posterior lung bases. Chronic. Nonobstructing renal calculi. Multiple lumbar compression fractures. Chest x-ray film personally reviewed by me-portable. Underpenetrated. Cannot rule out infiltrate Assessment and plan: - Clinically dehydrated: Decreased oral intake.: Beta Received IV fluids -Coronary artery disease with a prior stent in 2008 Imdur ER 30 mg daily Lopressor 100 mg twice a day Zocor 20 mg daily at bedtime Norvasc 10 mg daily -Morbid obesity BMI 45.9 Weight loss measures -Diabetes mellitus type 2, on oral hypoglycemic Follow Accu-Cheks. janumet -Hyperlipidemia Zocor -Essential hypertension- Lopressor 100 mg twice a day. Hold off amlodipine for now -Chronic compression fracture L2-L4 K- pad. baclofen at 5 mg 3 times a day. Add naproxen 250 mg 3 times a day. -Chronic gait dysfunction uses a walker Fall precautions -Diabetic peripheral neuropathy -Obstructive sleep apnea does not use a device Follow FiO2 -Hypothyroid Levothyroxine 125 g daily. -Anxiety depression not otherwise specified Effexor XL 150 mg daily, trazodone 150 mg by mouth every daily at bedtime -Acute metabolic encephalopathy from medications: Improved Decrease trazodone 200 mg at night. Disposition: Home Plan - Discharge Summary Discharge Rx Participant: Yes New Discharge Prescriptions: New Naproxen [Naprosyn] 250 mg PO TID #21 tab traZODone HCL [Desyrel] 100 mg PO HS #30 tab Continue Potassium Chloride ER [K-Dur 10] 10 meq PO BID@0700,2200 Levothyroxine Sodium [Synthroid] 125 mcg PO DAILY@0630 Clopidogrel [Plavix] 75 mg PO DAILY@0700 Venlafaxine HCl [Effexor XR] 150 mg PO DAILY@0700 Isosorbide Mononitrate ER [Imdur] 30 mg PO DAILY@0700 ALPRAZolam [Xanax] 0.25 mg PO TID PRN PRN Reason: Anxiety Baclofen 10 mg PO BID@0700,1999 Famotidine 20 mg PO BID@0700,1999 Gabapentin [Neurontin] 400 mg PO TID@0700,1600,1999 Loperamide [Imodium] 2 mg PO QID PRN PRN Reason: Loose Stool Ammonium Lactate Cream [Lac-Hydrin 12% Cream] 1 applic TOPICAL DAILY PRN PRN Reason: Rash Hydrocortisone Cream [Hydrocortisone 2.5% Cream] 1 applic TOPICAL BID PRN PRN Reason: Rash Nystatin 100,000 Unit/gm Powd [Mycostatin Powder] 1 applic TOPICAL BID PRN PRN Reason: Rash Nitroglycerin Sl Tabs [Nitrostat] 0.4 mg SUBLINGUAL Q5M PRN #25 tab PRN Reason: Chest Pain Simvastatin [Zocor] 20 mg PO HS@2200 sitaGLIPtin PHOS/metFORMIN HCL [Janumet 50-500 mg Tablet] 1 tab PO DAILY@0700 Triamcinolone 0.1% Cream [Kenalog 0.1% Cream] 1 applicatio TOPICAL BID PRN PRN Reason: Rash Cholecalciferol (Vitamin D3) [Vitamin D3 (125 MCG = 5,000 IU)] 125 mcg PO DAILY@0700 Metoprolol Tartrate [Lopressor] 100 mg PO BID@0700,1600 Changed HYDROcodone/APAP 7.5-325MG [[place] 7.5-325] 1 tab PO TID@0700,1600,2200 PRN #0 PRN Reason: Pain Discontinued traZODone HCL 150 mg PO HS@2200 Meclizine [Antivert] 25 mg PO DAILY PRN PRN Reason: DIZZINESS No Action amLODIPine [Norvasc] 10 mg PO DAILY@0700 Discharge Medication List Clopidogrel [Plavix] 75 mg PO DAILY@0700 07/09/17 [History] Levothyroxine Sodium [Synthroid] 125 mcg PO DAILY@0630 07/09/17 [History] Potassium Chloride ER [K-Dur 10] 10 meq PO BID@0700,2200 07/09/17 [History] Venlafaxine HCl [Effexor XR] 150 mg PO DAILY@0707/09/17 [History] Isosorbide Mononitrate ER [Imdur] 30 mg PO DAILY@0700 09/23/19 [History] ALPRAZolam [Xanax] 0.25 mg PO TID PRN 06/20/20 [History] Baclofen 10 mg PO BID@07,199906/20/20 [History] Famotidine 20 mg PO BID@699,199906/20/20 [History] Gabapentin [Neurontin] 400 mg PO TID@0700,1599,199906/20/20 [History] Loperamide [Imodium] 2 mg PO QID PRN 06/20/20 [History] Ammonium Lactate Cream [Lac-Hydrin 12% Cream] 1 applic TOPICAL DAILY PRN 10/20/20 [History] Hydrocortisone Cream [Hydrocortisone 2.5% Cream] 1 applic TOPICAL BID PRN 10/20/20 [History] Nystatin 100,000 Unit/gm Powd [Mycostatin Powder] 1 applic TOPICAL BID PRN 10/20/20 [History] Nitroglycerin Sl Tabs [Nitrostat] 0.4 mg SUBLINGUAL Q5M PRN #25 tab 10/22/20 [Rx] Cholecalciferol (Vitamin D3) [Vitamin D3 (125 MCG = 5,000 IU)] 125 mcg PO DAILY@0700 09/23/21 [History] Metoprolol Tartrate [Lopressor] 100 mg PO BID@0700,1600 09/23/21 [History] Simvastatin [Zocor] 20 mg PO HS@2200 09/23/21 [History] Triamcinolone 0.1% Cream [Kenalog 0.1% Cream] 1 applicatio TOPICAL BID PRN 09/23/21 [History] amLODIPine [Norvasc] 10 mg PO DAILY@0700 09/23/21 [History] sitaGLIPtin PHOS/metFORMIN HCL [Janumet 50-500 mg Tablet] 1 tab PO DAILY@0700 09/23/21 [History] HYDROcodone/APAP 7.5-325MG [[place] 7.5-325] 1 tab PO TID@0700,1600,2200 PRN #0 09/25/21 [Rx] Naproxen [Naprosyn] 250 mg PO TID #21 tab 09/25/21 [Rx] traZODone HCL [Desyrel] 100 mg PO HS #30 tab 09/25/21 [Rx] Follow up Appointment(s)/Referral(s): Jc Petersen MD [Primary Care Provider] - 1-2 days Germán Arzate DO [Doctor of Osteopathic Medicine] - 10/10/21 11:30 am Patient Instructions/Handouts: Back Pain (GEN) Activity/Diet/Wound Care/Special Instructions: pt resides at [facility] Discharge Disposition: TRANSFER TO SNF/ECF
== END 2021-09-25 15:56 | DRG 92 ==
LOC: EC 13:02 → 6NMEDSUR 17:50 → OBSVTOIN 09-25 07:44
PROVIDERS: ADMIT Hospitalist; ATTEND Hospitalist
DX: G92.8 Other toxic encephalopathy (principal); Z68.42 Body mass index [BMI] 45.0-49.9, adult; M80.00XA Age-related osteoporosis with current pathological fracture, unspecified site, initial encounter for fracture; E03.9 Hypothyroidism, unspecified; E11.42 Type 2 diabetes mellitus with diabetic polyneuropathy; E66.01 Morbid (severe) obesity due to excess calories; N20.0 Calculus of kidney; Z96.612 Presence of left artificial shoulder joint; Z20.822 Contact with and (suspected) exposure to COVID-19; M85.80 Other specified disorders of bone density and structure, unspecified site; E55.9 Vitamin D deficiency, unspecified; G43.909 Migraine, unspecified, not intractable, without status migrainosus; R94.4 Abnormal results of kidney function studies; K59.00 Constipation, unspecified; I25.10 Atherosclerotic heart disease of native coronary artery without angina pectoris; I10 Essential (primary) hypertension; I25.2 Old myocardial infarction; G89.29 Other chronic pain; G47.33 Obstructive sleep apnea (adult) (pediatric); F41.8 Other specified anxiety disorders; I44.4 Left anterior fascicular block; Z79.02 Long term (current) use of antithrombotics/antiplatelets; Z95.5 Presence of coronary angioplasty implant and graft; Z90.710 Acquired absence of both cervix and uterus; Z87.891 Personal history of nicotine dependence; Z87.442 Personal history of urinary calculi; Z79.890 Hormone replacement therapy; Z79.899 Other long term (current) drug therapy; Z82.49 Family history of ischemic heart disease and other diseases of the circulatory system; T43.215A Adverse effect of selective serotonin and norepinephrine reuptake inhibitors, initial encounter
CPT/HCPCS: 36415; 70450; 71045; 74177; 80053; 80306; 80320; 81003; 82607; 82746; 82803; 83036; 83605; 83735; 83880; 84443; 84484; 85025; 85610; 85730; 87040; 87635; 93005; 95816; 96374; 99285